=== PATIENT | female | born 1930 | race African-American/Black ===

== ENCOUNTER 2016-05-04 15:13 | Emergency (ER) | payer MEDICARE ==
[~2016-05-04] VITALS: Wt 77.5 kg
[2016-05-04] MEDS ORDERED: traMADol 50 MG TAB PO ONE (16:00)
--- NOTE | 2016-05-04 16:55 | ERD ---
ER Documentation Chief Complaint Date/Time DATE: 05/04/16 TIME: 16:50 Chief Complaint BILAT FEET BURNING SENSTATION [id number] REFFERED BY PMD HPI 85-year-old female complaining of left foot pain 1 month. Patient stated the pain is on the toes of her left foot, feels like burning. Pain is really severe , she is unable to sleep due to pain. Patient's PCP is Dr. Toribio. Patient states that she was given [facility] and referral to a road consultant. Her appointment with road consultant is on 05/12/2016. However, she is unable to bear the pain because [facility] has not worked. Denies falls. Denies any other injury or trauma. Denies history of diabetes. Denies fever or chills. ROS All systems reviewed and are negative except as per history of present illness. PMhx/Soc History of hypertension. Physical Exam Vitals Vital Signs Date Time Temp Pulse Resp B/P Pulse Ox O2 Delivery O2 Flow Rate FiO2 05/04/16 15:23 98.1 54 18 151/70 98 Physical Exam General impression: Well-developed, well-nourished, 85-year-old female, alert, oriented, in no acute distress. Patient is hard of hearing. Head: Normocephalic, atraumatic. Respiration: Normal respiratory effort. Lungs clear to auscultate bilaterally. No wheezes, rales or rhonchi. Cardiovascular: Regular rate and rhythm. No murmurs or extra heart sounds. Abdomen: Abdomen normal to inspection. Nontender. No masses or organomegaly. Bowel sounds normal. Back: Normal to inspection. No midline spine tenderness. No CVA tenderness. Extremities: Toes of the left foot cyanotic, tender to light palpation. Unable to palpate dorsalis pedis or posterior tibial arteries on the left foot. Normal sensation of the left foot. Normal range of motion of the left ankle, patient is unable to move her left toes due to pain. Right foot dorsalis pedis and posterior tibial arteries palpable with 1+ weak pulse. Neuro: Mental status normal, speech normal. Skin: Normal turgor. Psych: Normal mood and affect. Results 24 hrs Current Medications Medications (Trade) Dose Ordered Sig/Jacky Route PRN Reason Start Time Stop Time Status Last Admin Dose Admin Tramadol HCl (Ultram) 50 mg ONCE ONCE PO 05/04/16 16:00 05/04/16 16:03 DC 05/04/16 16:48 Procedures/MDM Tramadol given to the patient in the ED for pain. Patient reports decreased pain after tramadol. Left lower extremity arterial Doppler ultrasound was obtained. Abnormal flow was noted throughout, with left dorsalis pedis artery not visualized indicating possible occlusion. Patient is transferred to ED [address] Pimentel, who indicated that he will be ordering a CT angiogram and consult with vascular surgeon. Patient condition at time of transfer: Stable. SONI ROBERTS NP May 04, 2016 16:55
--- NOTE | 2016-05-04 16:58 | RADRPT ---
PROCEDURE: US left lower extremity arteries. CLINICAL INDICATION: Left leg pain. Claudication that interferes significantly with the patient's lifestyle. TECHNIQUE: Multiple longitudinal and transverse images of the left lower extremity arteries were o btained with jiménez scale and color Doppler imaging. COMPARISON: No prior studies are available for comparison. FINDINGS: Location CFA43 cm/sec PSFA30 cm/sec MSFA56 cm/sec DSFA83 cm/sec POP23 cm/sec PTA33 cm/sec DPAnot visualized There is abnormal dampened monophasic flow throughout the left lower extremity including the common femoral artery. 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 IMPRESSION: 1. 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 2. Flow in the left dorsalis pedis artery is not visualized indicating it may be occluded. RPTAT: QQ .Leobardo Jacobson MD, MD Date Time Electronically viewed and signed by .Leobardo Jacobson MD, on 05/04/2016 16:58 .R/
[2016-05-04] MEDS ORDERED: morphine 4 MG/ML VIAL IV STA (18:22)
[2016-05-04 19:10] LABS: POTASSIUM 4.4 mmol/L (3.5-5.1)
[2016-05-04 19:13] LABS: CREATININE 0.85 mg/dl (0.44-1.00)
[2016-05-04 19:14] LABS: CALCIUM 9.8 mg/dl (8.4-10.2)
[2016-05-04] MEDS ORDERED: IOHEXOL 100 ML ONE (19:38)
[2016-05-04] MEDS ORDERED: SOD CHLORIDE 0.9% 100 ML ONE (19:38)
[2016-05-04] MEDS ORDERED: IOHEXOL 350MG/ML 50 ML BTL ONE (19:43)
[2016-05-04] MEDS ORDERED: SOD CHLORIDE 0.9% 500 ML IV ONE (20:00)
--- NOTE | 2016-05-04 20:36 | EN ---
Date/Time of Note Date/Time of Note DATE: 05/04/16 TIME: 20:32 ER Progress Note This is a 85-year-old female his workup began in fast track. She has severe pain from claudication of her left leg secondary to peripheral vascular disease. She does have a warm foot with cold toes. She does have a dusky appearance to 2 of her toes. She has palpable posterior tibial pulse as well as flow demonstrated on Doppler ultrasound the posterior tibial area. Patient refuses to stay in the hospital. I believe she would benefit from having CT Angio of the leg to map the areas of lesion in the severity of the severity of the vascular disease for her follow-up as a outpatient. She waited for the CT and I obtained renal studies and gave her 500 mL of IV fluid to prevent contrast extravasation. Initially she refused the CAT scan until I called family and have them talk her back into obtaining it. Try to do the best thing for the patient who refuses to be admitted to the hospital. Endorsing the CT read to the oncoming physician. Also going to discharge her with Keflex to prevent any infection of her toes with poor circulation. She has no signs of infection at this time. Discharge diagnosis: 1)Severe peripheral vascular disease 2) left lower extremity claudication ABEBE CORONA DO May 04, 2016 20:36
[2016-05-04] MEDS ORDERED: CEPH-443 PO (20:37)
[2016-05-04] MEDS ORDERED: NAPR275T83 PO (20:40)
[2016-05-04] MEDS ORDERED: HYDR-906 PO ×2 (20:40→22:50)
--- NOTE | 2016-05-04 22:44 | RADRPT ---
PROCEDURE: CT angiogram bilateral lower extremity runoff with contrast CLINICAL INDICATION: Left leg pain. TECHNIQUE:: Contiguous axial images the pelvis and bilateral lower extremities to the feet were obta ined after the injection of 100 cc of Isovue 370. Images reconstructed in coronal, sagittal, 3-D for mat using maximum intensity projection technique. The calculated Dose Length Product (DLP) = 51 mGy- cm. Exam CTDlvol = 1192 mGy COMPARISON: Arterial ultrasound lower extremities 05/04/2016 FINDINGS: CTA pelvis: There is severe diffuse partially calcified atherosclerotic plaque in the distal abdom inal aorta and iliac vessels. There is no aortic aneurysm or dissection. Bilateral common iliac ar teries and external iliac arteries are patent with multifocal stenoses, greatest in the left externa l iliac artery.. Bilateral common femoral arteries are patent.. CTA Bilateral Extremities: There is severe diffuse partially calcified atherosclerotic plaque thro ughout all lower extremity major arteries. However, there is no definite segmental occlusion. Ther e is symmetric opacification of the bilateral common femoral, superficial femoral and popliteal efrain alyssa with multifocal stenoses, greatest in the distal superficial femoral arteries bilaterally.. Th e bilateral trifurcation vessels to the foot including the peroneal and anterior and posterior tibia l arteries are patent. The bilateral dorsalis pedis arteries are also patent. There is no contrast extravasation. There is no aneurysm. Additional findings: Examination of the pelvic contents demonstrates the a 4.1 cm a uterine calcific ation consistent with a fibroid. Multiple smaller uterine calcifications are present. There is a c omplex partially cystic 5.1 ml x 3.6 cm left adnexal, likely ovarian mass with calcifications. Mass abuts the sigmoid colon which has extensive diverticulosis. Urinary bladder is contracted. There i s no bowel obstruction or ileus. There is no free fluid. Degenerative changes of the lumbar spine and bilateral hips are present. IMPRESSION: 1. Extensive diffuse partially calcified atherosclerotic plaque from the level of the distal aorta t o the feet. Multifocal stenoses in all segments although there is no definite complete occlusion an d distal reconstitution. Flow is identified to both feet including the dorsalis pedis arteries of t he left foot. 2. Multiple uterine calcifications compatible fibroids. 3. Left adnexal likely ovarian complex cyst versus cystic mass. 4. Extensive sigmoid colon diverticulosis. 5. Degenerate changes of the lumbar spine. RPTAT: HMVK .James Perez MD, MD Date Time Electronically viewed and signed by .James Perez MD, MD on 05/04/2016 22:43 .K/
--- NOTE | 2016-05-04 22:46 | EN ---
Date/Time of Note Date/Time of Note DATE: 05/04/16 TIME: 22:46 ER Progress Note CTA lower extremity: 1. Extensive diffuse partially calcified atherosclerotic plaque from the level of the distal aorta to the feet. Multifocal stenoses in all segments although there is no definite complete occlusion and distal reconstitution. Flow is identified to both feet including the dorsalis pedis arteries of the left foot. 2. Multiple uterine calcifications compatible fibroids. 3. Left adnexal likely ovarian complex cyst versus cystic mass. 4. Extensive sigmoid colon diverticulosis. 5. Degenerate changes of the lumbar spine. This patient was signed out by her previous physician pending CTA of the lower extremity. I have reviewed the CTA results of the lower extremity and slight to the patient that she does have abnormal flow through her foot. This patient does not want to stay in the hospital. She does state that she has an appointment with her vascular surgeon on 12 May. I advised her that we would be happy to admit her to the hospital today for an earlier evaluation she is refusing. This patient will leave AGAINST MEDICAL ADVICE. I advised her that if her pain were to get worse she is to return immediately to the ER at this abnormal flow could get worse. The patient verbalized understanding understands risks of leaving including the risk of losing a friend and/or possibly . Patient will be discharged home with a prescription for [place] for pain control. MORGAN DE OLIVEIRA DO May 04, 2016 22:46
[2016-05-04] MEDS ORDERED: CEPH500C PO (22:53)
[2016-05-04 23:51] VITALS: BP 145/68; PULSE 61; RESP 18; TEMP 98
== END 2016-05-05 00:09 | disposition left against medical advice (07) ==
LOC: FTE 15:13 → E/R 05-05 00:09
DX: M79.672 Pain in left foot (principal)
CPT/HCPCS: 73706; 80048; 93926; 96374; 99285; J2270; J7040; Q9967

== ENCOUNTER 2016-05-17 14:37 | Inpatient (IN) | payer MEDICARE, OTHER ==
[~2016-05-17] VITALS: Ht 165.1 cm; Wt 78.9 kg
[~2016-05-17 14:37] MED LIST: CEPH-443 PO; CEPH500C PO; HYDR-906 PO; NAPR275T83 PO
[2016-05-17] MEDS ORDERED: ONDANSETRON 4 MG INJ IV STA (20:30)
[2016-05-17] MEDS ORDERED: SOD CHLORIDE 0.9% 500 ML IV STA (20:30)
[2016-05-17] MEDS ORDERED: morphine 4 MG/ML VIAL IV STA (20:30)
[2016-05-17] MEDS ORDERED: PIPER-TAZO 3.375 GM IV (PMX) 100 ML IVPB ONE (20:30)
[2016-05-17] MEDS ORDERED: GABA100C14 PO (20:34)
[2016-05-17] MEDS ORDERED: HYDR-906 PO (20:34)
[2016-05-17] MEDS ORDERED: ATEN100T PO (20:34)
[2016-05-17] MEDS ORDERED: AMLO-147 PO (20:35)
[2016-05-17 21:29] LABS: ADD SCAN DIFF NO
[2016-05-17 21:34] LABS: BASOPHIL # 0.1 10^3/ul (0.0-0.1); BASOPHILS % 0.9 % (0.0-2.0); EOSINOPHILS # 0.3 10^3/ul (0.0-0.5); EOSINOPHILS % 4.4 % (0.0-7.0); HEMATOCRIT 33.7 % (37.0-47.0); HEMOGLOBIN 10.8 g/dl (12.0-16.0); LYMPHOCYTES # 1.8 10^3/ul (0.8-2.9); LYMPHOCYTES % 26.9 % (15.0-51.0); MEAN CORPUSCULAR HEMOGLOBIN 32.2 pg (29.0-33.0); MEAN CORPUSCULAR VOLUME 100.6 fl (82.0-101.0); MEAN PLATELET VOLUME 11.5 fl (7.4-10.4); MONOCYTE # 0.6 10^3/ul (0.3-0.9); MONOCYTES % 8.8 % (0.0-11.0); NEUTROPHILS % 58.6 % (39.0-77.0); PLATELET COUNT 348 10^3/UL (140-415); RED BLOOD COUNT 3.35 10^6/ul (4.20-5.40); RED CELL DISTRIBUTION WIDTH 14.4 % (11.5-14.5); WHITE BLOOD COUNT 6.8 10^3/ul (4.8-10.8)
--- NOTE | 2016-05-17 21:36 | RADRPT ---
PROCEDURE: XR Chest. CLINICAL INDICATION: Shortness of breath TECHNIQUE: A single portable view of the chest was obtained. COMPARISON: None FINDINGS: The cardiomediastinal silhouette is within normal limits. The right hemidiaphragm is elevated. The l ungs and pleural spaces are otherwise clear. The soft tissues and osseous structures are unremarkab le. IMPRESSION: No acute cardiopulmonary disease. Elevated right hemidiaphragm. RPTAT: HPNM Physician Ahsan Date Time Electronically viewed and signed by Physician Ahsan on 05/17/2016 21:36 /
[2016-05-17 21:42] LABS: ALBUMIN 3.6 g/dl (3.3-4.9); CHLORIDE 99 mmol/L (97-110)
[2016-05-17 21:43] LABS: POTASSIUM 4.7 mmol/L (3.5-5.1); SODIUM 141 mmol/L (135-144)
--- NOTE | 2016-05-17 21:44 | RADRPT ---
PROCEDURE: XR Foot. CLINICAL INDICATION: Right foot pain TECHNIQUE: AP, lateral and oblique views of the right foot was obtained. The images were reviewed on a PACS workstation. COMPARISON: None. FINDINGS: The bones of the foot appear intact, with no evidence of fracture, dislocation, or subluxation. The joint spaces are preserved. Bone mineralization is normal. Dorsal soft tissue swelling is seen. The remaining soft tissue structures are intact. IMPRESSION: Dorsal soft tissue swelling. RPTAT: HPNM Physician Ahsan Date Time Electronically viewed and signed by Physician Ahsan on 05/17/2016 21:44 /
[2016-05-17 21:45] LABS: ALANINE AMINOTRANSFERASE 19 IU/L (13-69); ALKALINE PHOSPHATASE 99 IU/L (42-121); ANION GAP 17 (8-16); ASPARTATE AMINO TRANSFERASE 19 IU/L (15-46); BILIRUBIN,INDIRECT 0.4 mg/dl (0-1.1); BILIRUBIN,TOTAL 0.4 mg/dl (0.2-1.3); BLOOD UREA NITROGEN 20 mg/dl (7-20); CARBON DIOXIDE 30 mmol/L (21-31); CREATININE 0.76 mg/dl (0.44-1.00); TOTAL PROTEIN 7.6 g/dl (6.1-8.1)
[2016-05-17 21:46] LABS: CALCIUM 9.4 mg/dl (8.4-10.2); GLUCOSE 124 mg/dl (70-220)
--- NOTE | 2016-05-17 21:52 | ERA ---
ER Documentation Chief Complaint Date/Time DATE: 05/17/16 TIME: 21:44 Chief Complaint Complains of left leg pain sent from MD for evaluation HPI 85-year-old woman referred here by her night filler Dr. Justice for left foot swelling, redness, and bluish discoloration to the fourth and fifth toes. Patient has a history of peripheral vascular disease and has been using cephalexin for about [address] angiogram of the lower extremities and arterial Doppler ultrasound revealed aortoiliac atherosclerotic plaques extending down to the distal arteries of the feet. Patient has had increasing pain, no fevers or chills, no vomiting or diarrhea, no complaints of chest pain or shortness of breath. ROS All systems reviewed and are negative except as per history of present illness. Medications Home Meds Active Scripts Cephalexin* (Cephalexin*) 500 Mg Capsule, 500 MG PO Q8, #21 CAP Prov:MORGAN DE OLIVEIRA DO 05/04/16 Reported Medications Amlodipine Besylate* (Amlodipine Besylate*) 10 Mg Tablet, 10 MG PO DAILY, #30 TAB 05/17/16 Atenolol* (Atenolol*) 100 Mg Tablet, 100 MG PO DAILY, #30 TAB 05/17/16 Hydrocodone/Acetaminophen ([place] 5-325 Tablet) 1 Each Tablet, 1 EACH PO Q12, TAB 05/17/16 Gabapentin* (Gabapentin*) 100 Mg Capsule, 100 MG PO QHS, #90 CAP 05/17/16 Discontinued Scripts Hydrocodone/Acetaminophen ([place] 5-325 Tablet) 1 Each Tablet, 1 TAB PO Q6H Y for PAIN, #15 TAB Prov:MORGAN DE OLIVEIRA DO 05/04/16 Naproxen Sodium* (Naproxen*) 275 Mg Tablet, 275 MG PO BID for PAIN, #20 TAB Prov:ABEBE CORONA DO 05/04/16 Hydrocodone/Acetaminophen ([place] 5-325 Tablet) 1 Each Tablet, 1 EACH PO Q6, #14 TAB Prov:ABEBE CORONA DO 05/04/16 Cephalexin* (Keflex*) 500 Mg Capsule, 500 MG PO QID for 10 Days, CAP Prov:GREENABEBE DO 05/04/16 Allergies Allergies: Coded Allergies: No Known Allergy (Unverified , 05/17/16) PMhx/Soc Peripheral vascular disease, hypertension History of Surgery: No Anesthesia Reaction: No Hx Neurological Disorder: No Hx Respiratory Disorders: No Hx Cardiac Disorders: Yes (htn) Hx Psychiatric Problems: No Hx Miscellaneous Medical Probl: No Hx Alcohol Use: No Hx Substance Use: No Hx Tobacco Use: No Smoking Status: Never smoker FmHx Family History: coronary disease Physical Exam Vitals Vital Signs Date Time Temp Pulse Resp B/P Pulse Ox O2 Delivery O2 Flow Rate FiO2 05/17/16 15:00 97.5 63 20 174/78 97 Physical Exam GENERAL: Well-developed, well-nourished, well-hydrated, in no apparent distress , looks nontoxic in appearance HEENT: Moist mucous membranes, pink conjunctiva, no cervical spine tenderness or step-off deformities, no goiter, no jaundice or icterus, extraocular movements intact without pain. No submandibular induration, and no pharyngeal erythema NEURO: Alert and oriented 3, cranial nerves II through XII intact bilaterally, pupils equal round reactive to light, no focal deficits or facial asymmetry, sensation intact distally Strength 5/5 in upper and lower extremities bilaterally CARDIAC: Regular rate and rhythm, no murmurs rubs or gallops LUNGS: Clear bilaterally no wheezing crackles or stridor ABDOMEN: Soft nontender, no guarding, no rigidity, no rebound, no psoas sign no obturator sign. Normoactive bowel sounds SKIN: Warm and dry to touch, no abrasions, contusions, or hematomas, no lacerations, no ecchymosis, no target lesions, and without ulcers EXTREMITIES: There is soft tissue edema and erythema to the dorsal aspect of the left lateral foot with gangrenous changes to the padding of the fourth and fifth toes and early ulcer formation concerning for gangrene. Distal pulses equal bilateral but weak. PSYCH: Normal affect without agitation or irritability Result Diagram: 05/17/16 2100 05/17/16 2100 Results 24 hrs Laboratory Tests Test 05/17/16 21:00 Alanine Aminotransferase (ALT/SGPT) 19IU/L Albumin 3.6g/dl Albumin/Globulin Ratio 0.90 Alkaline Phosphatase 99IU/L Anion Gap 17 Aspartate Amino Transf (AST/SGOT) 19IU/L Basophils # 0.110^3/ul Basophils % 0.9% Blood Urea Nitrogen 20mg/dl Calcium Level 9.4mg/dl Carbon Dioxide Level 30mmol/L Chloride Level 99mmol/L Creatinine 0.76mg/dl Direct Bilirubin 0.00mg/dl Eosinophils # 0.310^3/ul Eosinophils % 4.4% Globulin 4.00g/dl Glucose Level 124mg/dl Hematocrit 33.7% Hemoglobin 10.8g/dl Indirect Bilirubin 0.4mg/dl Lipase 52U/L Lymphocytes # 1.810^3/ul Lymphocytes % 26.9% Mean Corpuscular Hemoglobin 32.2pg Mean Corpuscular Hemoglobin Concent 32.0g/dl Mean Corpuscular Volume 100.6fl Mean Platelet Volume 11.5fl Monocytes # 0.610^3/ul Monocytes % 8.8% Neutrophils # 4.010^3/ul Neutrophils % 58.6% Nucleated Red Blood Cells # 0.010^3/ul Nucleated Red Blood Cells % 0.0/100WBC Platelet Count 92475^3/UL Potassium Level 4.7mmol/L Red Blood Count 3.3510^6/ul Red Cell Distribution Width 14.4% Sodium Level 141mmol/L Total Bilirubin 0.4mg/dl Total Protein 7.6g/dl Troponin I Pending White Blood Count 6.810^3/ul Current Medications Medications (Trade) Dose Ordered Sig/Jacky Route PRN Reason Start Time Stop Time Status Last Admin Dose Admin Sodium Chloride (NS) 500 ml @ 500 mls/hr Q1H STAT IV 05/17/16 20:30 05/17/16 21:29 DC 05/17/16 21:47 Morphine Sulfate (morphine) 4 mg ONCE STAT IV 05/17/16 20:30 05/17/16 20:38 DC 05/17/16 21:47 Ondansetron HCl 4 mg 4 mg ONCE STAT IV 05/17/16 20:30 05/17/16 20:38 DC 05/17/16 21:47 Piperacillin Sod/ Tazobactam Sod (Zosyn 3.375gm/ 100 ml (Pmx)) 100 ml @ 200 mls/hr ONCE ONCE IVPB 05/17/16 20:30 05/17/16 20:59 DC 05/17/16 21:47 Procedures/MDM IV line was established patient was placed on alarm security or surveillance monitor rhythm strip revealed a sinus rhythm at about 70 bpm with upright P and T waves. Patient was afebrile. Blood culture was obtained. EKG performed, read by me revealed a normal sinus rhythm at 71 bpm, normal axis , right bundle branch block with a QRS duration of 120 ms, no concerning ST elevations or depressions noted. One AP view of the chest performed, read by me reveals no acute infiltrates, normal mediastinum, sharp costophrenic and cardiac borders, no air under the diaphragm. Otherwise unremarkable chest x-ray. X-ray left foot 3V Interpreted by me: Bones: No fracture Joints: No dislocation Foreign body: None I administered 500 cc normal saline intravenously, morphine 4 mg IV, Zofran 4 mg IV, and Zosyn 3.375 g IV. CBC and electrolytes were normal, liver function tests were normal, troponin was negative. Patient will be admitted to her PMD to [facility] for continued IV antibiotics and podiatry versus surgical consultation Departure Diagnosis: Primary Impression: Cellulitis of foot Additional Impressions: Gangrene of foot Peripheral arterial occlusive disease Condition: DOMINIC Mendenhall MD May 17, 2016 21:52
[2016-05-17 21:59] LABS: TROPONIN-I < 0.012 ng/ml (0.00-0.12)
[2016-05-17] MEDS ORDERED: NACL 0.9% 3 ML SYG IV SCH (22:30)
[2016-05-17] MEDS ORDERED: ONDANSETRON 4 MG INJ IV PRN (22:30)
[2016-05-17 22:44] LABS: PROTIME 13.2 Sec (12.2-14.2)
[2016-05-18 00:22] VITALS: Ht 165.1 cm; Wt 78.9 kg
[2016-05-18 00:37] VITALS: BP 170/75; PULSE 71; RESP 20
[2016-05-18] MEDS: PIPER-TAZO 3.375 GM IV (PMX) 100 ML IVPB SCH ×3 (01:03→14:57)
[2016-05-18] MEDS: morphine 2 MG INJ IV PRN ×3 (02:08→20:17)
[2016-05-18 06:17] LABS: ADD SCAN DIFF NO; BASOPHILS % 0.7 % (0.0-2.0); EOSINOPHILS # 0.3 10^3/ul (0.0-0.5); HEMATOCRIT 31.4 % (37.0-47.0); HEMOGLOBIN 9.8 g/dl (12.0-16.0); LYMPHOCYTES # 1.7 10^3/ul (0.8-2.9); MEAN CORPUSCULAR HGB CONC 31.2 g/dl (32.0-37.0); MEAN CORPUSCULAR VOLUME 102.6 fl (82.0-101.0); MEAN PLATELET VOLUME 11.2 fl (7.4-10.4); MONOCYTE # 0.6 10^3/ul (0.3-0.9); MONOCYTES % 10.3 % (0.0-11.0); NEUTROPHIL # 2.8 10^3/ul (1.6-7.5); NEUTROPHILS % 51.6 % (39.0-77.0); PLATELET COUNT 273 10^3/UL (140-415); RED BLOOD COUNT 3.06 10^6/ul (4.20-5.40); RED CELL DISTRIBUTION WIDTH 14.4 % (11.5-14.5); WHITE BLOOD COUNT 5.5 10^3/ul (4.8-10.8)
[2016-05-18 06:30] LABS: ALBUMIN 3.1 g/dl (3.3-4.9)
[2016-05-18 06:31] LABS: POTASSIUM 4.9 mmol/L (3.5-5.1)
[2016-05-18 06:33] LABS: ALBUMIN/GLOBULIN RATIO 0.88; BILIRUBIN,INDIRECT 0.5 mg/dl (0-1.1); BILIRUBIN,TOTAL 0.5 mg/dl (0.2-1.3); CREATININE 0.76 mg/dl (0.44-1.00); TOTAL PROTEIN 6.6 g/dl (6.1-8.1)
[2016-05-18 06:34] LABS: CALCIUM 9.1 mg/dl (8.4-10.2)
[2016-05-18 08:00] VITALS: BP 142/65; RESP 18
[2016-05-18] MEDS: FAMOTIDINE 20 MG INJ IV SCH (08:19)
[2016-05-18] MEDS: AMLODIPINE 10 MG TAB PO SCH (08:20)
[2016-05-18] MEDS: ENOXAPARIN 30 MG/0.3 ML SYG SC SCH (08:24)
[2016-05-18] MEDS ORDERED: VANCOMYCIN IV PER PHARMACY XX SCH (10:00)
[2016-05-18] MEDS: ATENOLOL 100 MG TAB PO SCH (10:02)
[2016-05-18 10:04] VITALS: BP 156/72; PULSE 76
--- NOTE | 2016-05-18 10:39 | HP ---
DATE OF ADMISSION: 05/17/2016 CHIEF COMPLAINT: The patient complained of left foot swelling and pain. HISTORY OF PRESENT ILLNESS: The patient is an 85-year-old female with past medical history positive for hypertension, peripheral vascular disease. The patient was sent by ____ for left foot swell ing, redness, and necrosis of 4th and 5th left toe. The patient was taking cephalexin for about 2 w eeks with no improvement in symptoms. The patient had a CT angiogram of the left lower extremity an d arterial Doppler ultrasound which revealed aortoiliac atherosclerotic plaques extending down to th e distal arteries of the foot. The patient also complains of increasing pain. Patient denies any fe wang, chills. Denies nausea, vomiting. Denies chest pain, denies shortness of breath, denies diarrh ea. PAST MEDICAL HISTORY: Per HPI. PAST SURGICAL HISTORY: Patient is status post cataract surgery. FAMILY HISTORY: Noncontributory. SOCIAL HISTORY: Patient lives at home by herself. 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 The patient smokes about a couple of cigarettes per day. The patient smoked for many years. Patient u ses alcohol occasionally. Denies any drug use. ALLERGIES: NO KNOWN ALLERGIES. HOME MEDICATIONS: 1. Cephalexin 500 mg p.o. q.8h. 2. Norvasc. 3. Atenolol. 4. [place]. 5. Gabapentin. REVIEW OF SYSTEMS: A 12-point review of systems is negative unless what mentioned in the HPI. PHYSICAL ASSESSMENT: GENERAL: Well-developed, well-nourished female currently is awake, alert. VITAL SIGNS: Temperature is 98.7, pulse 71, blood pressure 142/65, respiratory rate 18, oxygen satu ration is 94% on 2 liters. HEENT: Head is atraumatic, normocephalic. Pupils equal, round, reactive to light and accommodation . Oral mucosa is pink and moist. NECK: Supple, no cervical lymphadenopathy, no thyromegaly. CHEST: Lungs clear bilaterally. There are no rhonchi, wheezes, rales noted. CARDIOVASCULAR: Normal S1, S2. No murmurs, clicks, rubs noted. ABDOMEN: Round, soft, nondistended, nontender. Bowel sounds present. There is no guarding or rebo und tenderness. EXTREMITIES: The patient has left foot edema, erythema, and tenderness with gangrenous fourth toe o n the left foot and discoloration of the surrounding area. Pulses are weak but present. Right extr emity: There is no edema, clubbing, cyanosis. Pulses equal 2+. SKIN: There is no rash, petechiae noted. NEUROLOGIC: Patient is awake, alert and oriented x4. No focal deficits noted. Motor strength 5/5 in all extremities. LABORATORY DATA: On admission, CBC: White blood cells 6.8, hemoglobin 10.8, hematocrit 33.7, plate lets 348. Chemistry: Sodium is 141, potassium 4.7, chloride 99, carbon dioxide 30, anion gap 17, B UN is 20, creatinine 0.76, glucose 124, AST is 19, ALT is 19, alkaline phosphatase 99. Troponin les s than 0.012. PT 13.2, INR is 1.0. ASSESSMENT AND PLAN: 1. Left foot cellulitis with gangrene. I am going to start patient on broad spectrum antibiotics. Dr. Parr will be following the patient from infectious disease standpoint. Dr. Guerrero will be fo llowing from podiatry consultation. 2. Peripheral arterial occlusive disease. We will ask Dr. Shepherd [facility]. 3. Hypertension by history. Continue patient Norvasc and atenolol, hydralazine p.r.n. for systolic blood pressure above 170. Continue Lovenox for deep venous thrombosis prophylaxis and Pepcid for p eptic ulcer disease prophylaxis. Further recommendations based on clinical course. Plan of care di scussed with Dr. Orr. Dictated By: JANIS BAKER MEDICAL CARE ADMINISTRATOR for MELISSA ORR MD SR/NTS Conf#: [id number] DID#: [id number]
[2016-05-18] MEDS ORDERED: VANCOMYCIN 1.5 GM in SOD CHLORIDE 0.9% 250 ML IVPB ONE (11:00)
[2016-05-18 12:00] VITALS: BP 138/65; PULSE 85
--- NOTE | 2016-05-18 17:58 | CONS ---
DATE OF ADMISSION: 05/17/2016 DATE OF CONSULTATION: 05/18/2016 VASCULAR SURGERY CONSULTATION Dear Doctors: Ms. Aponte is an 85-year-old female, noncompliant with her medical status it seems in which she has h ad left lower extremity pain and disabling claudication for some time now. The patient had noticed that she was beginning to have worsening left foot pain with swelling and redness that occurred over the past few weeks, but really got bad over the past few days. She developed discoloration of her toes and she no longer was able to tolerate the pain; therefore, she came to the hospital. She pres ented to [facility] with worsening left foot pain and swelling with cellulitis. T stephania patient seems at the end April had come to the emergency department secondary to having left fo ot pain over the past month that was consistent with rest pain. At that time, it seems that the pat ient did not want to be admitted to the hospital and had chosen to take pain meds in regards to her left foot pain. Over the past week and a half, it seems that the patient began to develop discolora tion of her first, third, fourth and fifth toes specifically and now has significant redness and srinivasa ma. At the moment, the patient denies shortness of breath, chest pain, nausea, vomiting, fever or chills. 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 She has had a history of disabling claudication of the bilateral lower extremities. T he patient is an active smoker, smoking for many years and has tried to cut down to about a pack a w teller. The patient did not want to answer all questions at the moment. She seems a little bit tired and agitated at the moment. REVIEW OF SYSTEMS: A 12-point review performed and negative except what was mentioned in the HPI. PAST MEDICAL HISTORY: Entails: 1. Hypertension. 2. Bilateral lower extremity atherosclerotic disease. 3. Aortoiliac disease. 4. Hyperlipidemia. 5. Morbidly obese, BMI of 28.9. PAST SURGICAL HISTORY: She has had cataract surgery. FAMILY HISTORY: Positive for coronary artery disease and hypertension. SOCIAL HISTORY: Longtime smoker, walks at home, denies IV drug abuse and alcohol. ALLERGIES: NONE REPORTED. PHYSICAL EXAMINATION: GENERAL: Alert and oriented x3, and has left foot pain. HEENT: Normocephalic, atraumatic. PERRLA, EOMI. Mucosa moist. She has a forehead bump that she d id not allow us to examine. NECK: Supple. No carotid bruit. PULMONARY: Clear to auscultation bilaterally. No crackles. CARDIOVASCULAR: S1, S2 present. No murmurs. ABDOMEN: Soft, nontender, nondistended. Bowel sounds positive. Truncal obesity. EXTREMITIES: Right lower extremity palpable femoral pulse, nonpalpable pedal pulse. Motor, sensory intact. Capillary refill 3 seconds. 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 Left lower extremity palpable femoral pulse, nonpalpable pedal pulse secondary to edema of 2+. Gio r and sensory intact. Tenderness upon palpation of the forefoot area with swelling and significant erythema. There is a bluish-purple discoloration and gangrene of all the toes, specifically gangren e of the first, partial the third, fourth and fifth toes. ASSESSMENT AND PLAN: Bilateral lower extremity atherosclerosis with left lower extremity gangrene and rest pain: It seems that the patient has developed what seems to be significant left lower extr emity rest pain and infection. At the moment, would recommend for the patient to continue with anti biotics and to obtain a new vascular ultrasound in order to delineate her infrainguinal disease and when compared to her right side. She did have a CT angiography that identified patient having aorto iliac calcification and significant superficial femoral and popliteal artery disease. Would recomme nd for the patient, if her renal function is tolerable, to undergo a dedicated angiogram to better d elineate her infrainguinal disease and intervene for possible angioplasty or stenting if needed in o rder to improve her perfusion to her lower extremities. I would recommend for podiatry to be involved in regards to her needing limb salvage. Optimize vascular status (BP meds, diet, nutrition, exercise, sugar control, antiplatelets). Discussed findings, plan and management with the patient, she understands, although she was a bit ti red and did not seem to want to answer many questions. Thank you for allowing us to partake in the care of your patient. Please call with any questions. Dictated By: AMY BARRERA/ADEN Conf#: [id number] [facility]#: [id number]
[2016-05-18 19:49] VITALS: BP 163/75; RESP 20
[2016-05-18] MEDS ORDERED: PIPER-TAZO 3.375 GM IV (PMX) 100 ML IVPB SCH (20:00)
[2016-05-18 20:15] VITALS: BP 155/71; PULSE 70; RESP 19
[2016-05-18] MEDS: GABAPENTIN 100 MG CAP PO SCH (20:17)
--- NOTE | 2016-05-18 23:11 | CONS ---
Date/Time of Note Date/Time of Note DATE: 05/18/16 TIME: 23:11 Assessment/Plan Assessment/Plan Problems: (1) Ischemic pain of left foot (2) Peripheral arterial occlusive disease Status: Acute (3) Gangrene of foot Status: Acute Additional Assessment/Plan Patient is experiencing ischemic pain and ischemic necrosis of her left forefoot involving her lesser toes at this time. Her bulla on the left foot is also ischemic in nature. Patient will require lower extremity arterial optimization prior to any type of foot surgery. Surgical intervention on her foot at this time will not relieve her pain and without adequate blood supply, her condition will accelerate and get worse. She is at very high risk for limb loss. Patient will be monitored closely inhouse. Thank you again for involving me in the care of this patient. If you have any questions regarding this case, please feel free to contact me at pager: or reach me at mobile: [phone]. Consultation Date/Type/Reason Admit Date/Time May 17, 2016 at 22:19 Date of Consultation: May 18, 2016 Type of Consultation: Foot and ankle surgery Reason for Consultation Evaluation of significant amount of pain and swelling in the right forefoot area. Hx of Present Illness Thank you very much for involving me in the care of this patient. As you very well know this is an 85-year-old female patient with multiple medical problems including hypertension, peripheral artery disease, diabetes mellitus who was admitted to the hospital for left forefoot ischemic changes and pain. Patient says that her pain progressively has gotten worse and she cannot stand it any longer. I was consulted to evaluate patient's foot. As per HPI. Past Medical History As per history of present illness. Past Surgical History As per history of present illness. Social History As per history of present illness. Smoking Status: Never smoker Exam/Review of Systems Vital Signs Vitals Vital Signs Date Time Temp Pulse Resp B/P Pulse Ox O2 Delivery O2 Flow Rate FiO2 05/18/16 20:15 70 19 155/71 95 Nasal Cannula 2.0 05/18/16 19:49 98.5 Intake and Output 05/17/16 05/17/16 05/18/16 15:00 23:00 07:00 Intake Total 220 ml Balance 220 ml Exam Patient was seen at beside. Non palpable pedal pulses noted. Ischemic changes noted on distal right foot involving the toes with large intact clear fluid blister. There is tenderness to palpation of the left forefoot. Decreased sensation noted on exam. Results Result Diagram: 05/18/1632 05/18/16 0532 Results 24 hrs Laboratory Tests Test 05/18/16 05:32 Alanine Aminotransferase (ALT/SGPT) 18 Albumin 3.1 L Albumin/Globulin Ratio 0.88 Alkaline Phosphatase 86 Anion Gap 14 Aspartate Amino Transf (AST/SGOT) 15 Basophils # 0.0 Basophils % 0.7 Blood Urea Nitrogen 16 Calcium Level 9.1 Carbon Dioxide Level 30 Chloride Level 103 Creatinine 0.76 Direct Bilirubin 0.00 Eosinophils # 0.3 Eosinophils % 6.0 Globulin 3.50 H Glucose Level 111 Hematocrit 31.4 L Hemoglobin 9.8 L Indirect Bilirubin 0.5 Lymphocytes # 1.7 Lymphocytes % 31.0 Mean Corpuscular Hemoglobin 32.0 Mean Corpuscular Hemoglobin Concent 31.2 L Mean Corpuscular Volume 102.6 H Mean Platelet Volume 11.2 H Monocytes # 0.6 Monocytes % 10.3 Neutrophils # 2.8 Neutrophils % 51.6 Nucleated Red Blood Cells # 0.0 Nucleated Red Blood Cells % 0.0 Platelet Count 273 # Potassium Level 4.9 Red Blood Count 3.06 L Red Cell Distribution Width 14.4 Sodium Level 142 Total Bilirubin 0.5 Total Protein 6.6 # White Blood Count 5.5 Medications Medications Current Medications Ondansetron HCl (Zofran Inj) 4 mg Q6H PRN IV NAUSEA AND/OR VOMITING; Start 05/17 at 22:30 Acetaminophen (Tylenol Tab) 650 mg Q6H PRN PO PAIN LEVEL 1-3 OR FEVER; Start at 22:30 Morphine Sulfate (morphine) 2 mg Q4H PRN IV SEVERE PAIN LEVEL 7-10 Last administered on 05/18/16 20:17; Admin Dose 2 MG; Start 05/17/16 at 22:30 Famotidine (Pepcid Iv) 20 mg Q24H IV Last administered on 05/18/16 08:19; Admin Dose 20 MG; Start 05/18/16 at 09:00 Enoxaparin Sodium (Lovenox) 30 mg DAILY SC Last administered on 05/18/16 08:24 ; Admin Dose 30 MG; Start 05/18/16 at 09:00 Amlodipine Besylate (Norvasc) 10 mg DAILY PO Last administered on 05/18/16 08: 20; Admin Dose 10 MG; Start 05/18/16 at 09:00 Atenolol (Tenormin) 100 mg DAILY PO Last administered on 05/18/16 10:02; Admin Dose 100 MG; Start 05/18/16 at 09:00 Gabapentin 100 mg 100 mg QHS PO Last administered on 05/18/16 20:17; Admin Dose 100 MG; Start 05/18/16 at 21:00 Vancomycin HCl 250 ml @ 125 mls/hr Q24H IVPB ; Start 05/19/16 at 11:00 Ceftriaxone Sodium (Rocephin) 50 ml @ 100 mls/hr Q24H IVPB ; Start 05/18/16 at 23:00; Stop 05/28/16 at 12:00 RONNELL CORONEL DPM May 18, 2016 23:11
[2016-05-18] MEDS: CEFTRIAXONE 1 GM/50 ML (PMX) 50 ML IVPB SCH (23:29)
[2016-05-19 06:06] LABS: ADD SCAN DIFF NO; BASOPHILS % 0.6 % (0.0-2.0); EOSINOPHILS # 0.2 10^3/ul (0.0-0.5); EOSINOPHILS % 2.2 % (0.0-7.0); HEMATOCRIT 30.9 % (37.0-47.0); HEMOGLOBIN 9.9 g/dl (12.0-16.0); LYMPHOCYTES # 1.2 10^3/ul (0.8-2.9); LYMPHOCYTES % 18.1 % (15.0-51.0); MEAN CORPUSCULAR HEMOGLOBIN 32.6 pg (29.0-33.0); MEAN CORPUSCULAR VOLUME 101.6 fl (82.0-101.0); MEAN PLATELET VOLUME 10.9 fl (7.4-10.4); MONOCYTE # 0.7 10^3/ul (0.3-0.9); MONOCYTES % 10.2 % (0.0-11.0); NEUTROPHIL # 4.6 10^3/ul (1.6-7.5); NEUTROPHILS % 68.6 % (39.0-77.0); PLATELET COUNT 281 10^3/UL (140-415); RED BLOOD COUNT 3.04 10^6/ul (4.20-5.40); RED CELL DISTRIBUTION WIDTH 14.5 % (11.5-14.5); WHITE BLOOD COUNT 6.7 10^3/ul (4.8-10.8)
[2016-05-19 06:16] LABS: POTASSIUM 4.3 mmol/L (3.5-5.1)
[2016-05-19 06:19] LABS: CREATININE 1.26 mg/dl (0.44-1.00)
[2016-05-19 07:57] VITALS: BP 175/77; RESP 20
--- NOTE | 2016-05-19 08:28 | PN ---
Date/Time of Note Date/Time of Note DATE: 05/19/16 TIME: 08:25 Assessment/Plan Lines/Catheters IV [facility] (from [facility]): Peripheral IV Assessment/Plan Chief Complaint/Hosp Course -Bilateral lower extremity atherosclerosis with left lower extremity gangrene and rest pain: It seems that the patient has developed what seems to be significant left lower extremity rest pain and infection. At the moment, would recommend for the patient to continue with antibiotics and to obtain a new vascular ultrasound in order to delineate her infrainguinal disease and when compared to her right side. She did have a CT angiography that identified patient having aortoiliac calcification and significant superficial femoral and popliteal artery disease. Would recommend for the patient, if her renal function is tolerable, to undergo a dedicated angiogram to better delineate her infrainguinal disease and intervene for possible angioplasty or stenting if needed in order to improve her perfusion to her lower extremities. 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 -Optimize vascular status (BP meds, diet, nutrition, exercise, sugar control, antiplatelets). -Discussed findings, plan and management with the patient, she understands, although she was a bit tired and did not seem to want to answer many questions. -Thank you for allowing us to partake in the care of your patient. Please call with any questions. Problems: Subjective 24 Hr Interval Summary patient mentioned her left foot pain slightly improved Exam/Review of Systems Vital Signs Vitals Vital Signs Date Time Temp Pulse Resp B/P Pulse Ox O2 Delivery O2 Flow Rate FiO2 05/19/16 07:57 99.1 70 20 175/77 93 05/18/16 20:15 Nasal Cannula 2.0 Intake and Output 05/18/16 05/18/16 05/19/16 15:00 23:00 07:00 Intake Total 100 ml 450 ml 170 ml Output Total 600 ml Balance 100 ml 450 ml -430 ml Exam Free Text/Dictation GENERAL: Alert and oriented x3, PULMONARY: Clear to auscultation bilaterally CARDIOVASCULAR: S1, S2 present ABDOMEN: Soft, nontender, nondistended. Bowel sounds positive. Truncal obesity. EXTREMITIES: Right lower extremity palpable femoral pulse, nonpalpable pedal pulse. Motor, sensory intact. Capillary refill 3 seconds. 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 Left lower extremity palpable femoral pulse, nonpalpable pedal pulse secondary to edema of 2+. Motor and sensory intact. Tenderness upon palpation of the forefoot area with swelling and significant erythema. There is a bluish-purple discoloration and gangrene of all the toes, specifically gangrene of the first, partial the third, fourth and fifth toes. Results Result Diagram: 05/19/16 0511 05/19/16 0511 AMY VALDES MD May 19, 2016 08:28
[2016-05-19] MEDS: ATENOLOL 100 MG TAB PO SCH (08:47)
[2016-05-19] MEDS: AMLODIPINE 10 MG TAB PO SCH (08:48)
[2016-05-19] MEDS: FAMOTIDINE 20 MG INJ IV SCH (08:49)
[2016-05-19] MEDS: ENOXAPARIN 30 MG/0.3 ML SYG SC SCH (08:50)
--- NOTE | 2016-05-19 09:22 | CONS ---
DATE OF ADMISSION: 05/17/2016 DATE OF CONSULTATION: TYPE OF CONSULTATION: Infectious disease consultation I am doing this consultation for Dr. Amauri Parr. REQUESTING PHYSICIAN: Dr. Wendy Barrera. HISTORY OF PRESENT ILLNESS: The patient is an 85-year-old female who is admitted h [facility] on 05/17/2016 with a chief complaint of left foot swelling, redness and bluish discoloration and pain. The patient has a history of claudication and she has a history of smoking. Prior to arrival , she was thought to have cellulitis and placed on cephalexin 500 mg 4 times a day for a week withou t effect. She began having increased pain, particularly in her dorsal lateral right side of her rig ht foot. PAST MEDICAL HISTORY: Patient has history of claudication, hypertension and coronary artery disease . ALLERGIES: SHE HAS NO KNOWN ALLERGIES. MEDICATIONS: 1. Gabapentin 100 mg at bedtime. 2. Famotidine 20 mg every 24 hours. 3. Lovenox 30 mg daily. 4. Amlodipine 10 mg daily. 5. Atenolol 100 mg daily. 6. Vancomycin. 7. Zosyn. PHYSICAL EXAMINATION GENERAL: Reveals an alert, overweight, elderly female lying in bed with her feet propped up on pill ows. Her right foot is extremely tender and it hurts to have the weight of blankets on her foot. HEENT: The pupils are equal, round and react to light. There is no scleral icterus. Mouth has bennett st mucous membranes. NECK: There is no jugular venous distention. CHEST: Clear to auscultation. ABDOMEN: Soft, obese. No palpable organs or masses. EXTREMITIES: Reveal diffuse swelling of the right foot, particularly in the fourth and fifth ray wi th dark discoloration ranging from dark red to a purplish and faintly black, particularly on the angela ntar surface. There is dry gangrene of the distal phalanx of the 4th toe. INITIAL IMPRESSION: 1. Cellulitis of right foot, 4th and 5th fifth. 2. Gangrene 4th toe right. 3. Aortoiliac arteriosclerosis. 4. Claudication. 5. History of tobacco use. 6. Coronary artery disease 7. Hypertension. RECOMMENDATIONS: Recommend change the Zosyn to ceftriaxone. Continue the vancomycin pending cultur es. I will order MRSA screen and recommend a vascular surgery evaluation as this problem is basical ly one of blood supply. Thank you for referring this patient to Dr. Regan Parr. Dictated By: Oscar WU/ADEN Conf#: [id number] DID#: [id number]
--- NOTE | 2016-05-19 10:34 | CONS ---
Date/Time of Note Date/Time of Note DATE: 05/19/16 TIME: 10:33 Assessment/Plan Assessment/Plan Chief Complaint/Hosp Course ID PROGRESS NOTE TOTAL ABX DAY # Vanco IV + Ceftriaxone 24H INTERVAL SUMMARY * Resting comfortably, no fevers, chart reviewed PHYSICAL EXAMINATION: GENERAL: VSS, NAD HEENT: Unremarkable NECK: Trach midline CHEST: Rise symmetrical - without dyspnea on observation HEART: RRR ABDOMEN: Soft, EXTREMITIES: Warm, ID ASSESSMENT: 85 yo F w/PMHx 1. Cellulitis of right foot, 4th and 5th fifth. 2. Gangrene 4th toe right. 3. Aortoiliac arteriosclerosis. 4. Claudication. 5. History of tobacco use. 6. Coronary artery disease 7. Hypertension. ( ?)MRSA Nares == Will order INVASIVES: *PIV ABX ALLERGIES: KNDA CURRENT ABX: Vanco IV + Ceftriaxone ID RECOMMENDATIONS: Continue ABX, vascular recs . Problems: Consultation Date/Type/Reason Admit Date/Time May 17, 2016 at 22:19 Initial Consult Date Exam/Review of Systems Vital Signs Vitals Vital Signs Date Time Temp Pulse Resp B/P Pulse Ox O2 Delivery O2 Flow Rate FiO2 05/19/16 07:57 99.1 70 20 175/77 93 05/18/16 20:15 Nasal Cannula 2.0 Intake and Output 05/18/16 05/18/16 05/19/16 15:00 23:00 07:00 Intake Total 100 ml 450 ml 170 ml Output Total 600 ml Balance 100 ml 450 ml -430 ml Results Result Diagram: 05/19/16 0511 05/19/16 0511 Results 24 hrs Laboratory Tests Test 05/19/16 05:11 Anion Gap 16 Basophils # 0.0 Basophils % 0.6 Blood Urea Nitrogen 18 Calcium Level 9.0 Carbon Dioxide Level 26 Chloride Level 104 Creatinine 1.26 H Eosinophils # 0.2 Eosinophils % 2.2 Glucose Level 116 Hematocrit 30.9 L Hemoglobin 9.9 L Lymphocytes # 1.2 Lymphocytes % 18.1 Mean Corpuscular Hemoglobin 32.6 Mean Corpuscular Hemoglobin Concent 32.0 Mean Corpuscular Volume 101.6 H Mean Platelet Volume 10.9 H Monocytes # 0.7 Monocytes % 10.2 Neutrophils # 4.6 Neutrophils % 68.6 Nucleated Red Blood Cells # 0.0 Nucleated Red Blood Cells % 0.0 Platelet Count 281 Potassium Level 4.3 Red Blood Count 3.04 L Red Cell Distribution Width 14.5 Sodium Level 142 White Blood Count 6.7 # Medications Medications Current Medications Ondansetron HCl (Zofran Inj) 4 mg Q6H PRN IV NAUSEA AND/OR VOMITING; Start 05/17 at 22:30 Acetaminophen (Tylenol Tab) 650 mg Q6H PRN PO PAIN LEVEL 1-3 OR FEVER; Start at 22:30 Morphine Sulfate (morphine) 2 mg Q4H PRN IV SEVERE PAIN LEVEL 7-10 Last administered on 05/18/16 20:17; Admin Dose 2 MG; Start 05/17/16 at 22:30 Famotidine (Pepcid Iv) 20 mg Q24H IV Last administered on 05/19/16 08:49; Admin Dose 20 MG; Start 05/18/16 at 09:00 Enoxaparin Sodium (Lovenox) 30 mg DAILY SC Last administered on 05/19/16 08:50 ; Admin Dose 30 MG; Start 05/18/16 at 09:00 Amlodipine Besylate (Norvasc) 10 mg DAILY PO Last administered on 05/19/16 08: 48; Admin Dose 10 MG; Start 05/18/16 at 09:00 Atenolol (Tenormin) 100 mg DAILY PO Last administered on 05/19/16 08:47; Admin Dose 100 MG; Start 05/18/16 at 09:00 Gabapentin 100 mg 100 mg QHS PO Last administered on 05/18/16 20:17; Admin Dose 100 MG; Start 05/18/16 at 21:00 Vancomycin HCl 250 ml @ 125 mls/hr Q24H IVPB ; Start 05/19/16 at 11:00 Ceftriaxone Sodium (Rocephin) 50 ml @ 100 mls/hr Q24H IVPB Last administered on 05/18/16 23:29; Admin Dose 100 MLS/HR; Start 05/18/16 at 23:00; Stop at 12:00 LIZZIE BHAT NP May 19, 2016 10:33
[2016-05-19 11:00] VITALS: BP 153/57; PULSE 75
[2016-05-19] MEDS: VANCOMYCIN 1 GM in NS 250 ML IVPB SCH (12:11)
--- NOTE | 2016-05-19 16:01 | RADRPT ---
PROCEDURE: US Lower extremity arterial. CLINICAL INDICATION: Lower extremity gangrene. Peripheral arterial disease. TECHNIQUE: Multiple sonographic images of the bilateral lower extremity arteries was obtained util izing grayscale, color-flow, and doppler imaging. The images were reviewed on a PACS workstation. COMPARISON: CT angiography dated 05/04/2016. FINDINGS: Velocities and waveforms were obtained as described below. RIGHT LEG: Common femoral artery: 39.6 cm/s; monophasic waveforms Proximal superficial femoral artery: 60.4 cm/s; monophasic waveforms Mid superficial femoral artery: 47.8 cm/s; monophasic waveforms Distal superficial femoral artery: 116.4 cm/s; monophasic waveforms Popliteal artery: 32.2-42.8 cm/s; monophasic waveforms Anterior tibial artery: 30.7 cm/s; monophasic waveforms Posterior tibial artery: 49.3 cm/s; monophasic waveforms Dorsalis pedis artery: 33.1 cm/s; monophasic waveforms LEFT LEG: Common femoral artery: 49.5 cm/s; monophasic waveforms Proximal superficial femoral artery: 90.3 cm/s; monophasic waveforms Mid superficial femoral artery: 50.1 cm/s; monophasic waveforms Distal superficial femoral artery: 69.8 cm/s; monophasic waveforms Popliteal artery: 32.4 cm/s; monophasic waveforms Anterior tibial artery: 39.3 cm/s; monophasic waveforms Posterior tibial artery: 39.3 cm/s; monophasic waveforms Dorsalis pedis artery: 48.6 cm/s; monophasic waveforms There are densely calcified vessels within the lower extremities bilaterally. There is high-grade na rrowing at the junction of the right external iliac artery and common femoral artery. IMPRESSION: 1. Abnormal examination with monophasic waveforms throughout both lower extremities, likely related to a combination of inflow and intrinsic disease 2. Densely calcified lower extremity vessels bilaterally. 3. High-grade narrowing at the junction of the distal right external iliac artery and common femora l artery. RPTAT: EE .Ronald Ann MD, MD Date Time Electronically viewed and signed by .Ronald Ann MD, MD on 05/19/2016 16:01 .P/
--- NOTE | 2016-05-19 16:03 | RADRPT ---
PROCEDURE: US Lower extremity Veins. CLINICAL INDICATION: Lower extremity gangrene. Possible greater saphenous vein conduit. Preopera tive evaluation. TECHNIQUE: Multiple longitudinal and transverse images of the bilateral lower extremity venous jamari e was obtained with jiménez scale and color Doppler imaging. COMPARISON: None available FINDINGS: Right lower extremity: Groin GSV0.37 cm Upper thigh GSV 0.34 cm Mid thigh GSV 0.17 cm Lower thigh GSV 9.17 cm Knee GSV 0.12 cm Upper calf GSV 0.15 cm Mid calf GSV 0.08 cm Ankle GSV0.08 cm Left lower extremity: Groin GSV0.36 cm Upper thigh GSV 0.26 cm Mid thigh GSV 0.19 cm Lower thigh GSV 0.24 cm Knee GSV 0.23 cm Upper calf GSV 0.19 cm Mid calf GSV 0.15 cm Ankle GSV0.26 cm The greater saphenous veins are compressible bilaterally. IMPRESSION: 1. Bilateral lower extremity venous mapping as detailed above. RPTAT: EE .Ronald Ann MD, Date Time Electronically viewed and signed by .Ronald Ann MD, on 05/19/2016 16:02 .P/
[2016-05-19 19:49] VITALS: BP 154/67; RESP 20
[2016-05-19] MEDS: GABAPENTIN 100 MG CAP PO SCH (21:57)
[2016-05-19] MEDS: morphine 2 MG INJ IV PRN (21:59)
[2016-05-19] MEDS: CEFTRIAXONE 1 GM/50 ML (PMX) 50 ML IVPB SCH (22:00)
[2016-05-20 06:14] LABS: BASOPHILS % 0.4 % (0.0-2.0); EOSINOPHILS # 0.1 10^3/ul (0.0-0.5); EOSINOPHILS % 1.3 % (0.0-7.0); HEMATOCRIT 30.3 % (37.0-47.0); LYMPHOCYTES # 1.5 10^3/ul (0.8-2.9); LYMPHOCYTES % 22.4 % (15.0-51.0); MEAN CORPUSCULAR HEMOGLOBIN 32.5 pg (29.0-33.0); MEAN CORPUSCULAR HGB CONC 32.8 g/dl (32.0-37.0); MEAN CORPUSCULAR VOLUME 99.1 fl (82.0-101.0); MEAN PLATELET VOLUME 9.1 fl (7.4-10.4); MONOCYTE # 0.5 10^3/ul (0.3-0.9); MONOCYTES % 6.8 % (0.0-11.0); NEUTROPHIL # 4.7 10^3/ul (1.6-7.5); NEUTROPHILS % 69.1 % (39.0-77.0); PLATELET COUNT 274 10^3/UL (140-440); RED BLOOD COUNT 3.06 10^6/ul (4.20-5.40); RED CELL DISTRIBUTION WIDTH 15.8 % (11.5-14.5); UNCORRECTED WBC 6.8 10^3/ul (4.8-10.8); WHITE BLOOD COUNT 6.8 10^3/ul (4.8-10.8)
[2016-05-20 06:32] LABS: CONDITION 1; LH ANALYZER COMMENTS 1
[2016-05-20 06:36] LABS: POTASSIUM 4.1 mmol/L (3.5-5.1)
[2016-05-20 06:39] LABS: CREATININE 1.13 mg/dl (0.44-1.00)
[2016-05-20 08:04] VITALS: BP 166/77; RESP 18
[2016-05-20] MEDS: ATENOLOL 100 MG TAB PO SCH (08:08)
[2016-05-20] MEDS: AMLODIPINE 10 MG TAB PO SCH (08:08)
[2016-05-20] MEDS: FAMOTIDINE 20 MG INJ IV SCH (08:09)
[2016-05-20] MEDS: ENOXAPARIN 30 MG/0.3 ML SYG SC SCH (08:19)
[2016-05-20] MEDS: VANCOMYCIN 1 GM in NS 250 ML IVPB SCH (10:48)
--- NOTE | 2016-05-20 11:48 | CONS ---
Date/Time of Note Date/Time of Note DATE: 05/20/16 TIME: 11:47 Assessment/Plan Assessment/Plan Chief Complaint/Hosp Course ID PROGRESS NOTE TOTAL ABX DAY # Vanco IV + Ceftriaxone 24H INTERVAL SUMMARY * Clinically status quo - stable, no fevers * Resting comfortably, no fevers, chart reviewed PHYSICAL EXAMINATION: GENERAL: VSS, NAD HEENT: Unremarkable NECK: Trach midline CHEST: Rise symmetrical - without dyspnea on observation HEART: RRR ABDOMEN: Soft, EXTREMITIES: Warm, gangrene of all the toes, specifically gangrene of the first , partial the third, fourth and fifth toes. ID ASSESSMENT: 85 yo F w/PMHx 1. Cellulitis of right foot, 4th and 5th fifth. 2. Gangrene 4th toe right. 3. Aortoiliac arteriosclerosis. 4. Claudication. 5. History of tobacco use. 6. Coronary artery disease 7. Hypertension. ( ?)MRSA Nares == pending INVASIVES: *PIV ABX ALLERGIES: KNDA CURRENT ABX: Vanco IV + Ceftriaxone ID RECOMMENDATIONS: Continue ABX, vascular recs . Problems: Consultation Date/Type/Reason Admit Date/Time May 17, 2016 at 22:19 Exam/Review of Systems Vital Signs Vitals Vital Signs Date Time Temp Pulse Resp B/P Pulse Ox O2 Delivery O2 Flow Rate FiO2 05/20/16 08:04 98.6 66 18 166/77 90 05/18/16 20:15 Nasal Cannula 2.0 Intake and Output 05/19/16 05/19/16 05/20/16 15:00 23:00 07:00 Intake Total 540 ml 120 ml Balance 540 ml 120 ml Results Result Diagram: 05/20/16 0500 05/20/16 0505 Results 24 hrs Laboratory Tests Test 05/20/16 05:00 05/20/16 05:05 Basophils # 0.0 Basophils % 0.4 Blood Morphology Comment Eosinophils # 0.1 Eosinophils % 1.3 Hematocrit 30.3 L Hemoglobin 10.0 L Lymphocytes # 1.5 Lymphocytes % 22.4 Mean Corpuscular Hemoglobin 32.5 Mean Corpuscular Hemoglobin Concent 32.8 Mean Corpuscular Volume 99.1 Mean Platelet Volume 9.1 Monocytes # 0.5 Monocytes % 6.8 Neutrophils # 4.7 Neutrophils % 69.1 Nucleated Red Blood Cells # 0.0 Nucleated Red Blood Cells % 0.0 Platelet Count 274 Red Blood Count 3.06 L Red Cell Distribution Width 15.8 H White Blood Count 6.8 Anion Gap 17 H Blood Urea Nitrogen 16 Calcium Level 9.0 Carbon Dioxide Level 27 Chloride Level 103 Creatinine 1.13 H Glucose Level 102 Potassium Level 4.1 Sodium Level 143 Medications Medications Current Medications Ondansetron HCl (Zofran Inj) 4 mg Q6H PRN IV NAUSEA AND/OR VOMITING; Start 05/17 at 22:30 Acetaminophen (Tylenol Tab) 650 mg Q6H PRN PO PAIN LEVEL 1-3 OR FEVER; Start at 22:30 Morphine Sulfate (morphine) 2 mg Q4H PRN IV SEVERE PAIN LEVEL 7-10 Last administered on 05/19/16 21:59; Admin Dose 2 MG; Start 05/17/16 at 22:30 Famotidine (Pepcid Iv) 20 mg Q24H IV Last administered on 05/20/16 08:09; Admin Dose 20 MG; Start 05/18/16 at 09:00 Enoxaparin Sodium (Lovenox) 30 mg DAILY SC Last administered on 05/20/16 08:19 ; Admin Dose 30 MG; Start 05/18/16 at 09:00 Amlodipine Besylate (Norvasc) 10 mg DAILY PO Last administered on 05/20/16 08: 08; Admin Dose 10 MG; Start 05/18/16 at 09:00 Atenolol (Tenormin) 100 mg DAILY PO Last administered on 05/20/16 08:08; Admin Dose 100 MG; Start 05/18/16 at 09:00 Gabapentin 100 mg 100 mg QHS PO Last administered on 05/19/16 21:57; Admin Dose 100 MG; Start 05/18/16 at 21:00 Vancomycin HCl 250 ml @ 125 mls/hr Q24H IVPB Last administered on 05/20/16 10 :48; Admin Dose 125 MLS/HR; Start 05/19/16 at 11:00 Ceftriaxone Sodium (Rocephin) 50 ml @ 100 mls/hr Q24H IVPB Last administered on 05/19/16t 22:00; Admin Dose 100 MLS/HR; Start 05/18/16 at 23:00; Stop at 12:00 Miscellaneous Information (*Rx Drug Level Order Reminder*) VANCOMYCIN TROUGH AT 1000 ONCE ONCE XX ; Start 05/21/16 at 10:00; Stop 05/21/16 at 10:01 LIZZIE BHAT NP May 20, 2016 11:48
--- NOTE | 2016-05-20 14:14 | PN ---
Date/Time of Note Date/Time of Note DATE: 05/20/16 TIME: 14:10 Assessment/Plan VTE Prophylaxis VTE Prophylaxis Intervention: LMWH Lines/Catheters IV [facility] Saline Lock Assessment/Plan Assessment/Plan 1. Left foot cellulitis with gangrene. - per Dr Parr in [place] - per Dr. Guerrero from podiatry consultation. - foot cradle 2. Peripheral arterial occlusive disease. - per Dr. Shepherd from vascular surgery consultation. 3. Hypertension by history. - Norvasc and atenolol -hydralazine p.r.n. for systolic blood pressure above 170. Lovenox for deep venous thrombosis prophylaxis and Pepcid for peptic ulcer disease prophylaxis. Further recommendations based on clinical course. Plan of care discussed with Dr. Stephens. Subjective 24 Hr Interval Summary Free Text/Dictation Late Entry - 0900 on 05/19/16. Eyes: no complaints ENT: no complaints Respiratory: no complaints Cardiovascular: no complaints Gastrointestinal: no complaints Genitourinary: no complaints Musculoskeletal: bone/joint pain Skin: no complaints Neurologic: no complaints Endocrine: no complaints Exam/Review of Systems Vital Signs Vitals Vital Signs Date Time Temp Pulse Resp B/P Pulse Ox O2 Delivery O2 Flow Rate FiO2 05/20/16 08:04 98.6 66 18 166/77 90 05/18/16 20:15 Nasal Cannula 2.0 Intake and Output 05/19/16 05/19/16 05/20/16 15:00 23:00 07:00 Intake Total 540 ml 120 ml Balance 540 ml 120 ml Exam Constitutional: alert, oriented, well developed Psych: nl mood/affect Head: atraumatic Eyes: EOMI, PERRL, nl sclera ENMT: nl external ears & nose Neck: non-tender Respiratory: clear to auscultation Cardiovascular: nl pulses Gastrointestinal: non-tender, soft Extremities: normal pulses Neurological: nl mental status, nl speech Lymph: nontender Results Result Diagram: 05/20/16 0500 05/20/16 0505 Results 24 hrs Laboratory Tests Test 05/20/16 05:00 05/20/16 05:05 Basophils # 0.0 Basophils % 0.4 Blood Morphology Comment Eosinophils # 0.1 Eosinophils % 1.3 Hematocrit 30.3 L Hemoglobin 10.0 L Lymphocytes # 1.5 Lymphocytes % 22.4 Mean Corpuscular Hemoglobin 32.5 Mean Corpuscular Hemoglobin Concent 32.8 Mean Corpuscular Volume 99.1 Mean Platelet Volume 9.1 Monocytes # 0.5 Monocytes % 6.8 Neutrophils # 4.7 Neutrophils % 69.1 Nucleated Red Blood Cells # 0.0 Nucleated Red Blood Cells % 0.0 Platelet Count 274 Red Blood Count 3.06 L Red Cell Distribution Width 15.8 H White Blood Count 6.8 Anion Gap 17 H Blood Urea Nitrogen 16 Calcium Level 9.0 Carbon Dioxide Level 27 Chloride Level 103 Creatinine 1.13 H Glucose Level 102 Potassium Level 4.1 Sodium Level 143 Medications Medications Current Medications Ondansetron HCl (Zofran Inj) 4 mg Q6H PRN IV NAUSEA AND/OR VOMITING; Start 05/17 at 22:30 Acetaminophen (Tylenol Tab) 650 mg Q6H PRN PO PAIN LEVEL 1-3 OR FEVER; Start at 22:30 Morphine Sulfate (morphine) 2 mg Q4H PRN IV SEVERE PAIN LEVEL 7-10 Last administered on 05/19/16 21:59; Admin Dose 2 MG; Start 05/17/16 at 22:30 Famotidine (Pepcid Iv) 20 mg Q24H IV Last administered on 05/20/16 08:09; Admin Dose 20 MG; Start 05/18/16 at 09:00 Enoxaparin Sodium (Lovenox) 30 mg DAILY SC Last administered on 05/20/16 08:19 ; Admin Dose 30 MG; Start 05/18/16 at 09:00 Amlodipine Besylate (Norvasc) 10 mg DAILY PO Last administered on 05/20/16 08: 08; Admin Dose 10 MG; Start 05/18/16 at 09:00 Atenolol (Tenormin) 100 mg DAILY PO Last administered on 05/20/16 08:08; Admin Dose 100 MG; Start 05/18/16 at 09:00 Gabapentin 100 mg 100 mg QHS PO Last administered on 05/19/16 21:57; Admin Dose 100 MG; Start 05/18/16 at 21:00 Vancomycin HCl 250 ml @ 125 mls/hr Q24H IVPB Last administered on 05/20/16 10 :48; Admin Dose 125 MLS/HR; Start 05/19/16 at 11:00 Ceftriaxone Sodium (Rocephin) 50 ml @ 100 mls/hr Q24H IVPB Last administered on 05/19/16t 22:00; Admin Dose 100 MLS/HR; Start 05/18/16 at 23:00; Stop at 12:00 Miscellaneous Information (*Rx Drug Level Order Reminder*) VANCOMYCIN TROUGH AT 1000 ONCE ONCE XX ; Start 05/21/16 at 10:00; Stop 05/21/16 at 10:01 NILESH CAVANAUGH May 20, 2016 14:14
--- NOTE | 2016-05-20 14:15 | PN ---
Date/Time of Note Date/Time of Note DATE: 05/20/16 TIME: 14:14 Assessment/Plan VTE Prophylaxis VTE Prophylaxis Intervention: LMWH Lines/Catheters [facility] Saline Lock Assessment/Plan Assessment/Plan 1. Left foot cellulitis with gangrene. - per Dr Parr in [place] - per Dr. Guerrero from podiatry consultation. - foot cradle 2. Peripheral arterial occlusive disease. - per Dr. Shepherd from vascular surgery consultation. 3. Hypertension by history. - Norvasc and atenolol -hydralazine p.r.n. for systolic blood pressure above 170. Lovenox for deep venous thrombosis prophylaxis and Pepcid for peptic ulcer disease prophylaxis. Further recommendations based on clinical course. Plan of care discussed with Dr. Stephens. Subjective 24 Hr Interval Summary Constitutional: other Eyes: no complaints ENT: no complaints Respiratory: no complaints Cardiovascular: no complaints Gastrointestinal: no complaints Genitourinary: no complaints Musculoskeletal: bone/joint pain Skin: other Neurologic: no complaints Exam/Review of Systems Vital Signs Vitals Vital Signs Date Time Temp Pulse Resp B/P Pulse Ox O2 Delivery O2 Flow Rate FiO2 05/20/16 08:04 98.6 66 18 166/77 90 05/18/16 20:15 Nasal Cannula 2.0 Intake and Output 05/19/16 05/19/16 05/20/16 15:00 23:00 07:00 Intake Total 540 ml 120 ml Balance 540 ml 120 ml Exam Constitutional: alert, well developed Psych: nl mood/affect Head: atraumatic Eyes: EOMI, PERRL, nl sclera ENMT: nl external ears & nose Neck: non-tender Respiratory: clear to auscultation Cardiovascular: nl pulses Gastrointestinal: non-tender, soft Musculoskeletal: other Extremities: normal pulses Neurological: nl mental status, nl speech Lymph: nontender Results Result Diagram: 05/20/16 0500 05/20/16 0505 Results 24 hrs Laboratory Tests Test 05/20/16 05:00 05/20/16 05:05 Basophils # 0.0 Basophils % 0.4 Blood Morphology Comment Eosinophils # 0.1 Eosinophils % 1.3 Hematocrit 30.3 L Hemoglobin 10.0 L Lymphocytes # 1.5 Lymphocytes % 22.4 Mean Corpuscular Hemoglobin 32.5 Mean Corpuscular Hemoglobin Concent 32.8 Mean Corpuscular Volume 99.1 Mean Platelet Volume 9.1 Monocytes # 0.5 Monocytes % 6.8 Neutrophils # 4.7 Neutrophils % 69.1 Nucleated Red Blood Cells # 0.0 Nucleated Red Blood Cells % 0.0 Platelet Count 274 Red Blood Count 3.06 L Red Cell Distribution Width 15.8 H White Blood Count 6.8 Anion Gap 17 H Blood Urea Nitrogen 16 Calcium Level 9.0 Carbon Dioxide Level 27 Chloride Level 103 Creatinine 1.13 H Glucose Level 102 Potassium Level 4.1 Sodium Level 143 Medications Medications Current Medications Ondansetron HCl (Zofran Inj) 4 mg Q6H PRN IV NAUSEA AND/OR VOMITING; Start 05/17 at 22:30 Acetaminophen (Tylenol Tab) 650 mg Q6H PRN PO PAIN LEVEL 1-3 OR FEVER; Start at 22:30 Morphine Sulfate (morphine) 2 mg Q4H PRN IV SEVERE PAIN LEVEL 7-10 Last administered on 05/19/16 21:59; Admin Dose 2 MG; Start 05/17/16 at 22:30 Famotidine (Pepcid Iv) 20 mg Q24H IV Last administered on 05/20/16 08:09; Admin Dose 20 MG; Start 05/18/16 at 09:00 Enoxaparin Sodium (Lovenox) 30 mg DAILY SC Last administered on 05/20/16 08:19 ; Admin Dose 30 MG; Start 05/18/16 at 09:00 Amlodipine Besylate (Norvasc) 10 mg DAILY PO Last administered on 05/20/16 08: 08; Admin Dose 10 MG; Start 05/18/16 at 09:00 Atenolol (Tenormin) 100 mg DAILY PO Last administered on 05/20/16 08:08; Admin Dose 100 MG; Start 05/18/16 at 09:00 Gabapentin 100 mg 100 mg QHS PO Last administered on 05/19/16 21:57; Admin Dose 100 MG; Start 05/18/16 at 21:00 Vancomycin HCl 250 ml @ 125 mls/hr Q24H IVPB Last administered on 05/20/16 10 :48; Admin Dose 125 MLS/HR; Start 05/19/16 at 11:00 Ceftriaxone Sodium (Rocephin) 50 ml @ 100 mls/hr Q24H IVPB Last administered on 05/19/16t 22:00; Admin Dose 100 MLS/HR; Start 05/18/16 at 23:00; Stop at 12:00 Miscellaneous Information (*Rx Drug Level Order Reminder*) VANCOMYCIN TROUGH AT 1000 ONCE ONCE XX ; Start 05/21/16 at 10:00; Stop 05/21/16 at 10:01 NILESH CAVANAUGH May 20, 2016 14:15
[2016-05-20] MEDS: ACETAMINOPHEN 325 MG TAB PO PRN (16:26)
[2016-05-20 20:34] VITALS: BP 160/69; RESP 20
[2016-05-20] MEDS: GABAPENTIN 100 MG CAP PO SCH (21:23)
[2016-05-20] MEDS: CEFTRIAXONE 1 GM/50 ML (PMX) 50 ML IVPB SCH (23:04)
[2016-05-20] MEDS: morphine 2 MG INJ IV PRN (23:12)
[2016-05-21 05:50] LABS: BASOPHILS % 0.4 % (0.0-2.0); EOSINOPHILS # 0.1 10^3/ul (0.0-0.5); EOSINOPHILS % 1.3 % (0.0-7.0); HEMATOCRIT 29.9 % (37.0-47.0); HEMOGLOBIN 9.9 g/dl (12.0-16.0); LYMPHOCYTES # 1.3 10^3/ul (0.8-2.9); LYMPHOCYTES % 19.3 % (15.0-51.0); MEAN CORPUSCULAR HEMOGLOBIN 32.5 pg (29.0-33.0); MEAN CORPUSCULAR VOLUME 98.4 fl (82.0-101.0); MEAN PLATELET VOLUME 8.8 fl (7.4-10.4); MONOCYTE # 0.6 10^3/ul (0.3-0.9); MONOCYTES % 9.3 % (0.0-11.0); NEUTROPHIL # 4.7 10^3/ul (1.6-7.5); NEUTROPHILS % 69.7 % (39.0-77.0); PLATELET COUNT 269 10^3/UL (140-440); RED BLOOD COUNT 3.04 10^6/ul (4.20-5.40); UNCORRECTED WBC 6.7 10^3/ul (4.8-10.8); WHITE BLOOD COUNT 6.7 10^3/ul (4.8-10.8)
[2016-05-21 06:00] LABS: POTASSIUM 4.3 mmol/L (3.5-5.1)
[2016-05-21 06:03] LABS: CALCIUM 9.1 mg/dl (8.4-10.2); CREATININE 1.02 mg/dl (0.44-1.00)
[2016-05-21 06:13] LABS: CONDITION 1; LH ANALYZER COMMENTS 1
[2016-05-21 07:45] VITALS: BP 173/77; RESP 18
[2016-05-21] MEDS: ATENOLOL 100 MG TAB PO SCH (08:30)
[2016-05-21] MEDS: AMLODIPINE 10 MG TAB PO SCH (08:31)
[2016-05-21] MEDS: FAMOTIDINE 20 MG INJ IV SCH (08:31)
[2016-05-21] MEDS: ENOXAPARIN 30 MG/0.3 ML SYG SC SCH (08:32)
[2016-05-21] MEDS: VANCOMYCIN 1 GM in NS 250 ML IVPB SCH (11:10)
[2016-05-21] MEDS ORDERED: FENTAnyl 50 MCG/ML VIAL ONE (12:57)
[2016-05-21] MEDS ORDERED: IODIXANOL LOCM 100 ML BTL ONE (12:57)
[2016-05-21] MEDS ORDERED: HEPARIN 1000 UNITS/NS (A-LINE) 1,000 ML ONE (12:57)
[2016-05-21] MEDS ORDERED: MIDAZOLAM 1 MG/ML 2 ML INJ ONE (12:57)
[2016-05-21] MEDS ORDERED: LIDOCAINE 1% (MDV) 20 ML INJ ONE (12:57)
--- NOTE | 2016-05-21 13:59 | PN ---
DATE: 05/21/2016 INFECTIOUS DISEASE PROGRESS NOTE SUBJECTIVE: No acute changes. The patient is alert, looks comfortable, no fevers. Vital signs sta ble. WBC today 6.3, no shift, no bands. BUN 16, creatinine 1.02. MICROBIOLOGY: Cultures have been negative. ANTIMICROBIALS: The patient is on: 1. Vancomycin. 2. Rocephin. PHYSICAL EXAMINATION: GENERAL: This is a fragile, chronically ill-appearing, elderly woman who is alert, in no distress. HEENT: Head atraumatic, normocephalic. Sclerae anicteric. Buccal mucosa dry. NECK: Supple. CHEST: Rise symmetrical. Breath sounds diminished to bases. HEART: S1, S2. ABDOMEN: Soft, bowel sounds present. EXTREMITIES: Left fourth toe gangrenous changes and also a blister. ASSESSMENT: 1. Left foot gangrene with cellulitis. 2. Peripheral vascular disease. 3. Hypertension. PLAN: Remains stable. Continue present care, antibiotics, vascular, podiatry recommendations. May need angiogram with possible intervention per vascular recommendations. Dictated By: VEGA PALMA STOKER INSTALLER for JEROME KNOX/ADEN Conf#: [id number] DID#: [id number]
[2016-05-21] MEDS ORDERED: SOD CHLORIDE 0.45% 1,000 ML IV SCH (14:22)
[2016-05-21] MEDS ORDERED: ONDANSETRON 4 MG INJ IV PRN (14:30)
[2016-05-21 15:12] VITALS: BP 163/74; RESP 18
--- NOTE | 2016-05-21 17:47 | OPR ---
DATE OF OPERATION: 05/21/2016 SURGEON: Candido Shepherd MD FLUOROSCOPY RICHTER: Billy Guerrero DPM PREOPERATIVE DIAGNOSIS: Left lower extremity gangrene, right lower extremity rest pain. POSTOPERATIVE DIAGNOSIS: Left lower extremity gangrene, right lower extremity rest pain. ANESTHESIA: Local with sedation. ESTIMATED BLOOD LOSS: Minimal. COMPLICATIONS: None. HEPARIN: None. CONTRAST: As recorded. ACCESS: Right common femoral artery 5-Malagasy sheath. CLOSURE: Manual compression. INDICATIONS: This is an 85-year-old female who had presented with bilateral lower extremity rest pain and left lower extremity diabetic foot infection and gangrene of the fourth and fifth toes. The patient also has a history of right lower extremity rest pain. At the moment, the patient feels her left lower extremity has been the most symptomatic. Preoperative duplex evaluation was consistent with severe bilateral infrainguinal disease and inflow disease. Risks, benefits, and alternatives were discussed with the patient of the angiogram, balloon angioplasty, stenting, and atherectomy. Risks included but not limited to bleeding, thrombosis, embolization, myocardial infarction, , stroke, device malfunction, infection, nephrotoxicity. The patient has agreed to proceed. This is the first diagnostic angiogram in this clinical setting. PROCEDURE: 1. Ultrasound-guided access of the right common femoral artery. 2. Aortic angiogram with bilateral views of the iliac arteries. 3. Third order selection of the left common femoral artery. 4. Left lower extremity angiogram. 5. Right lower extremity angiogram. FINDINGS: 1. Bilateral renal arteries are patent. 2. Infrarenal aorta is patent with heavy calcification towards the distal aspect of the aorta, bilateral. 3. Bilateral common iliac arteries are patent and calcified. 4. Bilateral internal iliac arteries are patent with heavy calcification and disease distally. 5. Left external iliac artery with significant calcification and near 90% stenosis in the distal most aspect. 6. Left common femoral artery is patent with moderate stenosis in this proximal aspect and calcified. 7. Left profunda femoral artery is patent. 8. Left superficial femoral artery with moderate to severe disease and calcified. 9. Left above-knee popliteal artery with calcification and patent. 10. Left At knee popliteal artery patent. 11. Left below-knee popliteal artery is patent. 12. Left anterior tibial artery is patent. 13. Left tibioperoneal trunk is patent. 14. Left peroneal artery is patent. 15. Left posterior tibial artery is patent. 16. Left common plantar artery is patent and small in caliber. 17. Unable to visualize the medial and lateral plantar arteries. 18. Left dorsalis pedis artery is patent. 19. Left tarsal artery is patent and small in caliber. 20. Left perineal communicating anterior and posterior arteries are not well visualized. 21. Right external iliac artery patent and calcified. 22. Right common femoral artery with severe calcification and the lumen that was occluded with our 5-Malagasy sheath and presence of total occlusion. 23. Right profunda femoral artery is not well visualized. It seems that there is reconstitution from collaterals at its second perforating branch. 24. Right superficial femoral artery heavily calcified with moderate to severe disease throughout. 25. Right above-knee popliteal artery with near 90% stenosis in its proximal aspect and calcified. 26. Right at-knee popliteal artery patent. 27. Right below-knee popliteal artery patent. 28. Right anterior tibial artery patent. 29. Right tibioperoneal trunk patent with mild to moderate disease. 30. Right peroneal artery with mild to moderate disease. 31. Right posterior tibial artery patent with mild disease. 32. Right dorsalis pedis artery is not well visualized. 33. Right posterior tibial artery seems to be in line to the common plantar artery, which is small in caliber. 34. Right lateral and medial plantar arteries are not well visualized. DESCRIPTION OF PROCEDURE: The patient was brought into the angio suite and positioned in supine position on the fluoroscopic table. Sedation was administered without complication. Bilateral groins were shaved, prepped, and draped in standard sterile fashion. A timeout, the appropriate site was marked and confirmed. Local anesthesia was infiltrated in the region of the right common femoral artery. The artery was then cannulated with a micro access needle under ultrasound guidance. A guidewire was advanced into the common iliac artery under fluoroscopic guidance. The needle was then removed and a micro catheter was placed. Fernando guidewire was passed into the aorta under fluoroscopic guidance followed by a short 5-Malagasy sheath over the wire. Sheath was then appropriately flushed with heparinized saline solution. Omniflush catheter was then passed into the infrarenal aorta and the aortogram and imaging of the bilateral iliac arteries was performed. Findings were noted, as above. At this point, a Glidewire was then passed through the Omniflush catheter and used to select out the left proximal common femoral artery and third order selection. The left leg angiogram was then performed. The findings are noted above. No intervention was decided for the left lower extremity at this time. The Omniflush catheter was then removed and a right leg angiogram was performed through the sheath and the above findings were noted. The sheath was removed and manual compression was applied to the right groin. The patient was taken to postanesthesia care in stable condition. PLAN: Essentially, the patient has severe inflow disease in the external iliac artery of the left side and severe femoral disease in which the patient would require stenting of the external iliac artery and angio, endovascular intervention of the left femoral artery. In regards to the right lower extremity, the patient will require right common femoral artery exposure and endarterectomy. Further, the patient will likely require angio intervention, possibly open bypass. Dictated By: CANDIDO BARRERA/ADEN Conf#: [id number] DID#: [id number] CC: TRISTON OLIVERA MD;*EndCC* MTDD
--- NOTE | 2016-05-21 17:58 | PN ---
Date/Time of Note Date/Time of Note DATE: 05/21/16 TIME: 17:54 Assessment/Plan VTE Prophylaxis VTE Prophylaxis Intervention: LMWH Lines/Catheters IV [facility] (from [facility] Saline Lock Assessment/Plan Chief Complaint/Hosp Course ASSESSMENT AND PLAN: 1. Left foot cellulitis with gangrene. Dr. Parr is following the patient from infectious disease standpoint. Continue abx per [place]. Dr. Guerrero will be following from podiatry consultation. 2. Peripheral arterial occlusive disease. Dr. Shepherd is following from vascular surgery consultation. S/p angio today. 3. Hypertension by history. Continue patient Norvasc and atenolol, hydralazine p.r.n. for systolic blood pressure above 170. Continue Lovenox for deep venous thrombosis prophylaxis and Pepcid for peptic ulcer disease prophylaxis. Further recommendations based on clinical course. Plan of care discussed with Dr. Stephens. Problems: Subjective 24 Hr Interval Summary Free Text/Dictation Patient is status post angiogram today, looks comfortable, denies any pain. Exam/Review of Systems Vital Signs Vitals Vital Signs Date Time Temp Pulse Resp B/P Pulse Ox O2 Delivery O2 Flow Rate FiO2 05/21/16 15:12 98.7 60 18 163/74 95 05/18/16 20:15 Nasal Cannula 2.0 Intake and Output 05/20/16 05/20/16 05/21/16 15:00 23:00 07:00 Intake Total 970 ml 210 ml Output Total 400 ml 600 ml Balance 570 ml -390 ml Exam GENERAL: Well-developed, well-nourished female currently is awake, alert. HEENT: Head is atraumatic, normocephalic. NECK: Supple, no cervical lymphadenopathy, no thyromegaly. CHEST: Lungs clear bilaterally. There are no rhonchi, wheezes, rales noted. CARDIOVASCULAR: Normal S1, S2. No murmurs, clicks, rubs noted. ABDOMEN: Round, soft, nondistended, nontender. Bowel sounds present. EXTREMITIES: The patient has left foot edema, erythema, and tenderness with gangrenous fourth toe on the left foot and discoloration of the surrounding area. Pulses are weak but present. Right extremity: There is no edema, clubbing, cyanosis. Pulses equal 2+. SKIN: There is no rash, petechiae noted. NEUROLOGIC: Patient is awake, alert and oriented x4. Results Result Diagram: 05/21/16 0512 05/21/16 0512 Results 24 hrs Laboratory Tests Test 05/21/16 05:12 05/21/16 10:10 Anion Gap 17 H Basophils # 0.0 Basophils % 0.4 Blood Morphology Comment Blood Urea Nitrogen 16 Calcium Level 9.1 Carbon Dioxide Level 27 Chloride Level 104 Creatinine 1.02 H Eosinophils # 0.1 Eosinophils % 1.3 Glucose Level 104 Hematocrit 29.9 L Hemoglobin 9.9 L Lymphocytes # 1.3 Lymphocytes % 19.3 Mean Corpuscular Hemoglobin 32.5 Mean Corpuscular Hemoglobin Concent 33.0 Mean Corpuscular Volume 98.4 Mean Platelet Volume 8.8 Monocytes # 0.6 Monocytes % 9.3 Neutrophils # 4.7 Neutrophils % 69.7 Nucleated Red Blood Cells # 0.0 Nucleated Red Blood Cells % 0.0 Platelet Count 269 Potassium Level 4.3 Red Blood Count 3.04 L Red Cell Distribution Width 16.0 H Sodium Level 144 White Blood Count 6.7 Vancomycin Level Trough 12.7 Medications Medications Current Medications Ondansetron HCl (Zofran Inj) 4 mg Q6H PRN IV NAUSEA AND/OR VOMITING; Start 05/17 at 22:30 Acetaminophen (Tylenol Tab) 650 mg Q6H PRN PO PAIN LEVEL 1-3 OR FEVER Last administered on 05/20/16 16:26; Admin Dose 650 MG; Start 05/17/16 at 22:30 Morphine Sulfate (morphine) 2 mg Q4H PRN IV SEVERE PAIN LEVEL 7-10 Last administered on 05/20/16 23:12; Admin Dose 2 MG; Start 05/17/16 at 22:30 Famotidine (Pepcid Iv) 20 mg Q24H IV Last administered on 05/21/16 08:31; Admin Dose 20 MG; Start 05/18/16 at 09:00 Enoxaparin Sodium (Lovenox) 30 mg DAILY SC Last administered on 05/21/16 08:32 ; Admin Dose 30 MG; Start 05/18/16 at 09:00 Amlodipine Besylate (Norvasc) 10 mg DAILY PO Last administered on 05/21/16 08: 31; Admin Dose 10 MG; Start 05/18/16 at 09:00 Atenolol (Tenormin) 100 mg DAILY PO Last administered on 05/21/16 08:30; Admin Dose 100 MG; Start 05/18/16 at 09:00 Gabapentin 100 mg 100 mg QHS PO Last administered on 05/20/16 21:23; Admin Dose 100 MG; Start 05/18/16 at 21:00 Vancomycin HCl 250 ml @ 125 mls/hr Q24H IVPB Last administered on 05/21/16 11 :10; Admin Dose 125 MLS/HR; Start 05/19/16 at 11:00 Ceftriaxone Sodium (Rocephin) 50 ml @ 100 mls/hr Q24H IVPB Last administered on 05/20/16 23:04; Admin Dose 100 MLS/HR; Start 05/18/16 at 23:00; Stop at 12:00 Ondansetron HCl 4 mg 4 mg Q4H PRN IV NAUSEA AND/OR VOMITING; Start 05/21/16 at 14:30 Sodium Chloride (1/2 NS) 1,000 ml @ 75 mls/hr [id number] IV Last administered on 05/21/16 16:00; Admin Dose 75 MLS/HR; Start 05/21/16 at 14:22; Stop 05/22/16 at 03:41 JANIS BAKER May 21, 2016 17:58
--- NOTE | 2016-05-21 20:07 | PN ---
Date/Time of Note Date/Time of Note DATE: 05/21/16 TIME: 20:07 Assessment/Plan Lines/Catheters IV [facility] Type (from [facility]): Saline Lock Assessment/Plan Problems: (1) Cellulitis of foot Status: Acute (2) Peripheral arterial occlusive disease Status: Acute (3) Gangrene of foot Status: Acute (4) Ischemic pain of left foot Assessment/Plan Will be undergoing vascular lower extremity procedure. Monitor right foot toes. Patient will be followed up in-house. Subjective 24 Hr Interval Summary Patient was seen and examined at bedside. Patient denies fever and chills but reports significant pain in the right foot. She reports no overnight adverse events. Exam/Review of Systems Vital Signs Vitals Vital Signs Date Time Temp Pulse Resp B/P Pulse Ox O2 Delivery O2 Flow Rate FiO2 05/28/16 08:36 98.6 67 18 137/65 95 Intake and Output 05/27/16 05/27/16 05/28/16 15:00 23:00 07:00 Intake Total 250 ml 600 ml 600 ml Output Total 400 ml Balance 250 ml 200 ml 600 ml Exam Free Text/Dictation Patient is in no acute distress. Right foot shows changes to the distal toes. Tender to examination. There is discoloration of toes on the right foot with edema. No erythema noted. Nonpalpable pedal pulses. Results Result Diagram: 05/26/16 0500 05/28/16 0521 RONNELL CORONEL DPM May 21, 2016 20:07
[2016-05-21 20:08] VITALS: BP 169/74; RESP 2
[2016-05-21] MEDS: CEFTRIAXONE 1 GM/50 ML (PMX) 50 ML IVPB SCH (22:57)
[2016-05-21] MEDS: GABAPENTIN 100 MG CAP PO SCH (22:57)
[2016-05-21] MEDS: morphine 2 MG INJ IV PRN (22:57)
[2016-05-22 06:02] LABS: BASOPHILS % 0.3 % (0.0-2.0); EOSINOPHILS # 0.1 10^3/ul (0.0-0.5); EOSINOPHILS % 0.8 % (0.0-7.0); HEMATOCRIT 29.7 % (37.0-47.0); HEMOGLOBIN 9.9 g/dl (12.0-16.0); LYMPHOCYTES # 1.1 10^3/ul (0.8-2.9); LYMPHOCYTES % 13.9 % (15.0-51.0); MEAN CORPUSCULAR HEMOGLOBIN 32.8 pg (29.0-33.0); MEAN CORPUSCULAR HGB CONC 33.3 g/dl (32.0-37.0); MEAN CORPUSCULAR VOLUME 98.4 fl (82.0-101.0); MEAN PLATELET VOLUME 8.9 fl (7.4-10.4); MONOCYTE # 0.7 10^3/ul (0.3-0.9); MONOCYTES % 8.9 % (0.0-11.0); NEUTROPHIL # 5.9 10^3/ul (1.6-7.5); NEUTROPHILS % 76.1 % (39.0-77.0); PLATELET COUNT 249 10^3/UL (140-440); RED BLOOD COUNT 3.02 10^6/ul (4.20-5.40); RED CELL DISTRIBUTION WIDTH 16.5 % (11.5-14.5); UNCORRECTED WBC 7.8 10^3/ul (4.8-10.8); WHITE BLOOD COUNT 7.8 10^3/ul (4.8-10.8)
[2016-05-22 06:11] LABS: POTASSIUM 3.8 mmol/L (3.5-5.1)
[2016-05-22 06:14] LABS: CREATININE 1.02 mg/dl (0.44-1.00)
[2016-05-22 06:15] LABS: CALCIUM 8.9 mg/dl (8.4-10.2)
[2016-05-22 06:31] LABS: CONDITION 1; LH ANALYZER COMMENTS 1
[2016-05-22 07:51] VITALS: BP 162/75; RESP 20
[2016-05-22] MEDS: FAMOTIDINE 20 MG INJ IV SCH (09:07)
[2016-05-22] MEDS: AMLODIPINE 10 MG TAB PO SCH (09:07)
[2016-05-22] MEDS: ATENOLOL 100 MG TAB PO SCH (09:08)
[2016-05-22] MEDS: ENOXAPARIN 30 MG/0.3 ML SYG SC SCH (09:12)
[2016-05-22] MEDS: VANCOMYCIN 1 GM in NS 250 ML IVPB SCH (11:05)
[2016-05-22 11:06] VITALS: BP 157/72; PULSE 62; RESP 18
--- NOTE | 2016-05-22 12:23 | CONS ---
Date/Time of Note Date/Time of Note DATE: 05/22/16 TIME: 12:22 Assessment/Plan Assessment/Plan Chief Complaint/Hosp Course SUBJECTIVE: No acute changes. The patient is alert, looks comfortable, no fevers. Vital signs stable. MICROBIOLOGY: Cultures have been negative. ANTIMICROBIALS: The patient is on: 1. Vancomycin. 2. Rocephin. PHYSICAL EXAMINATION: GENERAL: This is a fragile, chronically ill-appearing, elderly woman who is alert, in no distress. HEENT: Head atraumatic, normocephalic. Sclerae anicteric. Buccal mucosa dry. NECK: Supple. CHEST: Rise symmetrical. Breath sounds diminished to bases. HEART: S1, S2. ABDOMEN: Soft, bowel sounds present. EXTREMITIES: Left fourth toe gangrenous changes and also a blister. ASSESSMENT: 1. Left foot gangrene with cellulitis. 2. Peripheral vascular disease. 3. Hypertension. PLAN: Remains stable. S/p CT angio, continue present care, antibiotics, vascular, podiatry recommendations. DW staff Problems: Consultation Date/Type/Reason Admit Date/Time May 17, 2016 at 22:19 Initial Consult Date Type of Consultation: ID Exam/Review of Systems Vital Signs Vitals Vital Signs Date Time Temp Pulse Resp B/P Pulse Ox O2 Delivery O2 Flow Rate FiO2 05/22/16 11:06 62 18 157/72 05/22/16 07:51 99.0 96 05/18/16 20:15 Nasal Cannula 2.0 Intake and Output 05/21/16 05/21/16 05/22/16 15:00 23:00 07:00 Intake Total 685 ml 250 ml Output Total 310 ml 800 ml Balance 375 ml -550 ml Results Result Diagram: 05/22/16 0504 05/22/16 0504 Results 24 hrs Laboratory Tests Test 05/22/16 05:04 05/22/16 11:10 Anion Gap 17 H Basophils # 0.0 Basophils % 0.3 Blood Morphology Comment Blood Urea Nitrogen 14 Calcium Level 8.9 Carbon Dioxide Level 26 Chloride Level 103 Creatinine 1.02 H Eosinophils # 0.1 Eosinophils % 0.8 Glucose Level 98 Hematocrit 29.7 L Hemoglobin 9.9 L Lymphocytes # 1.1 Lymphocytes % 13.9 L Mean Corpuscular Hemoglobin 32.8 Mean Corpuscular Hemoglobin Concent 33.3 Mean Corpuscular Volume 98.4 Mean Platelet Volume 8.9 Monocytes # 0.7 Monocytes % 8.9 Neutrophils # 5.9 Neutrophils % 76.1 Nucleated Red Blood Cells # 0.0 Nucleated Red Blood Cells % 0.0 Platelet Count 249 Potassium Level 3.8 Red Blood Count 3.02 L Red Cell Distribution Width 16.5 H Sodium Level 142 White Blood Count 7.8 Bedside Glucose 113 Medications Medications Current Medications Ondansetron HCl (Zofran Inj) 4 mg Q6H PRN IV NAUSEA AND/OR VOMITING; Start 05/17 at 22:30 Acetaminophen (Tylenol Tab) 650 mg Q6H PRN PO PAIN LEVEL 1-3 OR FEVER Last administered on 05/20/16 16:26; Admin Dose 650 MG; Start 05/17/16 at 22:30 Morphine Sulfate (morphine) 2 mg Q4H PRN IV SEVERE PAIN LEVEL 7-10 Last administered on 05/21/16 22:57; Admin Dose 2 MG; Start 05/17/16 at 22:30 Famotidine (Pepcid Iv) 20 mg Q24H IV Last administered on 05/22/16 09:07; Admin Dose 20 MG; Start 05/18/16 at 09:00 Enoxaparin Sodium (Lovenox) 30 mg DAILY SC Last administered on 05/22/16 09:12 ; Admin Dose 30 MG; Start 05/18/16 at 09:00 Amlodipine Besylate (Norvasc) 10 mg DAILY PO Last administered on 05/22/16 09: 07; Admin Dose 10 MG; Start 05/18/16 at 09:00 Atenolol (Tenormin) 100 mg DAILY PO Last administered on 05/22/16 09:08; Admin Dose 100 MG; Start 05/18/16 at 09:00 Gabapentin 100 mg 100 mg QHS PO Last administered on 05/21/16 22:57; Admin Dose 100 MG; Start 05/18/16 at 21:00 Vancomycin HCl 250 ml @ 125 mls/hr Q24H IVPB Last administered on 05/22/16 11 :05; Admin Dose 125 MLS/HR; Start 05/19/16 at 11:00 Ceftriaxone Sodium (Rocephin) 50 ml @ 100 mls/hr Q24H IVPB Last administered on 05/21/16 22:57; Admin Dose 100 MLS/HR; Start 05/18/16 at 23:00; Stop at 12:00 Ondansetron HCl (Zofran Inj) 4 mg Q4H PRN IV NAUSEA AND/OR VOMITING; Start at 14:30 VEGA PALMA NP May 22, 2016 12:23
--- NOTE | 2016-05-22 13:01 | PN ---
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 At the moment, would recommend for the patient to continue with antibiotics and to obtain a new vascular ultrasound in order to delineate her infrainguinal disease and when compared to her right side. She did have a CT angiography that identified patient having aortoiliac calcification and significant superficial femoral and popliteal artery disease. -S/P angio demonstrated left distal external iliac artery stenosis and significant disease in the SFA that would require stenting and angioplasty. She has developed gangrene of the toes and patient would like to think about her options which have been discussed thoroughly and she understands open vs endovascular intervention -Will schedule pt for intervention upon label pinker availability and pts decision -Appreciate podiatry feedback in regards to her needing limb salvage. -Optimize vascular status (BP meds, diet, nutrition, exercise, sugar control, antiplatelets). -Discussed findings, plan and management with the patient, she understands -Thank you for allowing us to partake in the care of your patient. Please call with any questions. Problems: Subjective 24 Hr Interval Summary no new vascular events overnight, s/p angio Exam/Review of Systems Vital Signs Vitals Vital Signs Date Time Temp Pulse Resp B/P Pulse Ox O2 Delivery O2 Flow Rate FiO2 05/22/16 11:06 62 18 157/72 05/22/16 07:51 99.0 96 05/18/16 20:15 Nasal Cannula 2.0 Intake and Output 05/21/16 05/21/16 05/22/16 15:00 23:00 07:00 Intake Total 685 ml 250 ml Output Total 310 ml 800 ml Balance 375 ml -550 ml Exam Free Text/Dictation GENERAL: Alert and oriented x3, PULMONARY: Clear to auscultation bilaterally CARDIOVASCULAR: S1, S2 present ABDOMEN: Soft, nontender, nondistended. Bowel sounds positive. Truncal obesity. EXTREMITIES: Right lower extremity palpable femoral pulse, nonpalpable pedal pulse. Motor, sensory intact. Capillary refill 3 seconds. 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 Left lower extremity palpable femoral pulse, nonpalpable pedal pulse, Motor and sensory intact. Tenderness upon palpation of the forefoot area with swelling and significant erythema slightly improved There is a bluish-purple discoloration and gangrene of all the toes, specifically gangrene of the first, partial the third, fourth and fifth toes. Results Result Diagram: 05/22/16 0504 05/22/16 0504 AMY VALDES MD May 22, 2016 13:01
--- NOTE | 2016-05-22 16:22 | PN ---
Date/Time of Note Date/Time of Note DATE: 05/22/16 TIME: 16:20 Assessment/Plan VTE Prophylaxis VTE Prophylaxis Intervention: SCD's Lines/Catheters IV [facility]from [facility]): Peripheral IV Assessment/Plan Chief Complaint/Hosp Course ASSESSMENT AND PLAN: 1. Left foot cellulitis with gangrene. Dr. Parr is following the patient from infectious disease standpoint. Continue abx per ID. Dr. Guerrero will be following from podiatry consultation. 2. Peripheral arterial occlusive disease. Dr. Shepherd is following from vascular surgery consultation. S/p angio today. 3. Hypertension by history. Continue patient Norvasc and atenolol, hydralazine p.r.n. for systolic blood pressure above 170. Continue Lovenox for deep venous thrombosis prophylaxis and Pepcid for peptic ulcer disease prophylaxis. Further recommendations based on clinical course. Plan of care discussed with Dr. Stephens. Problems: Subjective 24 Hr Interval Summary Free Text/Dictation Patient looks comfortable, pain is well controlled, denies any nausea vomiting. Exam/Review of Systems Vital Signs Vitals Vital Signs Date Time Temp Pulse Resp B/P Pulse Ox O2 Delivery O2 Flow Rate FiO2 05/22/16 11:06 62 18 157/72 05/22/16 07:51 99.0 96 05/18/16 20:15 Nasal Cannula 2.0 Intake and Output 05/21/16 05/21/16 05/22/16 15:00 23:00 07:00 Intake Total 685 ml 250 ml Output Total 310 ml 800 ml Balance 375 ml -550 ml Exam GENERAL: Well-developed, well-nourished female currently is awake, alert. HEENT: Head is atraumatic, normocephalic. NECK: Supple, no cervical lymphadenopathy, no thyromegaly. CHEST: Lungs clear bilaterally. There are no rhonchi, wheezes, rales noted. CARDIOVASCULAR: Normal S1, S2. No murmurs, clicks, rubs noted. ABDOMEN: Round, soft, nondistended, nontender. Bowel sounds present. EXTREMITIES: The patient has left foot edema, erythema, and tenderness with gangrenous fourth toe on the left foot and discoloration of the surrounding area. Pulses are weak but present. Right extremity: There is no edema, clubbing, cyanosis. Pulses equal 2+. SKIN: There is no rash, petechiae noted. NEUROLOGIC: Patient is awake, alert and oriented x4. Results Result Diagram: 05/22/16 0504 05/22/16 0504 Results 24 hrs Laboratory Tests Test 05/22/16 05:04 05/22/16 11:10 Anion Gap 17 H Basophils # 0.0 Basophils % 0.3 Blood Morphology Comment Blood Urea Nitrogen 14 Calcium Level 8.9 Carbon Dioxide Level 26 Chloride Level 103 Creatinine 1.02 H Eosinophils # 0.1 Eosinophils % 0.8 Glucose Level 98 Hematocrit 29.7 L Hemoglobin 9.9 L Lymphocytes # 1.1 Lymphocytes % 13.9 L Mean Corpuscular Hemoglobin 32.8 Mean Corpuscular Hemoglobin Concent 33.3 Mean Corpuscular Volume 98.4 Mean Platelet Volume 8.9 Monocytes # 0.7 Monocytes % 8.9 Neutrophils # 5.9 Neutrophils % 76.1 Nucleated Red Blood Cells # 0.0 Nucleated Red Blood Cells % 0.0 Platelet Count 249 Potassium Level 3.8 Red Blood Count 3.02 L Red Cell Distribution Width 16.5 H Sodium Level 142 White Blood Count 7.8 Bedside Glucose 113 Medications Medications Current Medications Ondansetron HCl (Zofran Inj) 4 mg Q6H PRN IV NAUSEA AND/OR VOMITING; Start 05/17 at 22:30 Acetaminophen (Tylenol Tab) 650 mg Q6H PRN PO PAIN LEVEL 1-3 OR FEVER Last administered on 05/20/16 16:26; Admin Dose 650 MG; Start 05/17/16 at 22:30 Morphine Sulfate (morphine) 2 mg Q4H PRN IV SEVERE PAIN LEVEL 7-10 Last administered on 05/21/16 22:57; Admin Dose 2 MG; Start 05/17/16 at 22:30 Famotidine (Pepcid Iv) 20 mg Q24H IV Last administered on 05/22/16 09:07; Admin Dose 20 MG; Start 05/18/16 at 09:00 Enoxaparin Sodium (Lovenox) 30 mg DAILY SC Last administered on 05/22/16 09:12 ; Admin Dose 30 MG; Start 05/18/16 at 09:00 Amlodipine Besylate (Norvasc) 10 mg DAILY PO Last administered on 05/22/16 09: 07; Admin Dose 10 MG; Start 05/18/16 at 09:00 Atenolol (Tenormin) 100 mg DAILY PO Last administered on 05/22/16 09:08; Admin Dose 100 MG; Start 05/18/16 at 09:00 Gabapentin 100 mg 100 mg QHS PO Last administered on 05/21/16 22:57; Admin Dose 100 MG; Start 05/18/16 at 21:00 Vancomycin HCl 250 ml @ 125 mls/hr Q24H IVPB Last administered on 05/22/16 11 :05; Admin Dose 125 MLS/HR; Start 05/19/16 at 11:00 Ceftriaxone Sodium (Rocephin) 50 ml @ 100 mls/hr Q24H IVPB Last administered on 05/21/16 22:57; Admin Dose 100 MLS/HR; Start 05/18/16 at 23:00; Stop at 12:00 Ondansetron HCl (Zofran Inj) 4 mg Q4H PRN IV NAUSEA AND/OR VOMITING; Start at 14:30 JANIS BAKER May 22, 2016 16:22
[2016-05-22] MEDS: morphine 2 MG INJ IV PRN ×2 (16:53→21:06)
[2016-05-22 19:40] VITALS: BP 146/66; RESP 20
[2016-05-22] MEDS: GABAPENTIN 100 MG CAP PO SCH (21:06)
--- NOTE | 2016-05-22 22:37 | PN ---
Date/Time of Note Date/Time of Note DATE: 05/22/16 TIME: 22:35 Assessment/Plan Lines/Catheters IV Catheter Type (from [facility]): Peripheral IV Assessment/Plan Problems: (1) Ischemic pain of left foot (2) Gangrene of foot Status: Acute (3) Peripheral arterial occlusive disease Status: Acute (4) Cellulitis of foot Status: Acute Assessment/Plan I have discussed her case with her vascular surgeon, Dr. Shepherd. Recommendation is revascularization of the right lower extremity prior to any foot surgery. I will monitor patient in-house. Patient is at risk for limb loss. Subjective 24 Hr Interval Summary Patient was seen and examined at bedside. She is status post lower extremity angiography yesterday. Patient reports that her pain is slightly reduced but continues to have significant pain in the right foot. Denies fever and chills. Reports no injury. Denies overnight adverse events. Constitutional: no complaints Pain Control: severe Exam/Review of Systems Vital Signs Vitals Vital Signs Date Time Temp Pulse Resp B/P Pulse Ox O2 Delivery O2 Flow Rate FiO2 05/22/16 19:40 98.0 60 20 146/66 96 05/18/16 20:15 Nasal Cannula 2.0 Intake and Output 05/21/16 05/21/16 05/22/16 15:00 23:00 07:00 Intake Total 685 ml 250 ml Output Total 310 ml 800 ml Balance 375 ml -550 ml Exam Free Text/Dictation Patient is in no acute distress laying supine in bed. Right foot exam shows nonpalpable pedal pulses with ischemic changes noted to the distal foot. She continues to have a blister on the top of the foot between the first and second toes. The erythema is reduced in the edema is also reduced. There is no malodor present. The area is tender to palpation. Sensation appears to be decreased as well. Labs reviewed. No other changes noted on examination today. Results Result Diagram: 05/22/16 0504 05/22/16 0504 RONNELL CORONEL DPM May 22, 2016 22:37
[2016-05-22] MEDS: CEFTRIAXONE 1 GM/50 ML (PMX) 50 ML IVPB SCH (23:18)
[2016-05-23 07:39] VITALS: BP 160/74; RESP 18
[2016-05-23] MEDS: ATENOLOL 100 MG TAB PO SCH (09:02)
[2016-05-23] MEDS: AMLODIPINE 10 MG TAB PO SCH (09:02)
[2016-05-23] MEDS: FAMOTIDINE 20 MG INJ IV SCH (09:02)
[2016-05-23] MEDS: ENOXAPARIN 30 MG/0.3 ML SYG SC SCH (09:08)
[2016-05-23] MEDS: VANCOMYCIN 1 GM in NS 250 ML IVPB SCH (11:08)
--- NOTE | 2016-05-23 12:41 | CONS ---
Date/Time of Note Date/Time of Note DATE: 05/23/16 TIME: 12:40 Assessment/Plan Assessment/Plan Chief Complaint/Hosp Course SUBJECTIVE: No acute changes. The patient is alert, looks comfortable, no fevers. Vital signs stable. MICROBIOLOGY: Cultures have been negative. ANTIMICROBIALS: The patient is on: 1. Vancomycin. 2. Rocephin. PHYSICAL EXAMINATION: GENERAL: This is a fragile, chronically ill-appearing, elderly woman who is alert, in no distress. HEENT: Head atraumatic, normocephalic. Sclerae anicteric. Buccal mucosa dry. NECK: Supple. CHEST: Rise symmetrical. Breath sounds diminished to bases. HEART: S1, S2. ABDOMEN: Soft, bowel sounds present. EXTREMITIES: Left fourth toe gangrenous changes and also a blister. ASSESSMENT: 1. Left foot gangrene with cellulitis. 2. Peripheral vascular disease. 3. Hypertension. PLAN: Remains stable. Continue present care, antibiotics, per podiatry recommendations needs revascularization procedure prior to any surgical intervention. DW staff Problems: Consultation Date/Type/Reason Admit Date/Time May 17, 2016 at 22:19 Type of Consultation: ID Exam/Review of Systems Vital Signs Vitals Vital Signs Date Time Temp Pulse Resp B/P Pulse Ox O2 Delivery O2 Flow Rate FiO2 05/23/16 07:39 98.9 61 18 160/74 96 Intake and Output 05/22/16 05/22/16 05/23/16 15:00 23:00 07:00 Intake Total 250 ml 740 ml 290 ml Output Total 300 ml Balance 250 ml 740 ml -10 ml Results Result Diagram: 05/22/16 0504 05/22/16 0504 Medications Medications Current Medications Acetaminophen (Tylenol Tab) 650 mg Q6H PRN PO PAIN LEVEL 1-3 OR FEVER Last administered on 05/20/16 16:26; Admin Dose 650 MG; Start 05/17/16 at 22:30 Morphine Sulfate (morphine) 2 mg Q4H PRN IV SEVERE PAIN LEVEL 7-10 Last administered on 05/22/16 21:06; Admin Dose 2 MG; Start 05/17/16 at 22:30 Famotidine (Pepcid Iv) 20 mg Q24H IV Last administered on 05/23/16 09:02; Admin Dose 20 MG; Start 05/18/16 at 09:00 Enoxaparin Sodium (Lovenox) 30 mg DAILY SC Last administered on 05/23/16 09:08 ; Admin Dose 30 MG; Start 05/18/16 at 09:00 Amlodipine Besylate (Norvasc) 10 mg DAILY PO Last administered on 05/23/16 09: 02; Admin Dose 10 MG; Start 05/18/16 at 09:00 Atenolol (Tenormin) 100 mg DAILY PO Last administered on 05/23/16 09:02; Admin Dose 100 MG; Start 05/18/16 at 09:00 Gabapentin 100 mg 100 mg QHS PO Last administered on 05/22/16 21:06; Admin Dose 100 MG; Start 05/18/16 at 21:00 Vancomycin HCl 250 ml @ 125 mls/hr Q24H IVPB Last administered on 05/23/16 11 :08; Admin Dose 125 MLS/HR; Start 05/19/16 at 11:00 Ceftriaxone Sodium (Rocephin) 50 ml @ 100 mls/hr Q24H IVPB Last administered on 05/22/16 23:18; Admin Dose 100 MLS/HR; Start 05/18/16 at 23:00; Stop at 12:00 Ondansetron HCl (Zofran Inj) 4 mg Q4H PRN IV NAUSEA AND/OR VOMITING; Start at 14:30 Miscellaneous Information (*Rx Drug Level Order Reminder*) VANCOMYCIN TROUGH AT 1000 ONCE ONCE XX ; Start 05/24/16 at 10:00; Stop 05/24/16 at 10:01 VEGA PALMA NP May 23, 2016 12:41
[2016-05-23] MEDS: morphine 2 MG INJ IV PRN ×2 (15:25→18:54)
--- NOTE | 2016-05-23 16:21 | PN ---
Date/Time of Note Date/Time of Note DATE: 05/23/16 TIME: 16:18 Assessment/Plan VTE Prophylaxis VTE Prophylaxis Intervention: SCD's Lines/Catheters IV [facility] (from [facility]): Peripheral IV Assessment/Plan Chief Complaint/Hosp Course ASSESSMENT AND PLAN: 1. Left foot cellulitis with gangrene. Dr. Parr is following the patient from infectious disease standpoint. Continue abx per ID. Dr. Guerrero will be following from podiatry consultation. 2. Peripheral arterial occlusive disease. Dr. Shepherd is following from vascular surgery consultation. S/p angio. 3. Hypertension by history. Continue patient Norvasc and atenolol, hydralazine p.r.n. for systolic blood pressure above 170. Continue Lovenox for deep venous thrombosis prophylaxis and Pepcid for peptic ulcer disease prophylaxis. Further recommendations based on clinical course. Plan of care discussed with Dr. Stephens. Problems: Subjective 24 Hr Interval Summary Free Text/Dictation Patient was able to use bedside commode, pain is well controlled, no fever nausea vomiting. Exam/Review of Systems Vital Signs Vitals Vital Signs Date Time Temp Pulse Resp B/P Pulse Ox O2 Delivery O2 Flow Rate FiO2 05/23/16 07:39 98.9 61 18 160/74 96 Intake and Output 05/22/16 05/22/16 05/23/16 15:00 23:00 07:00 Intake Total 250 ml 740 ml 290 ml Output Total 300 ml Balance 250 ml 740 ml -10 ml Exam GENERAL: Well-developed, well-nourished female currently is awake, alert. HEENT: Head is atraumatic, normocephalic. NECK: Supple, no cervical lymphadenopathy, no thyromegaly. CHEST: Lungs clear bilaterally. There are no rhonchi, wheezes, rales noted. CARDIOVASCULAR: Normal S1, S2. No murmurs, clicks, rubs noted. ABDOMEN: Round, soft, nondistended, nontender. Bowel sounds present. EXTREMITIES: The patient has left foot edema, erythema, and tenderness with gangrenous fourth toe on the left foot and discoloration of the surrounding area. Pulses are weak but present. Right extremity: There is no edema, clubbing, cyanosis. Pulses equal 2+. SKIN: There is no rash, petechiae noted. NEUROLOGIC: Patient is awake, alert and oriented x4. Results Result Diagram: 05/22/16 0504 05/22/16 0504 Medications Medications Current Medications Acetaminophen (Tylenol Tab) 650 mg Q6H PRN PO PAIN LEVEL 1-3 OR FEVER Last administered on 05/20/16 16:26; Admin Dose 650 MG; Start 05/17/16 at 22:30 Morphine Sulfate (morphine) 2 mg Q4H PRN IV SEVERE PAIN LEVEL 7-10 Last administered on 05/23/16 15:25; Admin Dose 2 MG; Start 05/17/16 at 22:30 Famotidine (Pepcid Iv) 20 mg Q24H IV Last administered on 05/23/16 09:02; Admin Dose 20 MG; Start 05/18/16 at 09:00 Enoxaparin Sodium (Lovenox) 30 mg DAILY SC Last administered on 05/23/16 09:08 ; Admin Dose 30 MG; Start 05/18/16 at 09:00 Amlodipine Besylate (Norvasc) 10 mg DAILY PO Last administered on 05/23/16 09: 02; Admin Dose 10 MG; Start 05/18/16 at 09:00 Atenolol (Tenormin) 100 mg DAILY PO Last administered on 05/23/16 09:02; Admin Dose 100 MG; Start 05/18/16 at 09:00 Gabapentin 100 mg 100 mg QHS PO Last administered on 05/22/16 21:06; Admin Dose 100 MG; Start 05/18/16 at 21:00 Vancomycin HCl 250 ml @ 125 mls/hr Q24H IVPB Last administered on 05/23/16 11 :08; Admin Dose 125 MLS/HR; Start 05/19/16 at 11:00 Ceftriaxone Sodium (Rocephin) 50 ml @ 100 mls/hr Q24H IVPB Last administered on 05/22/16 23:18; Admin Dose 100 MLS/HR; Start 05/18/16 at 23:00; Stop at 12:00 Ondansetron HCl (Zofran Inj) 4 mg Q4H PRN IV NAUSEA AND/OR VOMITING; Start at 14:30 Miscellaneous Information (*Rx Drug Level Order Reminder*) VANCOMYCIN TROUGH AT 1000 ONCE ONCE XX ; Start 05/24/16 at 10:00; Stop 05/24/16 at 10:01 JANIS BAKER May 23, 2016 16:21
[2016-05-23] MEDS: ACETAMINOPHEN 325 MG TAB PO PRN (16:40)
[2016-05-23 19:45] VITALS: BP 157/67; RESP 20
--- NOTE | 2016-05-23 20:37 | PN ---
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 At the moment, would recommend for the patient to continue with antibiotics and to obtain a new vascular ultrasound in order to delineate her infrainguinal disease and when compared to her right side. She did have a CT angiography that identified patient having aortoiliac calcification and significant superficial femoral and popliteal artery disease. -S/P angio demonstrated left distal external iliac artery stenosis and significant disease in the SFA that would require stenting and angioplasty. She has developed gangrene of the toes and patient would like to think about her options which have been discussed thoroughly and she understands open vs endovascular intervention -Will schedule pt for intervention upon skill labor availability and pts decision. She has yet to decide bc she would like to discuss her options with her son -Appreciate podiatry feedback in regards to her needing limb salvage. -Optimize vascular status (BP meds, diet, nutrition, exercise, sugar control, antiplatelets). -Discussed findings, plan and management with the patient, she understands -Thank you for allowing us to partake in the care of your patient. Please call with any questions. Problems: Subjective 24 Hr Interval Summary no new vascular issues overnight, tenderness slightly improved Exam/Review of Systems Vital Signs Vitals Vital Signs Date Time Temp Pulse Resp B/P Pulse Ox O2 Delivery O2 Flow Rate FiO2 05/24/16 07:56 98.9 63 22 169/79 95 Intake and Output 05/23/16 05/23/16 05/24/16 15:00 23:00 07:00 Intake Total 930 ml 350 ml Balance 930 ml 350 ml Exam Free Text/Dictation GENERAL: Alert and oriented x3, PULMONARY: Clear to auscultation bilaterally CARDIOVASCULAR: S1, S2 present ABDOMEN: Soft, nontender, nondistended. Bowel sounds positive. Truncal obesity. EXTREMITIES: Right lower extremity palpable femoral pulse, nonpalpable pedal pulse. Motor, sensory intact. Capillary refill 3 seconds. 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 Left lower extremity palpable femoral pulse, nonpalpable pedal pulse, Motor and sensory intact. Tenderness upon palpation of the forefoot area with swelling and significant erythema slightly improved. There is a bluish-purple discoloration and gangrene of all the toes, specifically gangrene of the first, partial the third, fourth and fifth toes. Results Result Diagram: 05/24/16 0515 05/24/16 0515 AMY VALDES MD May 23, 2016 20:37
[2016-05-23] MEDS: GABAPENTIN 100 MG CAP PO SCH (21:19)
[2016-05-24] MEDS: CEFTRIAXONE 1 GM/50 ML (PMX) 50 ML IVPB SCH ×2 (00:24→22:52)
[2016-05-24 06:23] LABS: BASOPHILS % 0.1 % (0.0-2.0); EOSINOPHILS # 0.2 10^3/ul (0.0-0.5); EOSINOPHILS % 2.2 % (0.0-7.0); HEMATOCRIT 29.3 % (37.0-47.0); HEMOGLOBIN 9.6 g/dl (12.0-16.0); LYMPHOCYTES # 0.8 10^3/ul (0.8-2.9); LYMPHOCYTES % 11.1 % (15.0-51.0); MEAN CORPUSCULAR HEMOGLOBIN 32.5 pg (29.0-33.0); MEAN CORPUSCULAR HGB CONC 32.8 g/dl (32.0-37.0); MEAN CORPUSCULAR VOLUME 99.1 fl (82.0-101.0); MEAN PLATELET VOLUME 9.1 fl (7.4-10.4); MONOCYTE # 0.6 10^3/ul (0.3-0.9); MONOCYTES % 8.7 % (0.0-11.0); NEUTROPHIL # 5.6 10^3/ul (1.6-7.5); NEUTROPHILS % 77.9 % (39.0-77.0); PLATELET COUNT 246 10^3/UL (140-440); RED BLOOD COUNT 2.96 10^6/ul (4.20-5.40); RED CELL DISTRIBUTION WIDTH 16.6 % (11.5-14.5); UNCORRECTED WBC 7.2 10^3/ul (4.8-10.8); WHITE BLOOD COUNT 7.2 10^3/ul (4.8-10.8)
[2016-05-24 06:24] LABS: CONDITION 1; LH ANALYZER COMMENTS 1
[2016-05-24 06:33] LABS: POTASSIUM 3.7 mmol/L (3.5-5.1)
[2016-05-24 06:35] LABS: CREATININE 0.96 mg/dl (0.44-1.00)
[2016-05-24 06:36] LABS: CALCIUM 8.7 mg/dl (8.4-10.2)
[2016-05-24 07:56] VITALS: BP 169/79; RESP 22
[2016-05-24] MEDS: ATENOLOL 100 MG TAB PO SCH (08:55)
--- NOTE | 2016-05-24 08:55 | PN ---
Date/Time of Note Date/Time of Note DATE: 05/24/16 TIME: 08:50 Assessment/Plan VTE Prophylaxis VTE Prophylaxis Intervention: LMWH Lines/Catheters IV C[facility]ter Type (from [facility] Saline Lock Assessment/Plan Assessment/Plan 1. Left foot cellulitis with gangrene. -Dr. Parr is following the patient from infectious disease standpoint. Continue abx per ID. Dr. Guerrero will be following from podiatry consultation. 2. Peripheral arterial occlusive disease. -Dr. Shepherd is following from vascular surgery consultation. S/p angio. 3. Hypertension by history. Continue patient Norvasc and atenolol, hydralazine p.r.n. for systolic blood pressure above 170. Continue Lovenox for deep venous thrombosis prophylaxis and Pepcid for peptic ulcer disease prophylaxis. Further recommendations based on clinical course. Plan of care discussed with Dr. Stephens. Subjective 24 Hr Interval Summary Constitutional: other Eyes: no complaints ENT: no complaints Respiratory: no complaints Cardiovascular: no complaints Gastrointestinal: no complaints Genitourinary: no complaints Musculoskeletal: bone/joint pain Neurologic: no complaints Endocrine: no complaints Lymphatic: no complaints Psychological: no complaints Immunologic: no complaints Exam/Review of Systems Vital Signs Vitals Vital Signs Date Time Temp Pulse Resp B/P Pulse Ox O2 Delivery O2 Flow Rate FiO2 05/24/16 07:56 98.9 63 22 169/79 95 Intake and Output 05/23/16 05/23/16 05/24/16 15:00 23:00 07:00 Intake Total 930 ml 350 ml Balance 930 ml 350 ml Exam Constitutional: alert, oriented, well developed Psych: no complaints Head: atraumatic Eyes: EOMI, PERRL, nl sclera ENMT: nl external ears & nose Neck: non-tender Respiratory: clear to auscultation Cardiovascular: nl pulses Gastrointestinal: non-tender, soft Musculoskeletal: other Extremities: normal pulses, other ( Left foot cellulitis with gangrene.) Neurological: nl mental status, nl speech Skin: other ( Left foot cellulitis with gangrene.) Lymph: nontender Results Result Diagram: 05/24/16 0515 05/24/16 0515 Results 24 hrs Laboratory Tests Test 05/24/16 05:15 Anion Gap 17 H Basophils # 0.0 Basophils % 0.1 Blood Morphology Comment Blood Urea Nitrogen 15 Calcium Level 8.7 Carbon Dioxide Level 27 Chloride Level 102 Creatinine 0.96 Eosinophils # 0.2 Eosinophils % 2.2 Glucose Level 113 Hematocrit 29.3 L Hemoglobin 9.6 L Lymphocytes # 0.8 Lymphocytes % 11.1 L Mean Corpuscular Hemoglobin 32.5 Mean Corpuscular Hemoglobin Concent 32.8 Mean Corpuscular Volume 99.1 Mean Platelet Volume 9.1 Monocytes # 0.6 Monocytes % 8.7 Neutrophils # 5.6 Neutrophils % 77.9 H Nucleated Red Blood Cells # 0.0 Nucleated Red Blood Cells % 0.0 Platelet Count 246 Potassium Level 3.7 Red Blood Count 2.96 L Red Cell Distribution Width 16.6 H Sodium Level 142 White Blood Count 7.2 Medications Medications Current Medications Acetaminophen (Tylenol Tab) 650 mg Q6H PRN PO PAIN LEVEL 1-3 OR FEVER Last administered on 05/23/16 16:40; Admin Dose 650 MG; Start 05/17/16 at 22:30 Morphine Sulfate (morphine) 2 mg Q4H PRN IV SEVERE PAIN LEVEL 7-10 Last administered on 05/23/16 18:54; Admin Dose 2 MG; Start 05/17/16 at 22:30 Famotidine (Pepcid Iv) 20 mg Q24H IV Last administered on 05/23/16 09:02; Admin Dose 20 MG; Start 05/18/16 at 09:00 Enoxaparin Sodium (Lovenox) 30 mg DAILY SC Last administered on 05/23/16 09:08 ; Admin Dose 30 MG; Start 05/18/16 at 09:00 Amlodipine Besylate (Norvasc) 10 mg DAILY PO Last administered on 05/23/16 09: 02; Admin Dose 10 MG; Start 05/18/16 at 09:00 Atenolol (Tenormin) 100 mg DAILY PO Last administered on 05/23/16 09:02; Admin Dose 100 MG; Start 05/18/16 at 09:00 Gabapentin 100 mg 100 mg QHS PO Last administered on 05/23/16 21:19; Admin Dose 100 MG; Start 05/18/16 at 21:00 Vancomycin HCl 250 ml @ 125 mls/hr Q24H IVPB Last administered on 05/23/16 11 :08; Admin Dose 125 MLS/HR; Start 05/19/16 at 11:00 Ceftriaxone Sodium (Rocephin) 50 ml @ 100 mls/hr Q24H IVPB Last administered on 05/24/16t 00:24; Admin Dose 100 MLS/HR; Start 05/18/16 at 23:00; Stop at 12:00 Ondansetron HCl (Zofran Inj) 4 mg Q4H PRN IV NAUSEA AND/OR VOMITING; Start at 14:30 Miscellaneous Information (*Rx Drug Level Order Reminder*) VANCOMYCIN TROUGH AT 1000 ONCE ONCE XX ; Start 05/24/16 at 10:00; Stop 05/24/16 at 10:01 NILESH CAVANAUGH May 24, 2016 08:55
[2016-05-24] MEDS: AMLODIPINE 10 MG TAB PO SCH (08:56)
--- NOTE | 2016-05-24 09:09 | PN ---
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 At the moment, would recommend for the patient to continue with antibiotics and to obtain a new vascular ultrasound in order to delineate her infrainguinal disease and when compared to her right side. She did have a CT angiography that identified patient having aortoiliac calcification and significant superficial femoral and popliteal artery disease. -S/P angio demonstrated left distal external iliac artery stenosis and significant disease in the SFA that would require stenting and angioplasty. 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 She has yet to decide bc she would like to discuss her options with her son -Will obtain cardio evaluation -Appreciate podiatry feedback in regards to her needing limb salvage. -Optimize vascular status (BP meds, diet, nutrition, exercise, sugar control, antiplatelets). -Discussed findings, plan and management with the patient, she understands -Thank you for allowing us to partake in the care of your patient. Please call with any questions. Problems: Subjective 24 Hr Interval Summary no new vascular events overnight Exam/Review of Systems Vital Signs Vitals Vital Signs Date Time Temp Pulse Resp B/P Pulse Ox O2 Delivery O2 Flow Rate FiO2 05/24/16 07:56 98.9 63 22 169/79 95 Intake and Output 05/23/16 05/23/16 05/24/16 15:00 23:00 07:00 Intake Total 930 ml 350 ml Balance 930 ml 350 ml Exam Free Text/Dictation GENERAL: Alert and oriented x3, PULMONARY: Clear to auscultation bilaterally CARDIOVASCULAR: S1, S2 present ABDOMEN: Soft, nontender, nondistended. Bowel sounds positive. Truncal obesity. EXTREMITIES: Right lower extremity palpable femoral pulse, nonpalpable pedal pulse. Motor, sensory intact. Capillary refill 3 seconds. 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 Left lower extremity palpable femoral pulse, nonpalpable pedal pulse, Motor and sensory intact. Tenderness upon palpation of the forefoot area with swelling and erythema slightly improved There is a bluish-purple discoloration and gangrene of all the toes, specifically gangrene of the first, partial the third, fourth and fifth toes. Results Result Diagram: 05/24/16 0515 05/24/16 0515 AMY VALDES MD May 24, 2016 09:09
[2016-05-24] MEDS: ENOXAPARIN 30 MG/0.3 ML SYG SC SCH (09:27)
[2016-05-24] MEDS: FAMOTIDINE 20 MG INJ IV SCH (09:28)
--- NOTE | 2016-05-24 12:12 | CONS ---
Date/Time of Note Date/Time of Note DATE: 05/24/16 TIME: 12:11 Assessment/Plan Assessment/Plan Chief Complaint/Hosp Course SUBJECTIVE: No acute changes. The patient is alert, looks comfortable, no fevers. Vital signs stable. MICROBIOLOGY: Cultures have been negative. ANTIMICROBIALS: The patient is on: 1. Vancomycin. 2. Rocephin. PHYSICAL EXAMINATION: GENERAL: This is a fragile, chronically ill-appearing, elderly woman who is alert, in no distress. HEENT: Head atraumatic, normocephalic. Sclerae anicteric. Buccal mucosa dry. NECK: Supple. CHEST: Rise symmetrical. Breath sounds diminished to bases. HEART: S1, S2. ABDOMEN: Soft, bowel sounds present. EXTREMITIES: Left fourth toe gangrenous changes and also a blister. ASSESSMENT: 1. Left foot gangrene with cellulitis. 2. Peripheral vascular disease. 3. Hypertension. PLAN: Remains stable. Continue present care, antibiotics, per podiatry recommendations needs revascularization procedure prior to any surgical intervention. Pending cardiac clearance DW staff Problems: Consultation Date/Type/Reason Admit Date/Time May 17, 2016 at 22:19 Type of Consultation: ID Exam/Review of Systems Vital Signs Vitals Vital Signs Date Time Temp Pulse Resp B/P Pulse Ox O2 Delivery O2 Flow Rate FiO2 05/24/16 07:56 98.9 63 22 169/79 95 Intake and Output 05/23/16 05/23/16 05/24/16 15:00 23:00 07:00 Intake Total 930 ml 350 ml Balance 930 ml 350 ml Results Result Diagram: 05/24/16 0515 05/24/16 0515 Results 24 hrs Laboratory Tests Test 05/24/16 05:15 Anion Gap 17 H Basophils # 0.0 Basophils % 0.1 Blood Morphology Comment Blood Urea Nitrogen 15 Calcium Level 8.7 Carbon Dioxide Level 27 Chloride Level 102 Creatinine 0.96 Eosinophils # 0.2 Eosinophils % 2.2 Glucose Level 113 Hematocrit 29.3 L Hemoglobin 9.6 L Lymphocytes # 0.8 Lymphocytes % 11.1 L Mean Corpuscular Hemoglobin 32.5 Mean Corpuscular Hemoglobin Concent 32.8 Mean Corpuscular Volume 99.1 Mean Platelet Volume 9.1 Monocytes # 0.6 Monocytes % 8.7 Neutrophils # 5.6 Neutrophils % 77.9 H Nucleated Red Blood Cells # 0.0 Nucleated Red Blood Cells % 0.0 Platelet Count 246 Potassium Level 3.7 Red Blood Count 2.96 L Red Cell Distribution Width 16.6 H Sodium Level 142 White Blood Count 7.2 Medications Medications Current Medications Acetaminophen (Tylenol Tab) 650 mg Q6H PRN PO PAIN LEVEL 1-3 OR FEVER Last administered on 05/23/16 16:40; Admin Dose 650 MG; Start 05/17/16 at 22:30 Morphine Sulfate (morphine) 2 mg Q4H PRN IV SEVERE PAIN LEVEL 7-10 Last administered on 05/23/16 18:54; Admin Dose 2 MG; Start 05/17/16 at 22:30 Famotidine (Pepcid Iv) 20 mg Q24H IV Last administered on 05/24/16 09:28; Admin Dose 20 MG; Start 05/18/16 at 09:00 Enoxaparin Sodium (Lovenox) 30 mg DAILY SC Last administered on 05/24/16 09:27 ; Admin Dose 30 MG; Start 05/18/16 at 09:00 Amlodipine Besylate (Norvasc) 10 mg DAILY PO Last administered on 05/24/16 08: 56; Admin Dose 10 MG; Start 05/18/16 at 09:00 Atenolol (Tenormin) 100 mg DAILY PO Last administered on 05/24/16 08:55; Admin Dose 100 MG; Start 05/18/16 at 09:00 Gabapentin 100 mg 100 mg QHS PO Last administered on 05/23/16 21:19; Admin Dose 100 MG; Start 05/18/16 at 21:00 Vancomycin HCl 250 ml @ 125 mls/hr Q24H IVPB Last administered on 05/23/16 11 :08; Admin Dose 125 MLS/HR; Start 05/19/16 at 11:00 Ceftriaxone Sodium (Rocephin) 50 ml @ 100 mls/hr Q24H IVPB Last administered on 05/24/16 00:24; Admin Dose 100 MLS/HR; Start 05/18/16 at 23:00; Stop at 12:00 Ondansetron HCl (Zofran Inj) 4 mg Q4H PRN IV NAUSEA AND/OR VOMITING; Start at 14:30 VEGA PALMA NP May 24, 2016 12:12
--- NOTE | 2016-05-24 12:36 | CONS ---
Date/Time of Note Date/Time of Note DATE: 05/24/16 TIME: 12:28 Assessment/Plan Assessment/Plan Additional Assessment/Plan Peripheral arterial disease with critical limb ischemia Hypertension Dyslipidemia Preserved ejection fraction -I did discuss with the patient as well as son at bedside findings of the peripheral angiogram. Furthermore I did discuss with Dr. Shepherd our vascular surgery colleague. I agree with pursuing an endovascular approach for her treatment. This was also explained with the patient and son and they are in agreement. Given the severe peripheral arterial disease, patient would benefit from antiplatelet therapy as well as statin therapy. This will be initiated. Blood pressure remains elevated. Patient would benefit from HOLLI inhibitor, given plan for contrast study, would hold off on initiation of this at the current time. Consultation Date/Type/Reason Admit Date/Time May 17, 2016 at 22:19 Type of Consultation: cv Reason for Consultation Hypertension, peripheral arterial disease Hx of Present Illness This is an 85-year-old female well-known to our office with a past medical history of hypertension, dyslipidemia and unfortunately poor medication compliance who presents with worsening left lower extremity pain and necrotic toes. Patient with critical limb ischemia. Patient underwent ultrasound as well as CT scan and peripheral angiogram which demonstrated severe disease in the left iliac, SFA and right common femoral artery subtotal occlusion. Patient undergoing vascular surgery evaluation for further management and care. She complains of left foot pain. Pain is present at rest. She denies any chest pain or shortness of breath. 12 point review of systems was performed with all pertinent positives and negatives mentioned above and all else is negative Constitutional: other Eyes: no complaints ENT: no complaints Respiratory: no complaints Cardiovascular: no complaints Gastrointestinal: no complaints Genitourinary: no complaints Musculoskeletal: bone/joint pain Skin: other Neurologic: no complaints Endocrine: no complaints Psychological: nl mood/affect Past Medical History Peripheral arterial disease Medical History: high cholesterol, hypertension Family History Significant Family History: no pertinent family hx Social History Smoking Status: Never smoker Exam/Review of Systems Vital Signs Vitals Vital Signs Date Time Temp Pulse Resp B/P Pulse Ox O2 Delivery O2 Flow Rate FiO2 05/24/16 07:56 98.9 63 22 169/79 95 Intake and Output 05/23/16 05/23/16 05/24/16 15:00 23:00 07:00 Intake Total 930 ml 350 ml Balance 930 ml 350 ml Exam No apparent distress Constitutional: alert, oriented Head: normocephalic Neck: supple Respiratory: clear to auscultation, normal air movement Cardiovascular: other (S1-S2), regular rate and rhythm Gastrointestinal: bowel sounds, non-tender, other (No guarding), soft Extremities: other (No edema, necrotic toes of left lower extremity) Results Result Diagram: 05/24/16 0515 05/24/16 0515 Results 24 hrs Laboratory Tests Test 05/24/16 05:15 05/24/16 10:15 Anion Gap 17 H Basophils # 0.0 Basophils % 0.1 Blood Morphology Comment Blood Urea Nitrogen 15 Calcium Level 8.7 Carbon Dioxide Level 27 Chloride Level 102 Creatinine 0.96 Eosinophils # 0.2 Eosinophils % 2.2 Glucose Level 113 Hematocrit 29.3 L Hemoglobin 9.6 L Lymphocytes # 0.8 Lymphocytes % 11.1 L Mean Corpuscular Hemoglobin 32.5 Mean Corpuscular Hemoglobin Concent 32.8 Mean Corpuscular Volume 99.1 Mean Platelet Volume 9.1 Monocytes # 0.6 Monocytes % 8.7 Neutrophils # 5.6 Neutrophils % 77.9 H Nucleated Red Blood Cells # 0.0 Nucleated Red Blood Cells % 0.0 Platelet Count 246 Potassium Level 3.7 Red Blood Count 2.96 L Red Cell Distribution Width 16.6 H Sodium Level 142 White Blood Count 7.2 Vancomycin Level Trough 12.7 Medications Medications Current Medications Acetaminophen (Tylenol Tab) 650 mg Q6H PRN PO PAIN LEVEL 1-3 OR FEVER Last administered on 05/23/16 16:40; Admin Dose 650 MG; Start 05/17/16 at 22:30 Morphine Sulfate (morphine) 2 mg Q4H PRN IV SEVERE PAIN LEVEL 7-10 Last administered on 05/23/16 18:54; Admin Dose 2 MG; Start 05/17/16 at 22:30 Famotidine (Pepcid Iv) 20 mg Q24H IV Last administered on 05/24/16 09:28; Admin Dose 20 MG; Start 05/18/16 at 09:00 Enoxaparin Sodium (Lovenox) 30 mg DAILY SC Last administered on 05/24/16 09:27 ; Admin Dose 30 MG; Start 05/18/16 at 09:00 Amlodipine Besylate (Norvasc) 10 mg DAILY PO Last administered on 05/24/16 08: 56; Admin Dose 10 MG; Start 05/18/16 at 09:00 Atenolol (Tenormin) 100 mg DAILY PO Last administered on 05/24/16 08:55; Admin Dose 100 MG; Start 05/18/16 at 09:00 Gabapentin 100 mg 100 mg QHS PO Last administered on 05/23/16 21:19; Admin Dose 100 MG; Start 05/18/16 at 21:00 Vancomycin HCl 250 ml @ 125 mls/hr Q24H IVPB Last administered on 05/23/16 11 :08; Admin Dose 125 MLS/HR; Start 05/19/16 at 11:00 Ceftriaxone Sodium (Rocephin) 50 ml @ 100 mls/hr Q24H IVPB Last administered on 05/24/16 00:24; Admin Dose 100 MLS/HR; Start 05/18/16 at 23:00; Stop at 12:00 Ondansetron HCl (Zofran Inj) 4 mg Q4H PRN IV NAUSEA AND/OR VOMITING; Start at 14:30 Procedures Procedures ECG demonstrates sinus rhythm at 71 bpm, right bundle branch block, nonspecific STT wave abnormalities James Berman DO May 24, 2016 12:36
[2016-05-24] MEDS: CLOPIDOGREL 75 MG TAB PO SCH (12:46)
[2016-05-24] MEDS: ASPIRIN 81 MG TAB PO SCH (12:46)
[2016-05-24] MEDS: VANCOMYCIN 1 GM in NS 250 ML IVPB SCH (12:46)
[2016-05-24] MEDS: morphine 2 MG INJ IV PRN ×3 (13:09→22:44)
[2016-05-24 19:44] VITALS: BP 159/75; RESP 20
--- NOTE | 2016-05-24 20:43 | RADRPT ---
Echocardiogram Report Patient Name: LEVI LUCIANO Gender: Female Date: 1930 Study Date: 24-May-2016 Welt Rander: Christine Navarro [facility] Location: [id number] Ref. Physician: NILESH CAVANAUGH Quality: Technically Difficult Study Procedures: Transthoracic echocardiogram with complete 2D, M-Mode, and doppler examination. Indications: Evaluate Left Ventricular function. 2D/M Mode Doppler Measurement Value Normal Ranges Measurement Value Normal Ranges LVIDd 2D 4.5 3.5 - 5.6 cm AV Peak Toño 2.3 m/sec LVIDs 2D 1.9 2.1 - 4.1 cm AV Peak PG 21.0 mmHg LVPWd 2D 1.0 0.6 - 1.1 cm LVOT Peak Toño 1.7 m/sec IVSd 2D 1.0 0.6 - 1.1 cm LVOT Peak PG 11.5 mmHg AoR Diam 2D 2.8 2.0 - 3.7 cm MV E Peak Toño 1.0 m/sec EDV 2D 92.7 cm3 MV A Peak Toño 1.1 m/sec ESV 2D 7.2 cm3 MV E/A 0.9 LA Dimen 2D 4.0 2.3 - 4.0 cm MV Decel Time 255 msec MV Decel Powell 4 MV E/A 0.9 TR Peak Toño 3.2 m/sec TR Peak PG 41.5 mmHg RVSP 45.0 mmHg Findings Left Ventricle: Normal left ventricular systolic function. Normal left ventricular cavity size. Normal left ventricular wall thickness. Ejection fraction is visually estimated at 65 %. Tissue Doppler/Mitral Doppler indices are consistent with impaired relaxation (Stage I diastolic dysfunction). Right Ventricle: Normal right ventricular size. Normal right ventricular systolic function. Left Atrium: There is mild enlargement of left atrium. Right Atrium: The right atrium is normal in size. Mitral Valve: Mitral valve leaflets appear mildly thickened. Mild mitral annular calcification. Mild mitral valve regurgitation. Aortic Valve: Normal appearance of the aortic valve. No significant aortic stenosis or insufficiency. Tricuspid Valve: Normal appearance of the tricuspid valve. Estimated peak PA systolic pressure 45 mmHg. There is mild tricuspid regurgitation. Pulmonic Valve: Normal pulmonic valve appearance. Pericardium: Normal pericardium with no significant pericardial effusion. Aorta: Normal aortic root. IVC: Normal size and normal respiratory collapse consistent with normal right atrial pressure. Conclusions Normal left ventricular systolic function. Normal left ventricular cavity size. Normal left ventricular wall thickness. Ejection fraction is visually estimated at 65 %. Tissue Doppler/Mitral Doppler indices are consistent with impaired relaxation (Stage I diastolic dysfunction). Normal right ventricular size. Normal right ventricular systolic function. There is mild enlargement of left atrium. The right atrium is normal in size. Mild mitral valve regurgitation. No significant aortic stenosis or insufficiency. Estimated peak PA systolic pressure 45 mmHg. There is mild tricuspid regurgitation. Normal pericardium with no significant pericardial effusion. Electronically Signed By: James Berman 24-May-2016 20:43:15 -0800 Patient Name: LEVI LUCIANO Study Date: 24-May-[id number]
[2016-05-24] MEDS: ATORVASTATIN 40 MG TAB PO SCH (20:55)
[2016-05-24] MEDS: GABAPENTIN 100 MG CAP PO SCH (20:55)
--- NOTE | 2016-05-24 23:48 | PN ---
Date/Time of Note Date/Time of Note DATE: 05/24/16 TIME: 23:48 Assessment/Plan Lines/Catheters IV Catheter Type (from Nrs): Peripheral IV Assessment/Plan Problems: (1) Cellulitis of foot Status: Acute (2) Peripheral arterial occlusive disease Status: Acute (3) Gangrene of foot Status: Acute (4) Ischemic pain of left foot Assessment/Plan Patient is status post left lower extremity angiography. Patient has improved. I will monitor the left lower extremity or changes. The goal is to reduce the amount of inflammation and edema in the left foot. Subjective 24 Hr Interval Summary Patient was seen and examined at bedside. She is status post angiography of the left lower extremity on the . She reports improvement in her pain level. Denies fever and chills. Reports no other problems today. Pain Control: well controlled Exam/Review of Systems Vital Signs Vitals Vital Signs Date Time Temp Pulse Resp B/P Pulse Ox O2 Delivery O2 Flow Rate FiO2 05/28/16 08:36 98.6 67 18 137/65 95 Intake and Output 05/27/16 05/27/16 05/28/16 15:00 23:00 07:00 Intake Total 250 ml 600 ml 600 ml Output Total 400 ml Balance 250 ml 200 ml 600 ml Exam Free Text/Dictation Patient is laying supine in bed in no acute distress. Left lower extremity is improved with less tenderness to palpation. She continues to have discoloration of her toes. The blister is reduced in size. There is no active open wound and the erythema is reduced as well. Labs reviewed. Results Result Diagram: 05/26/16 0500 05/28/16 0521 RONNELL CORONEL DPM May 24, 2016 23:48
[2016-05-25 06:49] LABS: BASOPHILS % 0.4 % (0.0-2.0); EOSINOPHILS # 0.2 10^3/ul (0.0-0.5); EOSINOPHILS % 2.8 % (0.0-7.0); HEMATOCRIT 29.4 % (37.0-47.0); HEMOGLOBIN 9.6 g/dl (12.0-16.0); LYMPHOCYTES % 15.7 % (15.0-51.0); MEAN CORPUSCULAR HEMOGLOBIN 32.4 pg (29.0-33.0); MEAN CORPUSCULAR HGB CONC 32.6 g/dl (32.0-37.0); MEAN CORPUSCULAR VOLUME 99.5 fl (82.0-101.0); MONOCYTE # 0.7 10^3/ul (0.3-0.9); MONOCYTES % 10.6 % (0.0-11.0); NEUTROPHIL # 4.7 10^3/ul (1.6-7.5); NEUTROPHILS % 70.5 % (39.0-77.0); PLATELET COUNT 244 10^3/UL (140-440); RED BLOOD COUNT 2.96 10^6/ul (4.20-5.40); RED CELL DISTRIBUTION WIDTH 16.4 % (11.5-14.5); UNCORRECTED WBC 6.6 10^3/ul (4.8-10.8); WHITE BLOOD COUNT 6.6 10^3/ul (4.8-10.8)
[2016-05-25 06:50] LABS: POTASSIUM 3.4 mmol/L (3.5-5.1)
[2016-05-25 06:52] LABS: CREATININE 0.91 mg/dl (0.44-1.00)
[2016-05-25 06:53] LABS: CALCIUM 8.5 mg/dl (8.4-10.2)
[2016-05-25 06:57] LABS: CONDITION 1; LH ANALYZER COMMENTS 1
[2016-05-25 07:48] VITALS: BP 159/69; RESP 18
[2016-05-25] MEDS: ASPIRIN 81 MG TAB PO SCH (08:22)
[2016-05-25] MEDS: CLOPIDOGREL 75 MG TAB PO SCH (08:23)
[2016-05-25] MEDS: ATENOLOL 100 MG TAB PO SCH (08:23)
[2016-05-25] MEDS: AMLODIPINE 10 MG TAB PO SCH (08:24)
[2016-05-25] MEDS: FAMOTIDINE 20 MG INJ IV SCH (08:24)
[2016-05-25] MEDS: ENOXAPARIN 30 MG/0.3 ML SYG SC SCH (08:30)
[2016-05-25] MEDS: VANCOMYCIN 1 GM in NS 250 ML IVPB SCH (12:12)
--- NOTE | 2016-05-25 12:45 | CONS ---
Date/Time of Note Date/Time of Note DATE: 05/25/16 TIME: 12:45 Assessment/Plan Assessment/Plan Chief Complaint/Hosp Course SUBJECTIVE: No acute changes. The patient is alert, looks comfortable, no fevers. Vital signs stable. MICROBIOLOGY: Cultures have been negative. ANTIMICROBIALS: The patient is on: 1. Vancomycin. 2. Rocephin. PHYSICAL EXAMINATION: GENERAL: This is a fragile, chronically ill-appearing, elderly woman who is alert, in no distress. HEENT: Head atraumatic, normocephalic. Sclerae anicteric. Buccal mucosa dry. NECK: Supple. CHEST: Rise symmetrical. Breath sounds diminished to bases. HEART: S1, S2. ABDOMEN: Soft, bowel sounds present. EXTREMITIES: Left fourth toe gangrenous changes and also a blister. ASSESSMENT: 1. Left foot gangrene with cellulitis. 2. Peripheral vascular disease. 3. Hypertension. PLAN: Remains stable. Continue present care, antibiotics, per podiatry recommendations needs revascularization procedure prior to any surgical intervention. DW staff Problems: Consultation Date/Type/Reason Admit Date/Time May 17, 2016 at 22:19 Type of Consultation: id Exam/Review of Systems Vital Signs Vitals Vital Signs Date Time Temp Pulse Resp B/P Pulse Ox O2 Delivery O2 Flow Rate FiO2 05/25/16 07:48 99.3 64 18 159/69 96 Intake and Output 05/24/16 05/24/16 05/25/16 15:00 23:00 07:00 Intake Total 950 ml 170 ml Balance 950 ml 170 ml Results Result Diagram: 05/25/16 0531 05/25/16 0531 Results 24 hrs Laboratory Tests Test 05/25/16 05:31 Anion Gap 14 Basophils # 0.0 Basophils % 0.4 Blood Morphology Comment Blood Urea Nitrogen 14 Calcium Level 8.5 Carbon Dioxide Level 26 Chloride Level 105 Creatinine 0.91 Eosinophils # 0.2 Eosinophils % 2.8 Glucose Level 107 Hematocrit 29.4 L Hemoglobin 9.6 L Lymphocytes # 1.0 Lymphocytes % 15.7 Mean Corpuscular Hemoglobin 32.4 Mean Corpuscular Hemoglobin Concent 32.6 Mean Corpuscular Volume 99.5 Mean Platelet Volume 9.0 Monocytes # 0.7 Monocytes % 10.6 Neutrophils # 4.7 Neutrophils % 70.5 Nucleated Red Blood Cells # 0.0 Nucleated Red Blood Cells % 0.0 Platelet Count 244 Potassium Level 3.4 L Red Blood Count 2.96 L Red Cell Distribution Width 16.4 H Sodium Level 142 White Blood Count 6.6 Medications Medications Current Medications Acetaminophen (Tylenol Tab) 650 mg Q6H PRN PO PAIN LEVEL 1-3 OR FEVER Last administered on 05/23/16 16:40; Admin Dose 650 MG; Start 05/17/16 at 22:30 Morphine Sulfate (morphine) 2 mg Q4H PRN IV SEVERE PAIN LEVEL 7-10 Last administered on 05/24/16 22:44; Admin Dose 2 MG; Start 05/17/16 at 22:30 Famotidine (Pepcid Iv) 20 mg Q24H IV Last administered on 05/25/16 08:24; Admin Dose 20 MG; Start 05/18/16 at 09:00 Enoxaparin Sodium (Lovenox) 30 mg DAILY SC Last administered on 05/25/16 08:30 ; Admin Dose 30 MG; Start 05/18/16 at 09:00 Amlodipine Besylate (Norvasc) 10 mg DAILY PO Last administered on 05/25/16 08: 24; Admin Dose 10 MG; Start 05/18/16 at 09:00 Atenolol (Tenormin) 100 mg DAILY PO Last administered on 05/25/16 08:23; Admin Dose 100 MG; Start 05/18/16 at 09:00 Gabapentin 100 mg 100 mg QHS PO Last administered on 05/24/16 20:55; Admin Dose 100 MG; Start 05/18/16 at 21:00 Vancomycin HCl 250 ml @ 125 mls/hr Q24H IVPB Last administered on 05/25/16 12 :12; Admin Dose 125 MLS/HR; Start 05/19/16 at 11:00 Ceftriaxone Sodium (Rocephin) 50 ml @ 100 mls/hr Q24H IVPB Last administered on 05/24/16 22:52; Admin Dose 100 MLS/HR; Start 05/18/16 at 23:00; Stop at 12:00 Ondansetron HCl (Zofran Inj) 4 mg Q4H PRN IV NAUSEA AND/OR VOMITING; Start at 14:30 Atorvastatin Calcium (Lipitor) 40 mg HS PO Last administered on 05/24/16 20:55 ; Admin Dose 40 MG; Start 05/24/16 at 21:00 Aspirin (Aspirin) 81 mg DAILY PO Last administered on 05/25/16 08:22; Admin Dose 81 MG; Start 05/24/16 at 12:30 Clopidogrel Bisulfate (plaVIX) 75 mg DAILY PO Last administered on 05/25/16 08 :23; Admin Dose 75 MG; Start 05/24/16 at 12:30 Hydralazine HCl (Apresoline) 25 mg BID PO Last administered on 05/25/16 08:23 ; Admin Dose 25 MG; Start 05/24/16 at 13:00 VEGA PALMA NP May 25, 2016 12:45
[2016-05-25] MEDS ORDERED: POTASSIUM CHLORIDE (SR) 20 MEQ TAB PO STA (14:44)
--- NOTE | 2016-05-25 14:44 | CONS ---
Date/Time of Note Date/Time of Note DATE: 05/25/16 TIME: 14:42 Assessment/Plan Assessment/Plan Additional Assessment/Plan Peripheral arterial disease with critical limb ischemia Hypertension Dyslipidemia Preserved ejection fraction -Blood pressure remains elevated, would adjust medication dosing to twice daily. If needed, could increase dose of hydralazine. Continue antiplatelet therapy and statin therapy. Consultation Date/Type/Reason Admit Date/Time May 17, 2016 at 22:19 Initial Consult Date Type of Consultation: cv 24 HR Interval Summary Free Text/Dictation Denies shortness of breath, chest pain Exam/Review of Systems Vital Signs Vitals Vital Signs Date Time Temp Pulse Resp B/P Pulse Ox O2 Delivery O2 Flow Rate FiO2 05/25/16 07:48 99.3 64 18 159/69 96 Intake and Output 05/24/16 05/24/16 05/25/16 15:00 23:00 07:00 Intake Total 950 ml 170 ml Balance 950 ml 170 ml Exam No apparent distress Constitutional: alert, oriented Head: normocephalic Neck: supple Respiratory: clear to auscultation, normal air movement Cardiovascular: other (S1-S2 heard), regular rate and rhythm Gastrointestinal: bowel sounds, non-tender, soft Extremities: other (No edema) Results Result Diagram: 05/25/16 0531 05/25/16 0531 Results 24 hrs Laboratory Tests Test 05/25/16 05:31 Anion Gap 14 Basophils # 0.0 Basophils % 0.4 Blood Morphology Comment Blood Urea Nitrogen 14 Calcium Level 8.5 Carbon Dioxide Level 26 Chloride Level 105 Creatinine 0.91 Eosinophils # 0.2 Eosinophils % 2.8 Glucose Level 107 Hematocrit 29.4 L Hemoglobin 9.6 L Lymphocytes # 1.0 Lymphocytes % 15.7 Mean Corpuscular Hemoglobin 32.4 Mean Corpuscular Hemoglobin Concent 32.6 Mean Corpuscular Volume 99.5 Mean Platelet Volume 9.0 Monocytes # 0.7 Monocytes % 10.6 Neutrophils # 4.7 Neutrophils % 70.5 Nucleated Red Blood Cells # 0.0 Nucleated Red Blood Cells % 0.0 Platelet Count 244 Potassium Level 3.4 L Red Blood Count 2.96 L Red Cell Distribution Width 16.4 H Sodium Level 142 White Blood Count 6.6 Medications Medications Current Medications Acetaminophen (Tylenol Tab) 650 mg Q6H PRN PO PAIN LEVEL 1-3 OR FEVER Last administered on 05/23/16 16:40; Admin Dose 650 MG; Start 05/17/16 at 22:30 Morphine Sulfate (morphine) 2 mg Q4H PRN IV SEVERE PAIN LEVEL 7-10 Last administered on 05/24/16 22:44; Admin Dose 2 MG; Start 05/17/16 at 22:30 Famotidine (Pepcid Iv) 20 mg Q24H IV Last administered on 05/25/16 08:24; Admin Dose 20 MG; Start 05/18/16 at 09:00 Enoxaparin Sodium (Lovenox) 30 mg DAILY SC Last administered on 05/25/16 08:30 ; Admin Dose 30 MG; Start 05/18/16 at 09:00 Amlodipine Besylate (Norvasc) 10 mg DAILY PO Last administered on 05/25/16 08: 24; Admin Dose 10 MG; Start 05/18/16 at 09:00 Atenolol (Tenormin) 100 mg DAILY PO Last administered on 05/25/16 08:23; Admin Dose 100 MG; Start 05/18/16 at 09:00 Gabapentin 100 mg 100 mg QHS PO Last administered on 05/24/16 20:55; Admin Dose 100 MG; Start 05/18/16 at 21:00 Vancomycin HCl 250 ml @ 125 mls/hr Q24H IVPB Last administered on 05/25/16 12 :12; Admin Dose 125 MLS/HR; Start 05/19/16 at 11:00 Ceftriaxone Sodium (Rocephin) 50 ml @ 100 mls/hr Q24H IVPB Last administered on 05/24/16 22:52; Admin Dose 100 MLS/HR; Start 05/18/16 at 23:00; Stop at 12:00 Ondansetron HCl (Zofran Inj) 4 mg Q4H PRN IV NAUSEA AND/OR VOMITING; Start at 14:30 Atorvastatin Calcium (Lipitor) 40 mg HS PO Last administered on 05/24/16 20:55 ; Admin Dose 40 MG; Start 05/24/16 at 21:00 Aspirin (Aspirin) 81 mg DAILY PO Last administered on 05/25/16 08:22; Admin Dose 81 MG; Start 05/24/16 at 12:30 Clopidogrel Bisulfate (plaVIX) 75 mg DAILY PO Last administered on 05/25/16 08 :23; Admin Dose 75 MG; Start 05/24/16 at 12:30 Hydralazine HCl (Apresoline) 25 mg BID PO Last administered on 05/25/16 08:23 ; Admin Dose 25 MG; Start 05/24/16 at 13:00 James Berman DO May 25, 2016 14:44
[2016-05-25] MEDS: morphine 2 MG INJ IV PRN ×2 (16:10→20:46)
--- NOTE | 2016-05-25 19:42 | PN ---
Date/Time of Note Date/Time of Note DATE: 05/25/16 TIME: 19:39 Assessment/Plan VTE Prophylaxis VTE Prophylaxis Intervention: SCD's Lines/Catheters IV [facility]ter Type (from [facility] [place] Assessment/Plan Chief Complaint/Hosp Course ASSESSMENT AND PLAN: 1. Left foot cellulitis with gangrene. Dr. Parr is following the patient from infectious disease standpoint. Continue abx per ID. Dr. Guerrero is following from podiatry consultation. 2. Peripheral arterial occlusive disease. Dr. Shepherd is following from vascular surgery consultation. S/p angio. Pending intervention upon [employer] Toddler Teacher availability. 3. Hypertension by history. Continue patient Norvasc and atenolol, hydralazine p.r.n. for systolic blood pressure above 170. Continue Lovenox for deep venous thrombosis prophylaxis and Pepcid for peptic ulcer disease prophylaxis. Further recommendations based on clinical course. Plan of care discussed with Dr. Stephens. Problems: Exam/Review of Systems Vital Signs Vitals Vital Signs Date Time Temp Pulse Resp B/P Pulse Ox O2 Delivery O2 Flow Rate FiO2 05/25/16 07:48 99.3 64 18 159/69 96 Intake and Output 05/24/16 05/24/16 05/25/16 15:00 23:00 07:00 Intake Total 950 ml 170 ml Balance 950 ml 170 ml Exam GENERAL: Well-developed, well-nourished female currently is awake, alert. HEENT: Head is atraumatic, normocephalic. NECK: Supple, no cervical lymphadenopathy, no thyromegaly. CHEST: Lungs clear bilaterally. There are no rhonchi, wheezes, rales noted. CARDIOVASCULAR: Normal S1, S2. No murmurs, clicks, rubs noted. ABDOMEN: Round, soft, nondistended, nontender. Bowel sounds present. EXTREMITIES: The patient has left foot edema, erythema, and tenderness with gangrenous fourth toe on the left foot and discoloration of the surrounding area. Pulses are present. Right extremity: There is no edema, clubbing, cyanosis. Pulses equal 2+. SKIN: There is no rash, petechiae noted. NEUROLOGIC: Patient is awake, alert and oriented x4. Results Result Diagram: 05/25/1631 05/25/1631 Results 24 hrs Laboratory Tests Test 05/25/16 05:31 Anion Gap 14 Basophils # 0.0 Basophils % 0.4 Blood Morphology Comment Blood Urea Nitrogen 14 Calcium Level 8.5 Carbon Dioxide Level 26 Chloride Level 105 Creatinine 0.91 Eosinophils # 0.2 Eosinophils % 2.8 Glucose Level 107 Hematocrit 29.4 L Hemoglobin 9.6 L Lymphocytes # 1.0 Lymphocytes % 15.7 Mean Corpuscular Hemoglobin 32.4 Mean Corpuscular Hemoglobin Concent 32.6 Mean Corpuscular Volume 99.5 Mean Platelet Volume 9.0 Monocytes # 0.7 Monocytes % 10.6 Neutrophils # 4.7 Neutrophils % 70.5 Nucleated Red Blood Cells # 0.0 Nucleated Red Blood Cells % 0.0 Platelet Count 244 Potassium Level 3.4 L Red Blood Count 2.96 L Red Cell Distribution Width 16.4 H Sodium Level 142 White Blood Count 6.6 Medications Medications Current Medications Acetaminophen (Tylenol Tab) 650 mg Q6H PRN PO PAIN LEVEL 1-3 OR FEVER Last administered on 05/23/16 16:40; Admin Dose 650 MG; Start 05/17/16 at 22:30 Morphine Sulfate (morphine) 2 mg Q4H PRN IV SEVERE PAIN LEVEL 7-10 Last administered on 05/25/16 16:10; Admin Dose 2 MG; Start 05/17/16 at 22:30 Famotidine (Pepcid Iv) 20 mg Q24H IV Last administered on 05/25/16 08:24; Admin Dose 20 MG; Start 05/18/16 at 09:00 Enoxaparin Sodium (Lovenox) 30 mg DAILY SC Last administered on 05/25/16 08:30 ; Admin Dose 30 MG; Start 05/18/16 at 09:00 Gabapentin 100 mg 100 mg QHS PO Last administered on 05/24/16 20:55; Admin Dose 100 MG; Start 05/18/16 at 21:00 Vancomycin HCl 250 ml @ 125 mls/hr Q24H IVPB Last administered on 05/25/16 12 :12; Admin Dose 125 MLS/HR; Start 05/19/16 at 11:00 Ceftriaxone Sodium (Rocephin) 50 ml @ 100 mls/hr Q24H IVPB Last administered on 05/24/16 22:52; Admin Dose 100 MLS/HR; Start 05/18/16 at 23:00; Stop at 12:00 Ondansetron HCl (Zofran Inj) 4 mg Q4H PRN IV NAUSEA AND/OR VOMITING; Start at 14:30 Atorvastatin Calcium (Lipitor) 40 mg HS PO Last administered on 05/24/16 20:55 ; Admin Dose 40 MG; Start 05/24/16 at 21:00 Aspirin (Aspirin) 81 mg DAILY PO Last administered on 05/25/16 08:22; Admin Dose 81 MG; Start 05/24/16 at 12:30 Clopidogrel Bisulfate (plaVIX) 75 mg DAILY PO Last administered on 05/25/16 08 :23; Admin Dose 75 MG; Start 05/24/16 at 12:30 Hydralazine HCl (Apresoline) 25 mg BID PO Last administered on 05/25/16 08:23 ; Admin Dose 25 MG; Start 05/24/16 at 13:00 Amlodipine Besylate (Norvasc) 5 mg BID PO ; Start 05/26/16 at 09:00 Atenolol (Tenormin) 50 mg BID PO ; Start 05/26/16 at 09:00 JANIS BAKER May 25, 2016 19:42
[2016-05-25 19:58] VITALS: BP 142/66; RESP 20
[2016-05-25] MEDS: GABAPENTIN 100 MG CAP PO SCH (20:45)
[2016-05-25] MEDS: ATORVASTATIN 40 MG TAB PO SCH (20:45)
[2016-05-25] MEDS: CEFTRIAXONE 1 GM/50 ML (PMX) 50 ML IVPB SCH (23:09)
[2016-05-26] MEDS: ACETAMINOPHEN 325 MG TAB PO PRN (02:53)
[2016-05-26 06:29] LABS: BASOPHILS % 0.3 % (0.0-2.0); EOSINOPHILS # 0.2 10^3/ul (0.0-0.5); EOSINOPHILS % 2.1 % (0.0-7.0); HEMATOCRIT 28.2 % (37.0-47.0); HEMOGLOBIN 9.4 g/dl (12.0-16.0); LYMPHOCYTES # 1.2 10^3/ul (0.8-2.9); LYMPHOCYTES % 15.7 % (15.0-51.0); MEAN CORPUSCULAR HEMOGLOBIN 32.8 pg (29.0-33.0); MEAN CORPUSCULAR HGB CONC 33.4 g/dl (32.0-37.0); MEAN CORPUSCULAR VOLUME 98.2 fl (82.0-101.0); MEAN PLATELET VOLUME 9.5 fl (7.4-10.4); MONOCYTE # 0.9 10^3/ul (0.3-0.9); MONOCYTES % 12.2 % (0.0-11.0); NEUTROPHIL # 5.3 10^3/ul (1.6-7.5); NEUTROPHILS % 69.7 % (39.0-77.0); PLATELET COUNT 268 10^3/UL (140-440); RED BLOOD COUNT 2.87 10^6/ul (4.20-5.40); RED CELL DISTRIBUTION WIDTH 16.2 % (11.5-14.5); UNCORRECTED WBC 7.6 10^3/ul (4.8-10.8); WHITE BLOOD COUNT 7.6 10^3/ul (4.8-10.8)
[2016-05-26 06:34] LABS: CONDITION 1; LH ANALYZER COMMENTS 1
[2016-05-26 07:06] LABS: POTASSIUM 3.9 mmol/L (3.5-5.1)
[2016-05-26 07:08] LABS: CREATININE 1.05 mg/dl (0.44-1.00)
[2016-05-26 07:09] LABS: CALCIUM 8.5 mg/dl (8.4-10.2)
[2016-05-26 07:39] VITALS: BP 138/65; RESP 20
--- NOTE | 2016-05-26 08:59 | PN ---
Date/Time of Note Date/Time of Note DATE: 05/26/16 TIME: 08:58 Assessment/Plan VTE Prophylaxis VTE Prophylaxis Intervention: other Lines/Catheters IV Catheter Type (from [facility]): Peripheral IV Assessment/Plan Chief Complaint/Hosp Course 1. Left foot cellulitis with gangrene. Dr. Parr is following the patient from infectious disease standpoint. Continue abx per ID. Dr. Guerrero is following from podiatry consultation. 2. Peripheral arterial occlusive disease. Dr. Shepherd is following from vascular surgery consultation. S/p angio. Pending intervention upon Sole Layer availability. 3. Hypertension by history. Continue patient Norvasc and atenolol, hydralazine p.r.n. for systolic blood pressure above 170. Continue Lovenox for deep venous thrombosis prophylaxis and Pepcid for peptic ulcer disease prophylaxis. Problems: Subjective 24 Hr Interval Summary Free Text/Dictation Patient has no complaints Exam/Review of Systems Vital Signs Vitals Vital Signs Date Time Temp Pulse Resp B/P Pulse Ox O2 Delivery O2 Flow Rate FiO2 05/26/16 07:39 98.6 63 20 138/65 93 Intake and Output 05/25/16 05/25/16 05/26/16 15:00 23:00 07:00 Intake Total 1010 ml 450 ml Balance 1010 ml 450 ml Exam Constitutional: well developed Head: atraumatic, normocephalic Neck: supple Respiratory: clear to auscultation Cardiovascular: regular rate and rhythm Gastrointestinal: non-tender, soft Results Result Diagram: 05/26/16 0500 05/26/16 0500 Results 24 hrs Laboratory Tests Test 05/26/16 05:00 Anion Gap 15 Basophils # 0.0 Basophils % 0.3 Blood Morphology Comment Blood Urea Nitrogen 15 Calcium Level 8.5 Carbon Dioxide Level 26 Chloride Level 107 Creatinine 1.05 H Eosinophils # 0.2 Eosinophils % 2.1 Glucose Level 109 Hematocrit 28.2 L Hemoglobin 9.4 L Lymphocytes # 1.2 Lymphocytes % 15.7 Mean Corpuscular Hemoglobin 32.8 Mean Corpuscular Hemoglobin Concent 33.4 Mean Corpuscular Volume 98.2 Mean Platelet Volume 9.5 Monocytes # 0.9 Monocytes % 12.2 H Neutrophils # 5.3 Neutrophils % 69.7 Nucleated Red Blood Cells # 0.0 Nucleated Red Blood Cells % 0.0 Platelet Count 268 Potassium Level 3.9 Red Blood Count 2.87 L Red Cell Distribution Width 16.2 H Sodium Level 144 White Blood Count 7.6 Medications Medications Current Medications Acetaminophen (Tylenol Tab) 650 mg Q6H PRN PO PAIN LEVEL 1-3 OR FEVER Last administered on 05/26/16 02:53; Admin Dose 650 MG; Start 05/17/16 at 22:30 Morphine Sulfate (morphine) 2 mg Q4H PRN IV SEVERE PAIN LEVEL 7-10 Last administered on 05/25/16 20:46; Admin Dose 2 MG; Start 05/17/16 at 22:30 Famotidine (Pepcid Iv) 20 mg Q24H IV Last administered on 05/25/16 08:24; Admin Dose 20 MG; Start 05/18/16 at 09:00 Enoxaparin Sodium (Lovenox) 30 mg DAILY SC Last administered on 05/25/16 08:30 ; Admin Dose 30 MG; Start 05/18/16 at 09:00 Gabapentin 100 mg 100 mg QHS PO Last administered on 05/25/16 20:45; Admin Dose 100 MG; Start 05/18/16 at 21:00 Vancomycin HCl 250 ml @ 125 mls/hr Q24H IVPB Last administered on 05/25/16 12 :12; Admin Dose 125 MLS/HR; Start 05/19/16 at 11:00 Ceftriaxone Sodium (Rocephin) 50 ml @ 100 mls/hr Q24H IVPB Last administered on 05/25/16 23:09; Admin Dose 100 MLS/HR; Start 05/18/16 at 23:00; Stop at 12:00 Ondansetron HCl (Zofran Inj) 4 mg Q4H PRN IV NAUSEA AND/OR VOMITING; Start at 14:30 Atorvastatin Calcium (Lipitor) 40 mg HS PO Last administered on 05/25/16 20:45 ; Admin Dose 40 MG; Start 05/24/16 at 21:00 Aspirin (Aspirin) 81 mg DAILY PO Last administered on 05/25/16 08:22; Admin Dose 81 MG; Start 05/24/16 at 12:30 Clopidogrel Bisulfate (plaVIX) 75 mg DAILY PO Last administered on 05/25/16 08 :23; Admin Dose 75 MG; Start 05/24/16 at 12:30 Hydralazine HCl (Apresoline) 25 mg BID PO Last administered on 05/25/16t 20:46 ; Admin Dose 25 MG; Start 05/24/16 at 13:00 Amlodipine Besylate (Norvasc) 5 mg BID PO ; Start 05/26/16 at 09:00 Atenolol (Tenormin) 50 mg BID PO ; Start 05/26/16 at 09:00 TRISTON OLIVERA May 26, 2016 08:59
[2016-05-26] MEDS: FAMOTIDINE 20 MG INJ IV SCH (09:12)
[2016-05-26] MEDS: ASPIRIN 81 MG TAB PO SCH (09:12)
[2016-05-26] MEDS: CLOPIDOGREL 75 MG TAB PO SCH (09:12)
[2016-05-26] MEDS: AMLODIPINE 5 MG TAB PO SCH ×2 (09:13→21:20)
[2016-05-26] MEDS: ATENOLOL 50 MG TAB PO SCH ×2 (09:14→21:24)
[2016-05-26] MEDS: ENOXAPARIN 30 MG/0.3 ML SYG SC SCH (09:49)
--- NOTE | 2016-05-26 10:01 | PN ---
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 At the moment, would recommend for the patient to continue with antibiotics and to obtain a new vascular ultrasound in order to delineate her infrainguinal disease and when compared to her right side. She did have a CT angiography that identified patient having aortoiliac calcification and significant superficial femoral and popliteal artery disease. -S/P angio demonstrated left distal external iliac artery stenosis and significant disease in the SFA that would require stenting and angioplasty. The patient has discussed the matter with her son and has agreed to proceed with endovascular intervention. Will schedule patient upon general laborer availability, Likely Saturday -Appreciate cardiac evaluation -Appreciate podiatry feedback in regards to her needing limb salvage. -Optimize vascular status (BP meds, diet, nutrition, exercise, sugar control, antiplatelets). -Discussed findings, plan and management with the patient, she understands -Thank you for allowing us to partake in the care of your patient. Please call with any questions. Problems: Subjective 24 Hr Interval Summary no new vascular events overnight. Still has LLE pain Exam/Review of Systems Vital Signs Vitals Vital Signs Date Time Temp Pulse Resp B/P Pulse Ox O2 Delivery O2 Flow Rate FiO2 05/26/16 07:39 98.6 63 20 138/65 93 Intake and Output 05/25/16 05/25/16 05/26/16 15:00 23:00 07:00 Intake Total 1010 ml 450 ml Balance 1010 ml 450 ml Exam Free Text/Dictation GENERAL: Alert and oriented x3, PULMONARY: Clear to auscultation bilaterally CARDIOVASCULAR: S1, S2 present ABDOMEN: Soft, nontender, nondistended. Bowel sounds positive. Truncal obesity. EXTREMITIES: Right lower extremity palpable femoral pulse, nonpalpable pedal pulse. Motor, sensory intact. Capillary refill 3 seconds. 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 Left lower extremity palpable femoral pulse, nonpalpable pedal pulse, Motor and sensory intact. Tenderness upon palpation of the forefoot, swelling and erythema slightly improved There is a bluish-purple discoloration and gangrene of all the toes, specifically gangrene of partial the third, fourth and fifth toes. Results Result Diagram: 05/26/16 0500 05/26/16 050 AMY VALDES MD May 26, 2016 10:00
[2016-05-26] MEDS: VANCOMYCIN 1 GM in NS 250 ML IVPB SCH (11:38)
--- NOTE | 2016-05-26 14:34 | CONS ---
Date/Time of Note Date/Time of Note DATE: 05/26/16 TIME: 14:34 Assessment/Plan Assessment/Plan Chief Complaint/Hosp Course SUBJECTIVE: No acute changes. The patient is alert, looks comfortable, no fevers. Vital signs stable. MICROBIOLOGY: Cultures have been negative. ANTIMICROBIALS: The patient is on: 1. Vancomycin. 2. Rocephin. PHYSICAL EXAMINATION: GENERAL: This is a fragile, chronically ill-appearing, elderly woman who is alert, in no distress. HEENT: Head atraumatic, normocephalic. Sclerae anicteric. Buccal mucosa dry. NECK: Supple. CHEST: Rise symmetrical. Breath sounds diminished to bases. HEART: S1, S2. ABDOMEN: Soft, bowel sounds present. EXTREMITIES: Left fourth toe gangrenous changes and also a blister. ASSESSMENT: 1. Left foot gangrene with cellulitis. 2. Peripheral vascular disease. 3. Hypertension. PLAN: Remains stable. Continue present care, pending revascularization procedure. DW staff Problems: Consultation Date/Type/Reason Admit Date/Time May 17, 2016 at 22:19 Type of Consultation: id Exam/Review of Systems Vital Signs Vitals Vital Signs Date Time Temp Pulse Resp B/P Pulse Ox O2 Delivery O2 Flow Rate FiO2 05/26/16 07:39 98.6 63 20 138/65 93 Intake and Output 05/25/16 05/25/16 05/26/16 14:59 22:59 06:59 Intake Total 1010 ml 450 ml Balance 1010 ml 450 ml Results Result Diagram: 05/26/16 0500 05/26/16 0500 Results 24 hrs Laboratory Tests Test 05/26/16 05:00 Anion Gap 15 Basophils # 0.0 Basophils % 0.3 Blood Morphology Comment Blood Urea Nitrogen 15 Calcium Level 8.5 Carbon Dioxide Level 26 Chloride Level 107 Creatinine 1.05 H Eosinophils # 0.2 Eosinophils % 2.1 Glucose Level 109 Hematocrit 28.2 L Hemoglobin 9.4 L Lymphocytes # 1.2 Lymphocytes % 15.7 Mean Corpuscular Hemoglobin 32.8 Mean Corpuscular Hemoglobin Concent 33.4 Mean Corpuscular Volume 98.2 Mean Platelet Volume 9.5 Monocytes # 0.9 Monocytes % 12.2 H Neutrophils # 5.3 Neutrophils % 69.7 Nucleated Red Blood Cells # 0.0 Nucleated Red Blood Cells % 0.0 Platelet Count 268 Potassium Level 3.9 Red Blood Count 2.87 L Red Cell Distribution Width 16.2 H Sodium Level 144 White Blood Count 7.6 Medications Medications Current Medications Acetaminophen (Tylenol Tab) 650 mg Q6H PRN PO PAIN LEVEL 1-3 OR FEVER Last administered on 05/26/16 02:53; Admin Dose 650 MG; Start 05/17/16 at 22:30 Morphine Sulfate (morphine) 2 mg Q4H PRN IV SEVERE PAIN LEVEL 7-10 Last administered on 05/25/16 20:46; Admin Dose 2 MG; Start 05/17/16 at 22:30 Famotidine (Pepcid Iv) 20 mg Q24H IV Last administered on 05/26/16 09:12; Admin Dose 20 MG; Start 05/18/16 at 09:00 Enoxaparin Sodium (Lovenox) 30 mg DAILY SC Last administered on 05/26/16 09:49 ; Admin Dose 30 MG; Start 05/18/16 at 09:00 Gabapentin 100 mg 100 mg QHS PO Last administered on 05/25/16 20:45; Admin Dose 100 MG; Start 05/18/16 at 21:00 Vancomycin HCl 250 ml @ 125 mls/hr Q24H IVPB Last administered on 05/26/16 11 :38; Admin Dose 125 MLS/HR; Start 05/19/16 at 11:00 Ceftriaxone Sodium (Rocephin) 50 ml @ 100 mls/hr Q24H IVPB Last administered on 05/25/16 23:09; Admin Dose 100 MLS/HR; Start 05/18/16 at 23:00; Stop at 12:00 Ondansetron HCl (Zofran Inj) 4 mg Q4H PRN IV NAUSEA AND/OR VOMITING; Start at 14:30 Atorvastatin Calcium (Lipitor) 40 mg HS PO Last administered on 05/25/16 20:45 ; Admin Dose 40 MG; Start 05/24/16 at 21:00 Aspirin (Aspirin) 81 mg DAILY PO Last administered on 05/26/16 09:12; Admin Dose 81 MG; Start 05/24/16 at 12:30 Clopidogrel Bisulfate (plaVIX) 75 mg DAILY PO Last administered on 05/26/16 09 :12; Admin Dose 75 MG; Start 05/24/16 at 12:30 Hydralazine HCl (Apresoline) 25 mg BID PO Last administered on 05/26/16 09:14 ; Admin Dose 25 MG; Start 05/24/16 at 13:00 Amlodipine Besylate (Norvasc) 5 mg BID PO Last administered on 05/26/16 09:13 ; Admin Dose 5 MG; Start 05/26/16 at 09:00 Atenolol (Tenormin) 50 mg BID PO Last administered on 05/26/16 09:14; Admin Dose 50 MG; Start 05/26/16 at 09:00 VEGA PALMA NP May 26, 2016 14:34
[2016-05-26] MEDS: morphine 2 MG INJ IV PRN (17:46)
[2016-05-26 19:56] VITALS: BP 155/72; RESP 18
[2016-05-26] MEDS: ATORVASTATIN 40 MG TAB PO SCH (21:19)
[2016-05-26] MEDS: GABAPENTIN 100 MG CAP PO SCH (21:37)
[2016-05-26] MEDS: CEFTRIAXONE 1 GM/50 ML (PMX) 50 ML IVPB SCH (23:16)
--- NOTE | 2016-05-26 23:50 | PN ---
Date/Time of Note Date/Time of Note DATE: 05/26/16 TIME: 23:50 Assessment/Plan Lines/Catheters IV Catheter Type (from Nrs): Peripheral IV Assessment/Plan Problems: (1) Cellulitis of foot Status: Acute (2) Peripheral arterial occlusive disease Status: Acute (3) Gangrene of foot Status: Acute (4) Ischemic pain of left foot Assessment/Plan Patient will be monitored while in-house. Continue current treatment. Subjective 24 Hr Interval Summary Patient is examined at bedside. She is in no acute distress. Reports more improvement in her left foot. Denies fever and chills. Constitutional: no complaints Pain Control: well controlled Exam/Review of Systems Vital Signs Vitals Vital Signs Date Time Temp Pulse Resp B/P Pulse Ox O2 Delivery O2 Flow Rate FiO2 05/28/16 08:36 98.6 67 18 137/65 95 Intake and Output 05/27/16 05/27/16 05/28/16 15:00 23:00 07:00 Intake Total 250 ml 600 ml 600 ml Output Total 400 ml Balance 250 ml 200 ml 600 ml Exam Free Text/Dictation Left foot is improved with decrease in edema. There is increase in wrinkling sign. Left fourth toe gangrenous changes noted which is demarcating. There is no erythema today. The area is less tender to palpation. Labs reviewed. No other changes noted on examination. Results Result Diagram: 05/26/16 0500 05/28/16 0521 RONNELL CORONEL DPM May 26, 2016 23:50
[2016-05-27] MEDS: morphine 2 MG INJ IV PRN ×2 (01:50→05:58)
[2016-05-27 07:34] VITALS: BP 145/71; RESP 16
[2016-05-27] MEDS: CLOPIDOGREL 75 MG TAB PO SCH (09:28)
[2016-05-27] MEDS: FAMOTIDINE 20 MG INJ IV SCH (09:28)
[2016-05-27] MEDS: ASPIRIN 81 MG TAB PO SCH (09:29)
[2016-05-27] MEDS: AMLODIPINE 5 MG TAB PO SCH ×2 (09:29→20:12)
[2016-05-27] MEDS: ATENOLOL 50 MG TAB PO SCH ×2 (09:29→20:14)
[2016-05-27] MEDS: ENOXAPARIN 30 MG/0.3 ML SYG SC SCH (09:44)
--- NOTE | 2016-05-27 11:02 | PN ---
Date/Time of Note Date/Time of Note DATE: 05/27/16 TIME: 11:01 Assessment/Plan VTE Prophylaxis VTE Prophylaxis Intervention: other Lines/Catheters IV Catheter Type (from Nrs): Saline Lock Assessment/Plan Chief Complaint/Hosp Course 1. Left foot cellulitis with gangrene. Dr. Parr is following the patient from infectious disease standpoint. Continue abx per ID. Dr. Guerrero is following from podiatry consultation. 2. Peripheral arterial occlusive disease. Dr. Shepherd is following from vascular surgery consultation. S/p angio. Pending intervention upon Shipping Weigher availability. 3. Hypertension by history. Continue patient Norvasc and atenolol, hydralazine p.r.n. for systolic blood pressure above 170. Continue Lovenox for deep venous thrombosis prophylaxis and Pepcid for peptic ulcer disease prophylaxis. Problems: Subjective 24 Hr Interval Summary Free Text/Dictation Patient resting comfortably, has no complaints Exam/Review of Systems Vital Signs Vitals Vital Signs Date Time Temp Pulse Resp B/P Pulse Ox O2 Delivery O2 Flow Rate FiO2 05/27/16 07:34 99.3 65 16 145/71 96 Intake and Output 05/26/16 05/26/16 05/27/16 15:00 23:00 07:00 Intake Total 1210 ml 730 ml Output Total 300 ml Balance 1210 ml 430 ml Exam Constitutional: well developed Head: atraumatic, normocephalic Neck: supple Respiratory: clear to auscultation Cardiovascular: regular rate and rhythm Gastrointestinal: soft Results Result Diagram: 05/26/16 0500 05/26/16 0500 Medications Medications Current Medications Acetaminophen (Tylenol Tab) 650 mg Q6H PRN PO PAIN LEVEL 1-3 OR FEVER Last administered on 05/26/16 02:53; Admin Dose 650 MG; Start 05/17/16 at 22:30 Morphine Sulfate (morphine) 2 mg Q4H PRN IV SEVERE PAIN LEVEL 7-10 Last administered on 05/27/16 05:58; Admin Dose 2 MG; Start 05/17/16 at 22:30 Famotidine (Pepcid Iv) 20 mg Q24H IV Last administered on 05/27/16 09:28; Admin Dose 20 MG; Start 05/18/16 at 09:00 Enoxaparin Sodium (Lovenox) 30 mg DAILY SC Last administered on 05/27/16 09:44 ; Admin Dose 30 MG; Start 05/18/16 at 09:00 Gabapentin 100 mg 100 mg QHS PO Last administered on 05/26/16 21:37; Admin Dose 100 MG; Start 05/18/16 at 21:00 Vancomycin HCl 250 ml @ 125 mls/hr Q24H IVPB Last administered on 05/26/16 11 :38; Admin Dose 125 MLS/HR; Start 05/19/16 at 11:00 Ceftriaxone Sodium (Rocephin) 50 ml @ 100 mls/hr Q24H IVPB Last administered on 05/26/16 23:16; Admin Dose 100 MLS/HR; Start 05/18/16 at 23:00; Stop at 12:00 Ondansetron HCl (Zofran Inj) 4 mg Q4H PRN IV NAUSEA AND/OR VOMITING; Start at 14:30 Atorvastatin Calcium (Lipitor) 40 mg HS PO Last administered on 05/26/16 21:19 ; Admin Dose 40 MG; Start 05/24/16 at 21:00 Aspirin (Aspirin) 81 mg DAILY PO Last administered on 05/27/16 09:29; Admin Dose 81 MG; Start 05/24/16 at 12:30 Clopidogrel Bisulfate (plaVIX) 75 mg DAILY PO Last administered on 05/27/16 09 :28; Admin Dose 75 MG; Start 05/24/16 at 12:30 Hydralazine HCl (Apresoline) 25 mg BID PO Last administered on 05/27/16 09:30 ; Admin Dose 25 MG; Start 05/24/16 at 13:00 Amlodipine Besylate (Norvasc) 5 mg BID PO Last administered on 05/27/16 09:29 ; Admin Dose 5 MG; Start 05/26/16 at 09:00 Atenolol (Tenormin) 50 mg BID PO Last administered on 05/27/16 09:29; Admin Dose 50 MG; Start 05/26/16 at 09:00 TRISTON OLIVERA 19, 2017 11:02
[2016-05-27] MEDS: VANCOMYCIN 1 GM in NS 250 ML IVPB SCH (12:40)
[2016-05-27] MEDS: ACETAMINOPHEN 325 MG TAB PO PRN ×2 (12:50→20:11)
--- NOTE | 2016-05-27 18:19 | CONS ---
Date/Time of Note Date/Time of Note DATE: 05/27/16 TIME: 18:18 Assessment/Plan Assessment/Plan Chief Complaint/Hosp Course SUBJECTIVE: No acute changes. The patient looks comfortable, no fevers. Vital signs stable. MICROBIOLOGY: Cultures have been negative. ANTIMICROBIALS: The patient is on: 1. Vancomycin. 2. Rocephin. PHYSICAL EXAMINATION: GENERAL: This is a fragile, chronically ill-appearing, elderly woman who is alert, in no distress. HEENT: Head atraumatic, normocephalic. Sclerae anicteric. Buccal mucosa dry. NECK: Supple. CHEST: Rise symmetrical. Breath sounds diminished to bases. HEART: S1, S2. ABDOMEN: Soft, bowel sounds present. EXTREMITIES: Left fourth toe gangrenous changes and also a blister. ASSESSMENT: 1. Left foot gangrene with cellulitis. 2. Peripheral vascular disease. 3. Hypertension. PLAN: Remains unchanged. Continue present care, pending revascularization procedure. DW staff Problems: Consultation Date/Type/Reason Admit Date/Time May 17, 2016 at 22:19 Type of Consultation: id Exam/Review of Systems Vital Signs Vitals Vital Signs Date Time Temp Pulse Resp B/P Pulse Ox O2 Delivery O2 Flow Rate FiO2 05/27/16 07:34 99.3 65 16 145/71 96 Intake and Output 05/26/16 05/26/16 05/27/16 15:00 23:00 07:00 Intake Total 1210 ml 730 ml Output Total 300 ml Balance 1210 ml 430 ml Results Result Diagram: 05/26/16 0500 05/26/16 0500 Medications Medications Current Medications Acetaminophen (Tylenol Tab) 650 mg Q6H PRN PO PAIN LEVEL 1-3 OR FEVER Last administered on 05/27/16 12:50; Admin Dose 650 MG; Start 05/17/16 at 22:30 Morphine Sulfate (morphine) 2 mg Q4H PRN IV SEVERE PAIN LEVEL 7-10 Last administered on 05/27/16 05:58; Admin Dose 2 MG; Start 05/17/16 at 22:30 Famotidine (Pepcid Iv) 20 mg Q24H IV Last administered on 05/27/16 09:28; Admin Dose 20 MG; Start 05/18/16 at 09:00 Enoxaparin Sodium (Lovenox) 30 mg DAILY SC Last administered on 05/27/16 09:44 ; Admin Dose 30 MG; Start 05/18/16 at 09:00 Gabapentin 100 mg 100 mg QHS PO Last administered on 05/26/16 21:37; Admin Dose 100 MG; Start 05/18/16 at 21:00 Vancomycin HCl 250 ml @ 125 mls/hr Q24H IVPB Last administered on 05/27/16 12 :40; Admin Dose 125 MLS/HR; Start 05/19/16 at 11:00 Ceftriaxone Sodium (Rocephin) 50 ml @ 100 mls/hr Q24H IVPB Last administered on 05/26/16 23:16; Admin Dose 100 MLS/HR; Start 05/18/16 at 23:00; Stop at 12:00 Ondansetron HCl (Zofran Inj) 4 mg Q4H PRN IV NAUSEA AND/OR VOMITING; Start at 14:30 Atorvastatin Calcium (Lipitor) 40 mg HS PO Last administered on 05/26/16 21:19 ; Admin Dose 40 MG; Start 05/24/16 at 21:00 Aspirin (Aspirin) 81 mg DAILY PO Last administered on 05/27/16 09:29; Admin Dose 81 MG; Start 05/24/16 at 12:30 Clopidogrel Bisulfate (plaVIX) 75 mg DAILY PO Last administered on 05/27/16 09 :28; Admin Dose 75 MG; Start 05/24/16 at 12:30 Hydralazine HCl (Apresoline) 25 mg BID PO Last administered on 05/27/16 09:30 ; Admin Dose 25 MG; Start 05/24/16 at 13:00 Amlodipine Besylate (Norvasc) 5 mg BID PO Last administered on 05/27/16 09:29 ; Admin Dose 5 MG; Start 05/26/16 at 09:00 Atenolol (Tenormin) 50 mg BID PO Last administered on 05/27/16 09:29; Admin Dose 50 MG; Start 05/26/16 at 09:00 VEGA PALMA NP May 27, 2016 18:19
[2016-05-27 20:00] VITALS: BP 164/78; PULSE 66; RESP 20
[2016-05-27] MEDS: ATORVASTATIN 40 MG TAB PO SCH (20:11)
[2016-05-27] MEDS: GABAPENTIN 100 MG CAP PO SCH (20:13)
[2016-05-27] MEDS: CEFTRIAXONE 1 GM/50 ML (PMX) 50 ML IVPB SCH (23:44)
[2016-05-28 06:11] LABS: CREATININE 1.02 mg/dl (0.44-1.00)
[2016-05-28] MEDS: ACETAMINOPHEN 325 MG TAB PO PRN ×2 (07:09→17:09)
[2016-05-28 08:36] VITALS: BP 137/65; RESP 18
[2016-05-28] MEDS: ASPIRIN 81 MG TAB PO SCH (09:39)
[2016-05-28] MEDS: ATENOLOL 50 MG TAB PO SCH ×2 (09:40→21:10)
[2016-05-28] MEDS: CLOPIDOGREL 75 MG TAB PO SCH (09:41)
[2016-05-28] MEDS: AMLODIPINE 5 MG TAB PO SCH ×2 (09:41→21:11)
[2016-05-28] MEDS: FAMOTIDINE 20 MG INJ IV SCH (09:41)
[2016-05-28] MEDS: ENOXAPARIN 30 MG/0.3 ML SYG SC SCH (09:56)
[2016-05-28] MEDS: VANCOMYCIN 1 GM in NS 250 ML IVPB SCH (11:20)
--- NOTE | 2016-05-28 12:50 | CONS ---
Date/Time of Note Date/Time of Note DATE: 05/28/16 TIME: 12:50 Assessment/Plan Assessment/Plan Chief Complaint/Hosp Course SUBJECTIVE: No acute changes. The patient looks comfortable, no fevers. MICROBIOLOGY: Cultures have been negative. ANTIMICROBIALS: The patient is on: 1. Vancomycin. 2. Rocephin. PHYSICAL EXAMINATION: GENERAL: This is a fragile, chronically ill-appearing, elderly woman who is alert, in no distress. HEENT: Head atraumatic, normocephalic. Sclerae anicteric. Buccal mucosa dry. NECK: Supple. CHEST: Rise symmetrical. Breath sounds diminished to bases. HEART: S1, S2. ABDOMEN: Soft, bowel sounds present. EXTREMITIES: Left fourth toe gangrenous changes and also a blister. ASSESSMENT: 1. Left foot gangrene with cellulitis. 2. Peripheral vascular disease. 3. Hypertension. PLAN: Remains unchanged. Continue present care, pending revascularization procedure. DW staff Problems: Consultation Date/Type/Reason Admit Date/Time May 17, 2016 at 22:19 Type of Consultation: id Exam/Review of Systems Vital Signs Vitals Vital Signs Date Time Temp Pulse Resp B/P Pulse Ox O2 Delivery O2 Flow Rate FiO2 05/28/16 08:36 98.6 67 18 137/65 95 Intake and Output 05/27/16 05/27/16 05/28/16 15:00 23:00 07:00 Intake Total 250 ml 600 ml 600 ml Output Total 400 ml Balance 250 ml 200 ml 600 ml Results Result Diagram: 05/26/16 0500 05/28/16 0521 Results 24 hrs Laboratory Tests Test 05/28/16 05:21 Blood Urea Nitrogen 15 Creatinine 1.02 H Medications Medications Current Medications Acetaminophen (Tylenol Tab) 650 mg Q6H PRN PO PAIN LEVEL 1-3 OR FEVER Last administered on 05/28/16 07:09; Admin Dose 650 MG; Start 05/17/16 at 22:30 Morphine Sulfate (morphine) 2 mg Q4H PRN IV SEVERE PAIN LEVEL 7-10 Last administered on 05/27/16 05:58; Admin Dose 2 MG; Start 05/17/16 at 22:30 Famotidine (Pepcid Iv) 20 mg Q24H IV Last administered on 05/28/16 09:41; Admin Dose 20 MG; Start 05/18/16 at 09:00 Enoxaparin Sodium (Lovenox) 30 mg DAILY SC Last administered on 05/28/16 09:56 ; Admin Dose 30 MG; Start 05/18/16 at 09:00 Gabapentin 100 mg 100 mg QHS PO Last administered on 05/27/16 20:13; Admin Dose 100 MG; Start 05/18/16 at 21:00 Vancomycin HCl (Vancocin) 250 ml @ 125 mls/hr Q24H IVPB Last administered on 11:20; Admin Dose 125 MLS/HR; Start 05/19/16 at 11:00 Ondansetron HCl (Zofran Inj) 4 mg Q4H PRN IV NAUSEA AND/OR VOMITING; Start at 14:30 Atorvastatin Calcium (Lipitor) 40 mg HS PO Last administered on 05/27/16 20:11 ; Admin Dose 40 MG; Start 05/24/16 at 21:00 Aspirin (Aspirin) 81 mg DAILY PO Last administered on 05/28/16 09:39; Admin Dose 81 MG; Start 05/24/16 at 12:30 Clopidogrel Bisulfate (plaVIX) 75 mg DAILY PO Last administered on 05/28/16 09 :41; Admin Dose 75 MG; Start 05/24/16 at 12:30 Hydralazine HCl (Apresoline) 25 mg BID PO Last administered on 05/28/16 09:41 ; Admin Dose 25 MG; Start 05/24/16 at 13:00 Amlodipine Besylate (Norvasc) 5 mg BID PO Last administered on 05/28/16 09:41 ; Admin Dose 5 MG; Start 05/26/16 at 09:00 Atenolol (Tenormin) 50 mg BID PO Last administered on 05/28/16 09:40; Admin Dose 50 MG; Start 05/26/16 at 09:00 Miscellaneous Information (*Rx Drug Level Order Reminder*) VANCOMYCIN TROUGH AT 1000 ONCE ONCE XX ; Start 05/29/16 at 10:00; Stop 05/29/16 at 10:01 VEGA PALMA NP May 28, 2016 12:50
--- NOTE | 2016-05-28 15:38 | PN ---
Date/Time of Note Date/Time of Note DATE: 05/28/16 TIME: 15:36 Assessment/Plan VTE Prophylaxis VTE Prophylaxis Intervention: SCD's Lines/Catheters IV [facility]from [facility] Saline Lock Assessment/Plan Chief Complaint/Hosp Course ASSESSMENT AND PLAN: 1. Left foot cellulitis with gangrene. Dr. Parr is following the patient from infectious disease standpoint. Continue abx per ID. Dr. Guerrero is following from podiatry consultation. 2. Peripheral arterial occlusive disease. Dr. Shepherd is following from vascular surgery consultation. S/p angio. Pending intervention upon Staffing Branch Manager availability. 3. Hypertension by history. Continue patient Norvasc and atenolol, hydralazine p.r.n. for systolic blood pressure above 170. Continue Lovenox for deep venous thrombosis prophylaxis and Pepcid for peptic ulcer disease prophylaxis. Further recommendations based on clinical course. Plan of care discussed with Dr. Stephens. Problems: Subjective 24 Hr Interval Summary Free Text/Dictation Patient looks comfortable, pain is well controlled, tolerates diet well per RN. Exam/Review of Systems Vital Signs Vitals Vital Signs Date Time Temp Pulse Resp B/P Pulse Ox O2 Delivery O2 Flow Rate FiO2 05/28/16 08:36 98.6 67 18 137/65 95 Intake and Output 05/27/16 05/27/16 05/28/16 15:00 23:00 07:00 Intake Total 250 ml 600 ml 600 ml Output Total 400 ml Balance 250 ml 200 ml 600 ml Exam GENERAL: Well-developed, well-nourished female currently is awake, alert. HEENT: Head is atraumatic, normocephalic. NECK: Supple, no cervical lymphadenopathy, no thyromegaly. CHEST: Lungs clear bilaterally. There are no rhonchi, wheezes, rales noted. CARDIOVASCULAR: Normal S1, S2. No murmurs, clicks, rubs noted. ABDOMEN: Round, soft, nondistended, nontender. Bowel sounds present. EXTREMITIES: The patient has left foot edema, erythema, and tenderness with gangrenous fourth toe on the left foot and discoloration of the surrounding area. Pulses are present. Right extremity: There is no edema, clubbing, cyanosis. Pulses equal 2+. SKIN: There is no rash, petechiae noted. NEUROLOGIC: Patient is awake, alert and oriented x4. Results Result Diagram: 05/26/16 0500 05/28/16 0521 Results 24 hrs Laboratory Tests Test 05/28/16 05:21 Blood Urea Nitrogen 15 Creatinine 1.02 H Medications Medications Current Medications Acetaminophen (Tylenol Tab) 650 mg Q6H PRN PO PAIN LEVEL 1-3 OR FEVER Last administered on 05/28/16 07:09; Admin Dose 650 MG; Start 05/17/16 at 22:30 Morphine Sulfate (morphine) 2 mg Q4H PRN IV SEVERE PAIN LEVEL 7-10 Last administered on 05/27/16 05:58; Admin Dose 2 MG; Start 05/17/16 at 22:30 Famotidine (Pepcid Iv) 20 mg Q24H IV Last administered on 05/28/16 09:41; Admin Dose 20 MG; Start 05/18/16 at 09:00 Enoxaparin Sodium (Lovenox) 30 mg DAILY SC Last administered on 05/28/16 09:56 ; Admin Dose 30 MG; Start 05/18/16 at 09:00 Gabapentin 100 mg 100 mg QHS PO Last administered on 05/27/16 20:13; Admin Dose 100 MG; Start 05/18/16 at 21:00 Vancomycin HCl (Vancocin) 250 ml @ 125 mls/hr Q24H IVPB Last administered on 11:20; Admin Dose 125 MLS/HR; Start 05/19/16 at 11:00 Ondansetron HCl (Zofran Inj) 4 mg Q4H PRN IV NAUSEA AND/OR VOMITING; Start at 14:30 Atorvastatin Calcium (Lipitor) 40 mg HS PO Last administered on 05/27/16 20:11 ; Admin Dose 40 MG; Start 05/24/16 at 21:00 Aspirin (Aspirin) 81 mg DAILY PO Last administered on 05/28/16 09:39; Admin Dose 81 MG; Start 05/24/16 at 12:30 Clopidogrel Bisulfate (plaVIX) 75 mg DAILY PO Last administered on 05/28/16 09 :41; Admin Dose 75 MG; Start 05/24/16 at 12:30 Hydralazine HCl (Apresoline) 25 mg BID PO Last administered on 05/28/16 09:41 ; Admin Dose 25 MG; Start 05/24/16 at 13:00 Amlodipine Besylate (Norvasc) 5 mg BID PO Last administered on 05/28/16 09:41 ; Admin Dose 5 MG; Start 05/26/16 at 09:00 Atenolol (Tenormin) 50 mg BID PO Last administered on 05/28/16 09:40; Admin Dose 50 MG; Start 05/26/16 at 09:00 Miscellaneous Information (*Rx Drug Level Order Reminder*) VANCOMYCIN TROUGH AT 1000 ONCE ONCE XX ; Start 05/29/16 at 10:00; Stop 05/29/16 at 10:01 JANIS BAKER May 28, 2016 15:38
--- NOTE | 2016-05-28 17:52 | PN ---
Date/Time of Note Date/Time of Note DATE: 05/28/16 TIME: 17:50 Assessment/Plan Lines/Catheters IV C[facility]ter Type (from [facility]): Saline Lock Assessment/Plan Problems: (1) Cellulitis of foot Status: Acute (2) Peripheral arterial occlusive disease Status: Acute (3) Gangrene of foot Status: Acute Comment: Patient will require surgical management to include amputation of the toe. I will discuss my findings and my recommendation with vascular surgery. I have discussed this with the patient in great detail. She is well aware of the plan. No surgery will be performed until I discussed the case with vascular surgery as well. Continue to monitor. Continue bed cradle. (4) Ischemic pain of left foot Subjective 24 Hr Interval Summary Patient was seen and examined at bedside. She reports less pain. Reports improvement. Wants some clarification from the vascular surgery as to what is planned for her. Pain Control: well controlled Exam/Review of Systems Vital Signs Vitals Vital Signs Date Time Temp Pulse Resp B/P Pulse Ox O2 Delivery O2 Flow Rate FiO2 05/28/16 08:36 98.6 67 18 137/65 95 Intake and Output 05/27/16 05/27/16 05/28/16 15:00 23:00 07:00 Intake Total 250 ml 600 ml 600 ml Output Total 400 ml Balance 250 ml 200 ml 600 ml Exam Free Text/Dictation Patient is in no acute distress. Left foot edema is significantly reduced with increase in wrinkling sign. Left fourth toe gangrene as well demarcated. Dorsalis pedis pulse is weakly palpable. I cannot palpate the posterior tibial pulse today. Sensation remains decreased to sharp dull vibratory and temperature stimuli. There is no erythema and no drainage of pus. No bleeding noted. No other open wounds noted. Labs reviewed. Results Result Diagram: 05/26/16 0500 05/28/16 0521 RONNELL CORONEL DPM May 28, 2016 17:52
[2016-05-28 19:56] VITALS: BP 154/72; RESP 16
--- NOTE | 2016-05-28 20:37 | PN ---
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 At the moment, would recommend for the patient to continue with antibiotics and to obtain a new vascular ultrasound in order to delineate her infrainguinal disease and when compared to her right side. She did have a CT angiography that identified patient having aortoiliac calcification and significant superficial femoral and popliteal artery disease. -S/P angio demonstrated left distal external iliac artery stenosis and significant disease in the SFA that would require stenting and angioplasty. The patient has discussed the matter with her son and has agreed to proceed with endovascular intervention. Will schedule patient upon laboratory supervisor availability, Likely Saturday -Appreciate cardiac evaluation -Appreciate podiatry feedback in regards to her needing limb salvage. -Optimize vascular status (BP meds, diet, nutrition, exercise, sugar control, antiplatelets). -Discussed findings, plan and management with the patient, she understands -Thank you for allowing us to partake in the care of your patient. Please call with any questions. Problems: Subjective 24 Hr Interval Summary no new vascular events overnight Exam/Review of Systems Vital Signs Vitals Vital Signs Date Time Temp Pulse Resp B/P Pulse Ox O2 Delivery O2 Flow Rate FiO2 05/28/16 19:56 98.6 63 16 154/72 92 Intake and Output 05/27/16 05/27/16 05/28/16 15:00 23:00 07:00 Intake Total 250 ml 600 ml 600 ml Output Total 400 ml Balance 250 ml 200 ml 600 ml Exam Free Text/Dictation GENERAL: Alert and oriented x3, PULMONARY: Clear to auscultation bilaterally CARDIOVASCULAR: S1, S2 present ABDOMEN: Soft, nontender, nondistended. Bowel sounds positive. Truncal obesity. EXTREMITIES: Right lower extremity palpable femoral pulse, nonpalpable pedal pulse. Motor, sensory intact. Capillary refill 3 seconds. 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 Left lower extremity palpable femoral pulse, nonpalpable pedal pulse, Motor and sensory intact. Tenderness upon palpation of the forefoot, swelling and erythema slightly improved. There is a bluish-purple discoloration and gangrene of all the toes, specifically gangrene of partial the third, fourth and fifth toes. Results Result Diagram: 05/26/16 0500 05/28/16 0521 AMY VALDES MD May 28, 2016 20:37
[2016-05-28] MEDS: GABAPENTIN 100 MG CAP PO SCH (21:09)
[2016-05-28] MEDS: ATORVASTATIN 40 MG TAB PO SCH (21:10)
[2016-05-28] MEDS: SOD CHLORIDE 0.9% 1,000 ML IV SCH (22:47)
[2016-05-29 06:23] LABS: POTASSIUM 3.7 mmol/L (3.5-5.1)
[2016-05-29 06:26] LABS: BASOPHILS % 0.4 % (0.0-2.0); CONDITION 1; CREATININE 0.95 mg/dl (0.44-1.00); EOSINOPHILS # 0.1 10^3/ul (0.0-0.5); EOSINOPHILS % 1.8 % (0.0-7.0); HEMATOCRIT 29.6 % (37.0-47.0); HEMOGLOBIN 9.9 g/dl (12.0-16.0); LH ANALYZER COMMENTS 1; LYMPHOCYTES # 1.2 10^3/ul (0.8-2.9); LYMPHOCYTES % 15.4 % (15.0-51.0); MEAN CORPUSCULAR HEMOGLOBIN 32.8 pg (29.0-33.0); MEAN CORPUSCULAR HGB CONC 33.4 g/dl (32.0-37.0); MEAN CORPUSCULAR VOLUME 98.1 fl (82.0-101.0); MEAN PLATELET VOLUME 9.6 fl (7.4-10.4); MONOCYTE # 0.7 10^3/ul (0.3-0.9); MONOCYTES % 8.7 % (0.0-11.0); NEUTROPHIL # 5.6 10^3/ul (1.6-7.5); NEUTROPHILS % 73.7 % (39.0-77.0); PLATELET COUNT 326 10^3/UL (140-440); RED BLOOD COUNT 3.02 10^6/ul (4.20-5.40); RED CELL DISTRIBUTION WIDTH 17.4 % (11.5-14.5); UNCORRECTED WBC 7.6 10^3/ul (4.8-10.8); WHITE BLOOD COUNT 7.6 10^3/ul (4.8-10.8)
[2016-05-29 06:27] LABS: CALCIUM 8.8 mg/dl (8.4-10.2)
[2016-05-29 08:04] VITALS: BP 132/63; RESP 18
[2016-05-29] MEDS: ENOXAPARIN 30 MG/0.3 ML SYG SC SCH (09:00)
[2016-05-29 10:20] VITALS: BP 155/68; PULSE 62
[2016-05-29] MEDS: FAMOTIDINE 20 MG TAB PO SCH (10:37)
[2016-05-29] MEDS: AMLODIPINE 5 MG TAB PO SCH ×2 (10:37→20:23)
[2016-05-29] MEDS: ATENOLOL 50 MG TAB PO SCH ×2 (10:37→20:24)
[2016-05-29] MEDS: CLOPIDOGREL 75 MG TAB PO SCH (10:37)
[2016-05-29] MEDS: ASPIRIN 81 MG TAB PO SCH (10:37)
[2016-05-29] MEDS: VANCOMYCIN 1 GM in NS 250 ML IVPB SCH (11:27)
[2016-05-29] MEDS: SOD CHLORIDE 0.9% 1,000 ML IV SCH (11:48)
--- NOTE | 2016-05-29 12:35 | PN ---
DATE: 05/29/2016 INFECTIOUS DISEASE PROGRESS NOTE SUBJECTIVE: No acute events, no fevers. The patient is sleeping. She is in no distress. LABORATORY DATA: WBC today 7.6, no shift, no bands. BUN 15, creatinine 0.95. ANTIMICROBIALS: The patient remains on vancomycin, vancomycin level 12.4. PHYSICAL EXAMINATION: GENERAL: Fragile, elderly woman in no distress. HEENT: Head atraumatic, normocephalic. Sclerae anicteric. Buccal mucosa pink. NECK: Supple, trachea midline. CHEST: Rise symmetrical. Breath sounds clear. HEART: S1, S2. ABDOMEN: Soft, bowel sounds present. EXTREMITIES: With left foot gangrene. ASSESSMENT: 1. Left foot gangrene secondary to severe peripheral vascular and arterial disease. 2. Status post systemic inflammatory response syndrome. 3. Hypertension. PLAN: The patient remains clinically unchanged, she is being followed by podiatry and vascular surg brody. We will follow their recommendations and continue her on antibiotics. Dictated By: VEGA PALMA [employer] COACH for JEROME KNOX/ADEN Conf#: [id number] DID#: [id number]
[2016-05-29] MEDS ORDERED: MIDAZOLAM 1 MG/ML 2 ML INJ ONE (16:58)
[2016-05-29] MEDS ORDERED: FENTAnyl 50 MCG/ML VIAL ONE ×3 (16:58→18:01)
[2016-05-29] MEDS ORDERED: SOD CHLORIDE 0.45% 1,000 ML IV SCH (18:10)
--- NOTE | 2016-05-29 18:38 | PN ---
Date/Time of Note Date/Time of Note DATE: 05/29/16 TIME: 18:36 Assessment/Plan VTE Prophylaxis VTE Prophylaxis Intervention: SCD's Lines/Catheters [facility]from [facility] [place] line still needed: Yes Urinary Cath still in place: No Assessment/Plan Chief Complaint/Hosp Course ASSESSMENT AND PLAN: 1. Left foot cellulitis with gangrene. Dr. Parr is following the patient from infectious disease standpoint. Continue abx per ID. Dr. Guerrero is following from podiatry consultation. 2. Peripheral arterial occlusive disease. Dr. Shepherd is following from vascular surgery consultation. S/p angio. Pending intervention upon Director Of Managed Services availability. 3. Hypertension by history. Continue patient Norvasc and atenolol, hydralazine p.r.n. for systolic blood pressure above 170. Continue Lovenox for deep venous thrombosis prophylaxis and Pepcid for peptic ulcer disease prophylaxis. Further recommendations based on clinical course. Plan of care discussed with Dr. Stephens. 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 Exam/Review of Systems Vital Signs Vitals Vital Signs Date Time Temp Pulse Resp B/P Pulse Ox O2 Delivery O2 Flow Rate FiO2 05/29/16 10:20 62 155/68 05/29/16 08:04 98.9 18 94 Intake and Output 05/28/16 05/28/16 05/29/16 15:00 23:00 07:00 Intake Total 730 ml 1040 ml Balance 730 ml 1040 ml Results Result Diagram: 05/29/16 0520 05/29/16 0520 Results 24 hrs Laboratory Tests Test 05/29/16 05:20 05/29/16 10:30 Anion Gap 16 Basophils # 0.0 Basophils % 0.4 Blood Morphology Comment Blood Urea Nitrogen 15 Calcium Level 8.8 Carbon Dioxide Level 26 Chloride Level 106 Creatinine 0.95 Eosinophils # 0.1 Eosinophils % 1.8 Glucose Level 104 Hematocrit 29.6 L Hemoglobin 9.9 L Lymphocytes # 1.2 Lymphocytes % 15.4 Mean Corpuscular Hemoglobin 32.8 Mean Corpuscular Hemoglobin Concent 33.4 Mean Corpuscular Volume 98.1 Mean Platelet Volume 9.6 Monocytes # 0.7 Monocytes % 8.7 Neutrophils # 5.6 Neutrophils % 73.7 Nucleated Red Blood Cells # 0.0 Nucleated Red Blood Cells % 0.0 Platelet Count 326 # Potassium Level 3.7 Red Blood Count 3.02 L Red Cell Distribution Width 17.4 H Sodium Level 144 White Blood Count 7.6 Vancomycin Level Trough 12.4 Medications Medications Current Medications Acetaminophen (Tylenol Tab) 650 mg Q6H PRN PO PAIN LEVEL 1-3 OR FEVER Last administered on 05/28/16 17:09; Admin Dose 650 MG; Start 05/17/16 at 22:30 Morphine Sulfate (morphine) 2 mg Q4H PRN IV SEVERE PAIN LEVEL 7-10 Last administered on 05/27/16 05:58; Admin Dose 2 MG; Start 05/17/16 at 22:30 Enoxaparin Sodium (Lovenox) 30 mg DAILY SC Last administered on 05/28/16 09:56 ; Admin Dose 30 MG; Start 05/18/16 at 09:00 Gabapentin 100 mg 100 mg QHS PO Last administered on 05/28/16 21:09; Admin Dose 100 MG; Start 05/18/16 at 21:00 Vancomycin HCl (Vancocin) 250 ml @ 125 mls/hr Q24H IVPB Last administered on 11:27; Admin Dose 125 MLS/HR; Start 05/19/16 at 11:00 Atorvastatin Calcium (Lipitor) 40 mg HS PO Last administered on 05/28/16 21:10 ; Admin Dose 40 MG; Start 05/24/16 at 21:00 Aspirin (Aspirin) 81 mg DAILY PO Last administered on 05/29/16 10:37; Admin Dose 81 MG; Start 05/24/16 at 12:30 Clopidogrel Bisulfate (plaVIX) 75 mg DAILY PO Last administered on 05/29/16 10 :37; Admin Dose 75 MG; Start 05/24/16 at 12:30 Hydralazine HCl (Apresoline) 25 mg BID PO Last administered on 05/29/16 10:38 ; Admin Dose 25 MG; Start 05/24/16 at 13:00 Amlodipine Besylate (Norvasc) 5 mg BID PO Last administered on 05/29/16 10:37 ; Admin Dose 5 MG; Start 05/26/16 at 09:00 Atenolol (Tenormin) 50 mg BID PO Last administered on 2/21/17at 10:37; Admin Dose 50 MG; Start 05/26/16 at 09:00 Famotidine (Pepcid) 20 mg Q24H PO Last administered on 05/29/16t 10:37; Admin Dose 20 MG; Start 05/29/16 at 09:00 Ondansetron HCl 4 mg 4 mg Q4H PRN IV NAUSEA AND/OR VOMITING; Start 05/29/16 at 18:30 Sodium Chloride (1/2 NS) 1,000 ml @ 75 mls/hr [id number] IV ; Start 05/29/16 at 18 :10; Stop 05/30/16 at 07:29 JANIS BAKER May 29, 2016 18:38
[2016-05-29 18:52] VITALS: BP 150/71; PULSE 66; RESP 20
[2016-05-29 20:15] VITALS: BP 145/64; PULSE 66; RESP 20
[2016-05-29] MEDS: ATORVASTATIN 40 MG TAB PO SCH (20:23)
[2016-05-29] MEDS: GABAPENTIN 100 MG CAP PO SCH (20:24)
[2016-05-29 21:14] VITALS: BP 139/65; RESP 16
[2016-05-29] MEDS: morphine 2 MG INJ IV PRN (22:20)
[2016-05-30 06:03] LABS: POTASSIUM 4.1 mmol/L (3.5-5.1)
[2016-05-30 06:06] LABS: CREATININE 0.96 mg/dl (0.44-1.00)
[2016-05-30 06:07] LABS: CALCIUM 8.4 mg/dl (8.4-10.2)
[2016-05-30 07:32] VITALS: BP 136/64; RESP 18
[2016-05-30] MEDS: CLOPIDOGREL 75 MG TAB PO SCH (08:12)
[2016-05-30] MEDS: ASPIRIN 81 MG TAB PO SCH (08:12)
[2016-05-30] MEDS: ATENOLOL 50 MG TAB PO SCH ×2 (08:13→21:13)
[2016-05-30] MEDS: FAMOTIDINE 20 MG TAB PO SCH (08:13)
[2016-05-30] MEDS: AMLODIPINE 5 MG TAB PO SCH ×2 (08:13→21:12)
[2016-05-30] MEDS: ENOXAPARIN 30 MG/0.3 ML SYG SC SCH (08:19)
[2016-05-30 09:08] LABS: BASOPHILS % 0.4 % (0.0-2.0); EOSINOPHILS # 0.2 10^3/ul (0.0-0.5); EOSINOPHILS % 3.3 % (0.0-7.0); HEMATOCRIT 27.9 % (37.0-47.0); HEMOGLOBIN 9.3 g/dl (12.0-16.0); LYMPHOCYTES # 1.2 10^3/ul (0.8-2.9); LYMPHOCYTES % 16.3 % (15.0-51.0); MEAN CORPUSCULAR HEMOGLOBIN 32.6 pg (29.0-33.0); MEAN CORPUSCULAR HGB CONC 33.2 g/dl (32.0-37.0); MEAN CORPUSCULAR VOLUME 98.1 fl (82.0-101.0); MEAN PLATELET VOLUME 9.5 fl (7.4-10.4); MONOCYTE # 0.7 10^3/ul (0.3-0.9); MONOCYTES % 10.5 % (0.0-11.0); NEUTROPHIL # 4.9 10^3/ul (1.6-7.5); NEUTROPHILS % 69.5 % (39.0-77.0); PLATELET COUNT 327 10^3/UL (140-440); RED BLOOD COUNT 2.85 10^6/ul (4.20-5.40); RED CELL DISTRIBUTION WIDTH 16.8 % (11.5-14.5); UNCORRECTED WBC 7.1 10^3/ul (4.8-10.8); WHITE BLOOD COUNT 7.1 10^3/ul (4.8-10.8)
[2016-05-30 09:11] LABS: CONDITION 1; LH ANALYZER COMMENTS 1
--- NOTE | 2016-05-30 11:26 | OPR ---
DATE OF OPERATION: 05/29/2016 PREOPERATIVE DIAGNOSIS: Left lower extremity gangrene. POSTOPERATIVE DIAGNOSIS: Left lower extremity gangrene. PROCEDURE PERFORMED: Ultrasound-guided access of right common femoral artery. SURGEON: Candido Shepherd MD FLUOROSCOPY RICHTER: Billy Guerrero MD ANESTHESIA: Local with sedation. ESTIMATED BLOOD LOSS: Minimal. COMPLICATIONS: None. HEPARIN: None. CONTRAST: As recorded. ACCESS: Right common femoral artery 5 Cuban sheath. CLOSURE: Manual compression. INDICATIONS: This is an 85-year-old female who presented with left lower extremity tissue loss, dim inished popliteal and pedal pulses. Upon her diagnostic angiogram, it was identified the patient h as significant calcified external iliac artery and femoropopliteal disease. The patient had been in formed of the alternatives, risks and benefits of angiogram, balloon angioplasty, stenting and ather ectomy. Risks include but not limited to bleeding, thrombosis, embolization, myocardial infarction, , device malfunction, infection and nephrotoxicity. The patient has agreed to proceed. FINDINGS: The patient has significantly calcified distal aorta and iliac arteries that are tortuous and very difficult to be able to cross over for being able to perform our interventions. DESCRIPTION OF PROCEDURE: The patient was brought in to the angio suite and positioned in the supin e position on the fluoroscopic table. Sedation was administered without complications. Bilateral g roins were shaved, prepped and draped in the usual standard sterile fashion. Timeout and appropriat e site was marked and confirmed. The patient was sedated with moderate sedation and local anesthesi a was infiltrated in the region of the right common femoral artery. At this point, the right common femoral artery was cannulated with a Micro-Access needle under ultrasound guidance in a retrograde fashion. The needle was removed and the Microcatheter was placed. The Bentson wire was then passed into the right common iliac artery under fluoroscopic guidance. This was followed by a short 6 Kurt nch sheath catheter over the wire. The sheath was appropriately flushed with heparinized saline murali ution. At this point, using an Omni Flush catheter, multiple attempts were made to cross over to th e left external iliac artery; however, it was unsuccessful. We went ahead and attempted multiple gu iding catheters in order to be able to cross over for the left lower extremity intervention. Unfort unately, the patient has significant calcification and stenosis in the distal most aspect of the ext ernal iliac, which seemed to be unsafe to continue with attempting to cross over. Therefore, that p rocedure was aborted and we will discuss with the patient about our attempted intervention. At this point, the sheaths, wires and catheters were all removed. The patient tolerated the procedure well and was taken to the postanesthesia care unit in stable condition. PLAN: We will plan to have a family discussion with the patient in order to discuss our findings of our last attempt, and patient will likely benefit from an open revascularization procedure. We herman l discuss also with our cardiology colleagues for evaluation of her cardiac status and possible card iac stress test. Dictated By: CANDIDO BARRERA/ADEN Conf#: [id number] DID#: [id number]
[2016-05-30] MEDS: VANCOMYCIN 1 GM in NS 250 ML IVPB SCH (11:50)
--- NOTE | 2016-05-30 13:08 | CONS ---
Date/Time of Note Date/Time of Note DATE: 05/30/16 TIME: 13:07 Assessment/Plan Assessment/Plan Chief Complaint/Hosp Course SUBJECTIVE: No acute changes. The patient is alert, c/o LLE pain, looks comfortable, no fevers. MICROBIOLOGY: Cultures have been negative. ANTIMICROBIALS: Vancomycin. PHYSICAL EXAMINATION: GENERAL: This is a fragile, chronically ill-appearing, elderly woman who is alert, in no distress. HEENT: Head atraumatic, normocephalic. Sclerae anicteric. Buccal mucosa dry. NECK: Supple. CHEST: Rise symmetrical. Breath sounds diminished to bases. HEART: S1, S2. ABDOMEN: Soft, bowel sounds present. EXTREMITIES: Left fourth toe gangrenous changes and also a blister. ASSESSMENT: 1. Left foot gangrene with cellulitis. 2. Peripheral vascular disease. 3. Hypertension. PLAN: Remains unchanged. Continue present care, pending revascularization procedure. DW patient Problems: Consultation Date/Type/Reason Admit Date/Time May 17, 2016 at 22:19 Type of Consultation: id Exam/Review of Systems Vital Signs Vitals Vital Signs Date Time Temp Pulse Resp B/P Pulse Ox O2 Delivery O2 Flow Rate FiO2 05/30/16 07:32 98.7 63 18 136/64 97 05/29/16 20:15 Room Air Intake and Output 05/29/16 05/29/16 05/30/16 15:00 23:00 07:00 Intake Total 350 ml 600 ml Output Total 600 ml Balance 350 ml 0 ml Results Result Diagram: 05/30/16 0521 05/30/16 0521 Results 24 hrs Laboratory Tests Test 05/30/16 05:21 Anion Gap 17 H Basophils # 0.0 Basophils % 0.4 Blood Morphology Comment Blood Urea Nitrogen 15 Calcium Level 8.4 Carbon Dioxide Level 24 Chloride Level 105 Creatinine 0.96 Eosinophils # 0.2 Eosinophils % 3.3 Glucose Level 103 Hematocrit 27.9 L Hemoglobin 9.3 L Lymphocytes # 1.2 Lymphocytes % 16.3 Mean Corpuscular Hemoglobin 32.6 Mean Corpuscular Hemoglobin Concent 33.2 Mean Corpuscular Volume 98.1 Mean Platelet Volume 9.5 Monocytes # 0.7 Monocytes % 10.5 Neutrophils # 4.9 Neutrophils % 69.5 Nucleated Red Blood Cells # 0.0 Nucleated Red Blood Cells % 0.0 Platelet Count 327 Potassium Level 4.1 Red Blood Count 2.85 L Red Cell Distribution Width 16.8 H Sodium Level 142 White Blood Count 7.1 Medications Medications Current Medications Acetaminophen (Tylenol Tab) 650 mg Q6H PRN PO PAIN LEVEL 1-3 OR FEVER Last administered on 05/28/16 17:09; Admin Dose 650 MG; Start 05/17/16 at 22:30 Morphine Sulfate (morphine) 2 mg Q4H PRN IV SEVERE PAIN LEVEL 7-10 Last administered on 05/29/16 22:20; Admin Dose 2 MG; Start 05/17/16 at 22:30 Enoxaparin Sodium (Lovenox) 30 mg DAILY SC Last administered on 05/30/16 08:19 ; Admin Dose 30 MG; Start 05/18/16 at 09:00 Gabapentin 100 mg 100 mg QHS PO Last administered on 05/29/16 20:24; Admin Dose 100 MG; Start 05/18/16 at 21:00 Vancomycin HCl (Vancocin) 250 ml @ 125 mls/hr Q24H IVPB Last administered on 11:50; Admin Dose 125 MLS/HR; Start 05/19/16 at 11:00 Atorvastatin Calcium (Lipitor) 40 mg HS PO Last administered on 05/29/16 20:23 ; Admin Dose 40 MG; Start 05/24/16 at 21:00 Aspirin (Aspirin) 81 mg DAILY PO Last administered on 05/30/16 08:12; Admin Dose 81 MG; Start 05/24/16 at 12:30 Clopidogrel Bisulfate (plaVIX) 75 mg DAILY PO Last administered on 05/30/16 08 :12; Admin Dose 75 MG; Start 05/24/16 at 12:30 Hydralazine HCl (Apresoline) 25 mg BID PO Last administered on 05/30/16 08:12 ; Admin Dose 25 MG; Start 05/24/16 at 13:00 Amlodipine Besylate (Norvasc) 5 mg BID PO Last administered on 05/30/16 08:13 ; Admin Dose 5 MG; Start 05/26/16 at 09:00 Atenolol (Tenormin) 50 mg BID PO Last administered on 05/30/16 08:13; Admin Dose 50 MG; Start 05/26/16 at 09:00 Famotidine (Pepcid) 20 mg Q24H PO Last administered on 05/30/16t 08:13; Admin Dose 20 MG; Start 05/29/16 at 09:00 Ondansetron HCl (Zofran Inj) 4 mg Q4H PRN IV NAUSEA AND/OR VOMITING; Start at 18:30 VEGA PALMA NP May 30, 2016 13:08
[2016-05-30] MEDS: morphine 2 MG INJ IV PRN ×2 (15:42→19:37)
--- NOTE | 2016-05-30 17:46 | PN ---
Date/Time of Note Date/Time of Note DATE: 05/30/16 TIME: 17:36 Assessment/Plan VTE Prophylaxis VTE Prophylaxis Intervention: SCD's Lines/Catheters IV [facility] Type (from [facility]): Peripheral IV Urinary Cath still in place: No Assessment/Plan Chief Complaint/Hosp Course ASSESSMENT AND PLAN: 1. Left foot cellulitis with gangrene. Dr. Parr is following the patient from infectious disease standpoint. Continue abx per ID. Dr. Guerrero is following from podiatry consultation. 2. Peripheral arterial occlusive disease. Dr. Shepherd is following from vascular surgery consultation. S/p angio. Pending vascular intervention. 3. Hypertension by history. Continue patient Norvasc and atenolol, hydralazine p.r.n. for systolic blood pressure above 170. Patient with history failing follow-up appointment. Continue Lovenox for deep venous thrombosis prophylaxis and Pepcid for peptic ulcer disease prophylaxis. Further recommendations based on clinical course. Plan of care discussed with Dr. Stephens. Problems: Subjective 24 Hr Interval Summary Free Text/Dictation Patient is awake, complains of left lower extremity pain, denies nausea vomiting. Exam/Review of Systems Vital Signs Vitals Vital Signs Date Time Temp Pulse Resp B/P Pulse Ox O2 Delivery O2 Flow Rate FiO2 05/30/16 07:32 98.7 63 18 136/64 97 05/29/16 20:15 Room Air Intake and Output 05/29/16 05/29/16 05/30/16 15:00 23:00 07:00 Intake Total 350 ml 600 ml Output Total 600 ml Balance 350 ml 0 ml Exam GENERAL: Well-developed, well-nourished female currently is awake, alert. HEENT: Head is atraumatic, normocephalic. NECK: Supple, no cervical lymphadenopathy, no thyromegaly. CHEST: Lungs clear bilaterally. There are no rhonchi, wheezes, rales noted. CARDIOVASCULAR: Normal S1, S2. No murmurs, clicks, rubs noted. ABDOMEN: Round, soft, nondistended, nontender. Bowel sounds present. EXTREMITIES: The patient has left foot edema, erythema, and tenderness with gangrenous fourth toe on the left foot and discoloration of the surrounding area. Pulses are present. Right extremity: There is no edema, clubbing, cyanosis. Pulses equal 2+. SKIN: There is no rash, petechiae noted. NEUROLOGIC: Patient is awake, alert and oriented x4. Results Result Diagram: 05/30/1652005/30/16 05 Results 24 hrs Laboratory Tests Test 05/30/16 05:21 Anion Gap 17 H Basophils # 0.0 Basophils % 0.4 Blood Morphology Comment Blood Urea Nitrogen 15 Calcium Level 8.4 Carbon Dioxide Level 24 Chloride Level 105 Creatinine 0.96 Eosinophils # 0.2 Eosinophils % 3.3 Glucose Level 103 Hematocrit 27.9 L Hemoglobin 9.3 L Lymphocytes # 1.2 Lymphocytes % 16.3 Mean Corpuscular Hemoglobin 32.6 Mean Corpuscular Hemoglobin Concent 33.2 Mean Corpuscular Volume 98.1 Mean Platelet Volume 9.5 Monocytes # 0.7 Monocytes % 10.5 Neutrophils # 4.9 Neutrophils % 69.5 Nucleated Red Blood Cells # 0.0 Nucleated Red Blood Cells % 0.0 Platelet Count 327 Potassium Level 4.1 Red Blood Count 2.85 L Red Cell Distribution Width 16.8 H Sodium Level 142 White Blood Count 7.1 Medications Medications Current Medications Acetaminophen (Tylenol Tab) 650 mg Q6H PRN PO PAIN LEVEL 1-3 OR FEVER Last administered on 05/28/16 17:09; Admin Dose 650 MG; Start 05/17/16 at 22:30 Morphine Sulfate (morphine) 2 mg Q4H PRN IV SEVERE PAIN LEVEL 7-10 Last administered on 05/30/16 15:42; Admin Dose 2 MG; Start 05/17/16 at 22:30 Enoxaparin Sodium (Lovenox) 30 mg DAILY SC Last administered on 05/30/16 08:19 ; Admin Dose 30 MG; Start 05/18/16 at 09:00 Gabapentin 100 mg 100 mg QHS PO Last administered on 05/29/16 20:24; Admin Dose 100 MG; Start 05/18/16 at 21:00 Vancomycin HCl (Vancocin) 250 ml @ 125 mls/hr Q24H IVPB Last administered on 11:50; Admin Dose 125 MLS/HR; Start 05/19/16 at 11:00 Atorvastatin Calcium (Lipitor) 40 mg HS PO Last administered on 05/29/16 20:23 ; Admin Dose 40 MG; Start 05/24/16 at 21:00 Aspirin (Aspirin) 81 mg DAILY PO Last administered on 05/30/16 08:12; Admin Dose 81 MG; Start 05/24/16 at 12:30 Clopidogrel Bisulfate (plaVIX) 75 mg DAILY PO Last administered on 05/30/16 08 :12; Admin Dose 75 MG; Start 05/24/16 at 12:30 Hydralazine HCl (Apresoline) 25 mg BID PO Last administered on 05/30/16 08:12 ; Admin Dose 25 MG; Start 05/24/16 at 13:00 Amlodipine Besylate (Norvasc) 5 mg BID PO Last administered on 05/30/16 08:13 ; Admin Dose 5 MG; Start 05/26/16 at 09:00 Atenolol (Tenormin) 50 mg BID PO Last administered on 05/30/16 08:13; Admin Dose 50 MG; Start 05/26/16 at 09:00 Famotidine (Pepcid) 20 mg Q24H PO Last administered on 05/30/16 08:13; Admin Dose 20 MG; Start 05/29/16 at 09:00 Ondansetron HCl (Zofran Inj) 4 mg Q4H PRN IV NAUSEA AND/OR VOMITING; Start at 18:30 JANIS BAKER May 30, 2016 17:45
[2016-05-30 19:33] VITALS: BP 144/65; RESP 20
[2016-05-30] MEDS: GABAPENTIN 100 MG CAP PO SCH (21:12)
[2016-05-30] MEDS: ATORVASTATIN 40 MG TAB PO SCH (21:13)
--- NOTE | 2016-05-30 21:39 | PN ---
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 At the moment, would recommend for the patient to continue with antibiotics for 21 days -S/P angio demonstrated left distal external iliac artery stenosis and significant disease in the SFA that would require stenting and angioplasty. The patient has discussed the matter with her son and has agreed to proceed with endovascular intervention. Subsequently, She underwent attempted Angio an intervention however unsuccessful. Therefore, We will plan to have a family discussion with the patient in order to discuss our findings of our last attempt , and she will likely benefit from an open revascularization procedure. -Have discussed our case with our cardiology colleagues for evaluation of her cardiac status and possible cardiac stress test while in-house. The next vascular intervention can be done as an oupt. Appreciate cardiac evaluation -Appreciate podiatry feedback in regards to her needing limb salvage. -Optimize vascular status (BP meds, diet, nutrition, exercise, sugar control, antiplatelets). -Discussed findings, plan and management with the patient, she understands -Thank you for allowing us to partake in the care of your patient. Please call with any questions. Problems: Subjective 24 Hr Interval Summary no new vascular events overnight Exam/Review of Systems Vital Signs Vitals Vital Signs Date Time Temp Pulse Resp B/P Pulse Ox O2 Delivery O2 Flow Rate FiO2 05/30/16 19:33 98.9 67 20 144/65 100 05/29/16 20:15 Room Air Intake and Output 05/29/16 05/29/16 05/30/16 15:00 23:00 07:00 Intake Total 350 ml 600 ml Output Total 600 ml Balance 350 ml 0 ml Exam Free Text/Dictation GENERAL: Alert and oriented x3, PULMONARY: Clear to auscultation bilaterally CARDIOVASCULAR: S1, S2 present ABDOMEN: Soft, nontender, nondistended. Bowel sounds positive. Truncal obesity. EXTREMITIES: Right lower extremity palpable femoral pulse, nonpalpable pedal pulse. Motor, sensory intact. Capillary refill 3 seconds. 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 Left lower extremity palpable femoral pulse, nonpalpable pedal pulse, Motor and sensory intact. Tenderness upon palpation of the forefoot, swelling and erythema improved. There is a bluish-purple discoloration and gangrene of all the toes, specifically gangrene of partial the third, fourth and fifth toes. Results Result Diagram: 05/30/16 0521 05/30/16 0521 AMY VALDES MD May 30, 2016 21:38
[2016-05-31] MEDS: morphine 2 MG INJ IV PRN ×2 (00:57→20:47)
[2016-05-31 06:18] LABS: POTASSIUM 4.1 mmol/L (3.5-5.1)
[2016-05-31 06:20] LABS: CREATININE 0.98 mg/dl (0.44-1.00)
[2016-05-31 06:21] LABS: CALCIUM 8.5 mg/dl (8.4-10.2)
[2016-05-31 07:12] LABS: HEMOGLOBIN 8.7 g/dl (12.0-16.0); RED BLOOD COUNT 2.75 10^6/ul (4.20-5.40); WHITE BLOOD COUNT 5.8 10^3/ul (4.8-10.8)
[2016-05-31 07:14] LABS: HEMATOCRIT 27.9 % (37.0-47.0); MEAN CORPUSCULAR HEMOGLOBIN 31.6 pg (29.0-33.0); MEAN CORPUSCULAR HGB CONC 31.2 g/dl (32.0-37.0); MEAN CORPUSCULAR VOLUME 101.5 fl (82.0-101.0)
[2016-05-31 07:15] LABS: BASOPHILS % 0.5 % (0.0-2.0); EOSINOPHILS # 0.3 10^3/ul (0.0-0.5); EOSINOPHILS % 5.2 % (0.0-7.0); LYMPHOCYTES # 1.1 10^3/ul (0.8-2.9); LYMPHOCYTES % 18.6 % (15.0-51.0); MEAN PLATELET VOLUME 11.5 fl (7.4-10.4); MONOCYTE # 0.8 10^3/ul (0.3-0.9); MONOCYTES % 13.9 % (0.0-11.0); NEUTROPHIL # 3.5 10^3/ul (1.6-7.5); NEUTROPHILS % 61.3 % (39.0-77.0); PLATELET COUNT 334 10^3/UL (140-440); RED CELL DISTRIBUTION WIDTH 15.2 % (11.5-14.5)
[2016-05-31 07:47] VITALS: BP 135/62; RESP 18
[2016-05-31] MEDS: ASPIRIN 81 MG TAB PO SCH (08:25)
[2016-05-31] MEDS: CLOPIDOGREL 75 MG TAB PO SCH (08:27)
[2016-05-31] MEDS: ATENOLOL 50 MG TAB PO SCH ×2 (08:27→20:51)
[2016-05-31] MEDS: AMLODIPINE 5 MG TAB PO SCH ×2 (08:27→20:50)
[2016-05-31] MEDS: FAMOTIDINE 20 MG TAB PO SCH (08:28)
[2016-05-31] MEDS: ENOXAPARIN 30 MG/0.3 ML SYG SC SCH (08:29)
--- NOTE | 2016-05-31 11:00 | CONS ---
Date/Time of Note Date/Time of Note DATE: 05/31/16 TIME: 10:57 Assessment/Plan Assessment/Plan Chief Complaint/Hosp Course 1) PVD 2) HTN 3) HLP 4) Preoperative risk assessment 5) Anemia Problems: Additional Assessment/Plan 1) outpatient cardiac young when anemia improved prior to anticipated surgery 2) continue current meds 3) no new cardiac orders Consultation Date/Type/Reason Admit Date/Time May 17, 2016 at 22:19 Initial Consult Date 05/18/16 Type of Consultation: cv 24 HR Interval Summary Free Text/Dictation no chest pain, no sob, no palpitations, no syncope or near syncope Detailed Summary Respiratory: no complaints Cardiovascular: no complaints Gastrointestinal: no complaints Genitourinary: no complaints Musculoskeletal: no complaints Skin: skin lesions Exam/Review of Systems Vital Signs Vitals Vital Signs Date Time Temp Pulse Resp B/P Pulse Ox O2 Delivery O2 Flow Rate FiO2 05/31/16 07:47 97.6 58 18 135/62 97 05/29/16 20:15 Room Air Intake and Output 05/30/16 05/30/16 05/31/16 15:00 23:00 07:00 Intake Total 970 ml 240 ml Balance 970 ml 240 ml Exam Constitutional: alert, oriented Head: atraumatic, normocephalic Neck: supple Respiratory: clear to auscultation Cardiovascular: regular rate and rhythm Gastrointestinal: soft Musculoskeletal: nl extremities to inspection Extremities: cyanosis, other (reduced pulses) Results Result Diagram: 05/31/16 0521 05/31/16 0521 Results 24 hrs Laboratory Tests Test 05/31/16 05:21 Anion Gap 14 Basophils # 0.0 Basophils % 0.5 Blood Urea Nitrogen 14 Calcium Level 8.5 Carbon Dioxide Level 27 Chloride Level 105 Creatinine 0.98 Eosinophils # 0.3 Eosinophils % 5.2 Glucose Level 111 Hematocrit 27.9 L Hemoglobin 8.7 L Lymphocytes # 1.1 Lymphocytes % 18.6 Mean Corpuscular Hemoglobin 31.6 Mean Corpuscular Hemoglobin Concent 31.2 L Mean Corpuscular Volume 101.5 H Mean Platelet Volume 11.5 #H Monocytes # 0.8 Monocytes % 13.9 H Neutrophils # 3.5 Neutrophils % 61.3 Nucleated Red Blood Cells # 0.0 Nucleated Red Blood Cells % 0.0 Platelet Count 334 Potassium Level 4.1 Red Blood Count 2.75 L Red Cell Distribution Width 15.2 H Sodium Level 142 White Blood Count 5.8 Medications Medications Current Medications Acetaminophen (Tylenol Tab) 650 mg Q6H PRN PO PAIN LEVEL 1-3 OR FEVER Last administered on 05/28/16 17:09; Admin Dose 650 MG; Start 05/17/16 at 22:30 Morphine Sulfate (morphine) 2 mg Q4H PRN IV SEVERE PAIN LEVEL 7-10 Last administered on 05/31/16 00:57; Admin Dose 2 MG; Start 05/17/16 at 22:30 Enoxaparin Sodium (Lovenox) 30 mg DAILY SC Last administered on 05/31/16 08:29 ; Admin Dose 30 MG; Start 05/18/16 at 09:00 Gabapentin 100 mg 100 mg QHS PO Last administered on 05/30/16 21:12; Admin Dose 100 MG; Start 05/18/16 at 21:00 Vancomycin HCl (Vancocin) 250 ml @ 125 mls/hr Q24H IVPB Last administered on 11:50; Admin Dose 125 MLS/HR; Start 05/19/16 at 11:00 Atorvastatin Calcium (Lipitor) 40 mg HS PO Last administered on 05/30/16 21:13 ; Admin Dose 40 MG; Start 05/24/16 at 21:00 Aspirin (Aspirin) 81 mg DAILY PO Last administered on 05/31/16 08:25; Admin Dose 81 MG; Start 05/24/16 at 12:30 Clopidogrel Bisulfate (plaVIX) 75 mg DAILY PO Last administered on 05/31/16 08 :27; Admin Dose 75 MG; Start 05/24/16 at 12:30 Hydralazine HCl (Apresoline) 25 mg BID PO Last administered on 05/31/16 08:27 ; Admin Dose 25 MG; Start 05/24/16 at 13:00 Amlodipine Besylate (Norvasc) 5 mg BID PO Last administered on 05/31/16 08:27 ; Admin Dose 5 MG; Start 05/26/16 at 09:00 Atenolol (Tenormin) 50 mg BID PO Last administered on 05/31/16 08:27; Admin Dose 50 MG; Start 05/26/16 at 09:00 Famotidine (Pepcid) 20 mg Q24H PO Last administered on 05/31/16 08:28; Admin Dose 20 MG; Start 05/29/16 at 09:00 Ondansetron HCl (Zofran Inj) 4 mg Q4H PRN IV NAUSEA AND/OR VOMITING; Start at 18:30 GALLITO FREY MD May 31, 2016 11:00
--- NOTE | 2016-05-31 11:21 | PN ---
Date/Time of Note Date/Time of Note DATE: 05/31/16 TIME: 11:17 Assessment/Plan VTE Prophylaxis VTE Prophylaxis Intervention: LMWH Lines/Catheters IV Catheter Type (from [facility]): Saline Lock Urinary Cath still in place: No Assessment/Plan Assessment/Plan 1. Left foot cellulitis with gangrene. - per Dr. Parr is following the patient from infectious disease standpoint. Continue abx per ID. Dr. Guerrero is following from podiatry consultation. 2. Peripheral arterial occlusive disease. Dr. Shepherd is following from vascular surgery consultation. S/p angio. Pending vascular intervention. 3. Hypertension by history. Continue patient Norvasc and atenolol, hydralazine p.r.n. for systolic blood pressure above 170. Patient with history failing follow-up appointment. Continue Lovenox for deep venous thrombosis prophylaxis and Pepcid for peptic ulcer disease prophylaxis. Further recommendations based on clinical course. Plan of care discussed with Dr. Stephens. Subjective 24 Hr Interval Summary Eyes: no complaints ENT: no complaints Respiratory: no complaints Cardiovascular: no complaints Gastrointestinal: no complaints Genitourinary: no complaints Musculoskeletal: bone/joint pain Skin: no complaints Endocrine: no complaints Exam/Review of Systems Vital Signs Vitals Vital Signs Date Time Temp Pulse Resp B/P Pulse Ox O2 Delivery O2 Flow Rate FiO2 05/31/16 07:47 97.6 58 18 135/62 97 05/29/16 20:15 Room Air Intake and Output 05/30/16 05/30/16 05/31/16 15:00 23:00 07:00 Intake Total 970 ml 240 ml Balance 970 ml 240 ml Exam Constitutional: alert, oriented, well developed Psych: no complaints Head: atraumatic Eyes: EOMI ENMT: nl external ears & nose Neck: non-tender Respiratory: clear to auscultation Cardiovascular: nl pulses Gastrointestinal: non-tender, soft Musculoskeletal: other Extremities: normal pulses Neurological: nl mental status, nl speech Skin: other Lymph: nontender Results Result Diagram: 05/31/16 0521 05/31/16 0521 Results 24 hrs Laboratory Tests Test 05/31/16 05:21 Anion Gap 14 Basophils # 0.0 Basophils % 0.5 Blood Urea Nitrogen 14 Calcium Level 8.5 Carbon Dioxide Level 27 Chloride Level 105 Creatinine 0.98 Eosinophils # 0.3 Eosinophils % 5.2 Glucose Level 111 Hematocrit 27.9 L Hemoglobin 8.7 L Lymphocytes # 1.1 Lymphocytes % 18.6 Mean Corpuscular Hemoglobin 31.6 Mean Corpuscular Hemoglobin Concent 31.2 L Mean Corpuscular Volume 101.5 H Mean Platelet Volume 11.5 #H Monocytes # 0.8 Monocytes % 13.9 H Neutrophils # 3.5 Neutrophils % 61.3 Nucleated Red Blood Cells # 0.0 Nucleated Red Blood Cells % 0.0 Platelet Count 334 Potassium Level 4.1 Red Blood Count 2.75 L Red Cell Distribution Width 15.2 H Sodium Level 142 White Blood Count 5.8 Medications Medications Current Medications Acetaminophen (Tylenol Tab) 650 mg Q6H PRN PO PAIN LEVEL 1-3 OR FEVER Last administered on 05/28/16 17:09; Admin Dose 650 MG; Start 05/17/16 at 22:30 Morphine Sulfate (morphine) 2 mg Q4H PRN IV SEVERE PAIN LEVEL 7-10 Last administered on 05/31/16 00:57; Admin Dose 2 MG; Start 05/17/16 at 22:30 Enoxaparin Sodium (Lovenox) 30 mg DAILY SC Last administered on 05/31/16 08:29 ; Admin Dose 30 MG; Start 05/18/16 at 09:00 Gabapentin 100 mg 100 mg QHS PO Last administered on 05/30/16 21:12; Admin Dose 100 MG; Start 05/18/16 at 21:00 Vancomycin HCl (Vancocin) 250 ml @ 125 mls/hr Q24H IVPB Last administered on 11:50; Admin Dose 125 MLS/HR; Start 05/19/16 at 11:00 Atorvastatin Calcium (Lipitor) 40 mg HS PO Last administered on 05/30/16 21:13 ; Admin Dose 40 MG; Start 05/24/16 at 21:00 Aspirin (Aspirin) 81 mg DAILY PO Last administered on 05/31/16 08:25; Admin Dose 81 MG; Start 05/24/16 at 12:30 Clopidogrel Bisulfate (plaVIX) 75 mg DAILY PO Last administered on 05/31/16 08 :27; Admin Dose 75 MG; Start 05/24/16 at 12:30 Hydralazine HCl (Apresoline) 25 mg BID PO Last administered on 05/31/16 08:27 ; Admin Dose 25 MG; Start 05/24/16 at 13:00 Amlodipine Besylate (Norvasc) 5 mg BID PO Last administered on 05/31/16 08:27 ; Admin Dose 5 MG; Start 05/26/16 at 09:00 Atenolol (Tenormin) 50 mg BID PO Last administered on 05/31/16 08:27; Admin Dose 50 MG; Start 05/26/16 at 09:00 Famotidine (Pepcid) 20 mg Q24H PO Last administered on 05/31/16 08:28; Admin Dose 20 MG; Start 05/29/16 at 09:00 Ondansetron HCl (Zofran Inj) 4 mg Q4H PRN IV NAUSEA AND/OR VOMITING; Start at 18:30 NILESH CAVANAUGH May 31, 2016 11:20
[2016-05-31] MEDS: ACETAMINOPHEN 325 MG TAB PO PRN ×2 (11:29→17:33)
[2016-05-31] MEDS: VANCOMYCIN 1 GM in NS 250 ML IVPB SCH (11:29)
--- NOTE | 2016-05-31 12:56 | PN ---
DATE: 05/31/2016 SUBJECTIVE: The patient is alert, sitting up in bed, looks comfortable, no fevers. She is on IV vancomycin with last vancomycin trough was 12.4. Cultures have been negative. PHYSICAL EXAMINATION: GENERAL: This is a well-developed, fragile, elderly -[place] woman who is awake, in no distress. HEENT: Head atraumatic, normocephalic. Sclerae anicteric. Buccal mucosa dry. NECK: Supple. CHEST: Rise symmetrical. Breath sounds clear. HEART: S1, S2. ABDOMEN: Soft, bowel sounds present. EXTREMITIES: Left foot gangrenous changes. ASSESSMENT: 1. Status post systemic inflammatory response syndrome. 2. Left foot gangrene. 3. Peripheral vascular disease. 4. Hypertension. PLAN: The patient remains stable. Continue antibiotics, pending revascularization procedure. Dictated By: VEGA PALMA SENIOR MANAGER [employer] for JEROME HIGHTOWER MD NI/NTS Conf#: [id number] DID#: [id number] [facility]ITAL[facility]ilee
[2016-05-31 19:35] VITALS: BP 116/55; RESP 18
--- NOTE | 2016-05-31 20:44 | PN ---
Date/Time of Note Date/Time of Note DATE: 05/31/16 TIME: 20:43 Assessment/Plan Lines/Catheters IV Catheter Type (from [facility]): Saline Lock Fitzgerald in Place (from [facility]): No Exam/Review of Systems Vital Signs Vitals Vital Signs Date Time Temp Pulse Resp B/P Pulse Ox O2 Delivery O2 Flow Rate FiO2 05/31/16 07:47 97.6 58 18 135/62 97 05/29/16 20:15 Room Air Intake and Output 05/30/16 05/30/16 05/31/16 15:00 23:00 07:00 Intake Total 970 ml 240 ml Balance 970 ml 240 ml Results Result Diagram: 05/31/16 0521 05/31/16 0521 RONNELL CORONEL DPM May 31, 2016 20:44
[2016-05-31] MEDS: ATORVASTATIN 40 MG TAB PO SCH (20:49)
[2016-05-31] MEDS: GABAPENTIN 100 MG CAP PO SCH (20:51)
[2016-06-01 05:26] LABS: ADD SCAN DIFF NO
[2016-06-01 05:33] LABS: BASOPHILS % 0.6 % (0.0-2.0); EOSINOPHILS # 0.2 10^3/ul (0.0-0.5); EOSINOPHILS % 4.3 % (0.0-7.0); HEMATOCRIT 26.4 % (37.0-47.0); HEMOGLOBIN 8.2 g/dl (12.0-16.0); LYMPHOCYTES # 0.9 10^3/ul (0.8-2.9); LYMPHOCYTES % 16.9 % (15.0-51.0); MEAN CORPUSCULAR HEMOGLOBIN 31.4 pg (29.0-33.0); MEAN CORPUSCULAR HGB CONC 31.1 g/dl (32.0-37.0); MEAN CORPUSCULAR VOLUME 101.1 fl (82.0-101.0); MEAN PLATELET VOLUME 10.9 fl (7.4-10.4); MONOCYTE # 0.7 10^3/ul (0.3-0.9); MONOCYTES % 14.1 % (0.0-11.0); NEUTROPHIL # 3.3 10^3/ul (1.6-7.5); NEUTROPHILS % 63.7 % (39.0-77.0); PLATELET COUNT 323 10^3/UL (140-415); RED BLOOD COUNT 2.61 10^6/ul (4.20-5.40); RED CELL DISTRIBUTION WIDTH 15.2 % (11.5-14.5); WHITE BLOOD COUNT 5.1 10^3/ul (4.8-10.8)
[2016-06-01] MEDS: morphine 2 MG INJ IV PRN ×2 (05:49→10:53)
[2016-06-01 05:54] LABS: POTASSIUM 3.6 mmol/L (3.5-5.1)
[2016-06-01 05:57] LABS: CALCIUM 8.5 mg/dl (8.4-10.2)
[2016-06-01 07:51] VITALS: BP 139/63
[2016-06-01] MEDS: ASPIRIN 81 MG TAB PO SCH (09:54)
[2016-06-01] MEDS: CLOPIDOGREL 75 MG TAB PO SCH (09:54)
[2016-06-01] MEDS: FAMOTIDINE 20 MG TAB PO SCH (09:54)
[2016-06-01] MEDS: AMLODIPINE 5 MG TAB PO SCH ×2 (09:55→20:46)
[2016-06-01] MEDS: ATENOLOL 50 MG TAB PO SCH ×2 (09:55→20:45)
[2016-06-01] MEDS: VANCOMYCIN 1 GM in NS 250 ML IVPB SCH (12:45)
--- NOTE | 2016-06-01 12:45 | CONS ---
Date/Time of Note Date/Time of Note DATE: 06/01/16 TIME: 12:45 Assessment/Plan Assessment/Plan Chief Complaint/Hosp Course SUBJECTIVE: No acute changes. The patient is alert, looks comfortable, no fevers. MICROBIOLOGY: Cultures have been negative. ANTIMICROBIALS: Vancomycin. PHYSICAL EXAMINATION: GENERAL: This is a fragile, chronically ill-appearing, elderly woman who is alert, in no distress. HEENT: Head atraumatic, normocephalic. Sclerae anicteric. Buccal mucosa dry. NECK: Supple. CHEST: Rise symmetrical. Breath sounds diminished to bases. HEART: S1, S2. ABDOMEN: Soft, bowel sounds present. EXTREMITIES: Left fourth toe gangrenous changes and also a blister. ASSESSMENT: 1. Left foot gangrene with cellulitis. 2. Peripheral vascular disease. 3. Hypertension. PLAN: Remains unchanged. Continue present care, podiatry/vascular rec-s [facility] staff Problems: Consultation Date/Type/Reason Admit Date/Time May 17, 2016 at 22:19 Type of Consultation: ID Exam/Review of Systems Vital Signs Vitals Vital Signs Date Time Temp Pulse Resp B/P Pulse Ox O2 Delivery O2 Flow Rate FiO2 06/01/16 07:51 98.6 65 139/63 96 05/31/16 19:35 18 05/29/16 20:15 Room Air Intake and Output 05/31/16 05/31/16 06/01/16 15:00 23:00 07:00 Intake Total 810 ml 240 ml Balance 810 ml 240 ml Results Result Diagram: 06/01/16 0500 06/01/16 0500 Results 24 hrs Laboratory Tests Test 06/01/16 05:00 Anion Gap 13 Basophils # 0.0 Basophils % 0.6 Blood Urea Nitrogen 13 Calcium Level 8.5 Carbon Dioxide Level 27 Chloride Level 106 Creatinine 1.00 Eosinophils # 0.2 Eosinophils % 4.3 Glucose Level 122 Hematocrit 26.4 L Hemoglobin 8.2 L Lymphocytes # 0.9 Lymphocytes % 16.9 Mean Corpuscular Hemoglobin 31.4 Mean Corpuscular Hemoglobin Concent 31.1 L Mean Corpuscular Volume 101.1 H Mean Platelet Volume 10.9 H Monocytes # 0.7 Monocytes % 14.1 H Neutrophils # 3.3 Neutrophils % 63.7 Nucleated Red Blood Cells # 0.0 Nucleated Red Blood Cells % 0.0 Platelet Count 323 Potassium Level 3.6 Red Blood Count 2.61 L Red Cell Distribution Width 15.2 H Sodium Level 142 White Blood Count 5.1 Medications Medications Current Medications Acetaminophen (Tylenol Tab) 650 mg Q6H PRN PO PAIN LEVEL 1-3 OR FEVER Last administered on 05/31/16 17:33; Admin Dose 650 MG; Start 05/17/16 at 22:30 Morphine Sulfate (morphine) 2 mg Q4H PRN IV SEVERE PAIN LEVEL 7-10 Last administered on 06/01/16 10:53; Admin Dose 2 MG; Start 05/17/16 at 22:30 Enoxaparin Sodium (Lovenox) 30 mg DAILY SC Last administered on 05/31/16 08:29 ; Admin Dose 30 MG; Start 05/18/16 at 09:00 Gabapentin 100 mg 100 mg QHS PO Last administered on 05/31/16 20:51; Admin Dose 100 MG; Start 05/18/16 at 21:00 Vancomycin HCl (Vancocin) 250 ml @ 125 mls/hr Q24H IVPB Last administered on 11:29; Admin Dose 125 MLS/HR; Start 05/19/16 at 11:00 Atorvastatin Calcium (Lipitor) 40 mg HS PO Last administered on 05/31/16 20:49 ; Admin Dose 40 MG; Start 05/24/16 at 21:00 Aspirin (Aspirin) 81 mg DAILY PO Last administered on 06/01/16 09:54; Admin Dose 81 MG; Start 05/24/16 at 12:30 Clopidogrel Bisulfate (plaVIX) 75 mg DAILY PO Last administered on 06/01/16 09 :54; Admin Dose 75 MG; Start 05/24/16 at 12:30 Hydralazine HCl (Apresoline) 25 mg BID PO Last administered on 06/01/16 09:57 ; Admin Dose 25 MG; Start 05/24/16 at 13:00 Amlodipine Besylate (Norvasc) 5 mg BID PO Last administered on 06/01/16 09:55 ; Admin Dose 5 MG; Start 05/26/16 at 09:00 Atenolol (Tenormin) 50 mg BID PO Last administered on 06/01/16 09:55; Admin Dose 50 MG; Start 05/26/16 at 09:00 Famotidine (Pepcid) 20 mg Q24H PO Last administered on 06/01/16 09:54; Admin Dose 20 MG; Start 05/29/16 at 09:00 Ondansetron HCl (Zofran Inj) 4 mg Q4H PRN IV NAUSEA AND/OR VOMITING; Start at 18:30 VEGA PALMA NP Jun 01, 2016 12:45
[2016-06-01] MEDS: ENOXAPARIN 30 MG/0.3 ML SYG SC SCH (14:17)
[2016-06-01] MEDS: ACETAMINOPHEN 325 MG TAB PO PRN (15:04)
--- NOTE | 2016-06-01 15:29 | PN ---
Date/Time of Note Date/Time of Note DATE: 06/01/16 TIME: 15:24 Assessment/Plan VTE Prophylaxis VTE Prophylaxis Intervention: SCD's Lines/Catheters IV [facility]ter Type (from [facility]): Saline Lock Urinary Cath still in place: No Assessment/Plan Chief Complaint/Hosp Course ASSESSMENT AND PLAN: 1. Left foot cellulitis with gangrene. Dr. Parr is following the patient from infectious disease standpoint. Continue abx per ID. Dr. Guerrero is following from podiatry consultation. 2. Peripheral arterial occlusive disease. Dr. Shepherd is following from vascular surgery consultation. S/p angio. Pending vascular intervention upon cardiology clearance. 3. Hypertension by history. Continue patient Norvasc and atenolol, hydralazine p.r.n. for systolic blood pressure above 170. Patient with history failing follow-up appointment. Continue Lovenox for deep venous thrombosis prophylaxis and Pepcid for peptic ulcer disease prophylaxis. Further recommendations based on clinical course. Plan of care discussed with Dr. Stephens. Problems: Subjective 24 Hr Interval Summary Free Text/Dictation No acute events overnight, pain is well controlled. Exam/Review of Systems Vital Signs Vitals Vital Signs Date Time Temp Pulse Resp B/P Pulse Ox O2 Delivery O2 Flow Rate FiO2 06/01/16 07:51 98.6 65 139/63 96 05/31/16 19:35 18 05/29/16 20:15 Room Air Intake and Output 05/31/16 05/31/16 06/01/16 15:00 23:00 07:00 Intake Total 810 ml 240 ml Balance 810 ml 240 ml Exam GENERAL: Well-developed, well-nourished female currently is awake, alert. HEENT: Head is atraumatic, normocephalic. NECK: Supple, no cervical lymphadenopathy, no thyromegaly. CHEST: Lungs clear bilaterally. There are no rhonchi, wheezes, rales noted. CARDIOVASCULAR: Normal S1, S2. No murmurs, clicks, rubs noted. ABDOMEN: Round, soft, nondistended, nontender. Bowel sounds present. EXTREMITIES: The patient has left foot edema, erythema, and tenderness with gangrenous fourth toe on the left foot and discoloration of the surrounding area. Pulses are present. Right extremity: There is no edema, clubbing, cyanosis. Pulses equal 2+. SKIN: There is no rash, petechiae noted. NEUROLOGIC: Patient is awake, alert and oriented x4. Results Result Diagram: 06/01/16 0500 06/01/16 0500 Results 24 hrs Laboratory Tests Test 06/01/16 05:00 Anion Gap 13 Basophils # 0.0 Basophils % 0.6 Blood Urea Nitrogen 13 Calcium Level 8.5 Carbon Dioxide Level 27 Chloride Level 106 Creatinine 1.00 Eosinophils # 0.2 Eosinophils % 4.3 Glucose Level 122 Hematocrit 26.4 L Hemoglobin 8.2 L Lymphocytes # 0.9 Lymphocytes % 16.9 Mean Corpuscular Hemoglobin 31.4 Mean Corpuscular Hemoglobin Concent 31.1 L Mean Corpuscular Volume 101.1 H Mean Platelet Volume 10.9 H Monocytes # 0.7 Monocytes % 14.1 H Neutrophils # 3.3 Neutrophils % 63.7 Nucleated Red Blood Cells # 0.0 Nucleated Red Blood Cells % 0.0 Platelet Count 323 Potassium Level 3.6 Red Blood Count 2.61 L Red Cell Distribution Width 15.2 H Sodium Level 142 White Blood Count 5.1 Medications Medications Current Medications Acetaminophen (Tylenol Tab) 650 mg Q6H PRN PO PAIN LEVEL 1-3 OR FEVER Last administered on 06/01/16 15:04; Admin Dose 650 MG; Start 05/17/16 at 22:30 Morphine Sulfate (morphine) 2 mg Q4H PRN IV SEVERE PAIN LEVEL 7-10 Last administered on 06/01/16 10:53; Admin Dose 2 MG; Start 05/17/16 at 22:30 Enoxaparin Sodium (Lovenox) 30 mg DAILY SC Last administered on 06/01/16 14:17 ; Admin Dose 30 MG; Start 05/18/16 at 09:00 Gabapentin 100 mg 100 mg QHS PO Last administered on 05/31/16 20:51; Admin Dose 100 MG; Start 05/18/16 at 21:00 Vancomycin HCl (Vancocin) 250 ml @ 125 mls/hr Q24H IVPB Last administered on 12:45; Admin Dose 125 MLS/HR; Start 05/19/16 at 11:00 Atorvastatin Calcium (Lipitor) 40 mg HS PO Last administered on 05/31/16 20:49 ; Admin Dose 40 MG; Start 05/24/16 at 21:00 Aspirin (Aspirin) 81 mg DAILY PO Last administered on 06/01/16 09:54; Admin Dose 81 MG; Start 05/24/16 at 12:30 Clopidogrel Bisulfate (plaVIX) 75 mg DAILY PO Last administered on 06/01/16 09 :54; Admin Dose 75 MG; Start 05/24/16 at 12:30 Hydralazine HCl (Apresoline) 25 mg BID PO Last administered on 06/01/16 09:57 ; Admin Dose 25 MG; Start 05/24/16 at 13:00 Amlodipine Besylate (Norvasc) 5 mg BID PO Last administered on 06/01/16 09:55 ; Admin Dose 5 MG; Start 05/26/16 at 09:00 Atenolol (Tenormin) 50 mg BID PO Last administered on 06/01/16 09:55; Admin Dose 50 MG; Start 05/26/16 at 09:00 Famotidine (Pepcid) 20 mg Q24H PO Last administered on 06/01/16 09:54; Admin Dose 20 MG; Start 05/29/16 at 09:00 Ondansetron HCl (Zofran Inj) 4 mg Q4H PRN IV NAUSEA AND/OR VOMITING; Start at 18:30 JANIS BAKER Jun 01, 2016 15:29
--- NOTE | 2016-06-01 16:51 | CONS ---
Date/Time of Note Date/Time of Note DATE: 06/01/16 TIME: 16:49 Assessment/Plan Assessment/Plan Additional Assessment/Plan Peripheral arterial disease with critical limb ischemia Hypertension Dyslipidemia Preserved ejection fraction -Patient with worsening anemia, aspirin and continue Plavix as long as blood count permits. Blood pressure improved. Consultation Date/Type/Reason Admit Date/Time May 17, 2016 at 22:19 Type of Consultation: cv 24 HR Interval Summary Free Text/Dictation Denies chest pain, shortness of breath or palpitations Exam/Review of Systems Vital Signs Vitals Vital Signs Date Time Temp Pulse Resp B/P Pulse Ox O2 Delivery O2 Flow Rate FiO2 06/01/16 07:51 98.6 65 139/63 96 05/31/16 19:35 18 05/29/16 20:15 Room Air Intake and Output 05/31/16 05/31/16 06/01/16 15:00 23:00 07:00 Intake Total 810 ml 240 ml Balance 810 ml 240 ml Exam No apparent distress Constitutional: alert, oriented Head: normocephalic Neck: supple Respiratory: other (Coarse breath sounds bilaterally, no wheezing) Cardiovascular: other (S1-S2 heard), regular rate and rhythm Gastrointestinal: bowel sounds, non-tender, other (No guarding), soft Extremities: other (No edema) Results Result Diagram: 06/01/16 0500 06/01/16 0500 Results 24 hrs Laboratory Tests Test 06/01/16 05:00 Anion Gap 13 Basophils # 0.0 Basophils % 0.6 Blood Urea Nitrogen 13 Calcium Level 8.5 Carbon Dioxide Level 27 Chloride Level 106 Creatinine 1.00 Eosinophils # 0.2 Eosinophils % 4.3 Glucose Level 122 Hematocrit 26.4 L Hemoglobin 8.2 L Lymphocytes # 0.9 Lymphocytes % 16.9 Mean Corpuscular Hemoglobin 31.4 Mean Corpuscular Hemoglobin Concent 31.1 L Mean Corpuscular Volume 101.1 H Mean Platelet Volume 10.9 H Monocytes # 0.7 Monocytes % 14.1 H Neutrophils # 3.3 Neutrophils % 63.7 Nucleated Red Blood Cells # 0.0 Nucleated Red Blood Cells % 0.0 Platelet Count 323 Potassium Level 3.6 Red Blood Count 2.61 L Red Cell Distribution Width 15.2 H Sodium Level 142 White Blood Count 5.1 Medications Medications Current Medications Acetaminophen (Tylenol Tab) 650 mg Q6H PRN PO PAIN LEVEL 1-3 OR FEVER Last administered on 06/01/16 15:04; Admin Dose 650 MG; Start 05/17/16 at 22:30 Morphine Sulfate (morphine) 2 mg Q4H PRN IV SEVERE PAIN LEVEL 7-10 Last administered on 06/01/16 10:53; Admin Dose 2 MG; Start 05/17/16 at 22:30 Enoxaparin Sodium (Lovenox) 30 mg DAILY SC Last administered on 06/01/16 14:17 ; Admin Dose 30 MG; Start 05/18/16 at 09:00 Gabapentin 100 mg 100 mg QHS PO Last administered on 05/31/16 20:51; Admin Dose 100 MG; Start 05/18/16 at 21:00 Vancomycin HCl (Vancocin) 250 ml @ 125 mls/hr Q24H IVPB Last administered on 12:45; Admin Dose 125 MLS/HR; Start 05/19/16 at 11:00 Atorvastatin Calcium (Lipitor) 40 mg HS PO Last administered on 05/31/16 20:49 ; Admin Dose 40 MG; Start 05/24/16 at 21:00 Aspirin (Aspirin) 81 mg DAILY PO Last administered on 06/01/16 09:54; Admin Dose 81 MG; Start 05/24/16 at 12:30 Clopidogrel Bisulfate (plaVIX) 75 mg DAILY PO Last administered on 06/01/16 09 :54; Admin Dose 75 MG; Start 05/24/16 at 12:30 Hydralazine HCl (Apresoline) 25 mg BID PO Last administered on 06/01/16 09:57 ; Admin Dose 25 MG; Start 05/24/16 at 13:00 Amlodipine Besylate (Norvasc) 5 mg BID PO Last administered on 06/01/16 09:55 ; Admin Dose 5 MG; Start 05/26/16 at 09:00 Atenolol (Tenormin) 50 mg BID PO Last administered on 06/01/16 09:55; Admin Dose 50 MG; Start 05/26/16 at 09:00 Famotidine (Pepcid) 20 mg Q24H PO Last administered on 06/01/16 09:54; Admin Dose 20 MG; Start 05/29/16 at 09:00 Ondansetron HCl (Zofran Inj) 4 mg Q4H PRN IV NAUSEA AND/OR VOMITING; Start at 18:30 James Berman DO Jun 01, 2016 16:51
[2016-06-01] MEDS: ONDANSETRON 4 MG INJ IV PRN ×2 (18:41→23:48)
[2016-06-01 20:14] VITALS: BP 132/63; RESP 18
[2016-06-01] MEDS: GABAPENTIN 100 MG CAP PO SCH (20:44)
[2016-06-01] MEDS: ATORVASTATIN 40 MG TAB PO SCH (20:44)
[2016-06-02] MEDS: ATENOLOL 50 MG TAB PO SCH ×2 (09:07→21:00)
[2016-06-02] MEDS: CLOPIDOGREL 75 MG TAB PO SCH (09:07)
[2016-06-02] MEDS: FAMOTIDINE 20 MG TAB PO SCH (09:08)
[2016-06-02] MEDS: AMLODIPINE 5 MG TAB PO SCH ×2 (09:08→21:06)
[2016-06-02] MEDS: ENOXAPARIN 30 MG/0.3 ML SYG SC SCH (09:19)
[2016-06-02 09:48] VITALS: BP 122/60; RESP 18
[2016-06-02] MEDS: VANCOMYCIN 1 GM in NS 250 ML IVPB SCH (11:24)
--- NOTE | 2016-06-02 12:15 | PN ---
Date/Time of Note Date/Time of Note DATE: 06/02/16 TIME: 12:15 Assessment/Plan VTE Prophylaxis VTE Prophylaxis Intervention: other Lines/Catheters IV Catheter Type (from Nrs): Saline Lock Urinary Cath still in place: No Assessment/Plan Assessment/Plan 1. Left foot cellulitis with gangrene. - per Dr. Parr is following the patient from infectious disease standpoint. Continue abx per ID. Dr. Guerrero is following from podiatry consultation. 2. Peripheral arterial occlusive disease. Dr. Shepherd is following from vascular surgery consultation. S/p angio. Pending vascular intervention. 3. Hypertension by history. Continue patient Norvasc and atenolol, hydralazine p.r.n. for systolic blood pressure above 170. Patient with history failing follow-up appointment. Continue Lovenox for deep venous thrombosis prophylaxis and Pepcid for peptic ulcer disease prophylaxis. Further recommendations based on clinical course. Plan of care discussed with Dr. Stephens. Subjective 24 Hr Interval Summary Eyes: no complaints ENT: no complaints Respiratory: no complaints Cardiovascular: no complaints Gastrointestinal: no complaints Genitourinary: no complaints Musculoskeletal: bone/joint pain Skin: no complaints Neurologic: no complaints Exam/Review of Systems Vital Signs Vitals Vital Signs Date Time Temp Pulse Resp B/P Pulse Ox O2 Delivery O2 Flow Rate FiO2 06/02/16 09:48 99.4 64 18 122/60 95 05/29/16 20:15 Room Air Intake and Output 06/01/16 06/01/16 06/02/16 15:00 23:00 07:00 Intake Total 250 ml 540 ml Balance 250 ml 540 ml Exam Constitutional: alert, well developed Psych: no complaints Head: atraumatic Eyes: EOMI, nl sclera ENMT: nl external ears & nose Respiratory: clear to auscultation Cardiovascular: nl pulses Gastrointestinal: non-tender, soft Neurological: nl speech Skin: nl turgor Lymph: nontender Results Result Diagram: 06/01/16 0500 06/01/16 0500 Medications Medications Current Medications Acetaminophen (Tylenol Tab) 650 mg Q6H PRN PO PAIN LEVEL 1-3 OR FEVER Last administered on 06/01/16t 15:04; Admin Dose 650 MG; Start 05/17/16 at 22:30 Morphine Sulfate (morphine) 2 mg Q4H PRN IV SEVERE PAIN LEVEL 7-10 Last administered on 06/01/16 10:53; Admin Dose 2 MG; Start 05/17/16 at 22:30 Enoxaparin Sodium (Lovenox) 30 mg DAILY SC Last administered on 06/02/16 09:19 ; Admin Dose 30 MG; Start 05/18/16 at 09:00 Gabapentin 100 mg 100 mg QHS PO Last administered on 06/01/16 20:44; Admin Dose 100 MG; Start 05/18/16 at 21:00 Vancomycin HCl (Vancocin) 250 ml @ 125 mls/hr Q24H IVPB Last administered on 11:24; Admin Dose 125 MLS/HR; Start 05/19/16 at 11:00 Atorvastatin Calcium (Lipitor) 40 mg HS PO Last administered on 06/01/16 20:44 ; Admin Dose 40 MG; Start 05/24/16 at 21:00 Clopidogrel Bisulfate (plaVIX) 75 mg DAILY PO Last administered on 06/02/16 09 :07; Admin Dose 75 MG; Start 05/24/16 at 12:30 Hydralazine HCl (Apresoline) 25 mg BID PO Last administered on 06/02/16 09:06 ; Admin Dose 25 MG; Start 05/24/16 at 13:00 Amlodipine Besylate (Norvasc) 5 mg BID PO Last administered on 06/02/16 09:08 ; Admin Dose 5 MG; Start 05/26/16 at 09:00 Atenolol (Tenormin) 50 mg BID PO Last administered on 06/02/16 09:07; Admin Dose 50 MG; Start 05/26/16 at 09:00 Famotidine (Pepcid) 20 mg Q24H PO Last administered on 06/02/16 09:08; Admin Dose 20 MG; Start 05/29/16 at 09:00 Ondansetron HCl (Zofran Inj) 4 mg Q4H PRN IV NAUSEA AND/OR VOMITING Last administered on 06/01/16 23:48; Admin Dose 4 MG; Start 05/29/16 at 18:30 Miscellaneous Information (*Rx Drug Level Order Reminder*) VANCOMYCIN TROUGH AT 1000 ONCE ONCE XX ; Start 06/03/16 at 10:00; Stop 2/26/17 at 10:01 NILESH CAVANAUGH Jun 02, 2016 12:15
[2016-06-02] MEDS ORDERED: AL HYDROX/MG HYDROX/SIMETH 30 ML CUP PO PRN (12:30)
[2016-06-02] MEDS: ONDANSETRON 4 MG INJ IV PRN (12:57)
--- NOTE | 2016-06-02 13:07 | PN ---
Date/Time of Note Date/Time of Note DATE: 06/02/16 TIME: 13:03 Assessment/Plan Lines/Catheters IV Catheter Type (from Nrsg): Saline Lock Fitzgerald in Place (from Nrsg): No Assessment/Plan Chief Complaint/Hosp Course PVD Gangrene left foot Unable to do LLE angio plan for CT angio Problems: Subjective 24 Hr Interval Summary Constitutional: improved Pain Control: mild Exam/Review of Systems Vital Signs Vitals Vital Signs Date Time Temp Pulse Resp B/P Pulse Ox O2 Delivery O2 Flow Rate FiO2 06/02/16 09:48 99.4 64 18 122/60 95 05/29/16 20:15 Room Air Intake and Output 06/01/16 06/01/16 06/02/16 15:00 23:00 07:00 Intake Total 250 ml 540 ml Balance 250 ml 540 ml Exam ENMT: mucosa pink and moist, nl external ears & nose, nl lips & teeth, nl nasal mucosa & septum Neck: non-tender, supple Respiratory: clear to auscultation, normal air movement Cardiovascular: nl pulses, regular rate and rhythm Additional Comments Gangrene of left toes no pedal pulses Results Result Diagram: 06/01/16 0500 06/01/16 0500 VIOLETA BAGLEY MD Jun 02, 2016 13:06
--- NOTE | 2016-06-02 14:22 | CONS ---
Date/Time of Note Date/Time of Note DATE: 06/02/16 TIME: 14:16 Assessment/Plan Assessment/Plan Chief Complaint/Hosp Course ID PROGRESS NOTE TOTAL ABX DAY #15 => Vanco IV s/p Ceftriaxone x11 days 24H INTERVAL SUMMARY * Low grade Tmax 99.4 * Vascular surgeon planning CTA, unable to do LEXT angio per notes PHYSICAL EXAMINATION: GENERAL: VSS, NAD HEENT: Unremarkable NECK: Trach midline CHEST: Rise symmetrical - without dyspnea on observation HEART: RRR ABDOMEN: Soft, EXTREMITIES: Warm, gangrene of all the toes, specifically gangrene of the first , partial the third, fourth and fifth toes. ID ASSESSMENT: 85 yo F w/PMHx 1. Cellulitis of right foot, 4th and 5th fifth. 2. Gangrene 4th toe right. 3. Aortoiliac arteriosclerosis. 4. Claudication. 5. History of tobacco use. 6. Coronary artery disease 7. Hypertension. ( -)MRSA Nares INVASIVES: *PIV ABX ALLERGIES: KNDA CURRENT ABX: Vanco IV #15 s/p Ceftriaxone x#11 ID RECOMMENDATIONS: 1. Continue ABX 2. Vascular surgeon planning CTA, unable to do LEXT angio per notes . Problems: Consultation Date/Type/Reason Admit Date/Time May 17, 2016 at 22:19 Type of Consultation: ID Exam/Review of Systems Vital Signs Vitals Vital Signs Date Time Temp Pulse Resp B/P Pulse Ox O2 Delivery O2 Flow Rate FiO2 06/02/16 09:48 99.4 64 18 122/60 95 05/29/16 20:15 Room Air Intake and Output 06/01/16 06/01/16 06/02/16 15:00 23:00 07:00 Intake Total 250 ml 540 ml Balance 250 ml 540 ml Results Result Diagram: 06/01/16 0500 06/01/16 0500 Medications Medications Current Medications Acetaminophen (Tylenol Tab) 650 mg Q6H PRN PO PAIN LEVEL 1-3 OR FEVER Last administered on 06/01/16t 15:04; Admin Dose 650 MG; Start 05/17/16 at 22:30 Morphine Sulfate (morphine) 2 mg Q4H PRN IV SEVERE PAIN LEVEL 7-10 Last administered on 06/01/16 10:53; Admin Dose 2 MG; Start 05/17/16 at 22:30 Enoxaparin Sodium (Lovenox) 30 mg DAILY SC Last administered on 06/02/16 09:19 ; Admin Dose 30 MG; Start 05/18/16 at 09:00 Gabapentin 100 mg 100 mg QHS PO Last administered on 06/01/16 20:44; Admin Dose 100 MG; Start 05/18/16 at 21:00 Vancomycin HCl (Vancocin) 250 ml @ 125 mls/hr Q24H IVPB Last administered on 11:24; Admin Dose 125 MLS/HR; Start 05/19/16 at 11:00 Atorvastatin Calcium (Lipitor) 40 mg HS PO Last administered on 06/01/16 20:44 ; Admin Dose 40 MG; Start 05/24/16 at 21:00 Clopidogrel Bisulfate (plaVIX) 75 mg DAILY PO Last administered on 06/02/16 09 :07; Admin Dose 75 MG; Start 05/24/16 at 12:30 Hydralazine HCl (Apresoline) 25 mg BID PO Last administered on 06/02/16 09:06 ; Admin Dose 25 MG; Start 05/24/16 at 13:00 Amlodipine Besylate (Norvasc) 5 mg BID PO Last administered on 06/02/16 09:08 ; Admin Dose 5 MG; Start 05/26/16 at 09:00 Atenolol (Tenormin) 50 mg BID PO Last administered on 06/02/16 09:07; Admin Dose 50 MG; Start 05/26/16 at 09:00 Famotidine (Pepcid) 20 mg Q24H PO Last administered on 06/02/16 09:08; Admin Dose 20 MG; Start 05/29/16 at 09:00 Ondansetron HCl (Zofran Inj) 4 mg Q4H PRN IV NAUSEA AND/OR VOMITING Last administered on 06/02/16 12:57; Admin Dose 4 MG; Start 05/29/16 at 18:30 Miscellaneous Information (*Rx Drug Level Order Reminder*) VANCOMYCIN TROUGH AT 1000 ONCE ONCE XX ; Start 06/03/16 at 10:00; Stop 06/03/16 at 10:01 Al Hydrox/Mg Hydrox/Simethicone (Mag-Al Plus) 30 ml Q6H PRN PO GASTROINTESTINAL UPSET; Start 06/02/16 at 12:30 LIZZIE BHAT NP Jun 02, 2016 14:21
[2016-06-02] MEDS ORDERED: SOD CHLORIDE 0.9% 100 ML ONE (14:25)
[2016-06-02] MEDS ORDERED: IOHEXOL 350MG/ML 50 ML BTL ONE (14:26)
--- NOTE | 2016-06-02 16:26 | RADRPT ---
PROCEDURE: CTA abdomen and pelvis with bilateral lower extremity runoff CLINICAL INDICATION: Lower extremity pain and claudication TECHNIQUE: 0.63 mm axial images were obtained through the abdomen, pelvis and bilateral lower extr emities after the IV administration of 120 cc Omnipaque 350 IV contrast. 3-D, coronal and sagittal reconstructions were obtained. Automated exposure control was utilized. DLP = 32.44 mGy-cm. CTDiVol = 805.24 mGy. COMPARISON: 05/04/2016 FINDINGS: CTA abdomen/pelvis: The abdominal aorta is patent throughout its entirety. Scattered calcified atherosclerosis is ident ified in the aorta. No aneurysm or stenosis is observed. The origin of the celiac artery is widely patent. Normal filling of the distal branches of the sherwin ac artery is observed. The origin of the superior mesenteric artery is widely patent. Normal filling of the distal branche s of the superior mesenteric artery is observed. Origins of bilateral renal arteries are widely patent. Bilateral accessory renal arteries are seen. Normal filling of the distal branches of the renal arteries is observed. The inferior mesenteric artery is not identified. Patent aortic bifurcation is observed. Calcific plaque in the aortic bifurcation, bilateral common f emoral arteries, external iliac arteries, and internal iliac arteries are seen. Bilateral common il iac and common femoral arteries are patent and without hemodynamically significant stenosis. CTA right lower extremity: Calcific plaque in the right common femoral artery is again seen. Right common femoral artery other mart demonstrates a patent, unremarkable bifurcation. Calcific plaque in the right superficial femo ral artery is seen once again. Greater than 50% stenosis in the distal right superficial femoral ar lizbet is seen once again which has not changed significantly. No other hemodynamically significant st enosis in the right superficial femoral artery is seen. Calcific plaque in the right popliteal efrain ry is seen. Popliteal artery is patent and otherwise unremarkable. The trifurcation is identified. Three-vessel runoff is seen to the level of the distal tibia and fibula. Two-vessel runoff to the remainder of the right foot is seen via the anterior tibial artery/dorsalis pedis artery and machine edge bander ior tibial artery. CTA left lower extremity: Calcific plaque in the left common femoral artery is seen. Left common femoral artery otherwise dem onstrates a patent, unremarkable bifurcation. Scattered calcific plaque in the left superficial fem oral artery is seen. The superficial femoral artery is widely patent and unremarkable. Popliteal ar lizbet is patent and normal. The trifurcation is identified. Normal three-vessel runoff to the ankle and foot is observed. CT Abdomen/pelvis: Small bilateral pleural effusions are seen. Heart size is within normal limits. The liver, gallbladder, pancreas, and spleen are unremarkable. Bilateral adrenal masses are seen wit h the larger seen in the right internal measuring approximately 3.3 x 2.6 cm in size.. The right kidney is normal. Left renal cortical scarring is again seen. No obstructive uropathy is observed. The bladder is filled with a small amount of urine. Multiple calcified uterine masses are once again seen. A left adnexal cystic structure is again seen measuring approximately 5 x 3.9 cm in size. Diverticulosis is seen in the sigmoid colon as well as in the descending colon and transverse colon as well. In addition, cecal diverticulosis is seen. No evidence of diverticulitis is identified. No inflammatory changes in the periappendiceal region is seen. No dilated loops of small bowel are observed. A moderate size hiatal hernia is seen. No intra-abdominal or pelvic free fluid or fluid collections are observed. No intra-abdominal or pe lvic lymphadenopathy is observed. Degenerative spondylosis of the lumbar spine is seen. Subcutaneous and muscular soft tissues surrou nding the abdomen and pelvis are unremarkable. CT Lower Extremities: Degenerative changes in the knees are seen. Soft tissues surrounding the lower extremities are unre markable. IMPRESSION: 1. Greater than 50% stenosis in the distal right superficial femoral artery again seen which has no t changed significantly. 2. Atherosclerotic vascular disease in the aortoiliac in bilateral extremity arterial system with n o other hemodynamically significant stenoses. 3. Left adnexal cystic structure which the postmenopausal female is worrisome for a cystic ovarian neoplasm and has not changed significantly. 4. Colonic diverticulosis without evidence of diverticulitis without significant interval change. 5. Multiple calcified uterine masses which may represent calcified leiomyomas again seen and are es sentially unchanged. 6. Bilateral adrenal masses, right greater than left. Further evaluation with a CT adrenal protoco l or MRI is recommended. 7. Small bilateral pleural effusions. 8. Moderate size hiatal hernia. RPTAT: HPNM Karlo Mogannam, Physician Date Time Electronically viewed and signed by Karlo Velasquez, Physician on 06/02/2016 16:26 /
[2016-06-02] MEDS: ACETAMINOPHEN 325 MG TAB PO PRN (17:54)
[2016-06-02 19:47] VITALS: BP 129/60; RESP 18
[2016-06-02] MEDS: GABAPENTIN 100 MG CAP PO SCH (21:05)
[2016-06-02] MEDS: ATORVASTATIN 40 MG TAB PO SCH (21:06)
[2016-06-03] MEDS: morphine 2 MG INJ IV PRN ×2 (02:10→21:29)
[2016-06-03 06:13] LABS: ADD SCAN DIFF NO
[2016-06-03 06:21] LABS: POTASSIUM 3.8 mmol/L (3.5-5.1)
[2016-06-03 06:24] LABS: BASOPHILS % 0.5 % (0.0-2.0); CALCIUM 8.6 mg/dl (8.4-10.2); EOSINOPHILS # 0.2 10^3/ul (0.0-0.5); HEMOGLOBIN 8.1 g/dl (12.0-16.0); LYMPHOCYTES # 1.2 10^3/ul (0.8-2.9); LYMPHOCYTES % 22.2 % (15.0-51.0); MEAN CORPUSCULAR HEMOGLOBIN 32.1 pg (29.0-33.0); MEAN CORPUSCULAR HGB CONC 31.2 g/dl (32.0-37.0); MEAN CORPUSCULAR VOLUME 103.2 fl (82.0-101.0); MEAN PLATELET VOLUME 11.3 fl (7.4-10.4); MONOCYTE # 0.8 10^3/ul (0.3-0.9); NEUTROPHIL # 3.4 10^3/ul (1.6-7.5); NEUTROPHILS % 60.1 % (39.0-77.0); PLATELET COUNT 323 10^3/UL (140-415); RED BLOOD COUNT 2.52 10^6/ul (4.20-5.40); RED CELL DISTRIBUTION WIDTH 15.5 % (11.5-14.5); WHITE BLOOD COUNT 5.6 10^3/ul (4.8-10.8)
[2016-06-03 08:32] VITALS: BP 117/57; RESP 18
[2016-06-03] MEDS: CLOPIDOGREL 75 MG TAB PO SCH (08:55)
[2016-06-03] MEDS: ATENOLOL 50 MG TAB PO SCH ×2 (08:55→21:00)
[2016-06-03] MEDS: FAMOTIDINE 20 MG TAB PO SCH (08:56)
[2016-06-03] MEDS: AMLODIPINE 5 MG TAB PO SCH ×2 (08:57→21:38)
[2016-06-03] MEDS: ENOXAPARIN 30 MG/0.3 ML SYG SC SCH (09:00)
--- NOTE | 2016-06-03 10:55 | PN ---
Date/Time of Note Date/Time of Note DATE: 06/03/16 TIME: 10:54 Assessment/Plan VTE Prophylaxis VTE Prophylaxis Intervention: LMWH Lines/Catheters IV Catheter Type (from [facility]): Saline Lock Urinary Cath still in place: No Assessment/Plan Assessment/Plan 1. Left foot cellulitis with gangrene. - per Dr. Parr from infectious disease standpoint. Continue abx per ID. - per Dr. Guerrero from podiatry consultation. 2. Peripheral arterial occlusive disease. - pe Dr. Shepherd is following from vascular surgery consultation. S/p angio. 3. Hypertension by history. Continue patient Norvasc and atenolol, hydralazine p.r.n. for systolic blood pressure above 170. Patient with history failing follow-up appointment. Continue Lovenox for deep venous thrombosis prophylaxis and Pepcid for peptic ulcer disease prophylaxis. Further recommendations based on clinical course. Plan of care discussed with Dr. Stephens. Subjective 24 Hr Interval Summary Eyes: no complaints ENT: no complaints Respiratory: no complaints Cardiovascular: no complaints Gastrointestinal: no complaints Genitourinary: no complaints Musculoskeletal: bone/joint pain Skin: no complaints Neurologic: no complaints Endocrine: no complaints Lymphatic: no complaints Psychological: no complaints Immunologic: no complaints Exam/Review of Systems Vital Signs Vitals Vital Signs Date Time Temp Pulse Resp B/P Pulse Ox O2 Delivery O2 Flow Rate FiO2 06/03/16 08:32 98.5 59 18 117/57 95 Intake and Output 06/02/16 06/02/16 06/03/16 15:00 23:00 07:00 Intake Total 540 ml 120 ml Balance 540 ml 120 ml Exam Constitutional: alert, oriented, well developed Psych: nl mood/affect Head: atraumatic Eyes: EOMI, PERRL, nl sclera ENMT: nl external ears & nose Neck: non-tender Respiratory: clear to auscultation Cardiovascular: nl pulses Gastrointestinal: non-tender, soft Musculoskeletal: other Extremities: normal pulses Neurological: nl mental status, nl speech Lymph: other Results Result Diagram: 06/03/16 0535 06/03/16 0535 Results 24 hrs Laboratory Tests Test 06/03/16 05:35 Anion Gap 17 H Basophils # 0.0 Basophils % 0.5 Blood Urea Nitrogen 10 Calcium Level 8.6 Carbon Dioxide Level 25 Chloride Level 105 Creatinine 1.00 Eosinophils # 0.2 Eosinophils % 3.0 Glucose Level 102 Hematocrit 26.0 L Hemoglobin 8.1 L Lymphocytes # 1.2 Lymphocytes % 22.2 Mean Corpuscular Hemoglobin 32.1 Mean Corpuscular Hemoglobin Concent 31.2 L Mean Corpuscular Volume 103.2 H Mean Platelet Volume 11.3 H Monocytes # 0.8 Monocytes % 14.0 H Neutrophils # 3.4 Neutrophils % 60.1 Nucleated Red Blood Cells # 0.0 Nucleated Red Blood Cells % 0.0 Platelet Count 323 Potassium Level 3.8 Red Blood Count 2.52 L Red Cell Distribution Width 15.5 H Sodium Level 143 White Blood Count 5.6 Medications Medications Current Medications Acetaminophen (Tylenol Tab) 650 mg Q6H PRN PO PAIN LEVEL 1-3 OR FEVER Last administered on 06/02/16 17:54; Admin Dose 650 MG; Start 05/17/16 at 22:30 Morphine Sulfate (morphine) 2 mg Q4H PRN IV SEVERE PAIN LEVEL 7-10 Last administered on 06/03/16 02:10; Admin Dose 2 MG; Start 05/17/16 at 22:30 Enoxaparin Sodium (Lovenox) 30 mg DAILY SC Last administered on 06/03/16 09:00 ; Admin Dose 30 MG; Start 05/18/16 at 09:00 Gabapentin 100 mg 100 mg QHS PO Last administered on 06/02/16 21:05; Admin Dose 100 MG; Start 05/18/16 at 21:00 Vancomycin HCl (Vancocin) 250 ml @ 125 mls/hr Q24H IVPB Last administered on 11:24; Admin Dose 125 MLS/HR; Start 05/19/16 at 11:00 Atorvastatin Calcium (Lipitor) 40 mg HS PO Last administered on 06/02/16 21:06 ; Admin Dose 40 MG; Start 05/24/16 at 21:00 Clopidogrel Bisulfate (plaVIX) 75 mg DAILY PO Last administered on 06/03/16 08 :55; Admin Dose 75 MG; Start 05/24/16 at 12:30 Hydralazine HCl (Apresoline) 25 mg BID PO Last administered on 06/03/16 08:56 ; Admin Dose 25 MG; Start 05/24/16 at 13:00 Amlodipine Besylate (Norvasc) 5 mg BID PO Last administered on 06/03/16 08:57 ; Admin Dose 5 MG; Start 05/26/16 at 09:00 Atenolol (Tenormin) 50 mg BID PO Last administered on 06/03/16 08:55; Admin Dose 50 MG; Start 05/26/16 at 09:00 Famotidine (Pepcid) 20 mg Q24H PO Last administered on 06/03/16 08:56; Admin Dose 20 MG; Start 05/29/16 at 09:00 Ondansetron HCl (Zofran Inj) 4 mg Q4H PRN IV NAUSEA AND/OR VOMITING Last administered on 06/02/16 12:57; Admin Dose 4 MG; Start 05/29/16 at 18:30 Al Hydrox/Mg Hydrox/Simethicone (Mag-Al Plus) 30 ml Q6H PRN PO GASTROINTESTINAL UPSET; Start 06/02/16 at 12:30 Procedures Procedures PROCEDURE: CTA abdomen and pelvis with bilateral lower extremity runoff IMPRESSION: 1. Greater than 50% stenosis in the distal right superficial femoral artery again seen which has not changed significantly. 2. Atherosclerotic vascular disease in the aortoiliac in bilateral extremity arterial system with no other hemodynamically significant stenoses. 3. Left adnexal cystic structure which the postmenopausal female is worrisome for a cystic ovarian neoplasm and has not changed significantly. 4. Colonic diverticulosis without evidence of diverticulitis without significant interval change. 5. Multiple calcified uterine masses which may represent calcified leiomyomas again seen and are essentially unchanged. 6. Bilateral adrenal masses, right greater than left. Further evaluation with a CT adrenal protocol or MRI is recommended. 7. Small bilateral pleural effusions. 8. Moderate size hiatal hernia. NILESH CAVANAUGH Jun 03, 2016 10:55
--- NOTE | 2016-06-03 11:34 | PN ---
Date/Time of Note Date/Time of Note DATE: 06/03/16 TIME: 11:25 Assessment/Plan Lines/Catheters IV Catheter Type (from Nrsg): Saline Lock Fitzgerald in Place (from Nrsg): No Assessment/Plan Chief Complaint/Hosp Course PVD Gangrene left foot Unable to do LLE angio CT angio with 50% stenosis Left STA would continue local Care , DC home . FU as out pt Problems: Subjective 24 Hr Interval Summary Constitutional: improved Pain Control: mild Exam/Review of Systems Vital Signs Vitals Vital Signs Date Time Temp Pulse Resp B/P Pulse Ox O2 Delivery O2 Flow Rate FiO2 06/03/16 08:32 98.5 59 18 117/57 95 Intake and Output 06/02/16 06/02/16 06/03/16 14:59 22:59 06:59 Intake Total 540 ml 120 ml Balance 540 ml 120 ml Exam Respiratory: clear to auscultation, normal air movement Cardiovascular: nl pulses, regular rate and rhythm Gastrointestinal: nl liver, spleen, non-tender, soft Results Result Diagram: 06/03/16 0535 06/03/16 0535 MALEVIOLETA BLANKENSHIP MD Jun 03, 2016 11:34
[2016-06-03] MEDS: ACETAMINOPHEN 325 MG TAB PO PRN ×2 (11:50→17:00)
--- NOTE | 2016-06-03 15:31 | CONS ---
Date/Time of Note Date/Time of Note DATE: 06/03/16 TIME: 15:29 Assessment/Plan Assessment/Plan Chief Complaint/Hosp Course ID PROGRESS NOTE TOTAL ABX DAY #16 => Vanco IV s/p Ceftriaxone x11 days 24H INTERVAL SUMMARY * Clincally satus quo - resting, VSS, NAD, Low grade Tmax 99.4 over past 48H * CTA RESULTS FROM 06/02/16 REVIEWED BELOW:IMPRESSION: 1. Greater than 50% stenosis in the distal right superficial femoral artery again seen which has not changed significantly. 2. Atherosclerotic vascular disease in the aortoiliac in bilateral extremity arterial system with no other hemodynamically significant stenoses. 3. Left adnexal cystic structure which the postmenopausal female is worrisome for a cystic ovarian neoplasm and has not changed significantly. 4. Colonic diverticulosis without evidence of diverticulitis without significant interval change. 5. Multiple calcified uterine masses which may represent calcified leiomyomas again seen and are essentially unchanged. 6. Bilateral adrenal masses, right greater than left. Further evaluation with a CT adrenal protocol or MRI is recommended. 7. Small bilateral pleural effusions. 8. Moderate size hiatal hernia. PHYSICAL EXAMINATION: GENERAL: VSS, NAD HEENT: Unremarkable NECK: Trach midline CHEST: Rise symmetrical - without dyspnea on observation HEART: RRR ABDOMEN: Soft, EXTREMITIES: Warm, gangrene of all the toes, specifically gangrene of the first , partial the third, fourth and fifth toes. ID ASSESSMENT: 85 yo F w/PMHx 1. Cellulitis of right foot, 4th and 5th fifth. 2. Gangrene 4th toe right. 3. Aortoiliac arteriosclerosis. 4. Claudication. 5. History of tobacco use. 6. Coronary artery disease 7. Hypertension. 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 Hiatal hernia ( -)MRSA Nares INVASIVES: *PIV ABX ALLERGIES: KNDA CURRENT ABX: Vanco IV #16 s/p Ceftriaxone x#11 ID RECOMMENDATIONS: 1. Continue ABX 2. Further recs per consultants . Problems: Consultation Date/Type/Reason Admit Date/Time May 17, 2016 at 22:19 Type of Consultation: ID Exam/Review of Systems Vital Signs Vitals Vital Signs Date Time Temp Pulse Resp B/P Pulse Ox O2 Delivery O2 Flow Rate FiO2 06/03/16 08:32 98.5 59 18 117/57 95 Intake and Output 06/02/16 06/02/16 06/03/16 15:00 23:00 07:00 Intake Total 540 ml 120 ml Balance 540 ml 120 ml Results Result Diagram: 06/03/16 0535 06/03/16 0535 Results 24 hrs Laboratory Tests Test 06/03/16 05:35 06/03/16 10:00 Anion Gap 17 H Basophils # 0.0 Basophils % 0.5 Blood Urea Nitrogen 10 Calcium Level 8.6 Carbon Dioxide Level 25 Chloride Level 105 Creatinine 1.00 Eosinophils # 0.2 Eosinophils % 3.0 Glucose Level 102 Hematocrit 26.0 L Hemoglobin 8.1 L Lymphocytes # 1.2 Lymphocytes % 22.2 Mean Corpuscular Hemoglobin 32.1 Mean Corpuscular Hemoglobin Concent 31.2 L Mean Corpuscular Volume 103.2 H Mean Platelet Volume 11.3 H Monocytes # 0.8 Monocytes % 14.0 H Neutrophils # 3.4 Neutrophils % 60.1 Nucleated Red Blood Cells # 0.0 Nucleated Red Blood Cells % 0.0 Platelet Count 323 Potassium Level 3.8 Red Blood Count 2.52 L Red Cell Distribution Width 15.5 H Sodium Level 143 White Blood Count 5.6 Vancomycin Level Trough 19.2 Medications Medications Current Medications Acetaminophen (Tylenol Tab) 650 mg Q6H PRN PO PAIN LEVEL 1-3 OR FEVER Last administered on 06/03/16 11:50; Admin Dose 650 MG; Start 05/17/16 at 22:30 Morphine Sulfate (morphine) 2 mg Q4H PRN IV SEVERE PAIN LEVEL 7-10 Last administered on 06/03/16 02:10; Admin Dose 2 MG; Start 05/17/16 at 22:30 Enoxaparin Sodium (Lovenox) 30 mg DAILY SC Last administered on 06/03/16 09:00 ; Admin Dose 30 MG; Start 05/18/16 at 09:00 Gabapentin (Neurontin) 100 mg QHS PO Last administered on 06/02/16 21:05; Admin Dose 100 MG; Start 05/18/16 at 21:00 Atorvastatin Calcium (Lipitor) 40 mg HS PO Last administered on 06/02/16 21:06 ; Admin Dose 40 MG; Start 05/24/16 at 21:00 Clopidogrel Bisulfate (plaVIX) 75 mg DAILY PO Last administered on 06/03/16 08 :55; Admin Dose 75 MG; Start 05/24/16 at 12:30 Hydralazine HCl (Apresoline) 25 mg BID PO Last administered on 06/03/16 08:56 ; Admin Dose 25 MG; Start 05/24/16 at 13:00 Amlodipine Besylate (Norvasc) 5 mg BID PO Last administered on 06/03/16 08:57 ; Admin Dose 5 MG; Start 05/26/16 at 09:00 Atenolol (Tenormin) 50 mg BID PO Last administered on 06/03/16 08:55; Admin Dose 50 MG; Start 05/26/16 at 09:00 Famotidine (Pepcid) 20 mg Q24H PO Last administered on 06/03/16 08:56; Admin Dose 20 MG; Start 05/29/16 at 09:00 Ondansetron HCl (Zofran Inj) 4 mg Q4H PRN IV NAUSEA AND/OR VOMITING Last administered on 06/02/16 12:57; Admin Dose 4 MG; Start 05/29/16 at 18:30 Al Hydrox/Mg Hydrox/ Simethicone 30 ml 30 ml Q6H PRN PO GASTROINTESTINAL UPSET ; Start 06/02/16 at 12:30 Vancomycin HCl (Vancocin) 250 ml @ 125 mls/hr Q36H IVPB ; Start 06/03/16 at 23: 00 LIZZIE BHAT NP Jun 03, 2016 15:31
[2016-06-03 19:47] VITALS: BP 111/56; RESP 20
[2016-06-03] MEDS: GABAPENTIN 100 MG CAP PO SCH (21:29)
[2016-06-03] MEDS: ATORVASTATIN 40 MG TAB PO SCH (21:29)
[2016-06-03] MEDS ORDERED: VANCOMYCIN 1 GM in NS 250 ML IVPB SCH (23:00)
[2016-06-04 05:55] LABS: ADD SCAN DIFF NO
[2016-06-04 05:59] LABS: BASOPHILS % 0.8 % (0.0-2.0); EOSINOPHILS # 0.2 10^3/ul (0.0-0.5); EOSINOPHILS % 3.1 % (0.0-7.0); HEMATOCRIT 27.4 % (37.0-47.0); HEMOGLOBIN 8.2 g/dl (12.0-16.0); LYMPHOCYTES # 1.1 10^3/ul (0.8-2.9); LYMPHOCYTES % 21.2 % (15.0-51.0); MEAN CORPUSCULAR HEMOGLOBIN 30.8 pg (29.0-33.0); MEAN CORPUSCULAR HGB CONC 29.9 g/dl (32.0-37.0); MEAN PLATELET VOLUME 11.2 fl (7.4-10.4); MONOCYTE # 0.6 10^3/ul (0.3-0.9); MONOCYTES % 12.6 % (0.0-11.0); NEUTROPHIL # 3.2 10^3/ul (1.6-7.5); NEUTROPHILS % 61.9 % (39.0-77.0); PLATELET COUNT 335 10^3/UL (140-415); RED BLOOD COUNT 2.66 10^6/ul (4.20-5.40); RED CELL DISTRIBUTION WIDTH 15.5 % (11.5-14.5); WHITE BLOOD COUNT 5.1 10^3/ul (4.8-10.8)
[2016-06-04 06:30] LABS: POTASSIUM 3.9 mmol/L (3.5-5.1)
[2016-06-04 06:32] LABS: CREATININE 1.08 mg/dl (0.44-1.00)
[2016-06-04 06:33] LABS: CALCIUM 8.6 mg/dl (8.4-10.2)
[2016-06-04 07:53] VITALS: BP 129/58; RESP 20
[2016-06-04] MEDS: ATENOLOL 50 MG TAB PO SCH ×2 (09:16→21:55)
[2016-06-04] MEDS: FAMOTIDINE 20 MG TAB PO SCH (09:16)
[2016-06-04] MEDS: CLOPIDOGREL 75 MG TAB PO SCH (09:16)
[2016-06-04] MEDS: AMLODIPINE 5 MG TAB PO SCH ×2 (09:16→21:55)
[2016-06-04] MEDS: ENOXAPARIN 30 MG/0.3 ML SYG SC SCH (09:40)
--- NOTE | 2016-06-04 12:12 | CONS ---
Date/Time of Note Date/Time of Note DATE: 06/04/16 TIME: 12:10 Assessment/Plan Assessment/Plan Chief Complaint/Hosp Course SUBJECTIVE: No acute changes. The patient is alert, looks comfortable, no fevers. MICROBIOLOGY: Cultures have been negative. ANTIMICROBIALS: Vancomycin. PHYSICAL EXAMINATION: GENERAL: This is a fragile, chronically ill-appearing, elderly woman who is alert, in no distress. HEENT: Head atraumatic, normocephalic. Sclerae anicteric. Buccal mucosa dry. NECK: Supple. CHEST: Rise symmetrical. Breath sounds diminished to bases. HEART: S1, S2. ABDOMEN: Soft, bowel sounds present. EXTREMITIES: Left fourth toe gangrenous changes and also a blister. ASSESSMENT: 1. Left foot gangrene with cellulitis. 2. Peripheral vascular disease. 3. Hypertension. PLAN: Clinically stable, LLE CT angio not done, cleared per vascular for dc home , will change abx to Doxycycline DW staff Problems: Consultation Date/Type/Reason Admit Date/Time May 17, 2016 at 22:19 Type of Consultation: ID Exam/Review of Systems Vital Signs Vitals Vital Signs Date Time Temp Pulse Resp B/P Pulse Ox O2 Delivery O2 Flow Rate FiO2 06/04/16 07:53 98.6 58 20 129/58 97 Intake and Output 06/03/16 06/03/16 06/04/16 15:00 23:00 07:00 Intake Total 370 ml Balance 370 ml Results Result Diagram: 06/04/16 0500 06/04/16 0500 Results 24 hrs Laboratory Tests Test 06/04/16 05:00 Anion Gap 14 Basophils # 0.0 Basophils % 0.8 Blood Urea Nitrogen 12 CA 125 Antigen 22.3 Calcium Level 8.6 Carbon Dioxide Level 28 Chloride Level 106 Creatinine 1.08 H Eosinophils # 0.2 Eosinophils % 3.1 Glucose Level 111 Hematocrit 27.4 L Hemoglobin 8.2 L Lymphocytes # 1.1 Lymphocytes % 21.2 Mean Corpuscular Hemoglobin 30.8 Mean Corpuscular Hemoglobin Concent 29.9 L Mean Corpuscular Volume 103.0 H Mean Platelet Volume 11.2 H Monocytes # 0.6 Monocytes % 12.6 H Neutrophils # 3.2 Neutrophils % 61.9 Nucleated Red Blood Cells # 0.0 Nucleated Red Blood Cells % 0.0 Platelet Count 335 Potassium Level 3.9 Red Blood Count 2.66 L Red Cell Distribution Width 15.5 H Sodium Level 144 White Blood Count 5.1 Medications Medications Current Medications Acetaminophen (Tylenol Tab) 650 mg Q6H PRN PO PAIN LEVEL 1-3 OR FEVER Last administered on 06/03/16 17:00; Admin Dose 650 MG; Start 05/17/16 at 22:30 Morphine Sulfate (morphine) 2 mg Q4H PRN IV SEVERE PAIN LEVEL 7-10 Last administered on 06/03/16 21:29; Admin Dose 2 MG; Start 05/17/16 at 22:30 Enoxaparin Sodium (Lovenox) 30 mg DAILY SC Last administered on 06/04/16 09:40 ; Admin Dose 30 MG; Start 05/18/16 at 09:00 Gabapentin (Neurontin) 100 mg QHS PO Last administered on 06/03/16 21:29; Admin Dose 100 MG; Start 05/18/16 at 21:00 Atorvastatin Calcium (Lipitor) 40 mg HS PO Last administered on 06/03/16 21:29 ; Admin Dose 40 MG; Start 05/24/16 at 21:00 Clopidogrel Bisulfate (plaVIX) 75 mg DAILY PO Last administered on 06/04/16 09 :16; Admin Dose 75 MG; Start 05/24/16 at 12:30 Hydralazine HCl (Apresoline) 25 mg BID PO Last administered on 06/04/16 09:16 ; Admin Dose 25 MG; Start 05/24/16 at 13:00 Amlodipine Besylate (Norvasc) 5 mg BID PO Last administered on 06/04/16 09:16 ; Admin Dose 5 MG; Start 05/26/16 at 09:00 Atenolol (Tenormin) 50 mg BID PO Last administered on 06/04/16 09:16; Admin Dose 50 MG; Start 05/26/16 at 09:00 Famotidine (Pepcid) 20 mg Q24H PO Last administered on 06/04/16 09:16; Admin Dose 20 MG; Start 05/29/16 at 09:00 Ondansetron HCl (Zofran Inj) 4 mg Q4H PRN IV NAUSEA AND/OR VOMITING Last administered on 06/02/16 12:57; Admin Dose 4 MG; Start 05/29/16 at 18:30 Al Hydrox/Mg Hydrox/ Simethicone 30 ml 30 ml Q6H PRN PO GASTROINTESTINAL UPSET ; Start 06/02/16 at 12:30 Vancomycin HCl (Vancocin) 250 ml @ 125 mls/hr Q36H IVPB Last administered on t 23:58; Admin Dose 125 MLS/HR; Start 06/03/16 at 23:00 VEGA PALMA NP Jun 04, 2016 12:12
--- NOTE | 2016-06-04 13:10 | CONS ---
Date/Time of Note Date/Time of Note DATE: 06/04/16 TIME: 12:55 Assessment/Plan Assessment/Plan Chief Complaint/Hosp Course 85 yo female admitted with gangrene for Left 4th toe found with a left adnexal cystic structure which the postmenopausal female is worrisome for a cystic ovarian neoplasm. At this point given her age and lack of abdominal pain or post menopausal bleeding, I do not believe surgery is currently indicated. For now, I would like to further evaluate the mass with a pelvic ultrasound and CA 125. Depending on these results, I will likely recommend to serially follow the pelvic mass with ultrasounds. If it does continue to grow or cause symptoms at that point I would recommend surgical resection. A very elevated CA 125 may also make urgent surgery indicated but will wait for these results for now. -f/u pelvic ultrasound -f/u CA 125 -case discussed with Dr. Stephens Problems: Consultation Date/Type/Reason Admit Date/Time May 17, 2016 at 22:19 Date of Consultation: Jun 04, 2016 Type of Consultation: Hematology Reason for Consultation ovarian mass Referring Provider: MELISSA STEPHENS MD Hx of Present Illness 85-year-old female with HTN, PVD, admitted for L foot gangrene that did not improve with antibiotics at home. Pt has severe peripheral vascular disease and as part of the workup an abdominal angiography was performed. This revealed greater than 50% stenosis in the distal right superficial femoral artery again seen which has not changed significantly as well as atherosclerotic vascular disease in the aortoiliac in bilateral extremity arterial system with no other hemodynamically significant stenoses. Also noted was a left adnexal cystic structure which in the postmenopausal female is worrisome for a cystic ovarian neoplasm. This was compared to a scan done and had not changed in size. We have been consulted for further workup of the adnexal mass. Pt currently denies any abdominal pain or episodes of post menopausal bleeding. Constitutional: other Eyes: no complaints ENT: no complaints Respiratory: no complaints Cardiovascular: no complaints Gastrointestinal: no complaints Genitourinary: no complaints Musculoskeletal: bone/joint pain Skin: no complaints Neurologic: no complaints Endocrine: no complaints Lymphatic: no complaints Psychological: nl mood/affect Immunologic: no complaints Past Medical History 1. Hypertension. 2. Bilateral lower extremity atherosclerotic disease. 3. Aortoiliac disease. 4. Hyperlipidemia. 5. Morbidly obese, BMI of 28.9. Medical History: high cholesterol, hypertension Past Surgical History She has had cataract surgery. Family History Significant Family History: other (Positive for coronary artery disease and hypertension.) Social History Longtime smoker, walks at home, denies IV drug abuse and alcohol. Smoking Status: Never smoker Exam/Review of Systems Vital Signs Vitals Vital Signs Date Time Temp Pulse Resp B/P Pulse Ox O2 Delivery O2 Flow Rate FiO2 06/04/16 07:53 98.6 58 20 129/58 97 Intake and Output 06/03/16 06/03/16 06/04/16 14:59 22:59 06:59 Intake Total 370 ml Balance 370 ml Exam Constitutional: alert, frail, oriented Psych: confusion Head: normocephalic Eyes: nl conjunctiva ENMT: nl external ears & nose Neck: non-tender, supple Respiratory: clear to auscultation, normal air movement Cardiovascular: nl pulses, regular rate and rhythm Gastrointestinal: soft Musculoskeletal: other (L fourth toe with gangrene) Results Result Diagram: 06/04/16 0500 06/04/16 0500 Results 24 hrs Laboratory Tests Test 06/04/16 05:00 Anion Gap 14 Basophils # 0.0 Basophils % 0.8 Blood Urea Nitrogen 12 CA 125 Antigen 22.3 Calcium Level 8.6 Carbon Dioxide Level 28 Chloride Level 106 Creatinine 1.08 H Eosinophils # 0.2 Eosinophils % 3.1 Glucose Level 111 Hematocrit 27.4 L Hemoglobin 8.2 L Lymphocytes # 1.1 Lymphocytes % 21.2 Mean Corpuscular Hemoglobin 30.8 Mean Corpuscular Hemoglobin Concent 29.9 L Mean Corpuscular Volume 103.0 H Mean Platelet Volume 11.2 H Monocytes # 0.6 Monocytes % 12.6 H Neutrophils # 3.2 Neutrophils % 61.9 Nucleated Red Blood Cells # 0.0 Nucleated Red Blood Cells % 0.0 Platelet Count 335 Potassium Level 3.9 Red Blood Count 2.66 L Red Cell Distribution Width 15.5 H Sodium Level 144 White Blood Count 5.1 Medications Medications Current Medications Acetaminophen (Tylenol Tab) 650 mg Q6H PRN PO PAIN LEVEL 1-3 OR FEVER Last administered on 06/03/16t 17:00; Admin Dose 650 MG; Start 05/17/16 at 22:30 Morphine Sulfate (morphine) 2 mg Q4H PRN IV SEVERE PAIN LEVEL 7-10 Last administered on 06/03/16 21:29; Admin Dose 2 MG; Start 05/17/16 at 22:30 Enoxaparin Sodium (Lovenox) 30 mg DAILY SC Last administered on 06/04/16 09:40 ; Admin Dose 30 MG; Start 05/18/16 at 09:00 Gabapentin (Neurontin) 100 mg QHS PO Last administered on 06/03/16 21:29; Admin Dose 100 MG; Start 05/18/16 at 21:00 Atorvastatin Calcium (Lipitor) 40 mg HS PO Last administered on 06/03/16 21:29 ; Admin Dose 40 MG; Start 05/24/16 at 21:00 Clopidogrel Bisulfate (plaVIX) 75 mg DAILY PO Last administered on 06/04/16 09 :16; Admin Dose 75 MG; Start 05/24/16 at 12:30 Hydralazine HCl (Apresoline) 25 mg BID PO Last administered on 06/04/16 09:16 ; Admin Dose 25 MG; Start 05/24/16 at 13:00 Amlodipine Besylate (Norvasc) 5 mg BID PO Last administered on 06/04/16 09:16 ; Admin Dose 5 MG; Start 05/26/16 at 09:00 Atenolol (Tenormin) 50 mg BID PO Last administered on 06/04/16 09:16; Admin Dose 50 MG; Start 05/26/16 at 09:00 Famotidine (Pepcid) 20 mg Q24H PO Last administered on 06/04/16 09:16; Admin Dose 20 MG; Start 05/29/16 at 09:00 Ondansetron HCl (Zofran Inj) 4 mg Q4H PRN IV NAUSEA AND/OR VOMITING Last administered on 06/02/16 12:57; Admin Dose 4 MG; Start 05/29/16 at 18:30 Al Hydrox/Mg Hydrox/Simethicone (Mag-Al Plus) 30 ml Q6H PRN PO GASTROINTESTINAL UPSET; Start 06/02/16 at 12:30 Doxycycline Hyclate (Vibramycin) 100 mg BID PO ; Start 06/04/16 at 21:00 NGOZI OLIVEIRA M.D. Jun 04, 2016 13:10
--- NOTE | 2016-06-04 13:23 | RADRPT ---
PROCEDURE: US Pelvis. CLINICAL INDICATION: Left adnexal cyst. TECHNIQUE: Multiple transabdominal and transvaginal sonographic images of the pelvis were obtained . COMPARISON: CTA abdomen with runoff 06/02/2016. CTA runoff 05/04/2016. FINDINGS: The normal uterine architecture is distorted by multiple degenerated calcified fibroids. The largest fibroid demonstrates rim calcification and measures approximately 4.0 cm in greatest dimension. Th e uterus is anteverted in position and measures approximately 6.0 cm in length. The endometrial comp nicolas is obscured. The right ovary is not visualized however demonstrates a normal appearance on CT. There is a 4.4 x 4.8 x 3.3 cm unilocular anechoic cyst of the left adnexa. This corresponds to the cystic structure seen on prior cross-sectional imaging studies. The remainder of the ovary is obscured by surroundin g gastrointestinal air. When correlated with examination from 05/04/2016, there is a small focus of fat within the periphery of this structure which raises suspicion for an ovarian dermoid. IMPRESSION: Multiple calcified degenerated fibroids as seen on prior cross-sectional imaging studies. Uncomplicated cystic structure of the left adnexa. However, the entirety of the left ovary is not v isualized, obscured by surrounding gastrointestinal air. When correlated with cross-sectional examin ation from 05/04/2016, there is a small focus of fat within the periphery of this structure which ra ises suspicion for an ovarian dermoid. This can be confirmed with MRI pelvis. RPTAT: HLST .Bess Huang MD, Date Time Electronically viewed and signed by .Bess Huang MD, on 06/04/2016 13:23 .T/
--- NOTE | 2016-06-04 15:07 | CONS ---
Date/Time of Note Date/Time of Note DATE: 06/04/16 TIME: 15:06 Assessment/Plan Assessment/Plan Additional Assessment/Plan Peripheral arterial disease with critical limb ischemia Hypertension Dyslipidemia Preserved ejection fraction -Patient planned for outpatient surgical intervention of peripheral arterial disease. Blood pressure trend remains stable. Continue antiplatelet therapy, statin and beta-saul. Consultation Date/Type/Reason Admit Date/Time May 17, 2016 at 22:19 Type of Consultation: cv Referring Provider: MELISSA ORR MD 24 HR Interval Summary Free Text/Dictation Denies chest pain, shortness of breath or dizziness Exam/Review of Systems Vital Signs Vitals Vital Signs Date Time Temp Pulse Resp B/P Pulse Ox O2 Delivery O2 Flow Rate FiO2 06/04/16 07:53 98.6 58 20 129/58 97 Intake and Output 06/03/16 06/03/16 06/04/16 15:00 23:00 07:00 Intake Total 370 ml Balance 370 ml Exam Constitutional: alert, oriented, other (No apparent distress) Head: normocephalic Neck: supple Respiratory: other (Coarse breath sounds bilaterally, no wheezing) Cardiovascular: other (S1-S2 heard), regular rate and rhythm Gastrointestinal: bowel sounds, non-tender, soft Extremities: other (No edema) Results Result Diagram: 06/04/16 0500 06/04/16 0500 Results 24 hrs Laboratory Tests Test 06/04/16 05:00 Anion Gap 14 Basophils # 0.0 Basophils % 0.8 Blood Urea Nitrogen 12 CA 125 Antigen 22.3 Calcium Level 8.6 Carbon Dioxide Level 28 Chloride Level 106 Creatinine 1.08 H Eosinophils # 0.2 Eosinophils % 3.1 Glucose Level 111 Hematocrit 27.4 L Hemoglobin 8.2 L Lymphocytes # 1.1 Lymphocytes % 21.2 Mean Corpuscular Hemoglobin 30.8 Mean Corpuscular Hemoglobin Concent 29.9 L Mean Corpuscular Volume 103.0 H Mean Platelet Volume 11.2 H Monocytes # 0.6 Monocytes % 12.6 H Neutrophils # 3.2 Neutrophils % 61.9 Nucleated Red Blood Cells # 0.0 Nucleated Red Blood Cells % 0.0 Platelet Count 335 Potassium Level 3.9 Red Blood Count 2.66 L Red Cell Distribution Width 15.5 H Sodium Level 144 White Blood Count 5.1 Medications Medications Current Medications Acetaminophen (Tylenol Tab) 650 mg Q6H PRN PO PAIN LEVEL 1-3 OR FEVER Last administered on 06/03/16 17:00; Admin Dose 650 MG; Start 05/17/16 at 22:30 Morphine Sulfate (morphine) 2 mg Q4H PRN IV SEVERE PAIN LEVEL 7-10 Last administered on 06/03/16 21:29; Admin Dose 2 MG; Start 05/17/16 at 22:30 Enoxaparin Sodium (Lovenox) 30 mg DAILY SC Last administered on 06/04/16 09:40 ; Admin Dose 30 MG; Start 05/18/16 at 09:00 Gabapentin (Neurontin) 100 mg QHS PO Last administered on 06/03/16 21:29; Admin Dose 100 MG; Start 05/18/16 at 21:00 Atorvastatin Calcium (Lipitor) 40 mg HS PO Last administered on 06/03/16 21:29 ; Admin Dose 40 MG; Start 05/24/16 at 21:00 Clopidogrel Bisulfate (plaVIX) 75 mg DAILY PO Last administered on 06/04/16 09 :16; Admin Dose 75 MG; Start 05/24/16 at 12:30 Hydralazine HCl (Apresoline) 25 mg BID PO Last administered on 06/04/16 09:16 ; Admin Dose 25 MG; Start 05/24/16 at 13:00 Amlodipine Besylate (Norvasc) 5 mg BID PO Last administered on 06/04/16 09:16 ; Admin Dose 5 MG; Start 05/26/16 at 09:00 Atenolol (Tenormin) 50 mg BID PO Last administered on 06/04/16 09:16; Admin Dose 50 MG; Start 05/26/16 at 09:00 Famotidine (Pepcid) 20 mg Q24H PO Last administered on 06/04/16 09:16; Admin Dose 20 MG; Start 05/29/16 at 09:00 Ondansetron HCl (Zofran Inj) 4 mg Q4H PRN IV NAUSEA AND/OR VOMITING Last administered on 06/02/16 12:57; Admin Dose 4 MG; Start 05/29/16 at 18:30 Al Hydrox/Mg Hydrox/Simethicone (Mag-Al Plus) 30 ml Q6H PRN PO GASTROINTESTINAL UPSET; Start 06/02/16 at 12:30 Doxycycline Hyclate (Vibramycin) 100 mg BID PO ; Start 06/04/16 at 21:00 James Berman DO Jun 04, 2016 15:07
--- NOTE | 2016-06-04 18:52 | PN ---
Date/Time of Note Date/Time of Note DATE: 06/04/16 TIME: 18:48 Assessment/Plan VTE Prophylaxis VTE Prophylaxis Intervention: SCD's Lines/Catheters IV C[facility]ter Type [facility]from [facility] Sal[facility] Urinary Cath still in place: No Assessment/Plan Chief Complaint/Hosp Course ASSESSMENT AND PLAN: 1. Left foot cellulitis with gangrene. Dr. Parr is following the patient from infectious disease standpoint. Continue abx per ID. Dr. Guerrero is following from podiatry consultation. 2. Peripheral arterial occlusive disease. Dr. Shepherd is following from vascular surgery consultation. S/p angio. Pending vascular intervention upon cardiology clearance. 3. Hypertension by history. Continue patient Norvasc and atenolol, hydralazine p.r.n. for systolic blood pressure above 170. 4. Cystic structure of the left adnexa. Dr. Crook is following in hematology/ oncology consultation. Patient with history failing follow-up appointment. Continue Lovenox for deep venous thrombosis prophylaxis and Pepcid for peptic ulcer disease prophylaxis. Further recommendations based on clinical course. Plan of care discussed with Dr. Stephens. Problems: Subjective 24 Hr Interval Summary Free Text/Dictation Patient denies any fever nausea vomiting. Left lower extremity pain is well controlled. Patient status post ultrasound of the abdomen. Exam/Review of Systems Vital Signs Vitals Vital Signs Date Time Temp Pulse Resp B/P Pulse Ox O2 Delivery O2 Flow Rate FiO2 06/04/16 07:53 98.6 58 20 129/58 97 Intake and Output 06/03/16 06/03/16 06/04/16 15:00 23:00 07:00 Intake Total 370 ml Balance 370 ml Exam GENERAL: Well-developed, well-nourished female currently is awake, alert. HEENT: Head is atraumatic, normocephalic. NECK: Supple, no cervical lymphadenopathy, no thyromegaly. CHEST: Lungs clear bilaterally. There are no rhonchi, wheezes, rales noted. CARDIOVASCULAR: Normal S1, S2. No murmurs, clicks, rubs noted. ABDOMEN: Round, soft, nondistended, nontender. Bowel sounds present. EXTREMITIES: The patient has left foot edema, erythema, and tenderness with gangrenous fourth toe on the left foot and discoloration of the surrounding area. Pulses are present. Right extremity: There is no edema, clubbing, cyanosis. Pulses equal 2+. SKIN: There is no rash, petechiae noted. NEUROLOGIC: Patient is awake, alert and oriented x4. Results Result Diagram: 06/04/16 0500 06/04/16 0500 Results 24 hrs Laboratory Tests Test 06/04/16 05:00 Anion Gap 14 Basophils # 0.0 Basophils % 0.8 Blood Urea Nitrogen 12 CA 125 Antigen 22.3 Calcium Level 8.6 Carbon Dioxide Level 28 Chloride Level 106 Creatinine 1.08 H Eosinophils # 0.2 Eosinophils % 3.1 Glucose Level 111 Hematocrit 27.4 L Hemoglobin 8.2 L Lymphocytes # 1.1 Lymphocytes % 21.2 Mean Corpuscular Hemoglobin 30.8 Mean Corpuscular Hemoglobin Concent 29.9 L Mean Corpuscular Volume 103.0 H Mean Platelet Volume 11.2 H Monocytes # 0.6 Monocytes % 12.6 H Neutrophils # 3.2 Neutrophils % 61.9 Nucleated Red Blood Cells # 0.0 Nucleated Red Blood Cells % 0.0 Platelet Count 335 Potassium Level 3.9 Red Blood Count 2.66 L Red Cell Distribution Width 15.5 H Sodium Level 144 White Blood Count 5.1 Medications Medications Current Medications Acetaminophen (Tylenol Tab) 650 mg Q6H PRN PO PAIN LEVEL 1-3 OR FEVER Last administered on 06/03/16 17:00; Admin Dose 650 MG; Start 05/17/16 at 22:30 Morphine Sulfate (morphine) 2 mg Q4H PRN IV SEVERE PAIN LEVEL 7-10 Last administered on 06/03/16 21:29; Admin Dose 2 MG; Start 05/17/16 at 22:30 Enoxaparin Sodium (Lovenox) 30 mg DAILY SC Last administered on 06/04/16 09:40 ; Admin Dose 30 MG; Start 05/18/16 at 09:00 Gabapentin (Neurontin) 100 mg QHS PO Last administered on 06/03/16 21:29; Admin Dose 100 MG; Start 05/18/16 at 21:00 Atorvastatin Calcium (Lipitor) 40 mg HS PO Last administered on 06/03/16 21:29 ; Admin Dose 40 MG; Start 05/24/16 at 21:00 Clopidogrel Bisulfate (plaVIX) 75 mg DAILY PO Last administered on 06/04/16 09 :16; Admin Dose 75 MG; Start 05/24/16 at 12:30 Hydralazine HCl (Apresoline) 25 mg BID PO Last administered on 06/04/16 09:16 ; Admin Dose 25 MG; Start 05/24/16 at 13:00 Amlodipine Besylate (Norvasc) 5 mg BID PO Last administered on 06/04/16 09:16 ; Admin Dose 5 MG; Start 05/26/16 at 09:00 Atenolol (Tenormin) 50 mg BID PO Last administered on 06/04/16 09:16; Admin Dose 50 MG; Start 05/26/16 at 09:00 Famotidine (Pepcid) 20 mg Q24H PO Last administered on 06/04/16 09:16; Admin Dose 20 MG; Start 05/29/16 at 09:00 Ondansetron HCl (Zofran Inj) 4 mg Q4H PRN IV NAUSEA AND/OR VOMITING Last administered on 06/02/16 12:57; Admin Dose 4 MG; Start 05/29/16 at 18:30 Al Hydrox/Mg Hydrox/Simethicone (Mag-Al Plus) 30 ml Q6H PRN PO GASTROINTESTINAL UPSET; Start 06/02/16 at 12:30 Doxycycline Hyclate (Vibramycin) 100 mg BID PO ; Start 06/04/16 at 21:00 JANIS BAKER Jun 04, 2016 18:52
[2016-06-04 20:04] VITALS: BP 135/65; RESP 18
[2016-06-04] MEDS: GABAPENTIN 100 MG CAP PO SCH (21:50)
[2016-06-04] MEDS: DOXYCYCLINE 100 MG TAB PO SCH (21:50)
[2016-06-04] MEDS: ATORVASTATIN 40 MG TAB PO SCH (21:50)
[2016-06-05 05:30] LABS: ADD SCAN DIFF NO
[2016-06-05 05:35] LABS: BASOPHILS % 0.6 % (0.0-2.0); EOSINOPHILS # 0.1 10^3/ul (0.0-0.5); EOSINOPHILS % 2.7 % (0.0-7.0); HEMATOCRIT 26.6 % (37.0-47.0); HEMOGLOBIN 8.2 g/dl (12.0-16.0); LYMPHOCYTES # 1.2 10^3/ul (0.8-2.9); LYMPHOCYTES % 22.6 % (15.0-51.0); MEAN CORPUSCULAR HEMOGLOBIN 31.5 pg (29.0-33.0); MEAN CORPUSCULAR HGB CONC 30.8 g/dl (32.0-37.0); MEAN CORPUSCULAR VOLUME 102.3 fl (82.0-101.0); MEAN PLATELET VOLUME 11.2 fl (7.4-10.4); MONOCYTE # 0.6 10^3/ul (0.3-0.9); MONOCYTES % 11.2 % (0.0-11.0); NEUTROPHIL # 3.3 10^3/ul (1.6-7.5); NEUTROPHILS % 62.5 % (39.0-77.0); PLATELET COUNT 343 10^3/UL (140-415); RED CELL DISTRIBUTION WIDTH 15.8 % (11.5-14.5); WHITE BLOOD COUNT 5.3 10^3/ul (4.8-10.8)
[2016-06-05 06:04] LABS: POTASSIUM 3.9 mmol/L (3.5-5.1)
[2016-06-05 06:07] LABS: CALCIUM 8.6 mg/dl (8.4-10.2); CREATININE 1.1 mg/dl (0.44-1.00)
[2016-06-05 07:50] VITALS: BP 156/67; RESP 18
[2016-06-05] MEDS ORDERED: REGADENOSON 0.4 MG/5 ML SYG ONE (09:26)
--- NOTE | 2016-06-05 11:56 | CONS ---
Date/Time of Note Date/Time of Note DATE: 06/05/16 TIME: 11:55 Assessment/Plan Assessment/Plan Chief Complaint/Hosp Course SUBJECTIVE: No acute changes. The patient is alert, looks comfortable, no fevers. MICROBIOLOGY: Cultures have been negative. ANTIMICROBIALS: Doxycycline PHYSICAL EXAMINATION: GENERAL: This is a fragile, chronically ill-appearing, elderly woman who is alert, in no distress. HEENT: Head atraumatic, normocephalic. Sclerae anicteric. Buccal mucosa dry. NECK: Supple. CHEST: Rise symmetrical. Breath sounds diminished to bases. HEART: S1, S2. ABDOMEN: Soft, bowel sounds present. EXTREMITIES: Left fourth toe gangrenous changes and also a blister. ASSESSMENT: 1. Left foot gangrene with cellulitis. 2. Peripheral vascular disease. 3. Hypertension. 4. Adnexal mass PLAN: Clinically stable, cleared per vascular for dc home, continue abx, oncology rec-s noted [facility] staff Problems: Consultation Date/Type/Reason Admit Date/Time May 17, 2016 at 22:19 Type of Consultation: id Referring Provider: MELISSA ORR MD Exam/Review of Systems Vital Signs Vitals Vital Signs Date Time Temp Pulse Resp B/P Pulse Ox O2 Delivery O2 Flow Rate FiO2 06/05/16 07:50 99.1 61 18 156/67 95 Intake and Output 06/04/16 06/04/16 06/05/16 15:00 23:00 07:00 Intake Total 800 ml 400 ml Balance 800 ml 400 ml Results Result Diagram: 06/05/16 0458 06/05/16 0458 Results 24 hrs Laboratory Tests Test 06/05/16 04:58 Anion Gap 14 Basophils # 0.0 Basophils % 0.6 Blood Urea Nitrogen 12 Calcium Level 8.6 Carbon Dioxide Level 27 Chloride Level 105 Creatinine 1.10 H Eosinophils # 0.1 Eosinophils % 2.7 Glucose Level 106 Hematocrit 26.6 L Hemoglobin 8.2 L Lymphocytes # 1.2 Lymphocytes % 22.6 Mean Corpuscular Hemoglobin 31.5 Mean Corpuscular Hemoglobin Concent 30.8 L Mean Corpuscular Volume 102.3 H Mean Platelet Volume 11.2 H Monocytes # 0.6 Monocytes % 11.2 H Neutrophils # 3.3 Neutrophils % 62.5 Nucleated Red Blood Cells # 0.0 Nucleated Red Blood Cells % 0.0 Platelet Count 343 Potassium Level 3.9 Red Blood Count 2.60 L Red Cell Distribution Width 15.8 H Sodium Level 142 White Blood Count 5.3 Medications Medications Current Medications Acetaminophen (Tylenol Tab) 650 mg Q6H PRN PO PAIN LEVEL 1-3 OR FEVER Last administered on 06/03/16 17:00; Admin Dose 650 MG; Start 05/17/16 at 22:30 Morphine Sulfate (morphine) 2 mg Q4H PRN IV SEVERE PAIN LEVEL 7-10 Last administered on 06/03/16 21:29; Admin Dose 2 MG; Start 05/17/16 at 22:30 Enoxaparin Sodium (Lovenox) 30 mg DAILY SC Last administered on 06/04/16 09:40 ; Admin Dose 30 MG; Start 05/18/16 at 09:00 Gabapentin (Neurontin) 100 mg QHS PO Last administered on 06/04/16 21:50; Admin Dose 100 MG; Start 05/18/16 at 21:00 Atorvastatin Calcium (Lipitor) 40 mg HS PO Last administered on 06/04/16 21:50 ; Admin Dose 40 MG; Start 05/24/16 at 21:00 Clopidogrel Bisulfate (plaVIX) 75 mg DAILY PO Last administered on 06/04/16 09 :16; Admin Dose 75 MG; Start 05/24/16 at 12:30 Hydralazine HCl (Apresoline) 25 mg BID PO Last administered on 06/04/16 21:54 ; Admin Dose 25 MG; Start 05/24/16 at 13:00 Amlodipine Besylate (Norvasc) 5 mg BID PO Last administered on 06/04/16 21:55 ; Admin Dose 5 MG; Start 05/26/16 at 09:00 Atenolol (Tenormin) 50 mg BID PO Last administered on 06/04/16 21:55; Admin Dose 50 MG; Start 05/26/16 at 09:00 Famotidine (Pepcid) 20 mg Q24H PO Last administered on 06/04/16 09:16; Admin Dose 20 MG; Start 05/29/16 at 09:00 Ondansetron HCl (Zofran Inj) 4 mg Q4H PRN IV NAUSEA AND/OR VOMITING Last administered on 06/02/16 12:57; Admin Dose 4 MG; Start 05/29/16 at 18:30 Al Hydrox/Mg Hydrox/Simethicone (Mag-Al Plus) 30 ml Q6H PRN PO GASTROINTESTINAL UPSET; Start 06/02/16 at 12:30 Doxycycline Hyclate (Vibramycin) 100 mg BID PO Last administered on 06/04/16t 21:50; Admin Dose 100 MG; Start 06/04/16 at 21:00 VEGA PALMA NP Jun 05, 2016 11:56
[2016-06-05 12:06] VITALS: BP 142/67; PULSE 78; RESP 18
--- NOTE | 2016-06-05 12:10 | CONS ---
Date/Time of Note Date/Time of Note DATE: 06/05/16 TIME: 12:08 Assessment/Plan Assessment/Plan Chief Complaint/Hosp Course 85 yo female admitted with gangrene for Left 4th toe found with a left adnexal cystic structure which the postmenopausal female is worrisome for a cystic ovarian neoplasm. At this point given her age and lack of abdominal pain or post menopausal bleeding, I do not believe surgery is currently indicated. Furthermore the CA 125 is within normal limits and the pelvic ultrasound reveals an uncomplicated ovarian cyst. For now, I would recommend to serially follow the pelvic mass with ultrasounds. If it does continue to grow or cause symptoms at that point I would recommend surgical resection. Problems: Consultation Date/Type/Reason Admit Date/Time May 17, 2016 at 22:19 Initial Consult Date 06/04/16 Type of Consultation: hematology Reason for Consultation ovarian mass Referring Provider: MELISSA ORR MD 24 HR Interval Summary Free Text/Dictation patient continues on antibiotics for L foot gangrene. no abdominal pain. no vaginal bleed. pelvic ultrasound was done which uncomplicated cystic structure of the left adnexa Exam/Review of Systems Vital Signs Vitals Vital Signs Date Time Temp Pulse Resp B/P Pulse Ox O2 Delivery O2 Flow Rate FiO2 06/05/16 12:06 99.2 78 18 142/67 91 Room Air Intake and Output 06/04/16 06/04/16 06/05/16 15:00 23:00 07:00 Intake Total 800 ml 400 ml Balance 800 ml 400 ml Exam Constitutional: alert, oriented Psych: no complaints Head: atraumatic, normocephalic Eyes: nl conjunctiva ENMT: nl external ears & nose Neck: non-tender, supple Respiratory: clear to auscultation, normal air movement Cardiovascular: regular rate and rhythm Gastrointestinal: soft Musculoskeletal: nl extremities to inspection, nl gait and stance Extremities: other (L foot gangrene) Results Result Diagram: 06/05/16 0458 06/05/16 0458 Results 24 hrs Laboratory Tests Test 06/05/16 04:58 Anion Gap 14 Basophils # 0.0 Basophils % 0.6 Blood Urea Nitrogen 12 Calcium Level 8.6 Carbon Dioxide Level 27 Chloride Level 105 Creatinine 1.10 H Eosinophils # 0.1 Eosinophils % 2.7 Glucose Level 106 Hematocrit 26.6 L Hemoglobin 8.2 L Lymphocytes # 1.2 Lymphocytes % 22.6 Mean Corpuscular Hemoglobin 31.5 Mean Corpuscular Hemoglobin Concent 30.8 L Mean Corpuscular Volume 102.3 H Mean Platelet Volume 11.2 H Monocytes # 0.6 Monocytes % 11.2 H Neutrophils # 3.3 Neutrophils % 62.5 Nucleated Red Blood Cells # 0.0 Nucleated Red Blood Cells % 0.0 Platelet Count 343 Potassium Level 3.9 Red Blood Count 2.60 L Red Cell Distribution Width 15.8 H Sodium Level 142 White Blood Count 5.3 Medications Medications Current Medications Acetaminophen (Tylenol Tab) 650 mg Q6H PRN PO PAIN LEVEL 1-3 OR FEVER Last administered on 06/03/16 17:00; Admin Dose 650 MG; Start 05/17/16 at 22:30 Morphine Sulfate (morphine) 2 mg Q4H PRN IV SEVERE PAIN LEVEL 7-10 Last administered on 06/03/16 21:29; Admin Dose 2 MG; Start 05/17/16 at 22:30 Enoxaparin Sodium (Lovenox) 30 mg DAILY SC Last administered on 06/04/16 09:40 ; Admin Dose 30 MG; Start 05/18/16 at 09:00 Gabapentin (Neurontin) 100 mg QHS PO Last administered on 06/04/16 21:50; Admin Dose 100 MG; Start 05/18/16 at 21:00 Atorvastatin Calcium (Lipitor) 40 mg HS PO Last administered on 06/04/16 21:50 ; Admin Dose 40 MG; Start 05/24/16 at 21:00 Clopidogrel Bisulfate (plaVIX) 75 mg DAILY PO Last administered on 06/04/16 09 :16; Admin Dose 75 MG; Start 05/24/16 at 12:30 Hydralazine HCl (Apresoline) 25 mg BID PO Last administered on 06/04/16 21:54 ; Admin Dose 25 MG; Start 05/24/16 at 13:00 Amlodipine Besylate (Norvasc) 5 mg BID PO Last administered on 06/04/16 21:55 ; Admin Dose 5 MG; Start 05/26/16 at 09:00 Atenolol (Tenormin) 50 mg BID PO Last administered on 06/04/16 21:55; Admin Dose 50 MG; Start 05/26/16 at 09:00 Famotidine (Pepcid) 20 mg Q24H PO Last administered on 06/04/16 09:16; Admin Dose 20 MG; Start 05/29/16 at 09:00 Ondansetron HCl (Zofran Inj) 4 mg Q4H PRN IV NAUSEA AND/OR VOMITING Last administered on 06/02/16 12:57; Admin Dose 4 MG; Start 05/29/16 at 18:30 Al Hydrox/Mg Hydrox/Simethicone (Mag-Al Plus) 30 ml Q6H PRN PO GASTROINTESTINAL UPSET; Start 06/02/16 at 12:30 Doxycycline Hyclate (Vibramycin) 100 mg BID PO Last administered on 06/04/16 21:50; Admin Dose 100 MG; Start 06/04/16 at 21:00 NGOZI OLIVEIRA M.D. Jun 05, 2016 12:10
[2016-06-05] MEDS: AMLODIPINE 5 MG TAB PO SCH ×2 (12:16→21:08)
[2016-06-05] MEDS: FAMOTIDINE 20 MG TAB PO SCH (12:16)
[2016-06-05] MEDS: CLOPIDOGREL 75 MG TAB PO SCH (12:17)
[2016-06-05] MEDS: ATENOLOL 50 MG TAB PO SCH ×2 (12:17→21:00)
[2016-06-05] MEDS: DOXYCYCLINE 100 MG TAB PO SCH ×2 (12:17→21:07)
[2016-06-05] MEDS: ENOXAPARIN 30 MG/0.3 ML SYG SC SCH (12:31)
--- NOTE | 2016-06-05 12:44 | RADRPT ---
PROCEDURE: Lexiscan myocardial perfusion study CLINICAL INDICATION: 85 -year-old patient complaining of chest pain. TECHNIQUE: Lexiscan 0.4 mg intravenously separate acquisition gated myocardial perfusion SPECT usi ng Tc 99m Myoview 30.4 mCi intravenously at stress and Tc-99m Myoview, 10.4 mCi intravenously at res t was performed using the rest/stress sequence. Poststress Myoview SPECT images were obtained in th e supine position. COMPARISON: No prior studies. FINDINGS: Perfusion images reveal no evidence of perfusion defects. Lexiscan post stress gated SPECT images demonstrate no wall motion abnormalities. IMPRESSION: 1. Normal study with no evidence of perfusion defects or wall motion abnormalities. 2. The left ventricle ejection fraction at stress is greater than 70%. A call report was made to Dr. Berman at 12:40 p.m. on June 05, 2016. RPTAT: HH .Janet Sheets MD, Date Time Electronically viewed and signed by .Janet Sheets MD, on 06/05/2016 12:43 .L/
--- NOTE | 2016-06-05 12:54 | CONS ---
Date/Time of Note Date/Time of Note DATE: 06/05/16 TIME: 12:52 Assessment/Plan Assessment/Plan Additional Assessment/Plan Preoperative cardiac risk stratification Peripheral arterial disease with critical limb ischemia Hypertension Dyslipidemia Preserved ejection fraction -Patient status post nuclear cardiac perfusion study today. No evidence of ischemia with normal ejection fraction. Given her risk factors, she is at an intermediate risk for any untoward cardiac events for her planned peripheral procedure. Would continue antiplatelet therapy, statin and beta-saul if no contraindication. Blood pressure trend remained stable. No further inpatient cardiac workup needed at the current time. Consultation Date/Type/Reason Admit Date/Time May 17, 2016 at 22:19 Type of Consultation: cv Referring Provider: MELISSA ORR MD 24 HR Interval Summary Free Text/Dictation Patient denies chest pain, shortness of breath or dizziness Exam/Review of Systems Vital Signs Vitals Vital Signs Date Time Temp Pulse Resp B/P Pulse Ox O2 Delivery O2 Flow Rate FiO2 06/05/16 12:06 99.2 78 18 142/67 91 Room Air Intake and Output 06/04/16 06/04/16 06/05/16 15:00 23:00 07:00 Intake Total 800 ml 400 ml Balance 800 ml 400 ml Exam No apparent distress Constitutional: alert, frail, oriented Head: normocephalic Neck: supple Respiratory: clear to auscultation, normal air movement Cardiovascular: other (S1-S2 heard), regular rate and rhythm Gastrointestinal: bowel sounds, non-tender, other (No guarding), soft Extremities: other (No edema) Results Result Diagram: 06/05/16 0458 06/05/16 0458 Results 24 hrs Laboratory Tests Test 06/05/16 04:58 Anion Gap 14 Basophils # 0.0 Basophils % 0.6 Blood Urea Nitrogen 12 Calcium Level 8.6 Carbon Dioxide Level 27 Chloride Level 105 Creatinine 1.10 H Eosinophils # 0.1 Eosinophils % 2.7 Glucose Level 106 Hematocrit 26.6 L Hemoglobin 8.2 L Lymphocytes # 1.2 Lymphocytes % 22.6 Mean Corpuscular Hemoglobin 31.5 Mean Corpuscular Hemoglobin Concent 30.8 L Mean Corpuscular Volume 102.3 H Mean Platelet Volume 11.2 H Monocytes # 0.6 Monocytes % 11.2 H Neutrophils # 3.3 Neutrophils % 62.5 Nucleated Red Blood Cells # 0.0 Nucleated Red Blood Cells % 0.0 Platelet Count 343 Potassium Level 3.9 Red Blood Count 2.60 L Red Cell Distribution Width 15.8 H Sodium Level 142 White Blood Count 5.3 Medications Medications Current Medications Acetaminophen (Tylenol Tab) 650 mg Q6H PRN PO PAIN LEVEL 1-3 OR FEVER Last administered on 06/03/16 17:00; Admin Dose 650 MG; Start 05/17/16 at 22:30 Morphine Sulfate (morphine) 2 mg Q4H PRN IV SEVERE PAIN LEVEL 7-10 Last administered on 06/03/16 21:29; Admin Dose 2 MG; Start 05/17/16 at 22:30 Enoxaparin Sodium (Lovenox) 30 mg DAILY SC Last administered on 06/05/16 12:31 ; Admin Dose 30 MG; Start 05/18/16 at 09:00 Gabapentin (Neurontin) 100 mg QHS PO Last administered on 06/04/16 21:50; Admin Dose 100 MG; Start 05/18/16 at 21:00 Atorvastatin Calcium (Lipitor) 40 mg HS PO Last administered on 06/04/16 21:50 ; Admin Dose 40 MG; Start 05/24/16 at 21:00 Clopidogrel Bisulfate (plaVIX) 75 mg DAILY PO Last administered on 06/05/16 12 :17; Admin Dose 75 MG; Start 05/24/16 at 12:30 Hydralazine HCl (Apresoline) 25 mg BID PO Last administered on 06/05/16 12:16 ; Admin Dose 25 MG; Start 05/24/16 at 13:00 Amlodipine Besylate (Norvasc) 5 mg BID PO Last administered on 06/05/16 12:16 ; Admin Dose 5 MG; Start 05/26/16 at 09:00 Atenolol (Tenormin) 50 mg BID PO Last administered on 06/05/16 12:17; Admin Dose 50 MG; Start 05/26/16 at 09:00 Famotidine (Pepcid) 20 mg Q24H PO Last administered on 06/05/16 12:16; Admin Dose 20 MG; Start 05/29/16 at 09:00 Ondansetron HCl (Zofran Inj) 4 mg Q4H PRN IV NAUSEA AND/OR VOMITING Last administered on 06/02/16 12:57; Admin Dose 4 MG; Start 05/29/16 at 18:30 Al Hydrox/Mg Hydrox/Simethicone (Mag-Al Plus) 30 ml Q6H PRN PO GASTROINTESTINAL UPSET; Start 06/02/16 at 12:30 Doxycycline Hyclate (Vibramycin) 100 mg BID PO Last administered on 06/05/16t 12:17; Admin Dose 100 MG; Start 06/04/16 at 21:00 James Berman DO Jun 05, 2016 12:54
--- NOTE | 2016-06-05 15:39 | CARRPT ---
DATE OF PROCEDURE: 06/05/2016 PPOCEDURE PERFORMED: Lexiscan nuclear stress test. PATIENT HISTORY: This is an 85-year-old female with history of peripheral arterial disease planned for possible vascular surgery and request for preoperative cardiac risk stratification. Baseline ECG demonstrates sinus rhythm with right bundle branch block, nonspecific ST-T wave abnorm alities. Baseline heart rate was 65. Baseline blood pressure 147/70. Lexiscan was administered as per protocol. Symptoms were mild shortness of breath which resolved. ECG, no significant ST-T wave changes compared to baseline. Peak heart rate was 77. Peak blood pressure was 147/70. ECG INTERPRETATION: ____ post secondary to baseline ECG abnormalities. The nuclear portion will be interpreted by our radiology colleagues. Dictated By: LISBETH PORRAS/ADEN Conf#: [id number] DID#: [id number]
[2016-06-05] MEDS: ACETAMINOPHEN 325 MG TAB PO PRN (15:46)
--- NOTE | 2016-06-05 16:16 | PN ---
Date/Time of Note Date/Time of Note DATE: 06/05/16 TIME: 16:15 Assessment/Plan VTE Prophylaxis VTE Prophylaxis Intervention: SCD's Lines/Catheters IV [facility]ter [facility]from [facility] Urinary Cath still in place: No Assessment/Plan Chief Complaint/Hosp Course ASSESSMENT AND PLAN: 1. Left foot cellulitis with gangrene. Dr. Parr is following the patient from infectious disease standpoint. Continue abx per ID. Dr. Guerrero is following from podiatry consultation. 2. Peripheral arterial occlusive disease. Dr. Shepherd is following from vascular surgery consultation. S/p angio. Pending vascular intervention upon cardiology clearance. Status post stress test 06/05. 3. Hypertension by history. Continue patient Norvasc and atenolol, hydralazine p.r.n. for systolic blood pressure above 170. 4. Cystic structure of the left adnexa. Dr. Crook is following in hematology/ oncology consultation. Patient with history failing follow-up appointment. Continue Lovenox for deep venous thrombosis prophylaxis and Pepcid for peptic ulcer disease prophylaxis. Further recommendations based on clinical course. Plan of care discussed with Dr. Stephens. Problems: Subjective 24 Hr Interval Summary Free Text/Dictation Patient is status post stress test today, patient denies any chest pain denies any nausea vomiting pain is well controlled. Exam/Review of Systems Vital Signs Vitals Vital Signs Date Time Temp Pulse Resp B/P Pulse Ox O2 Delivery O2 Flow Rate FiO2 06/05/16 12:06 99.2 78 18 142/67 91 Room Air Intake and Output 06/04/16 06/04/16 06/05/16 15:00 23:00 07:00 Intake Total 800 ml 400 ml Balance 800 ml 400 ml Exam GENERAL: Well-developed, well-nourished female currently is awake, alert. HEENT: Head is atraumatic, normocephalic. NECK: Supple, no cervical lymphadenopathy, no thyromegaly. CHEST: Lungs clear bilaterally. There are no rhonchi, wheezes, rales noted. CARDIOVASCULAR: Normal S1, S2. No murmurs, clicks, rubs noted. ABDOMEN: Round, soft, nondistended, nontender. Bowel sounds present. EXTREMITIES: The patient has left foot edema, erythema, and tenderness with gangrenous fourth toe on the left foot and discoloration of the surrounding area. Pulses are present. Right extremity: There is no edema, clubbing, cyanosis. Pulses equal 2+. SKIN: There is no rash, petechiae noted. NEUROLOGIC: Patient is awake, alert and oriented x4. Results Result Diagram: 06/05/16 0458 06/05/16 0458 Results 24 hrs Laboratory Tests Test 06/05/16 04:58 Anion Gap 14 Basophils # 0.0 Basophils % 0.6 Blood Urea Nitrogen 12 Calcium Level 8.6 Carbon Dioxide Level 27 Chloride Level 105 Creatinine 1.10 H Eosinophils # 0.1 Eosinophils % 2.7 Glucose Level 106 Hematocrit 26.6 L Hemoglobin 8.2 L Lymphocytes # 1.2 Lymphocytes % 22.6 Mean Corpuscular Hemoglobin 31.5 Mean Corpuscular Hemoglobin Concent 30.8 L Mean Corpuscular Volume 102.3 H Mean Platelet Volume 11.2 H Monocytes # 0.6 Monocytes % 11.2 H Neutrophils # 3.3 Neutrophils % 62.5 Nucleated Red Blood Cells # 0.0 Nucleated Red Blood Cells % 0.0 Platelet Count 343 Potassium Level 3.9 Red Blood Count 2.60 L Red Cell Distribution Width 15.8 H Sodium Level 142 White Blood Count 5.3 Medications Medications Current Medications Acetaminophen (Tylenol Tab) 650 mg Q6H PRN PO PAIN LEVEL 1-3 OR FEVER Last administered on 06/05/16 15:46; Admin Dose 650 MG; Start 05/17/16 at 22:30 Morphine Sulfate (morphine) 2 mg Q4H PRN IV SEVERE PAIN LEVEL 7-10 Last administered on 06/03/16 21:29; Admin Dose 2 MG; Start 05/17/16 at 22:30 Enoxaparin Sodium (Lovenox) 30 mg DAILY SC Last administered on 06/05/16 12:31 ; Admin Dose 30 MG; Start 05/18/16 at 09:00 Gabapentin (Neurontin) 100 mg QHS PO Last administered on 06/04/16 21:50; Admin Dose 100 MG; Start 05/18/16 at 21:00 Atorvastatin Calcium (Lipitor) 40 mg HS PO Last administered on 06/04/16 21:50 ; Admin Dose 40 MG; Start 05/24/16 at 21:00 Clopidogrel Bisulfate (plaVIX) 75 mg DAILY PO Last administered on 06/05/16 12 :17; Admin Dose 75 MG; Start 05/24/16 at 12:30 Hydralazine HCl (Apresoline) 25 mg BID PO Last administered on 06/05/16 12:16 ; Admin Dose 25 MG; Start 05/24/16 at 13:00 Amlodipine Besylate (Norvasc) 5 mg BID PO Last administered on 06/05/16 12:16 ; Admin Dose 5 MG; Start 05/26/16 at 09:00 Atenolol (Tenormin) 50 mg BID PO Last administered on 06/05/16 12:17; Admin Dose 50 MG; Start 05/26/16 at 09:00 Famotidine (Pepcid) 20 mg Q24H PO Last administered on 06/05/16 12:16; Admin Dose 20 MG; Start 05/29/16 at 09:00 Ondansetron HCl (Zofran Inj) 4 mg Q4H PRN IV NAUSEA AND/OR VOMITING Last administered on 06/02/16 12:57; Admin Dose 4 MG; Start 05/29/16 at 18:30 Al Hydrox/Mg Hydrox/Simethicone (Mag-Al Plus) 30 ml Q6H PRN PO GASTROINTESTINAL UPSET; Start 06/02/16 at 12:30 Doxycycline Hyclate (Vibramycin) 100 mg BID PO Last administered on 06/05/16 12:17; Admin Dose 100 MG; Start 06/04/16 at 21:00 JANIS BAKER Jun 05, 2016 16:16
[2016-06-05 19:44] VITALS: BP 127/61; RESP 18
[2016-06-05] MEDS: ATORVASTATIN 40 MG TAB PO SCH (21:07)
[2016-06-05] MEDS: GABAPENTIN 100 MG CAP PO SCH (21:07)
[2016-06-06 05:42] LABS: ADD SCAN DIFF NO
[2016-06-06 05:59] LABS: BASOPHILS % 0.8 % (0.0-2.0); EOSINOPHILS # 0.1 10^3/ul (0.0-0.5); EOSINOPHILS % 2.6 % (0.0-7.0); HEMATOCRIT 29.5 % (37.0-47.0); LYMPHOCYTES # 1.1 10^3/ul (0.8-2.9); LYMPHOCYTES % 22.6 % (15.0-51.0); MEAN CORPUSCULAR HEMOGLOBIN 30.9 pg (29.0-33.0); MEAN CORPUSCULAR HGB CONC 30.5 g/dl (32.0-37.0); MEAN CORPUSCULAR VOLUME 101.4 fl (82.0-101.0); MEAN PLATELET VOLUME 11.2 fl (7.4-10.4); MONOCYTE # 0.6 10^3/ul (0.3-0.9); MONOCYTES % 11.1 % (0.0-11.0); NEUTROPHIL # 3.2 10^3/ul (1.6-7.5); NEUTROPHILS % 62.5 % (39.0-77.0); PLATELET COUNT 351 10^3/UL (140-415); RED BLOOD COUNT 2.91 10^6/ul (4.20-5.40); RED CELL DISTRIBUTION WIDTH 15.8 % (11.5-14.5)
[2016-06-06 06:14] LABS: POTASSIUM 3.9 mmol/L (3.5-5.1)
[2016-06-06 06:16] LABS: CREATININE 1.16 mg/dl (0.44-1.00)
[2016-06-06 06:17] LABS: CALCIUM 8.8 mg/dl (8.4-10.2)
[2016-06-06 08:14] VITALS: BP 149/69; RESP 21
[2016-06-06] MEDS: CLOPIDOGREL 75 MG TAB PO SCH (09:32)
[2016-06-06] MEDS: FAMOTIDINE 20 MG TAB PO SCH (09:32)
[2016-06-06] MEDS: DOXYCYCLINE 100 MG TAB PO SCH (09:32)
[2016-06-06] MEDS: ATENOLOL 50 MG TAB PO SCH (09:33)
[2016-06-06] MEDS: AMLODIPINE 5 MG TAB PO SCH (09:34)
[2016-06-06] MEDS: ENOXAPARIN 30 MG/0.3 ML SYG SC SCH (09:40)
[2016-06-06] MEDS: ACETAMINOPHEN 325 MG TAB PO PRN (13:08)
[2016-06-06 13:19] LABS: ADD SCAN DIFF NO
[2016-06-06 13:22] LABS: BASOPHILS % 0.4 % (0.0-2.0); EOSINOPHILS # 0.1 10^3/ul (0.0-0.5); HEMATOCRIT 30.2 % (37.0-47.0); HEMOGLOBIN 9.4 g/dl (12.0-16.0); LYMPHOCYTES # 1.3 10^3/ul (0.8-2.9); LYMPHOCYTES % 24.4 % (15.0-51.0); MEAN CORPUSCULAR HEMOGLOBIN 31.5 pg (29.0-33.0); MEAN CORPUSCULAR HGB CONC 31.1 g/dl (32.0-37.0); MEAN CORPUSCULAR VOLUME 101.3 fl (82.0-101.0); MEAN PLATELET VOLUME 10.6 fl (7.4-10.4); MONOCYTE # 0.5 10^3/ul (0.3-0.9); MONOCYTES % 8.8 % (0.0-11.0); NEUTROPHIL # 3.3 10^3/ul (1.6-7.5); NEUTROPHILS % 64.2 % (39.0-77.0); PLATELET COUNT 360 10^3/UL (140-415); RED BLOOD COUNT 2.98 10^6/ul (4.20-5.40); RED CELL DISTRIBUTION WIDTH 15.8 % (11.5-14.5); WHITE BLOOD COUNT 5.1 10^3/ul (4.8-10.8)
--- NOTE | 2016-06-06 14:45 | CONS ---
Date/Time of Note Date/Time of Note DATE: 06/06/16 TIME: 14:44 Assessment/Plan Assessment/Plan Chief Complaint/Hosp Course SUBJECTIVE: No acute changes. The patient is alert, looks comfortable, no fevers. MICROBIOLOGY: Cultures have been negative. ANTIMICROBIALS: Doxycycline PHYSICAL EXAMINATION: GENERAL: This is a fragile, chronically ill-appearing, elderly woman who is alert, in no distress. HEENT: Head atraumatic, normocephalic. Sclerae anicteric. Buccal mucosa dry. NECK: Supple. CHEST: Rise symmetrical. Breath sounds diminished to bases. HEART: S1, S2. ABDOMEN: Soft, bowel sounds present. EXTREMITIES: Left fourth toe gangrenous changes and also a blister. ASSESSMENT: 1. Left foot gangrene. 2. Peripheral vascular disease. 3. Hypertension. 4. Adnexal mass PLAN: Clinically stable, cleared per vascular for dc home, continue abx, oncology rec-s noted [facility] staff Problems: Consultation Date/Type/Reason Admit Date/Time May 17, 2016 at 22:19 Type of Consultation: id Referring Provider: MELISSA ORR MD Exam/Review of Systems Vital Signs Vitals Vital Signs Date Time Temp Pulse Resp B/P Pulse Ox O2 Delivery O2 Flow Rate FiO2 06/06/16 09:30 98.8 06/06/16 08:14 79 21 149/69 95 06/05/16 12:06 Room Air Intake and Output 06/05/16 06/05/16 06/06/16 15:00 23:00 07:00 Intake Total 450 ml 400 ml Output Total 460 ml Balance -10 ml 400 ml Results Result Diagram: 06/06/16 1300 06/06/16 0518 Results 24 hrs Laboratory Tests Test 06/06/16 05:18 06/06/16 06:00 06/06/16 13:00 Anion Gap 16 Basophils # 0.0 0.0 Basophils % 0.8 0.4 Blood Urea Nitrogen 14 Calcium Level 8.8 Carbon Dioxide Level 26 Chloride Level 106 Creatinine 1.16 H Eosinophils # 0.1 0.1 Eosinophils % 2.6 2.0 Glucose Level 96 Hematocrit 29.5 L 30.2 L Hemoglobin 9.0 L 9.4 L Lymphocytes # 1.1 1.3 Lymphocytes % 22.6 24.4 Mean Corpuscular Hemoglobin 30.9 31.5 Mean Corpuscular Hemoglobin Concent 30.5 L 31.1 L Mean Corpuscular Volume 101.4 H 101.3 H Mean Platelet Volume 11.2 H 10.6 H Monocytes # 0.6 0.5 Monocytes % 11.1 H 8.8 Neutrophils # 3.2 3.3 Neutrophils % 62.5 64.2 Nucleated Red Blood Cells # 0.0 0.0 Nucleated Red Blood Cells % 0.0 0.0 Platelet Count 351 360 Potassium Level 3.9 Red Blood Count 2.91 L 2.98 L Red Cell Distribution Width 15.8 H 15.8 H Sodium Level 144 White Blood Count 5.0 5.1 Stool Occult Blood NEGATIVE Medications Medications Current Medications Acetaminophen (Tylenol Tab) 650 mg Q6H PRN PO PAIN LEVEL 1-3 OR FEVER Last administered on 06/06/16 13:08; Admin Dose 650 MG; Start 05/17/16 at 22:30 Morphine Sulfate (morphine) 2 mg Q4H PRN IV SEVERE PAIN LEVEL 7-10 Last administered on 06/03/16 21:29; Admin Dose 2 MG; Start 05/17/16 at 22:30 Enoxaparin Sodium (Lovenox) 30 mg DAILY SC Last administered on 06/06/16 09:40 ; Admin Dose 30 MG; Start 05/18/16 at 09:00 Gabapentin (Neurontin) 100 mg QHS PO Last administered on 06/05/16 21:07; Admin Dose 100 MG; Start 05/18/16 at 21:00 Atorvastatin Calcium (Lipitor) 40 mg HS PO Last administered on 06/05/16 21:07 ; Admin Dose 40 MG; Start 05/24/16 at 21:00 Clopidogrel Bisulfate (plaVIX) 75 mg DAILY PO Last administered on 06/06/16 09: 32; Admin Dose 75 MG; Start 05/24/16 at 12:30 Hydralazine HCl (Apresoline) 25 mg BID PO Last administered on 06/06/16 09:34; Admin Dose 25 MG; Start 05/24/16 at 13:00 Amlodipine Besylate (Norvasc) 5 mg BID PO Last administered on 06/06/16 09:34; Admin Dose 5 MG; Start 05/26/16 at 09:00 Atenolol (Tenormin) 50 mg BID PO Last administered on 06/06/16 09:33; Admin Dose 50 MG; Start 05/26/16 at 09:00 Famotidine (Pepcid) 20 mg Q24H PO Last administered on 06/06/16 09:32; Admin Dose 20 MG; Start 05/29/16 at 09:00 Ondansetron HCl (Zofran Inj) 4 mg Q4H PRN IV NAUSEA AND/OR VOMITING Last administered on 06/02/16 12:57; Admin Dose 4 MG; Start 05/29/16 at 18:30 Al Hydrox/Mg Hydrox/Simethicone (Mag-Al Plus) 30 ml Q6H PRN PO GASTROINTESTINAL UPSET; Start 06/02/16 at 12:30 Doxycycline Hyclate (Vibramycin) 100 mg BID PO Last administered on 06/06/16 09 :32; Admin Dose 100 MG; Start 06/04/16 at 21:00 VEGA PALMA NP Jun 06, 2016 14:45
--- NOTE | 2016-06-06 14:55 | CONS ---
Date/Time of Note Date/Time of Note DATE: 06/06/16 TIME: 14:53 Assessment/Plan Assessment/Plan Additional Assessment/Plan Preoperative cardiac risk stratification Peripheral arterial disease with critical limb ischemia Hypertension Dyslipidemia Preserved ejection fraction Normal nuclear cardiac perfusion study 06/05/2016 -Blood pressure trend overall remains stable. No change to current cardiovascular medication regimen. Consultation Date/Type/Reason Admit Date/Time May 17, 2016 at 22:19 Type of Consultation: cv Referring Provider: MELISSA ORR MD 24 HR Interval Summary Free Text/Dictation Denies chest pain, shortness of breath or palpitations Exam/Review of Systems Vital Signs Vitals Vital Signs Date Time Temp Pulse Resp B/P Pulse Ox O2 Delivery O2 Flow Rate FiO2 06/06/16 09:30 98.8 06/06/16 08:14 79 21 149/69 95 06/05/16 12:06 Room Air Intake and Output 06/05/16 06/05/16 06/06/16 15:00 23:00 07:00 Intake Total 450 ml 400 ml Output Total 460 ml Balance -10 ml 400 ml Exam No apparent distress Constitutional: alert, frail, oriented Head: normocephalic Neck: supple Respiratory: other (Coarse breath sounds bilaterally, no wheezing) Cardiovascular: other (S1-S2 heard), regular rate and rhythm Gastrointestinal: bowel sounds, non-tender, other (No guarding), soft Extremities: other (No edema) Results Result Diagram: 06/06/16 1300 06/06/16 0518 Results 24 hrs Laboratory Tests Test 06/06/16 05:18 06/06/16 06:00 06/06/16 13:00 Anion Gap 16 Basophils # 0.0 0.0 Basophils % 0.8 0.4 Blood Urea Nitrogen 14 Calcium Level 8.8 Carbon Dioxide Level 26 Chloride Level 106 Creatinine 1.16 H Eosinophils # 0.1 0.1 Eosinophils % 2.6 2.0 Glucose Level 96 Hematocrit 29.5 L 30.2 L Hemoglobin 9.0 L 9.4 L Lymphocytes # 1.1 1.3 Lymphocytes % 22.6 24.4 Mean Corpuscular Hemoglobin 30.9 31.5 Mean Corpuscular Hemoglobin Concent 30.5 L 31.1 L Mean Corpuscular Volume 101.4 H 101.3 H Mean Platelet Volume 11.2 H 10.6 H Monocytes # 0.6 0.5 Monocytes % 11.1 H 8.8 Neutrophils # 3.2 3.3 Neutrophils % 62.5 64.2 Nucleated Red Blood Cells # 0.0 0.0 Nucleated Red Blood Cells % 0.0 0.0 Platelet Count 351 360 Potassium Level 3.9 Red Blood Count 2.91 L 2.98 L Red Cell Distribution Width 15.8 H 15.8 H Sodium Level 144 White Blood Count 5.0 5.1 Stool Occult Blood NEGATIVE Medications Medications Current Medications Acetaminophen (Tylenol Tab) 650 mg Q6H PRN PO PAIN LEVEL 1-3 OR FEVER Last administered on 06/06/16 13:08; Admin Dose 650 MG; Start 05/17/16 at 22:30 Morphine Sulfate (morphine) 2 mg Q4H PRN IV SEVERE PAIN LEVEL 7-10 Last administered on 06/03/16 21:29; Admin Dose 2 MG; Start 05/17/16 at 22:30 Enoxaparin Sodium (Lovenox) 30 mg DAILY SC Last administered on 06/06/16 09:40 ; Admin Dose 30 MG; Start 05/18/16 at 09:00 Gabapentin (Neurontin) 100 mg QHS PO Last administered on 06/05/16 21:07; Admin Dose 100 MG; Start 05/18/16 at 21:00 Atorvastatin Calcium (Lipitor) 40 mg HS PO Last administered on 06/05/16 21:07 ; Admin Dose 40 MG; Start 05/24/16 at 21:00 Clopidogrel Bisulfate (plaVIX) 75 mg DAILY PO Last administered on 06/06/16 09: 32; Admin Dose 75 MG; Start 05/24/16 at 12:30 Hydralazine HCl (Apresoline) 25 mg BID PO Last administered on 06/06/16 09:34; Admin Dose 25 MG; Start 05/24/16 at 13:00 Amlodipine Besylate (Norvasc) 5 mg BID PO Last administered on 06/06/16 09:34; Admin Dose 5 MG; Start 05/26/16 at 09:00 Atenolol (Tenormin) 50 mg BID PO Last administered on 06/06/16 09:33; Admin Dose 50 MG; Start 05/26/16 at 09:00 Famotidine (Pepcid) 20 mg Q24H PO Last administered on 06/06/16 09:32; Admin Dose 20 MG; Start 05/29/16 at 09:00 Ondansetron HCl (Zofran Inj) 4 mg Q4H PRN IV NAUSEA AND/OR VOMITING Last administered on 06/02/16 12:57; Admin Dose 4 MG; Start 05/29/16 at 18:30 Al Hydrox/Mg Hydrox/Simethicone (Mag-Al Plus) 30 ml Q6H PRN PO GASTROINTESTINAL UPSET; Start 06/02/16 at 12:30 Doxycycline Hyclate (Vibramycin) 100 mg BID PO Last administered on 06/06/16 09 :32; Admin Dose 100 MG; Start 06/04/16 at 21:00 James Berman DO Jun 06, 2016 14:55
[2016-06-06] MEDS: morphine 2 MG INJ IV PRN (15:43)
--- NOTE | 2016-06-06 16:51 | DS ---
DATE OF ADMISSION: 05/17/2016 DATE OF DISCHARGE: 06/06/2016 FINAL DIAGNOSES: 1. Left foot cellulitis with gangrene. 2. Peripheral arterial occlusive disease. 3. Hypertension. 4. Cystic structure of the left adnexa. BRIEF HISTORY: The patient is an 85-year-old -[place] female with a past medical history of hypertension, peripheral vascular disease. The patient presented with left foot swelling, redness and necrosis of the fourth and fifth left toes. The patient was taking cephalexin as an outpatient. The patient had CT angiogram of the left lower extremity and arterial Doppler ultrasound, which re vealed aortoiliac atherosclerotic plaques extending down the distal arteries of the foot. The ernesto nt also complains of increasing pain in the left lower extremity and patient was admitted for [facility] evaluation and management. HOSPITAL COURSE: The patient was followed by Dr. Shepherd from vascular surgery standpoint and the patient underwent angio, and patient with recommendations for further vascular intervention at a la ter date. The patient was also evaluated by Dr. Parr in infectious disease consultation. The pat ient was given antibiotics for gangrenous toes. The patient was also evaluated by Dr. Guerrero in pod iatry consultation. The patient was evaluated by Dr. Berman in cardiology consultation and patient underwent a stress test on 06/05/2016 in evaluation for vascular surgery. The patient had no eviden ce of perfusion defect or wall motion abnormalities. Ejection fraction is greater than 70%. The pa tient was also noted with left adnexal mass as an incidental finding, and patient was evaluated by Bailee Crook in hematology/oncology consultation. The patient underwent a pelvic ultrasound, which reve aled an uncomplicated ovarian cyst. The patient CA 125 was within normal limits. The patient is re commended to follow up with pelvic ultrasound with serial followups. The patient was getting pain m edication for pain and continued on daily dressing changes. The patient's condition is stable. The patient will be discharged to a retirement facility with plan for the patient to be brought to the hospital for elective vascular surgery at a later day. The patient had a history of failing fo llow appointments and doctors' recommendations, so Dr. Orr discussed plan of care with belle roldan and patient's son at the bedside, and it was decided the patient to be transferred to a skilled nu rsing facility for further management. [facility]. CONDITION ON DISCHARGE: Hemodynamically stable. ACTIVITIES: As patient tolerates. DIET: 2 g sodium, low fat, low cholesterol diet. DISCHARGE MEDICATIONS: 1. Tylenol p.r.n. for pain. 2. Magnesium oxide q.6h. p.r.n. for abdominal discomfort. 3. Norvasc 5 mg p.o. b.i.d. 4. Atenolol 50 mg p.o. b.i.d. 5. Lipitor 40 mg p.o. at bedtime. 6. Plavix 75 mg p.o. daily. 7. Doxycycline 100 mg p.o. b.i.d. for 2 more weeks until 06/20/2016. 8. Lovenox 30 mg subcutaneous daily. 9. Pepcid 20 mg p.o. daily. 10. Neurontin 100 mg p.o. daily at bedtime. 11. Hydralazine 25 mg p.o. b.i.d. 12. Pelican 1 tablet p.o. q.12h. p.r.n. for pain. Interdisciplinary plan of care was established for this patient. Plan of care was discussed with Dr Nick Orr. Dictated By: JANIS BAKER SOLUTION SALES SENIOR EXECUTIVE for MELISSA ORR MD, SR/NTS Conf#: [id number] DID#: [id number]
== END 2016-06-06 17:30 | DRG 300 ==
LOC: E/R 14:37 → MS2 22:19
PROVIDERS: ADMIT Internal Medicine; ATTEND Internal Medicine
PROC: B41D1ZZ Fluoroscopy of Aorta and Bilateral Lower Extremity Arteries using Low Osmolar Contrast (ICD-10-PCS; principal; 2016-05-21 13:30)
PROC: 04JY3ZZ Inspection of Lower Artery, Percutaneous Approach (ICD-10-PCS; 2016-05-29 16:00)
DX: I70.262 Atherosclerosis of native arteries of extremities with gangrene, left leg (principal); L03.116 Cellulitis of left lower limb; L03.115 Cellulitis of right lower limb; L97.529 Non-pressure chronic ulcer of other part of left foot with unspecified severity; Z72.0 Tobacco use; I10 Essential (primary) hypertension; Z91.19 Patient's noncompliance with other medical treatment and regimen; E66.9 Obesity, unspecified; Z68.28 Body mass index [BMI] 28.0-28.9, adult; E78.5 Hyperlipidemia, unspecified; I83.11 Varicose veins of right lower extremity with inflammation; N83.202 Unspecified ovarian cyst, left side
CPT/HCPCS: 36415; 71010; 75630; 75635; 76856; 78452; 80048; 80053; 80202; 82270; 82565; 82962; 83690; 84484; 84520; 85025; 85610; 86304; 87040; 87081; 93005; 93017; 93306; 93923; 93970; 96374; 96375; A9500; A9505; C1769; C1887; C1894; J0696; J1644; J1650; J2250; J2270; J2405; J2543; J2785; J3010; J3370; J7030; J7040; J7050; Q9967

== ENCOUNTER 2016-06-20 05:17 | Inpatient (IN) | payer MEDICARE, OTHER ==
[~2016-06-20] VITALS: Ht 165.1 cm; Wt 72.5 kg
[2016-06-20] VITALS (42 sets, daily range): BP systolic 99–182; BP diastolic 46–101; PULSE 54–82; RESP 10–20; Ht 165.1 cm; Wt 72.5 kg
[~2016-06-20 05:17] MED LIST changes: -CEPH-443 PO; -CEPH500C PO; +GABA100C14 PO; -NAPR275T83 PO
[2016-06-20] MEDS ORDERED: VANCOMYCIN 1 GM (PMX) 250 ML IVPB ONE (05:30)
[2016-06-20] MEDS ORDERED: THROMBIN 5000 UNIT VIAL ONE ×2 (06:56→07:18)
[2016-06-20] MEDS ORDERED: HEPARIN 1000 UNITS/ML 10 ML INJ ONE ×2 (06:56→09:37)
[2016-06-20] MEDS ORDERED: GELATIN SIZE 100 SPONGE ONE (06:56)
[2016-06-20] MEDS ORDERED: DESFLURANE 15 MIN ONE (07:00)
--- NOTE | 2016-06-20 07:21 | HPN ---
Date/Time of Note Date/Time of Note DATE: 06/20/16 TIME: 07:21 Interval H&P Admission Note Pt. seen H&P reviewed: No system changes AMY VALDES MD Jun 20, 2016 07:21
[2016-06-20] MEDS ORDERED: FAMO20TA18 PO (07:22)
[2016-06-20] MEDS ORDERED: AMLO5TAB4 PO (07:22)
[2016-06-20] MEDS ORDERED: CLOP75TA28 PO (07:22)
[2016-06-20] MEDS ORDERED: GABA300C16 PO (07:22)
[2016-06-20] MEDS ORDERED: ATOR40TA68 PO (07:22)
[2016-06-20] MEDS ORDERED: ATEN50TA PO (07:22)
[2016-06-20] MEDS ORDERED: FOLI-49 PO (07:22)
[2016-06-20] MEDS ORDERED: HYDR-3670 PO (07:22)
[2016-06-20] MEDS ORDERED: HYDR-906 PO (07:22)
[2016-06-20] MEDS ORDERED: LIDOCAINE 2% (SDV) 5 ML INJ ONE (07:30)
[2016-06-20] MEDS ORDERED: ETOMIDATE 20 MG INJ ONE (07:30)
[2016-06-20] MEDS ORDERED: DEXTRAN-40 10%/D5W 500 ML, HEPARIN 1,000 UNIT, PAPAVERINE 120 MG IV SCH ×3 (07:30)
[2016-06-20] MEDS ORDERED: ROCURONIUM 50 MG INJ ONE ×2 (07:30→10:46)
[2016-06-20] MEDS ORDERED: PHENYLephrine (100 MCG/ML) 5ML SYG ONE (07:31)
[2016-06-20] MEDS ORDERED: nitroGLYCerin 50 MG INJ ONE (07:31)
[2016-06-20] MEDS ORDERED: MIDAZOLAM 1 MG/ML 2 ML INJ ONE (07:38)
[2016-06-20] MEDS ORDERED: ONDANSETRON 4 MG INJ IV PRN ×2 (09:00→13:30)
[2016-06-20] MEDS ORDERED: hydrALAzine 20 MG INJ IV PRN ×2 (09:00→19:00)
[2016-06-20] MEDS ORDERED: LABETALOL HCL 20MG INJ IV PRN (09:00)
[2016-06-20] MEDS ORDERED: EPHEDrine SULFATE 50 MG/5 ML SYG IV PRN (09:00)
[2016-06-20] MEDS ORDERED: FENTAnyl 50 MCG/ML VIAL IV PRN ×3 (09:00)
[2016-06-20] MEDS ORDERED: HYDROmorphONE (0.2 MG/ML) 10ML SYG IV PRN ×3 (09:00)
[2016-06-20] MEDS ORDERED: MEPERIDINE 25 MG INJ IV PRN (09:00)
[2016-06-20] MEDS ORDERED: METOCLOPRAMIDE 10 MG INJ IV PRN (09:00)
[2016-06-20] MEDS ORDERED: IOHEXOL 300MG/ML 30 ML BTL ONE ×2 (09:17→10:32)
[2016-06-20] MEDS ORDERED: ONDANSETRON 4 MG INJ ONE (10:44)
[2016-06-20] MEDS ORDERED: DEXAMETHASONE 4 MG/ML 1 ML INJ ONE (10:44)
[2016-06-20] MEDS ORDERED: LABETALOL HCL 20MG INJ ONE (11:08)
--- NOTE | 2016-06-20 12:18 | RADRPT ---
PROCEDURE: XR Chest. CLINICAL INDICATION: chest pain TECHNIQUE: Single AP view of the chest were obtained COMPARISON: 05/17/2016 FINDINGS: Right-sided central line catheter is seen which terminates in the SVC. The heart and mediastinum ar e within normal limits. The pulmonary vasculature are unremarkable. The aorta demonstrates atherosc lerotic calcifications. There is no lung consolidation, pleural effusion or pneumothorax. Degenera tive changes are seen within the thoracic spine. There is no acute osseous abnormality. IMPRESSION: No acute disease. Right central line catheter terminates in the SVC. RPTAT: AA .August Robert MD, Date Time Electronically viewed and signed by .August Robert MD, on 06/20/2016 12:17 .Iván/
[2016-06-20] MEDS ORDERED: MAGNESIUM HYDROXIDE 30ML CUP PO PRN (13:30)
[2016-06-20] MEDS ORDERED: DOCUSATE SODIUM 100 MG CAP PO PRN (13:30)
[2016-06-20] MEDS ORDERED: ALBUTEROL 0.083% (NEB) 2.5 MG/3 ML AMP NEB PRN (13:30)
[2016-06-20] MEDS ORDERED: NACL 0.9% 3 ML SYG IV SCH (13:30)
[2016-06-20] MEDS ORDERED: LORAZEPAM 2 MG INJ IV PRN (13:30)
[2016-06-20] MEDS ORDERED: IPRATROPIUM (NEB) 0.5 MG/2.5 ML AMP NEB PRN (13:30)
[2016-06-20] MEDS: HEPARIN 5,000 UNIT/0.5 ML SYG SC SCH ×2 (13:44→21:16)
[2016-06-20] MEDS ORDERED: morphine 2 MG INJ IV PRN (13:44)
[2016-06-20] MEDS: ATENOLOL 50 MG TAB PO SCH ×2 (13:49→21:17)
[2016-06-20] MEDS: FAMOTIDINE 20 MG TAB PO SCH (13:49)
[2016-06-20] MEDS: AMLODIPINE 5 MG TAB PO SCH ×2 (13:50→21:17)
[2016-06-20] MEDS: CLOPIDOGREL 75 MG TAB PO SCH (13:50)
--- NOTE | 2016-06-20 14:22 | HP ---
DATE OF ADMISSION: 06/20/2016 HISTORY OF PRESENT ILLNESS: The patient is an 85-year-old female known to me from previous admission. The patient with history of left foot cellulitis and gangrene, peripheral arter ial occlusive disease, hypertension, and cystic structure of the left adnexa. The patient completed treatment with antibiotics for a left foot cellulitis and was evaluated by Dr. Berman in cardiology consultation. In view of clearance for possible vascular surgery, the patient was evaluated by Dr. Shepherd in vascular surgery consultation. The patient was brought to the hospital and underwent a left iliofemoral endarterectomy and left femoral popliteal bypass angioplasty with stent placement . Postoperatively, the patient experienced some pain and was admitted for further evaluation and ma nagement to intensive care unit. PAST MEDICAL HISTORY: Per HPI. PAST SURGICAL HISTORY: The patient is status post cataract surgery in the past. FAMILY HISTORY: Noncontributory. SOCIAL HISTORY: The patient used to live with her son. The patient has a history of not following up with appointments, and the patient was recuperating at group home facility for left foot wou nd care. The patient is a former smoker, smoked for many years. The patient uses alcohol occasiona lly. The patient denies any drug use. ALLERGIES: NO KNOWN ALLERGIES. MEDICATIONS ON ADMISSION 1. Norvasc. 2. Atenolol. 3. Atorvastatin. 4. Plavix. 5. Pepcid. 6. Folic acid. 7. Gabapentin. 8. Hydralazine. 9. [place]. REVIEW OF SYSTEMS: A 12-point review of systems is negative unless what mentioned in the HPI. PHYSICAL EXAMINATION: GENERAL: Well-developed, well-nourished female who currently is awake, alert. VITAL SIGNS: Temperature is 98.0, pulse is 79, blood pressure 133/66, respiratory rate 18, oxygen s aturation 99% on 4 liters nasal cannula. HEENT: Head is atraumatic, normocephalic. Pupils equal, round, reactive to light and accommodation . Oral mucosa is pink and moist. NECK: Supple, no cervical lymphadenopathy, no thyromegaly. CHEST: Lungs clear bilaterally. There are no rhonchi, wheezes, rales noted. CARDIOVASCULAR: Normal S1, S2. No murmurs, gallops, clicks, rubs noted. ABDOMEN: Round, soft, nondistended, nontender. Bowel sounds present. EXTREMITIES: The patient has left foot toes with gangrene, all five. Right fifth toe dark, necroti c ulcer. No rash, petechiae noted. The patient's pulses are weak but equal bilaterally, 1+. Left femoral surgical incision site with a dry, clean, and intact dressing. NEUROLOGIC: The patient is awake, alert, and oriented x2. No focal deficits noted. Motor strength 5/5 in all extremities. LABORATORY DATA PRIOR TO ADMISSION: CBC: White blood cells 4.58, hemoglobin 8.5, hematocrit 28.3, platelets 193. Basic metabolic panel: Sodium is 144, potassium 4.1, chloride 109, CO2 is 26, calci um is 9.0, BUN is 18, creatinine 1.17, glucose 130. PT is 11.9, INR is 1.06. Urinalysis is negativ e for ketones, negative for infection, leukocyte esterase 1+, bacteria none seen. IMAGING: Chest x-ray for today with no acute disease, right central line catheter terminates in the SVC. ASSESSMENT AND PLAN: 1. Left iliac arterial inclusion in patient with bilateral peripheral arterial disease status post left iliofemoral endarterectomy and left femoral popliteal bypass angioplasty with stent placement b y Dr. Shepherd on 06/20/2016. Continue to follow up surgical recommendation. Continue patient on heparin and Plavix. Continue morphine p.r.n. for pain and Zofran p.r.n. for nausea. ICU care. 2. Hypertension. We will resume patient's antihypertensive home medication. Continue hydralazine p.r.n. for systolic blood pressure above 170. 3. Left foot cellulitis with gangrene. Dr. Guerrero will be following the patient in podiatry consul tation. 4. Left ovarian cyst. Continue to monitor. 5. Continue Pepcid for peptic ulcer disease prophylaxis. Further recommendations based on clinical course. Plan of care discussed with Dr. Orr. Dictated By: JANIS BAKER FAT PRESSROOM WORKER for MELISSA ORR MD SR/NTS Conf#: [id number] DID#: [id number]
--- NOTE | 2016-06-20 15:29 | RADRPT ---
PROCEDURE: Intraoperative imaging of the left lower extremity with fluoroscopy. CLINICAL INDICATION: Left lower extremity pain. Intraoperative. TECHNIQUE: 30 images of the left lower extremity were obtained in the operating room with an image intensifier. No radiologist was in attendance. 1092.7 seconds of fluoroscopy time was used. COMPARISON: CT angiogram of the lower extremities dated 06/02/2016. FINDINGS: Images demonstrate contrast injection into the left lower extremity arterial system. There is angio plasty of the left iliac system. IMPRESSION: 1. Intraoperative imaging of the left lower extremity. RPTAT: QQ .Leobardo Jacobson MD, Date Time Electronically viewed and signed by .Leobardo Jacobson MD, MD on 06/20/2016 15:29 .R/
--- NOTE | 2016-06-20 18:18 | CONS ---
Date/Time of Note Date/Time of Note DATE: 06/20/16 TIME: 18:15 Assessment/Plan Assessment/Plan Additional Assessment/Plan Peripheral arterial disease with critical limb ischemia status post left iliac endarterectomy and stenting of left SFA Hypertension Dyslipidemia Preserved ejection fraction Normal nuclear cardiac perfusion study 06/05/2016 -Patient has been doing well post operatively. Pressure has been slightly elevated but improving after taking medications and pain management. Continue antiplatelet therapy if no contraindication by our surgery colleagues. Continue statin therapy. Consultation Date/Type/Reason Admit Date/Time Jun 20, 2016 at 05:17 Type of Consultation: cv Reason for Consultation Hypertension and cardiac management Hx of Present Illness This is an 85-year-old female well-known to me from recent previous admission with history of hypertension, peripheral arterial disease who presented for left iliac endarterectomy and angioplasty and stenting of left SFA. Patient underwent the procedure today. She currently denies any chest pain, shortness of breath, dizziness, lightheadedness. She denies any abdominal pain, nausea or vomiting. 12 point review of systems was performed with all pertinent positives and negatives mentioned above and all else is negative Past Medical History Peripheral arterial disease Medical History: high cholesterol, hypertension Past Surgical History Left iliac endarterectomy and left SFA stenting Family History Significant Family History: no pertinent family hx Social History Smoking Status: Former smoker Other Social History From nursing facility Exam/Review of Systems Vital Signs Vitals Vital Signs Date Time Temp Pulse Resp B/P Pulse Ox O2 Delivery O2 Flow Rate FiO2 06/20/16 17:15 63 18 144/54 100 06/20/16 17:00 Nasal Cannula 06/20/16 16:00 97.7 06/20/16 13:30 3.0 Exam No apparent distress Constitutional: alert, frail, oriented Head: normocephalic Neck: supple Respiratory: other (Coarse breath sounds bilaterally, no wheezing) Cardiovascular: other (S1-S2 heard, no murmurs appreciated), regular rate and rhythm Gastrointestinal: bowel sounds, non-tender, other (No guarding), soft Extremities: other (No edema, bandage lower extremity) Results Results 24 hrs Laboratory Tests Test 06/20/16 14:45 Magnesium Level 1.5 L Medications Medications Current Medications Heparin Sodium (Porcine) (Heparin (5000 Units/0.5 ml)) 5,000 unit Q8 SC ; Start 06/20/16 at 14:00 Clopidogrel Bisulfate (plaVIX) 75 mg DAILY PO Last administered on 06/20/16 13 :50; Admin Dose 75 MG; Start 06/20/16 at 12:00 Amlodipine Besylate (Norvasc) 5 mg BID PO Last administered on 06/20/16 13:50 ; Admin Dose 5 MG; Start 06/20/16 at 13:30 Atenolol (Tenormin) 50 mg BID PO Last administered on 06/20/16 13:49; Admin Dose 50 MG; Start 06/20/16 at 13:30 Atorvastatin Calcium (Lipitor) 40 mg QHS PO ; Start 06/20/16 at 21:00 Famotidine (Pepcid) 20 mg DAILY PO Last administered on 06/20/16 13:49; Admin Dose 20 MG; Start 06/20/16 at 13:30 Folic Acid (Folic Acid) 2 mg DAILY PO ; Start 06/21/16 at 09:00 Gabapentin (Neurontin) 100 mg QHS PO ; Start 06/20/16 at 21:00 Gabapentin (Neurontin) 300 mg HS PO ; Start 06/20/16 at 21:00 Acetaminophen/ Hydrocodone Bitart ([place] (5/325)) 1 tab BID PRN PO PAIN LEVEL 1 -5; Start 06/20/16 at 13:30 Acetaminophen/ Hydrocodone Bitart ([place] (5/325)) 2 tab Q12 PRN PO PAIN LEVEL 6 -10; Start 06/20/16 at 13:30 Ondansetron HCl (Zofran Inj) 4 mg Q6H PRN IV NAUSEA AND/OR VOMITING; Start at 13:30 Morphine Sulfate (morphine) 2 mg Q4H PRN IV PAIN LEVEL 7-10 Last administered on 06/20/16 13:49; Admin Dose 2 MG; Start 06/20/16 at 13:44 Lorazepam (Ativan) 1 mg Q2H PRN IV ANXIETY; Start 06/20/16 at 13:30 Docusate Sodium (Colace) 100 mg Q12H PRN PO CONSTIPATION; Start 06/20/16 at 13: 30 Magnesium Hydroxide (Milk Of Mag) 30 ml DAILY PRN PO CONSTIPATION; Start at 13:30 James Berman DO Jun 20, 2016 18:18
[2016-06-20] MEDS: GABAPENTIN 100 MG CAP PO SCH ×2 (21:00→21:12)
[2016-06-20] MEDS: GABAPENTIN 300 MG CAP PO SCH ×2 (21:00→21:12)
[2016-06-20] MEDS: ATORVASTATIN 40 MG TAB PO SCH (21:12)
--- NOTE | 2016-06-20 23:57 | CONS ---
Date/Time of Note Date/Time of Note DATE: 06/20/16 TIME: 23:57 Consultation Date/Type/Reason Admit Date/Time Jun 20, 2016 at 05:17 Past Medical History Medical History: high cholesterol, hypertension Social History Smoking Status: Former smoker Exam/Review of Systems Vital Signs Vitals Vital Signs Date Time Temp Pulse Resp B/P Pulse Ox O2 Delivery O2 Flow Rate FiO2 06/20/16 22:30 62 17 135/50 100 Nasal Cannula 06/20/16 20:43 2.0 06/20/16 20:00 97.8 Results Results 24 hrs Laboratory Tests Test 06/20/16 14:45 Magnesium Level 1.5 L Medications Medications Current Medications Heparin Sodium (Porcine) (Heparin (5000 Units/0.5 ml)) 5,000 unit Q8 SC Last administered on 06/20/16 21:16; Admin Dose 5,000 UNIT; Start 06/20/16 at 14:00 Clopidogrel Bisulfate (plaVIX) 75 mg DAILY PO Last administered on 06/20/16 13 :50; Admin Dose 75 MG; Start 06/20/16 at 12:00 Amlodipine Besylate (Norvasc) 5 mg BID PO Last administered on 06/20/16 21:17 ; Admin Dose 5 MG; Start 06/20/16 at 13:30 Atenolol (Tenormin) 50 mg BID PO Last administered on 06/20/16 21:17; Admin Dose 50 MG; Start 06/20/16 at 13:30 Atorvastatin Calcium (Lipitor) 40 mg QHS PO Last administered on 06/20/16 21: 12; Admin Dose 40 MG; Start 06/20/16 at 21:00 Famotidine (Pepcid) 20 mg DAILY PO Last administered on 06/20/16 13:49; Admin Dose 20 MG; Start 06/20/16 at 13:30 Folic Acid (Folic Acid) 2 mg DAILY PO ; Start 06/21/16 at 09:00 Gabapentin (Neurontin) 100 mg QHS PO Last administered on 06/20/16 21:12; Admin Dose 100 MG; Start 06/20/16 at 21:00 Gabapentin (Neurontin) 300 mg HS PO Last administered on 06/20/16 21:12; Admin Dose 300 MG; Start 06/20/16 at 21:00 Acetaminophen/ Hydrocodone Bitart ([place] (5/325)) 1 tab BID PRN PO PAIN LEVEL 1 -5; Start 06/20/16 at 13:30 Acetaminophen/ Hydrocodone Bitart ([place] (5/325)) 2 tab Q12 PRN PO PAIN LEVEL 6 -10; Start 06/20/16 at 13:30 Ondansetron HCl (Zofran Inj) 4 mg Q6H PRN IV NAUSEA AND/OR VOMITING; Start at 13:30 Morphine Sulfate (morphine) 2 mg Q4H PRN IV PAIN LEVEL 7-10 Last administered on 06/20/16t 13:49; Admin Dose 2 MG; Start 06/20/16 at 13:44 Lorazepam (Ativan) 1 mg Q2H PRN IV ANXIETY; Start 06/20/16 at 13:30 Docusate Sodium (Colace) 100 mg Q12H PRN PO CONSTIPATION; Start 06/20/16 at 13: 30 Magnesium Hydroxide (Milk Of Mag) 30 ml DAILY PRN PO CONSTIPATION; Start at 13:30 Hydralazine HCl (Apresoline) 10 mg Q4H PRN IV ELEVATED SYSTOLIC BP; Start 06/20 at 19:00 RONNELL CORONEL DPM Jun 20, 2016 23:57
[2016-06-21] VITALS (28 sets, daily range): BP systolic 115–174; BP diastolic 41–96; PULSE 54–66; RESP 14–20
[2016-06-21 04:51] LABS: ADD SCAN DIFF NO
[2016-06-21 05:06] LABS: POTASSIUM 4.6 mmol/L (3.5-5.1)
[2016-06-21 05:09] LABS: CALCIUM 8.6 mg/dl (8.4-10.2); CREATININE 0.81 mg/dl (0.44-1.00)
[2016-06-21 05:31] LABS: BASOPHILS % 0.2 % (0.0-2.0); HEMATOCRIT 26.5 % (37.0-47.0); HEMOGLOBIN 8.3 g/dl (12.0-16.0); LYMPHOCYTES # 0.9 10^3/ul (0.8-2.9); LYMPHOCYTES % 14.8 % (15.0-51.0); MEAN CORPUSCULAR HEMOGLOBIN 32.2 pg (29.0-33.0); MEAN CORPUSCULAR HGB CONC 31.3 g/dl (32.0-37.0); MEAN CORPUSCULAR VOLUME 102.7 fl (82.0-101.0); MEAN PLATELET VOLUME 11.4 fl (7.4-10.4); MONOCYTE # 0.5 10^3/ul (0.3-0.9); NEUTROPHIL # 4.5 10^3/ul (1.6-7.5); NEUTROPHILS % 76.8 % (39.0-77.0); PLATELET COUNT 225 10^3/UL (140-415); RED BLOOD COUNT 2.58 10^6/ul (4.20-5.40); RED CELL DISTRIBUTION WIDTH 16.7 % (11.5-14.5); WHITE BLOOD COUNT 5.9 10^3/ul (4.8-10.8)
[2016-06-21] MEDS: HEPARIN 5,000 UNIT/0.5 ML SYG SC SCH ×3 (06:22→21:24)
[2016-06-21] MEDS: HYDROCODONE/APAP (5/325) TAB PO PRN ×3 (06:28→19:40)
--- NOTE | 2016-06-21 08:16 | PN ---
Date/Time of Note Date/Time of Note DATE: 06/21/16 TIME: 08:06 Assessment/Plan Lines/Catheters IV Catheter Type (from Nrs): Central Line Fitzgerald in Place (from Nrs): Yes Assessment/Plan Chief Complaint/Hosp Course -Bilateral lower extremity atherosclerosis with gangrene: S/P Left iliofemoral artery exploration, Left common iliac, External Iliac artery stenting and balloon angioplasty, Left femoral/popliteal artery stenting and balloon angioplasty -D/C Margarette -D/C Fitzgerald -PT/OT OOB FWB to be seen -Continue with neurovascular monitoring for now Q1 hour -Started pt on plavix 75mg po Q daily for 90 days -Optimize vascular status (BP meds, cholesterol, sugar control, diet, nutrition , weight loss, antiplatelets) -Discussed findings, plan and management with the patient and she understands -Thank you for allowing us to partake in the care of your patient, please call with any questions Problems: Subjective 24 Hr Interval Summary no new vascular events overnight, POD #1 Exam/Review of Systems Vital Signs Vitals Vital Signs Date Time Temp Pulse Resp B/P Pulse Ox O2 Delivery O2 Flow Rate FiO2 06/21/16 06:30 63 17 151/58 100 Nasal Cannula 06/21/16 04:04 2.0 06/21/16 04:00 97.8 Intake and Output 06/20/16 06/20/16 06/21/16 15:00 23:00 07:00 Intake Total 2240 ml 200 ml Output Total 590 ml 285 ml 225 ml Balance 1650 ml -85 ml -225 ml Exam Free Text/Dictation A&O x3 CTAB S1S2 present Soft NTND BS+, truncal obesity, large panus RLE: nonpalpable femoral pulse, nonpalpable pedal pulse, motor/sensory intact, cap refill 4 seconds, 5th toe gangrene LLE: palpable femoral pulse, dopplerable biphasic AT/PT signal, motor/sensory intact, cap refill 2-3seconds, gangrene of all the toes Results Result Diagram: 06/21/16 0430 06/21/16 0430 AMY VALDES MD Jun 21, 2016 08:16
--- NOTE | 2016-06-21 08:45 | CONS ---
DATE OF ADMISSION: 06/20/2016 DATE OF CONSULTATION: TYPE OF CONSULTATION: Nephrology. PHYSICIAN REQUESTING CONSULT: Dr. Shepherd REASON FOR CONSULTATION: Fluid management. HISTORY OF PRESENT ILLNESS: This is an 85-year-old female with a past medical history of hypertensi on, a history of peripheral vascular disease, a history of coronary artery disease, a history of dys lipidemia, who was brought into [facility] for evaluation of left lower extremity gangrene. The patient was seen by surgeon, Dr. Shepherd, and underwent cardiac clearance per Dr. Harinder stewart. The patient then underwent surgical left iliofemoral endarterectomy and left femoral poplite al bypass angioplasty with stent placement. The patient postoperatively was taken to the intensive care unit for evaluation and monitoring. Overnight the patient has been clinically stable. The sharifa n has been present, but controlled. There have been no reports of hemoptysis, hemetemesis or hemato chezia. In terms of the patient's renal history, the patient has no prior history of chronic kidney disease, or a prior history of acute kidney injury. The patient's baseline creatinine is 0.81 mg/dL at this time. The patient did receive contrast during her surgery and the patient did have significant ath erosclerotic disease. The patient received over 2 liters of intraoperative IV fluids. The patient' s urinary output in the last 12 hours has been about 30 mL per hour. There have been no reports of any dysuria, hematuria or any frothy urine. PAST MEDICAL HISTORY: As stated above, a history of hypertension, a history of coronary artery dise ase, a history of peripheral vascular disease, a history of dyslipidemia, a history of neuropathy. PAST SURGICAL HISTORY: Cataract surgery in the past. FAMILY HISTORY: Noncontributory. MEDICATIONS: The patient's medications have been reviewed. ALLERGIES: NONE. SOCIAL HISTORY: No alcohol or drug use. REVIEW OF SYSTEMS: A 14-point review of systems was conducted. Pertinent positives as stated in th e HPI, otherwise negative. PHYSICAL EXAMINATION: VITAL SIGNS: Blood pressure is 151/58, respirations 17, pulse 63, temperature 98.6. HEENT: Head is normocephalic. Pupils are reactive to light. NECK: Supple. HEART: Regular rate. LUNGS: Showed diminished breath sounds at the base. ABDOMEN: Soft, nontender to palpation. No rebound or guarding. EXTREMITIES: Negative for clubbing, cyanosis or edema on the right leg. Left lower extremity has a dressing, clean, dry and intact. NEUROLOGIC: No focal deficits. MUSCULOSKELETAL: Have no joint effusions. LABORATORY DATA: This morning shows a BMP within normal limits. Magnesium 1.5. White count 5.9, h emoglobin 8.3, hematocrit 26.5, platelet count of 225. The patient's chest x-ray was reviewed. No acute disease. ASSESSMENT AND PLAN: This is an 85-year-old female who presents with: 1. Possible oliguria. The patient's urine output was described at around 30 mL an hour. The patie nt did receive contrast and is status post femoral bypass surgery. At this point the patient has ap propriate renal function. Would continue the current treatment plan, continue to encourage oral int merna. The patient is status post IV fluids. Will check a UA with microanalysis and will monitor for any signs of possible contrast-associated nephropathy. Will monitor closely. 2. Severe peripheral vascular disease. The patient is status post left arterial femoral bypass wit h stent placement. The patient is currently clinically stable. Will continue the current treatment plan, supportive care, continue pain control, continue antibiotic therapy. 3. Hypomagnesemia. Replete with magnesium sulfate, 2 grams IV x1 4. Hypertension. Blood pressure is currently controlled. Continue the current blood pressure julito men. 5. Dyslipidemia. Continue statin therapy. 6. Anemia. Will continue to monitor H and H levels. 7. Left lower extremity foot cellulitis, gangrene, limb ischemia. The patient is status post femor al arterial bypass, as stated above. Will continue to monitor. Follow up with podiatry. 8. Volume management. The patient appears euvolemic at this time. Will continue to encourage p.o. intake. Thank you, Dr. Shepherd, for this interesting consult. It will be a pleasure to follow the patient with you throughout the hospital course. Dictated By: JOB MARINO/ADEN Conf#: [id number] DID#: [id number]
[2016-06-21] MEDS ORDERED: CLOPIDOGREL 75 MG TAB PO SCH (09:00)
[2016-06-21] MEDS: ATENOLOL 50 MG TAB PO SCH ×2 (09:32→21:00)
[2016-06-21] MEDS: CLOPIDOGREL 75 MG TAB PO SCH (09:32)
[2016-06-21] MEDS: FOLIC ACID 1 MG TAB PO SCH (09:32)
[2016-06-21] MEDS: FAMOTIDINE 20 MG TAB PO SCH (09:32)
[2016-06-21] MEDS: AMLODIPINE 5 MG TAB PO SCH ×2 (09:33→21:15)
[2016-06-21] MEDS: CEFAZOLIN 2 GM/50 ML (PMX) 50 ML IVPB SCH ×3 (09:33→21:16)
--- NOTE | 2016-06-21 09:54 | PN ---
Date/Time of Note Date/Time of Note DATE: 06/21/16 TIME: 09:51 Assessment/Plan VTE Prophylaxis VTE Prophylaxis Intervention: heparin Lines/Catheters IV Catheter Type (from Nrsg): Central Line Central line still needed: Yes Urinary Cath still in place: Yes Reason Cath still needed: urinary retention Assessment/Plan Assessment/Plan 1. Left iliac arterial inclusion in patient with bilateral peripheral arterial disease status post left iliofemoral endarterectomy and left femoral popliteal bypass angioplasty with stent placement by Dr. Shepherd on 06/20/2016. - Continue to follow up surgical recommendation. ICU care. - Continue patient on heparin and Plavix. - morphine p.r.n. for pain and Zofran p.r.n. for nausea. 2. Hypertension. We will resume patient's antihypertensive home medication. Continue hydralazine p.r.n. for systolic blood pressure above 170. 3. Left foot cellulitis with gangrene. - per Dr. Guerrero will be following the patient in podiatry consultation. 4. Left ovarian cyst. Continue to monitor. 5. Continue Pepcid for peptic ulcer disease prophylaxis. Further recommendations based on clinical course. Plan of care discussed with Dr. Stephens. Subjective 24 Hr Interval Summary Free Text/Dictation NAD, seems comfortable, per vascular- patient will be downgraded after PT evaluates her. dw staff. Constitutional: improved Eyes: no complaints ENT: no complaints Respiratory: no complaints Cardiovascular: no complaints Gastrointestinal: no complaints Genitourinary: no complaints Musculoskeletal: bone/joint pain Skin: other Neurologic: no complaints Psychological: no complaints Exam/Review of Systems Vital Signs Vitals Vital Signs Date Time Temp Pulse Resp B/P Pulse Ox O2 Delivery O2 Flow Rate FiO2 06/21/16 08:00 60 06/21/16 06:30 17 151/58 100 Nasal Cannula 06/21/16 04:04 2.0 06/21/16 04:00 97.8 Intake and Output 06/20/16 06/20/16 06/21/16 15:00 23:00 07:00 Intake Total 2240 ml 200 ml Output Total 590 ml 285 ml 225 ml Balance 1650 ml -85 ml -225 ml Exam Constitutional: alert, oriented, well developed Psych: no complaints Head: atraumatic Eyes: EOMI, PERRL, nl sclera ENMT: nl external ears & nose Neck: non-tender Respiratory: clear to auscultation Cardiovascular: nl pulses Gastrointestinal: non-tender, soft Musculoskeletal: other Extremities: normal pulses Neurological: nl mental status, nl speech Lymph: nontender Results Result Diagram: 06/21/16 0430 06/21/16 0430 Results 24 hrs Laboratory Tests Test 06/20/16 14:45 06/21/16 04:30 Magnesium Level 1.5 L Anion Gap 13 Basophils # 0.0 Basophils % 0.2 Blood Urea Nitrogen 17 Calcium Level 8.6 Carbon Dioxide Level 28 Chloride Level 105 Creatinine 0.81 Eosinophils # 0.0 Eosinophils % 0.0 Glucose Level 137 Hematocrit 26.5 L Hemoglobin 8.3 L Lymphocytes # 0.9 Lymphocytes % 14.8 L Mean Corpuscular Hemoglobin 32.2 Mean Corpuscular Hemoglobin Concent 31.3 L Mean Corpuscular Volume 102.7 H Mean Platelet Volume 11.4 H Monocytes # 0.5 Monocytes % 8.0 Neutrophils # 4.5 Neutrophils % 76.8 Nucleated Red Blood Cells # 0.0 Nucleated Red Blood Cells % 0.0 Platelet Count 225 # Potassium Level 4.6 Red Blood Count 2.58 L Red Cell Distribution Width 16.7 H Sodium Level 141 White Blood Count 5.9 Medications Medications Current Medications Heparin Sodium (Porcine) (Heparin (5000 Units/0.5 ml)) 5,000 unit Q8 SC Last administered on 06/21/16 06:22; Admin Dose 5,000 UNIT; Start 06/20/16 at 14:00 Clopidogrel Bisulfate (plaVIX) 75 mg DAILY PO Last administered on 06/21/16 09 :32; Admin Dose 75 MG; Start 06/20/16 at 12:00 Amlodipine Besylate (Norvasc) 5 mg BID PO Last administered on 06/21/16 09:33 ; Admin Dose 5 MG; Start 06/20/16 at 13:30 Atenolol (Tenormin) 50 mg BID PO Last administered on 06/21/16 09:32; Admin Dose 50 MG; Start 06/20/16 at 13:30 Atorvastatin Calcium (Lipitor) 40 mg QHS PO Last administered on 06/20/16 21: 12; Admin Dose 40 MG; Start 06/20/16 at 21:00 Famotidine (Pepcid) 20 mg DAILY PO Last administered on 06/21/16 09:32; Admin Dose 20 MG; Start 06/20/16 at 13:30 Folic Acid (Folic Acid) 2 mg DAILY PO Last administered on 06/21/16 09:32; Admin Dose 2 MG; Start 06/21/16 at 09:00 Gabapentin (Neurontin) 100 mg QHS PO ; Start 06/20/16 at 21:00 Gabapentin (Neurontin) 300 mg HS PO ; Start 06/20/16 at 21:00 Acetaminophen/ Hydrocodone Bitart ([place] (5/325)) 1 tab BID PRN PO PAIN LEVEL 1 -5 Last administered on 06/21/16 06:28; Admin Dose 1 TAB; Start 06/20/16 at 13: 30 Acetaminophen/ Hydrocodone Bitart ([place] (5/325)) 2 tab Q12 PRN PO PAIN LEVEL 6 -10; Start 06/20/16 at 13:30 Ondansetron HCl (Zofran Inj) 4 mg Q6H PRN IV NAUSEA AND/OR VOMITING; Start at 13:30 Morphine Sulfate (morphine) 2 mg Q4H PRN IV PAIN LEVEL 7-10 Last administered on 06/20/16 13:49; Admin Dose 2 MG; Start 06/20/16 at 13:44 Lorazepam (Ativan) 1 mg Q2H PRN IV ANXIETY; Start 06/20/16 at 13:30 Docusate Sodium (Colace) 100 mg Q12H PRN PO CONSTIPATION; Start 06/20/16 at 13: 30 Magnesium Hydroxide (Milk Of Mag) 30 ml DAILY PRN PO CONSTIPATION; Start at 13:30 Hydralazine HCl 10 mg 10 mg Q4H PRN IV ELEVATED SYSTOLIC BP; Start 06/20/16 at 19:00 Cefazolin Sodium/ Dextrose (Ancef 2 Gm/50 ml (Pmx)) 50 ml @ 100 mls/hr Q8 IVPB Last administered on 06/21/16 09:33; Admin Dose 100 MLS/HR; Start 06/21/16 at 09:00 NILESH CAVANAUGH Jun 21, 2016 09:54
--- NOTE | 2016-06-21 09:55 | OPR ---
DATE OF OPERATION: 06/20/2016 SURGEON: Candido Shepherd MD FLUOROSCOPY RICHTER: Avi Hurt MD PREOPERATIVE DIAGNOSIS: Left lower extremity gangrene and rest pain. POSTOPERATIVE DIAGNOSIS: Left lower extremity gangrene and rest pain. OPERATIONS PERFORMED: 1. Difficult exploration of the left common iliofemoral artery involving the external iliac artery, common femoral artery, profunda femoral artery, and superficial femoral artery. 2. Aortoiliac angiogram. 3. Left lower extremity angiogram. 4. Left common iliac, left external iliac artery stenting with Innova stent 8 mm x 120 cm. 4. Left common iliac artery, external iliac artery balloon angioplasty using 8 mm x 100 cm balloon. 5. Left femoral and popliteal artery stenting with Innova stent 6 mm x 200 cm. 6. Left femoral popliteal balloon angioplasty using a 6 mm x 220 cm balloon. 7. Completion angiogram. ANESTHESIA: General endotracheal intubation. COMPLICATIONS: None. ESTIMATED BLOOD LOSS: 200 mL. TRANSFUSIONS: None. SPECIMEN: None. INDICATIONS: This is an 85-year-old female who presented with bilateral lower extremity gangrene an d left lower extremity worsening rest pain. The patient had undergone noninvasive vascular studies that identified the patient having severe iliofemoral disease and infrainguinal disease. Upon angio gram, lower extremity endovascular intervention was attempted; however, it was unsuccessful. Theref ore, the decision was made to attempt a hybrid procedure with the intention of possible revasculariz ation. Therefore, the risk and benefits of the procedure were discussed with the patient and not li mited to , [place], pneumonia, stroke, infection, thrombosis of artery, multiple revisions, nerve in jury, limb loss, possible revascularization, bleeding, and patient elected to undergo surgical inter vention. DESCRIPTION OF PROCEDURE: The patient was brought into the operating room table and placed in supin e position. Arms were placed and 80 degrees and normal bony prominences were padded. Anesthesia te am had placed appropriate lines, and general anesthesia was induced. The patient tolerated that wel l. Time out was performed, appropriate site was marked and confirmed. The left lower quadrant and the left lower extremity were prepped and draped in the usual standard sterile fashion. At this poi nt, a vertical incision was then made over the left common femoral artery. The fascia and the lymph atic tissues were dissected. This aspect of the dissection was challenging as the patient was sever fatemeh obese, in that area and had a large pannus. Further, the patient had some component of inguinal hernia which careful attention was made to maintain the integrity of the inguinal ligament. Using a Cardenas's arm, we were able to elevate the retroperitoneum and expose the distal external iliac art [place], mid external iliac artery, and proximal external iliac artery. Further, we were able to expose the common femoral artery, the proximal superficial femoral artery, and proximal profunda femoral a rteries. It was identified that the patient has significant calcification and decreased pulse at th e proximal common femoral artery and the distal external iliac artery that extended all the way to h er common iliac artery. At this point, it was decided to perform a hybrid procedure. Therefore, ex tensive dissection was involved in order to be able to carefully not injure the medial and lateral a spects of the common femoral artery to preserve all the branches and knowing that proximal small con trol was going to be an issue in terms of clamping secondary to the severe calcification, performing a hybrid procedure seemed to be the best option. At this point, the patient was given 5000 units o f heparin intravenously. Using a micro access needle in the noncalcified disease aspect of the comm on femoral artery, the artery was punctured. The wire was then advanced into the iliac artery under fluoroscopic guidance. This aspect was a little bit challenging as the wire was unable to pass a s ignificant calcification in distal most aspect of the external iliac artery. The needle was then re moved and the microcatheter was placed. Using a Glidewire, we were able to pass the wire into the i nfrarenal aorta under fluoroscopic guidance followed by a 6-[place]e sheath over the wire. She was us ed also across that heavy calcification in the distal external iliac artery, and it was appropriatel y flushed with heparinized saline solution. At this point, using an Omni flush marker catheter, we were able to pass it into the infrarenal aorta near the iliac bifurcation, and aortoiliac angiogram was performed. Findings noted above. At this point, the Glidewire was then removed and a Rise Artson w valorie was placed into the Omniflush catheter. At this point, the Omniflush catheter was removed, and we went ahead and incised the iliac artery and we decided to place an Innova stent measuring 8 mm x 120 cm. At this point, the stent was deployed successfully and followed with a balloon angioplasty. We went ahead and performed the angioplasty in this segment of the left distal common iliac artery and the entire length of the external iliac artery. Post-intervention angiogram identified adequat e inflow as the flow became more pulsatile on palpation as we had common femoral artery exposure. F urther angiogram demonstrated that there is no concern for dissection or any ruptures. The patient was stable throughout this aspect. Once this was completed, all wires, catheters needles were remov ed and a new antegrade access was then obtained using a micro access needle. The wire was then adva nced into the proximal superficial femoral artery and a microcatheter was placed. At this point, a Glidewire was then passed into the below-knee popliteal artery and this was followed by 6 short Fren ch sheath over the wire. Sheath was appropriately flushed with heparinized saline solution again. At this point, using a guiding catheter, We were able to place the Stat wire into the below-knee popliteal artery. At this point, using an Innova 6 mm x 200 cm stent, we were able to perform stent ing of the fem-pop segment. We used 2 stents along the entire length of the superficial femoral art dakota and popliteal artery. Once this was performed, we went ahead and performed balloon angioplasty of this segment with a completion angiogram that demonstrated no flow-limiting or dissection or rupt ures. At this point, the patient had adequate inflow and outflow into the below-knee popliteal efrain ry. There was brisk flow all the way down to the ankle. The patient had adequate Dopplerable signa ls, and at this point it was determined not to do any further interventions. Patient tolerated this aspect of the procedure well and using a 3 Prolene suture, we went ahead and closed the deep fascia and superficial fascia. Attention was paid to her inguinal hernia as it was untouched and careful attention was made for the wound closure. Using 3-0 Vicryl sutures, superficial subcutaneous tissue was closed in interrupted fashion. Using skin adilia, the skin was closed. Sterile dressing was applied. All instrument, sponge, needle counts, and catheters were correct x2. The patient was biju en to postanesthesia care unit in stable condition. FINDINGS: 1. Severe left common iliac artery with a significant calcification and patent. 2. Left external iliac artery with severe calcification and moderate to severe stenosis. 3. Left internal iliac artery with severe calcification and moderate to severe stenosis. 4. Left common femoral artery with proximal aspect having severe calcification and patent. 5. Left superficial femoral artery with moderate to severe disease. 6. Left profunda femoral artery with moderate to severe disease. 7. Left above-knee popliteal artery with moderate disease. 8. Left at-knee popliteal artery patent. 9. Left below knee popliteal artery patent. 10. Left anterior tibial artery patent. 11. Left tibioperoneal trunk patent. 12. Left perineal artery patent. 13. Left posterior tibial artery patent. Dictated By: CANDIDO BARRERA/ADEN Conf#: [id number] DID#: [id number]
[2016-06-21 11:57] LABS: ADD UMIC YES; URINE BILIRUBIN (Dip) NEGATIVE (NEGATIVE); URINE BLOOD (Dip) TRACE (NEGATIVE); URINE COLOR LT. YELLOW (YELLOW); URINE GLUCOSE (Dip) NEGATIVE (NEGATIVE); URINE KETONES (Dip) NEGATIVE (NEGATIVE); URINE LEUKOCYTE ESTERASE (Dip) TRACE (NEGATIVE); URINE NITRITE (Dip) NEGATIVE (NEGATIVE); URINE TOTAL PROTEIN (Dip) TRACE (NEGATIVE); URINE UROBILINOGEN (Dip) 0.2 E.U./dL (0.1-1.0)
[2016-06-21 12:16] LABS: PROTEIN URINE 33.1 mg/dl (0.0-9.9)
[2016-06-21 13:09] LABS: BACTERIA,URINE FEW; URINE RBCS 0-2 /HPF (0)
--- NOTE | 2016-06-21 14:31 | PN ---
DATE: 06/21/2016 INFECTIOUS DISEASE PROGRESS NOTE SUBJECTIVE: The patient is lying comfortably in bed. She is alert, feels good, looks comfortable. Denies pain. Temperature 98.4, pulse 62, respirations 16, blood pressure 125/58, saturations 95% o n room air. WBC 5.9, platelets 225. No shift, no bands. BUN 17, creatinine 0.81. MICROBIOLOGY: Urine culture had been negative. DIAGNOSTICS: Chest x-ray yesterday revealed no acute disease. INDWELLINGS: The patient has a right IJ triple-lumen catheter. ANTIMICROBIALS: She is on Ancef. PHYSICAL EXAMINATION: GENERAL: This is a fragile, well-developed, elderly woman, who is alert, in no distress. HEENT: Head atraumatic, normocephalic. Sclerae are anicteric. Buccal mucosa dry. NECK: Supple, trachea midline. CHEST: Chest rise is symmetrical. Breath sounds clear. HEART: S1, S2. ABDOMEN: Soft, bowel tones present. EXTREMITIES: With left foot dressing intact. ASSESSMENT: 1. Severe peripheral vascular disease, status post left arterial femoral bypass with stent placemen t. 2. Left foot gangrene. 3. Anemia. 4. Hypertension. 5. Renal insufficiency and electrolyte imbalance. PLAN: We are going to add doxycycline to the regimen. Will continue her on Ancef for now. Follow up podiatry and vascular recommendations. We will try to obtain wound culture if there is any draina ge. Dictated By: VEGA PALMA MARINE PIPEFITTER for JEROME KNOX/ADEN Conf#: [id number] DID#: [id number]
[2016-06-21] MEDS: DOXYCYCLINE 100 MG TAB PO SCH ×2 (16:17→23:24)
--- NOTE | 2016-06-21 16:31 | CONS ---
Date/Time of Note Date/Time of Note DATE: 06/21/16 TIME: 16:27 Assessment/Plan Assessment/Plan Additional Assessment/Plan Peripheral arterial disease with critical limb ischemia status post left iliac endarterectomy and stenting of left SFA Hypertension Dyslipidemia Preserved ejection fraction Normal nuclear cardiac perfusion study 06/05/2016 -Patient doing well post surgery. Undergoing physical therapy. Blood pressure mildly elevated, would follow trend and if needed blood pressure medications would be adjusted. Consultation Date/Type/Reason Admit Date/Time Jun 20, 2016 at 05:17 Initial Consult Date Type of Consultation: cv 24 HR Interval Summary Free Text/Dictation Patient denies shortness of breath, chest pain or dizziness Exam/Review of Systems Vital Signs Vitals Vital Signs Date Time Temp Pulse Resp B/P Pulse Ox O2 Delivery O2 Flow Rate FiO2 06/21/16 15:51 98.6 62 20 174/75 92 06/21/16 15:00 Room Air 06/21/16 07:00 2.0 Intake and Output 06/20/16 06/20/16 06/21/16 15:00 23:00 07:00 Intake Total 2240 ml 200 ml Output Total 590 ml 285 ml 225 ml Balance 1650 ml -85 ml -225 ml Exam Undergoing physical therapy, no apparent distress Constitutional: alert, oriented Head: normocephalic Neck: supple Respiratory: other (Coarse breath sounds bilaterally, no wheezing) Cardiovascular: other (S1-S2 heard), regular rate and rhythm Gastrointestinal: bowel sounds, non-tender, other (No guarding), soft Extremities: other (Bandages lower extremities, trace edema) Results Result Diagram: 06/21/16 0430 06/21/16 0430 Results 24 hrs Laboratory Tests Test 06/21/16 04:30 06/21/16 08:05 Anion Gap 13 Basophils # 0.0 Basophils % 0.2 Blood Urea Nitrogen 17 Calcium Level 8.6 Carbon Dioxide Level 28 Chloride Level 105 Creatinine 0.81 Eosinophils # 0.0 Eosinophils % 0.0 Glucose Level 137 Hematocrit 26.5 L Hemoglobin 8.3 L Lymphocytes # 0.9 Lymphocytes % 14.8 L Magnesium Level 1.6 L Mean Corpuscular Hemoglobin 32.2 Mean Corpuscular Hemoglobin Concent 31.3 L Mean Corpuscular Volume 102.7 H Mean Platelet Volume 11.4 H Monocytes # 0.5 Monocytes % 8.0 Neutrophils # 4.5 Neutrophils % 76.8 Nucleated Red Blood Cells # 0.0 Nucleated Red Blood Cells % 0.0 Platelet Count 225 # Potassium Level 4.6 Red Blood Count 2.58 L Red Cell Distribution Width 16.7 H Sodium Level 141 White Blood Count 5.9 Urine Bacteria FEW Urine Bilirubin NEGATIVE Urine Clarity CLEAR Urine Color LT. YELLOW Urine Epithelial Cells FEW Urine Glucose NEGATIVE Urine Hemoglobin TRACE Urine Ketones NEGATIVE Urine Leukocyte Esterase TRACE H Urine Microscopic RBC 0-2 Urine Microscopic WBC 0-2 Urine Nitrite NEGATIVE Urine Random Creatinine 132.99 Urine Random Sodium 91 H Urine Specific [place] 1.025 Urine Total Protein 33.1 H Urine Urobilinogen 0.2 E.U./dL Urine pH 5.5 Medications Medications Current Medications Heparin Sodium (Porcine) (Heparin (5000 Units/0.5 ml)) 5,000 unit Q8 SC Last administered on 06/21/16 13:31; Admin Dose 5,000 UNIT; Start 06/20/16 at 14:00 Clopidogrel Bisulfate (plaVIX) 75 mg DAILY PO Last administered on 06/21/16 09 :32; Admin Dose 75 MG; Start 06/20/16 at 12:00 Amlodipine Besylate (Norvasc) 5 mg BID PO Last administered on 06/21/16 09:33 ; Admin Dose 5 MG; Start 06/20/16 at 13:30 Atenolol (Tenormin) 50 mg BID PO Last administered on 06/21/16 09:32; Admin Dose 50 MG; Start 06/20/16 at 13:30 Atorvastatin Calcium (Lipitor) 40 mg QHS PO Last administered on 06/20/16 21: 12; Admin Dose 40 MG; Start 06/20/16 at 21:00 Famotidine (Pepcid) 20 mg DAILY PO Last administered on 06/21/16 09:32; Admin Dose 20 MG; Start 06/20/16 at 13:30 Folic Acid (Folic Acid) 2 mg DAILY PO Last administered on 06/21/16 09:32; Admin Dose 2 MG; Start 06/21/16 at 09:00 Gabapentin (Neurontin) 100 mg QHS PO ; Start 06/20/16 at 21:00 Gabapentin (Neurontin) 300 mg HS PO ; Start 06/20/16 at 21:00 Acetaminophen/ Hydrocodone Bitart ([place] (5/325)) 1 tab BID PRN PO PAIN LEVEL 1 -5 Last administered on 06/21/16 14:24; Admin Dose 1 TAB; Start 06/20/16 at 13: 30 Acetaminophen/ Hydrocodone Bitart ([place] (5/325)) 2 tab Q12 PRN PO PAIN LEVEL 6 -10; Start 06/20/16 at 13:30 Ondansetron HCl (Zofran Inj) 4 mg Q6H PRN IV NAUSEA AND/OR VOMITING; Start at 13:30 Morphine Sulfate (morphine) 2 mg Q4H PRN IV PAIN LEVEL 7-10 Last administered on 06/20/16 13:49; Admin Dose 2 MG; Start 06/20/16 at 13:44 Lorazepam (Ativan) 1 mg Q2H PRN IV ANXIETY; Start 06/20/16 at 13:30 Docusate Sodium (Colace) 100 mg Q12H PRN PO CONSTIPATION; Start 06/20/16 at 13: 30 Magnesium Hydroxide (Milk Of Mag) 30 ml DAILY PRN PO CONSTIPATION; Start at 13:30 Hydralazine HCl 10 mg 10 mg Q4H PRN IV ELEVATED SYSTOLIC BP; Start 06/20/16 at 19:00 Cefazolin Sodium/ Dextrose (Ancef 2 Gm/50 ml (Pmx)) 50 ml @ 100 mls/hr Q8 IVPB Last administered on 06/21/16 14:03; Admin Dose 100 MLS/HR; Start 06/21/16 at 09:00 Doxycycline Hyclate (Vibramycin) 100 mg BID PO Last administered on 06/21/16 16:17; Admin Dose 100 MG; Start 06/21/16 at 15:30 James Berman DO Jun 21, 2016 16:31
[2016-06-21] MEDS ORDERED: MAGNESIUM SULFATE 3 GM in SOD CHLORIDE 0.9% 100 ML IVPB ONE (17:00)
[2016-06-21] MEDS: ATORVASTATIN 40 MG TAB PO SCH (21:15)
[2016-06-21] MEDS: GABAPENTIN 100 MG CAP PO SCH (21:24)
[2016-06-21] MEDS: GABAPENTIN 300 MG CAP PO SCH (21:24)
[2016-06-22 05:25] LABS: ADD SCAN DIFF NO
[2016-06-22 05:43] LABS: BASOPHILS % 0.6 % (0.0-2.0); EOSINOPHILS # 0.1 10^3/ul (0.0-0.5); EOSINOPHILS % 1.7 % (0.0-7.0); HEMATOCRIT 27.3 % (37.0-47.0); HEMOGLOBIN 8.3 g/dl (12.0-16.0); LYMPHOCYTES # 2.1 10^3/ul (0.8-2.9); LYMPHOCYTES % 28.8 % (15.0-51.0); MEAN CORPUSCULAR HEMOGLOBIN 31.8 pg (29.0-33.0); MEAN CORPUSCULAR HGB CONC 30.4 g/dl (32.0-37.0); MEAN CORPUSCULAR VOLUME 104.6 fl (82.0-101.0); MEAN PLATELET VOLUME 11.1 fl (7.4-10.4); MONOCYTE # 0.7 10^3/ul (0.3-0.9); MONOCYTES % 10.1 % (0.0-11.0); NEUTROPHIL # 4.2 10^3/ul (1.6-7.5); NEUTROPHILS % 58.5 % (39.0-77.0); PLATELET COUNT 212 10^3/UL (140-415); RED BLOOD COUNT 2.61 10^6/ul (4.20-5.40); RED CELL DISTRIBUTION WIDTH 17.3 % (11.5-14.5); WHITE BLOOD COUNT 7.2 10^3/ul (4.8-10.8)
[2016-06-22] MEDS: CEFAZOLIN 2 GM/50 ML (PMX) 50 ML IVPB SCH ×2 (05:58→14:54)
[2016-06-22 05:59] LABS: POTASSIUM 3.9 mmol/L (3.5-5.1)
[2016-06-22 06:02] LABS: CREATININE 0.87 mg/dl (0.44-1.00); PHOSPHORUS 3.4 mg/dl (2.5-4.9)
[2016-06-22 06:03] LABS: CALCIUM 8.8 mg/dl (8.4-10.2); MAGNESIUM 2.4 mg/dl (1.7-2.5)
[2016-06-22] MEDS: HEPARIN 5,000 UNIT/0.5 ML SYG SC SCH ×3 (06:05→21:34)
[2016-06-22 07:50] VITALS: BP 159/70; RESP 18
[2016-06-22] MEDS: FAMOTIDINE 20 MG TAB PO SCH (08:44)
[2016-06-22] MEDS: DOXYCYCLINE 100 MG TAB PO SCH ×2 (08:44→21:30)
[2016-06-22] MEDS: FOLIC ACID 1 MG TAB PO SCH (08:44)
[2016-06-22] MEDS: ATENOLOL 50 MG TAB PO SCH ×2 (08:45→21:31)
[2016-06-22] MEDS: CLOPIDOGREL 75 MG TAB PO SCH (08:45)
[2016-06-22] MEDS: AMLODIPINE 5 MG TAB PO SCH ×2 (08:45→21:32)
[2016-06-22 08:46] VITALS: BP 157/65; PULSE 61
--- NOTE | 2016-06-22 09:41 | PN ---
DATE: 06/21/2016 SUBJECTIVE: The patient is stable, was transferred from intensive care unit to medical/surgical. N o other acute events overnight. OBJECTIVE: VITAL SIGNS: Blood pressure 157/65, respirations 18, pulse 63, temperature 98.7. I's and O's: The patient had 400 in with 700 mL out. HEENT: Head is normocephalic. NECK: Supple. HEART: Regular rate. LUNGS: Show diminished breath sounds at the bases. ABDOMEN: Soft, nontender to palpation. No rebound or guarding. EXTREMITIES: Negative for clubbing, cyanosis. No edema in the right leg. Left lower extremity has dressing clean, dry, intact. NEUROLOGIC: No change in exam. MEDICATIONS: The patient's medications have been reviewed. LABORATORY DATA: Shows a urinalysis is bland. Protein-creatinine ratio approximately 200 mg per gr am of creatinine. BMP within normal limits. White count 7.2, hemoglobin 8.2, hematocrit 27.3, plat elet count 212. ASSESSMENT AND PLAN: 1. Oliguria, resolved. The patient's urinary output has significantly improved. Renal function re mahin stable. There is no evidence of contrast-associated nephropathy at this time. We will contin ue to monitor, supportive care, renally dose all meds. 2. Severe peripheral vascular disease, status post left arterial femoral bypass with stent placemen t. Continue to monitor. Continue medical management. Follow up with vascular surgery. 3. Hypomagnesemia. Continue to monitor and replete. 4. Hypertension. Continue current blood pressure regimen. 5. Dyslipidemia. Continue statin therapy. 6. Left lower extremity cellulitis, gangrene. The patient is status post bypass. Continue current antibiotic regimen. Dictated By: JOB MARINO/ADEN Conf#: [id number] DID#: [id number]
--- NOTE | 2016-06-22 10:56 | PN ---
Date/Time of Note Date/Time of Note DATE: 06/22/16 TIME: 10:53 Assessment/Plan Lines/Catheters IV Catheter Type (from Nrsg): Central Line Fitzgerald in Place (from Nrsg): No Assessment/Plan Chief Complaint/Hosp Course -Bilateral lower extremity atherosclerosis with gangrene: S/P Left iliofemoral artery exploration, Left common iliac, External Iliac artery stenting and balloon angioplasty, Left femoral/popliteal artery stenting and balloon angioplasty -PT/OT OOB FWB as tolerated -Continue with neurovascular monitoring Q4 -Started pt on plavix 75mg po Q daily for 90 days -Initiate D/C planning with antibiotics and Plavix -Patient cleared from vascular standpoint for discharge -Optimize vascular status (BP meds, cholesterol, sugar control, diet, nutrition , weight loss, antiplatelets) -Discussed findings, plan and management with the patient and she understands -Thank you for allowing us to partake in the care of your patient, please call with any questions Problems: Subjective 24 Hr Interval Summary no new vascular events overnight, pt reports rest pain has resolved, OOB with PT /OT Exam/Review of Systems Vital Signs Vitals Vital Signs Date Time Temp Pulse Resp B/P Pulse Ox O2 Delivery O2 Flow Rate FiO2 06/22/16 08:46 61 157/65 06/22/16 07:50 98.7 18 92 06/21/16 15:00 Room Air 06/21/16 07:00 2.0 Intake and Output 06/21/16 06/21/16 06/22/16 14:59 22:59 06:59 Intake Total 206.0 ml 200 ml Output Total 75 ml 700 ml Balance -75 ml 206.0 ml -500 ml Exam Free Text/Dictation A&O x3 CTAB S1S2 present Soft NTND BS+, truncal obesity, large panus RLE: nonpalpable femoral pulse, nonpalpable pedal pulse, motor/sensory intact, cap refill 4 seconds, 5th toe gangrene LLE: palpable femoral pulse, dopplerable biphasic AT/PT signal, motor/sensory intact, cap refill 2-3seconds, more dry gangrene of all the toes Results Result Diagram: 06/22/16 0500 06/22/16 0500 AMY VALDES MD Jun 22, 2016 10:56
--- NOTE | 2016-06-22 12:11 | CONS ---
Date/Time of Note Date/Time of Note DATE: 06/22/16 TIME: 12:10 Assessment/Plan Assessment/Plan Additional Assessment/Plan Peripheral arterial disease with critical limb ischemia status post left iliac endarterectomy and stenting of left SFA Hypertension Dyslipidemia Preserved ejection fraction Normal nuclear cardiac perfusion study 06/05/2016 -Blood pressure on the higher end, patient complaining of intermittent pain. If remains elevated, may need to increase antihypertensive medication regimen. Consultation Date/Type/Reason Admit Date/Time Jun 20, 2016 at 05:17 Type of Consultation: cv 24 HR Interval Summary Free Text/Dictation Denies shortness of breath, chest pain or palpitations Exam/Review of Systems Vital Signs Vitals Vital Signs Date Time Temp Pulse Resp B/P Pulse Ox O2 Delivery O2 Flow Rate FiO2 06/22/16 08:46 61 157/65 06/22/16 07:50 98.7 18 92 06/21/16 15:00 Room Air 06/21/16 07:00 2.0 Intake and Output 06/21/16 06/21/16 06/22/16 15:00 23:00 07:00 Intake Total 206.0 ml 200 ml Output Total 75 ml 700 ml Balance -75 ml 206.0 ml -500 ml Exam No apparent distress Constitutional: alert, oriented Head: normocephalic Neck: supple Respiratory: other (Coarse breath sounds bilaterally, no wheezing) Cardiovascular: other (S1-S2), regular rate and rhythm Gastrointestinal: bowel sounds, non-tender, other (No guarding), soft Extremities: edema (Trace), other (Bandages lower extremity) Results Result Diagram: 06/22/16 0500 06/22/16 0500 Results 24 hrs Laboratory Tests Test 06/22/16 05:00 Anion Gap 13 Basophils # 0.0 Basophils % 0.6 Blood Urea Nitrogen 15 Calcium Level 8.8 Carbon Dioxide Level 29 Chloride Level 104 Creatinine 0.87 Eosinophils # 0.1 Eosinophils % 1.7 Glucose Level 111 Hematocrit 27.3 L Hemoglobin 8.3 L Lymphocytes # 2.1 Lymphocytes % 28.8 Magnesium Level 2.4 Mean Corpuscular Hemoglobin 31.8 Mean Corpuscular Hemoglobin Concent 30.4 L Mean Corpuscular Volume 104.6 H Mean Platelet Volume 11.1 H Monocytes # 0.7 Monocytes % 10.1 Neutrophils # 4.2 Neutrophils % 58.5 Nucleated Red Blood Cells # 0.0 Nucleated Red Blood Cells % 0.0 Phosphorus Level 3.4 Platelet Count 212 Potassium Level 3.9 Red Blood Count 2.61 L Red Cell Distribution Width 17.3 H Sodium Level 142 White Blood Count 7.2 # Medications Medications Current Medications Heparin Sodium (Porcine) (Heparin (5000 Units/0.5 ml)) 5,000 unit Q8 SC Last administered on 06/22/16 06:05; Admin Dose 5,000 UNIT; Start 06/20/16 at 14:00 Clopidogrel Bisulfate (plaVIX) 75 mg DAILY PO Last administered on 06/22/16 08 :45; Admin Dose 75 MG; Start 06/20/16 at 12:00 Amlodipine Besylate (Norvasc) 5 mg BID PO Last administered on 06/22/16 08:45 ; Admin Dose 5 MG; Start 06/20/16 at 13:30 Atenolol (Tenormin) 50 mg BID PO Last administered on 06/22/16 08:45; Admin Dose 50 MG; Start 06/20/16 at 13:30 Atorvastatin Calcium (Lipitor) 40 mg QHS PO Last administered on 06/21/16 21: 15; Admin Dose 40 MG; Start 06/20/16 at 21:00 Famotidine (Pepcid) 20 mg DAILY PO Last administered on 06/22/16 08:44; Admin Dose 20 MG; Start 06/20/16 at 13:30 Folic Acid (Folic Acid) 2 mg DAILY PO Last administered on 06/22/16 08:44; Admin Dose 2 MG; Start 06/21/16 at 09:00 Gabapentin (Neurontin) 100 mg QHS PO Last administered on 06/21/16 21:24; Admin Dose 100 MG; Start 06/20/16 at 21:00 Gabapentin (Neurontin) 300 mg HS PO Last administered on 06/21/16 21:24; Admin Dose 300 MG; Start 06/20/16 at 21:00 Acetaminophen/ Hydrocodone Bitart ([place] (5/325)) 1 tab BID PRN PO PAIN LEVEL 1 -5 Last administered on 06/21/16 19:40; Admin Dose 1 TAB; Start 06/20/16 at 13: 30 Acetaminophen/ Hydrocodone Bitart ([place] (5/325)) 2 tab Q12 PRN PO PAIN LEVEL 6 -10; Start 06/20/16 at 13:30 Ondansetron HCl (Zofran Inj) 4 mg Q6H PRN IV NAUSEA AND/OR VOMITING; Start at 13:30 Morphine Sulfate (morphine) 2 mg Q4H PRN IV PAIN LEVEL 7-10 Last administered on 06/20/16 13:49; Admin Dose 2 MG; Start 06/20/16 at 13:44 Lorazepam (Ativan) 1 mg Q2H PRN IV ANXIETY; Start 06/20/16 at 13:30 Docusate Sodium (Colace) 100 mg Q12H PRN PO CONSTIPATION; Start 06/20/16 at 13: 30 Magnesium Hydroxide (Milk Of Mag) 30 ml DAILY PRN PO CONSTIPATION; Start at 13:30 Hydralazine HCl 10 mg 10 mg Q4H PRN IV ELEVATED SYSTOLIC BP; Start 06/20/16 at 19:00 Cefazolin Sodium/ Dextrose (Ancef 2 Gm/50 ml (Pmx)) 50 ml @ 100 mls/hr Q8 IVPB Last administered on 06/22/16 05:58; Admin Dose 100 MLS/HR; Start 06/21/16 at 09:00 Doxycycline Hyclate (Vibramycin) 100 mg BID PO Last administered on 06/22/16 08:44; Admin Dose 100 MG; Start 06/21/16 at 15:30 James Berman DO Jun 22, 2016 12:11
[2016-06-22] MEDS: HYDROCODONE/APAP (5/325) TAB PO PRN ×2 (15:08→21:31)
--- NOTE | 2016-06-22 15:20 | CONS ---
Date/Time of Note Date/Time of Note DATE: 06/22/16 TIME: 15:18 Assessment/Plan Assessment/Plan Chief Complaint/Hosp Course SUBJECTIVE: The patient is lying comfortably in bed. feels good, looks comfortable. Denies pain. DIAGNOSTICS: Chest x-ray revealed no acute disease. INDWELLINGS: The patient has a right IJ triple-lumen catheter. ANTIMICROBIALS: Doxycycline Ancef. PHYSICAL EXAMINATION: GENERAL: This is a fragile, well-developed, elderly woman, who is alert, in no distress. HEENT: Head atraumatic, normocephalic. Sclerae are anicteric. Buccal mucosa dry. NECK: Supple, trachea midline. CHEST: Chest rise is symmetrical. Breath sounds clear. HEART: S1, S2. ABDOMEN: Soft, bowel tones present. EXTREMITIES: With left foot dressing intact. ASSESSMENT: 1. Severe peripheral vascular disease, status post left arterial femoral bypass with stent placement. 2. Left foot gangrene. 3. Anemia. 4. Hypertension. 5. Renal insufficiency and electrolyte imbalance. PLAN: Stable, change Ancef to Rocephin, continue Doxycycline. Follow up podiatry and vascular recommendations. staff Problems: Consultation Date/Type/Reason Admit Date/Time Jun 20, 2016 at 05:17 Initial Consult Date Type of Consultation: ID Exam/Review of Systems Vital Signs Vitals Vital Signs Date Time Temp Pulse Resp B/P Pulse Ox O2 Delivery O2 Flow Rate FiO2 06/22/16 08:46 61 157/65 06/22/16 07:50 98.7 18 92 06/21/16 15:00 Room Air 06/21/16 07:00 2.0 Intake and Output 06/21/16 06/21/16 06/22/16 15:00 23:00 07:00 Intake Total 206.0 ml 200 ml Output Total 75 ml 700 ml Balance -75 ml 206.0 ml -500 ml Results Result Diagram: 06/22/16 0500 06/22/16 0500 Results 24 hrs Laboratory Tests Test 06/22/16 05:00 Anion Gap 13 Basophils # 0.0 Basophils % 0.6 Blood Urea Nitrogen 15 Calcium Level 8.8 Carbon Dioxide Level 29 Chloride Level 104 Creatinine 0.87 Eosinophils # 0.1 Eosinophils % 1.7 Glucose Level 111 Hematocrit 27.3 L Hemoglobin 8.3 L Lymphocytes # 2.1 Lymphocytes % 28.8 Magnesium Level 2.4 Mean Corpuscular Hemoglobin 31.8 Mean Corpuscular Hemoglobin Concent 30.4 L Mean Corpuscular Volume 104.6 H Mean Platelet Volume 11.1 H Monocytes # 0.7 Monocytes % 10.1 Neutrophils # 4.2 Neutrophils % 58.5 Nucleated Red Blood Cells # 0.0 Nucleated Red Blood Cells % 0.0 Phosphorus Level 3.4 Platelet Count 212 Potassium Level 3.9 Red Blood Count 2.61 L Red Cell Distribution Width 17.3 H Sodium Level 142 White Blood Count 7.2 # Medications Medications Current Medications Heparin Sodium (Porcine) (Heparin (5000 Units/0.5 ml)) 5,000 unit Q8 SC Last administered on 06/22/16 15:05; Admin Dose 5,000 UNIT; Start 06/20/16 at 14:00 Clopidogrel Bisulfate (plaVIX) 75 mg DAILY PO Last administered on 06/22/16 08 :45; Admin Dose 75 MG; Start 06/20/16 at 12:00 Amlodipine Besylate (Norvasc) 5 mg BID PO Last administered on 06/22/16 08:45 ; Admin Dose 5 MG; Start 06/20/16 at 13:30 Atenolol (Tenormin) 50 mg BID PO Last administered on 06/22/16 08:45; Admin Dose 50 MG; Start 06/20/16 at 13:30 Atorvastatin Calcium (Lipitor) 40 mg QHS PO Last administered on 06/21/16 21: 15; Admin Dose 40 MG; Start 06/20/16 at 21:00 Famotidine (Pepcid) 20 mg DAILY PO Last administered on 06/22/16 08:44; Admin Dose 20 MG; Start 06/20/16 at 13:30 Folic Acid (Folic Acid) 2 mg DAILY PO Last administered on 06/22/16 08:44; Admin Dose 2 MG; Start 06/21/16 at 09:00 Gabapentin (Neurontin) 100 mg QHS PO Last administered on 06/21/16 21:24; Admin Dose 100 MG; Start 06/20/16 at 21:00 Gabapentin (Neurontin) 300 mg HS PO Last administered on 06/21/16 21:24; Admin Dose 300 MG; Start 06/20/16 at 21:00 Acetaminophen/ Hydrocodone Bitart ([place] (5/325)) 1 tab BID PRN PO PAIN LEVEL 1 -5 Last administered on 06/22/16 15:08; Admin Dose 1 TAB; Start 06/20/16 at 13: 30 Acetaminophen/ Hydrocodone Bitart ([place] (5/325)) 2 tab Q12 PRN PO PAIN LEVEL 6 -10; Start 06/20/16 at 13:30 Ondansetron HCl (Zofran Inj) 4 mg Q6H PRN IV NAUSEA AND/OR VOMITING; Start at 13:30 Morphine Sulfate (morphine) 2 mg Q4H PRN IV PAIN LEVEL 7-10 Last administered on 06/20/16 13:49; Admin Dose 2 MG; Start 06/20/16 at 13:44 Lorazepam (Ativan) 1 mg Q2H PRN IV ANXIETY; Start 06/20/16 at 13:30 Docusate Sodium (Colace) 100 mg Q12H PRN PO CONSTIPATION; Start 06/20/16 at 13: 30 Magnesium Hydroxide (Milk Of Mag) 30 ml DAILY PRN PO CONSTIPATION; Start at 13:30 Hydralazine HCl 10 mg 10 mg Q4H PRN IV ELEVATED SYSTOLIC BP; Start 06/20/16 at 19:00 Cefazolin Sodium/ Dextrose (Ancef 2 Gm/50 ml (Pmx)) 50 ml @ 100 mls/hr Q8 IVPB Last administered on 06/22/16 14:54; Admin Dose 100 MLS/HR; Start 06/21/16 at 09:00 Doxycycline Hyclate (Vibramycin) 100 mg BID PO Last administered on 06/22/16 08:44; Admin Dose 100 MG; Start 06/21/16 at 15:30 VEGA PALMA NP Jun 22, 2016 15:20
[2016-06-22] MEDS: CEFTRIAXONE 1 GM/50 ML (PMX) 50 ML IVPB SCH (15:50)
[2016-06-22 16:05] LABS: MICROALBUMIN 2.6 mg/dL
--- NOTE | 2016-06-22 18:17 | PN ---
Date/Time of Note Date/Time of Note DATE: 06/22/16 TIME: 18:12 Assessment/Plan VTE Prophylaxis VTE Prophylaxis Intervention: SCD's Lines/Catheters IV Catheter Type (from Nrs): Central Line Central line still needed: Yes Urinary Cath still in place: No Assessment/Plan Chief Complaint/Hosp Course ASSESSMENT AND PLAN: 1. Left iliac arterial inclusion in patient with bilateral peripheral arterial disease status post left iliofemoral endarterectomy and left femoral popliteal bypass angioplasty with stent placement by Dr. Shepherd on 06/20/2016. Continue to follow up surgical recommendation. Continue patient on heparin and Plavix. Continue morphine p.r.n. for pain and Zofran p.r.n. for nausea. 2. Hypertension. Dr. Berman is following and cardiology consultation. Continue Norvasc, atenolol, continue hydralazine p.r.n. for systolic blood pressure above 170. 3. Left foot cellulitis with gangrene. Dr. Guerrero is following the patient in podiatry consultation. Dr. Parr is following in infection disease consultation. Continue antibiotics and current wound care. 4. Left ovarian cyst. Continue to monitor. Continue Pepcid for peptic ulcer disease prophylaxis. Further recommendations based on clinical course. Plan of care discussed with Dr. Stephens. Problems: Subjective 24 Hr Interval Summary Free Text/Dictation Patient's pain is well controlled, denies any fever nausea vomiting, continues to be hypertensive continue to monitor blood pressure. Exam/Review of Systems Vital Signs Vitals Vital Signs Date Time Temp Pulse Resp B/P Pulse Ox O2 Delivery O2 Flow Rate FiO2 06/22/16 08:46 61 157/65 06/22/16 07:50 98.7 18 92 06/21/16 15:00 Room Air 06/21/16 07:00 2.0 Intake and Output 06/21/16 06/21/16 06/22/16 15:00 23:00 07:00 Intake Total 206.0 ml 200 ml Output Total 75 ml 700 ml Balance -75 ml 206.0 ml -500 ml Exam PHYSICAL EXAMINATION: GENERAL: Well-developed, well-nourished female who currently is awake, alert. HEENT: Head is atraumatic, normocephalic. PERRLA. NECK: Supple, no cervical lymphadenopathy, no thyromegaly. CHEST: Lungs clear bilaterally. There are no rhonchi, wheezes, rales noted. CARDIOVASCULAR: Normal S1, S2. No murmurs, gallops, clicks, rubs noted. ABDOMEN: Round, soft, nondistended, nontender. Bowel sounds present. EXTREMITIES: The patient has left foot toes with gangrene, all five. Right fifth toe dark, necrotic ulcer. No rash, petechiae noted. The patient's pulses are weak but equal bilaterally, 1+. Left femoral surgical incision site with a dry, clean, and intact dressing. NEUROLOGIC: The patient is awake, alert, and oriented x2. No focal deficits noted. Motor strength 5/5 in all extre Results Result Diagram: 06/22/16 0500 06/22/16 0500 Results 24 hrs Laboratory Tests Test 06/22/16 05:00 Anion Gap 13 Basophils # 0.0 Basophils % 0.6 Blood Urea Nitrogen 15 Calcium Level 8.8 Carbon Dioxide Level 29 Chloride Level 104 Creatinine 0.87 Eosinophils # 0.1 Eosinophils % 1.7 Glucose Level 111 Hematocrit 27.3 L Hemoglobin 8.3 L Lymphocytes # 2.1 Lymphocytes % 28.8 Magnesium Level 2.4 Mean Corpuscular Hemoglobin 31.8 Mean Corpuscular Hemoglobin Concent 30.4 L Mean Corpuscular Volume 104.6 H Mean Platelet Volume 11.1 H Monocytes # 0.7 Monocytes % 10.1 Neutrophils # 4.2 Neutrophils % 58.5 Nucleated Red Blood Cells # 0.0 Nucleated Red Blood Cells % 0.0 Phosphorus Level 3.4 Platelet Count 212 Potassium Level 3.9 Red Blood Count 2.61 L Red Cell Distribution Width 17.3 H Sodium Level 142 White Blood Count 7.2 # Medications Medications Current Medications Heparin Sodium (Porcine) (Heparin (5000 Units/0.5 ml)) 5,000 unit Q8 SC Last administered on 06/22/16 15:05; Admin Dose 5,000 UNIT; Start 06/20/16 at 14:00 Clopidogrel Bisulfate (plaVIX) 75 mg DAILY PO Last administered on 06/22/16 08 :45; Admin Dose 75 MG; Start 06/20/16 at 12:00 Amlodipine Besylate (Norvasc) 5 mg BID PO Last administered on 06/22/16 08:45 ; Admin Dose 5 MG; Start 06/20/16 at 13:30 Atenolol (Tenormin) 50 mg BID PO Last administered on 06/22/16 08:45; Admin Dose 50 MG; Start 06/20/16 at 13:30 Atorvastatin Calcium (Lipitor) 40 mg QHS PO Last administered on 06/21/16 21: 15; Admin Dose 40 MG; Start 06/20/16 at 21:00 Famotidine (Pepcid) 20 mg DAILY PO Last administered on 06/22/16 08:44; Admin Dose 20 MG; Start 06/20/16 at 13:30 Folic Acid (Folic Acid) 2 mg DAILY PO Last administered on 06/22/16 08:44; Admin Dose 2 MG; Start 06/21/16 at 09:00 Gabapentin (Neurontin) 100 mg QHS PO Last administered on 06/21/16 21:24; Admin Dose 100 MG; Start 06/20/16 at 21:00 Gabapentin (Neurontin) 300 mg HS PO Last administered on 06/21/16 21:24; Admin Dose 300 MG; Start 06/20/16 at 21:00 Acetaminophen/ Hydrocodone Bitart ([place] (5/325)) 1 tab BID PRN PO PAIN LEVEL 1 -5 Last administered on 06/22/16 15:08; Admin Dose 1 TAB; Start 06/20/16 at 13: 30 Acetaminophen/ Hydrocodone Bitart ([place] (5/325)) 2 tab Q12 PRN PO PAIN LEVEL 6 -10; Start 06/20/16 at 13:30 Ondansetron HCl (Zofran Inj) 4 mg Q6H PRN IV NAUSEA AND/OR VOMITING; Start at 13:30 Morphine Sulfate (morphine) 2 mg Q4H PRN IV PAIN LEVEL 7-10 Last administered on 06/20/16 13:49; Admin Dose 2 MG; Start 06/20/16 at 13:44 Lorazepam (Ativan) 1 mg Q2H PRN IV ANXIETY; Start 06/20/16 at 13:30 Docusate Sodium (Colace) 100 mg Q12H PRN PO CONSTIPATION; Start 06/20/16 at 13: 30 Magnesium Hydroxide (Milk Of Mag) 30 ml DAILY PRN PO CONSTIPATION; Start at 13:30 Hydralazine HCl (Apresoline) 10 mg Q4H PRN IV ELEVATED SYSTOLIC BP; Start 06/20 at 19:00 Doxycycline Hyclate 100 mg 100 mg BID PO Last administered on 06/22/16 08:44; Admin Dose 100 MG; Start 06/21/16 at 15:30 Ceftriaxone Sodium (Rocephin) 50 ml @ 100 mls/hr Q24H IVPB Last administered on 06/22/16 15:50; Admin Dose 100 MLS/HR; Start 06/22/16 at 15:30 JANIS BAKER Jun 22, 2016 18:17
[2016-06-22 20:04] VITALS: BP 149/67; RESP 20
[2016-06-22] MEDS: ATORVASTATIN 40 MG TAB PO SCH (21:31)
[2016-06-22] MEDS: GABAPENTIN 100 MG CAP PO SCH (21:31)
[2016-06-22] MEDS: GABAPENTIN 300 MG CAP PO SCH (21:31)
[2016-06-23 05:52] LABS: ADD SCAN DIFF NO
[2016-06-23 05:56] LABS: BASOPHILS % 0.3 % (0.0-2.0); EOSINOPHILS # 0.2 10^3/ul (0.0-0.5); EOSINOPHILS % 3.1 % (0.0-7.0); HEMATOCRIT 26.5 % (37.0-47.0); HEMOGLOBIN 8.2 g/dl (12.0-16.0); LYMPHOCYTES # 1.9 10^3/ul (0.8-2.9); LYMPHOCYTES % 32.9 % (15.0-51.0); MEAN CORPUSCULAR HEMOGLOBIN 31.7 pg (29.0-33.0); MEAN CORPUSCULAR HGB CONC 30.9 g/dl (32.0-37.0); MEAN CORPUSCULAR VOLUME 102.3 fl (82.0-101.0); MEAN PLATELET VOLUME 11.8 fl (7.4-10.4); MONOCYTE # 0.7 10^3/ul (0.3-0.9); MONOCYTES % 12.4 % (0.0-11.0); PLATELET COUNT 198 10^3/UL (140-415); RED BLOOD COUNT 2.59 10^6/ul (4.20-5.40); RED CELL DISTRIBUTION WIDTH 17.1 % (11.5-14.5); WHITE BLOOD COUNT 5.8 10^3/ul (4.8-10.8)
[2016-06-23 06:10] LABS: POTASSIUM 3.7 mmol/L (3.5-5.1)
[2016-06-23 06:12] LABS: CREATININE 0.79 mg/dl (0.44-1.00)
[2016-06-23 06:13] LABS: CALCIUM 8.6 mg/dl (8.4-10.2)
[2016-06-23] MEDS: HEPARIN 5,000 UNIT/0.5 ML SYG SC SCH ×3 (06:19→22:01)
[2016-06-23 07:42] VITALS: BP 145/66; RESP 16
[2016-06-23] MEDS: DOXYCYCLINE 100 MG TAB PO SCH ×2 (08:46→20:50)
[2016-06-23] MEDS: CLOPIDOGREL 75 MG TAB PO SCH (08:51)
[2016-06-23] MEDS: ATENOLOL 50 MG TAB PO SCH ×2 (08:51→20:51)
[2016-06-23] MEDS: FAMOTIDINE 20 MG TAB PO SCH (08:51)
[2016-06-23] MEDS: FOLIC ACID 1 MG TAB PO SCH (08:51)
[2016-06-23] MEDS: AMLODIPINE 5 MG TAB PO SCH ×2 (08:56→20:51)
--- NOTE | 2016-06-23 10:52 | CONS ---
Date/Time of Note Date/Time of Note DATE: 06/23/16 TIME: 10:51 Consult Date/Type/Reason Admit Date/Time Jun 20, 2016 at 05:17 Initial Consult Date Type of Consultation: neph Subjective This is an 85-year-old female with a past medical history of hypertension, a history of peripheral vascular disease, a history of coronary artery disease, a history of dyslipidemia, who was brought into [facility] for evaluation of left lower extremity gangrene. The patient was seen by surgeon, Dr. Shepherd, and underwent cardiac clearance per Dr. Berman. The patient then underwent surgical left iliofemoral endarterectomy and left femoral popliteal bypass angioplasty with stent placement. The patient postoperatively was taken to the intensive care unit for evaluation and monitoring. Overnight the patient has been clinically stable. The pain has been present, but controlled. There have been no reports of hemoptysis, hemetemesis or hematochezia. The patient did receive contrast during her surgery and the patient did have significant atherosclerotic disease. The patient received over 2 liters of intraoperative IV fluids. continues good uo. poc reviewed with dr. viveros. PAST MEDICAL HISTORY: As stated above, a history of hypertension, a history of coronary artery disease, a history of peripheral vascular disease, a history of dyslipidemia, a history of neuropathy. Objective Vital Signs Date Time Temp Pulse Resp B/P Pulse Ox O2 Delivery O2 Flow Rate FiO2 06/23/16 07:42 98.3 61 16 145/66 94 06/21/16 15:00 Room Air 06/21/16 07:00 2.0 Intake and Output 06/22/16 06/22/16 06/23/16 15:00 23:00 07:00 Intake Total 50 ml 700 ml 240 ml Output Total 500 ml Balance 50 ml 700 ml -260 ml Results/Medications Result Diagram: 06/23/16 0455 06/23/16 0455 Results 24 hrs Laboratory Tests Test 06/23/16 04:55 Anion Gap 12 Basophils # 0.0 Basophils % 0.3 Blood Urea Nitrogen 13 Calcium Level 8.6 Carbon Dioxide Level 30 Chloride Level 105 Creatinine 0.79 Eosinophils # 0.2 Eosinophils % 3.1 Glucose Level 110 Hematocrit 26.5 L Hemoglobin 8.2 L Lymphocytes # 1.9 Lymphocytes % 32.9 Mean Corpuscular Hemoglobin 31.7 Mean Corpuscular Hemoglobin Concent 30.9 L Mean Corpuscular Volume 102.3 H Mean Platelet Volume 11.8 H Monocytes # 0.7 Monocytes % 12.4 H Neutrophils # 3.0 Neutrophils % 51.0 Nucleated Red Blood Cells # 0.0 Nucleated Red Blood Cells % 0.0 Platelet Count 198 Potassium Level 3.7 Red Blood Count 2.59 L Red Cell Distribution Width 17.1 H Sodium Level 143 White Blood Count 5.8 Medications Current Medications Heparin Sodium (Porcine) (Heparin (5000 Units/0.5 ml)) 5,000 unit Q8 SC Last administered on 06/23/16 06:19; Admin Dose 5,000 UNIT; Start 06/20/16 at 14:00 Clopidogrel Bisulfate (plaVIX) 75 mg DAILY PO Last administered on 06/23/16 08 :51; Admin Dose 75 MG; Start 06/20/16 at 12:00 Amlodipine Besylate (Norvasc) 5 mg BID PO Last administered on 06/23/16 08:56 ; Admin Dose 5 MG; Start 06/20/16 at 13:30 Atenolol (Tenormin) 50 mg BID PO Last administered on 06/23/16 08:51; Admin Dose 50 MG; Start 06/20/16 at 13:30 Atorvastatin Calcium (Lipitor) 40 mg QHS PO Last administered on 06/22/16 21: 31; Admin Dose 40 MG; Start 06/20/16 at 21:00 Famotidine (Pepcid) 20 mg DAILY PO Last administered on 06/23/16 08:51; Admin Dose 20 MG; Start 06/20/16 at 13:30 Folic Acid (Folic Acid) 2 mg DAILY PO Last administered on 06/23/16 08:51; Admin Dose 2 MG; Start 06/21/16 at 09:00 Gabapentin (Neurontin) 100 mg QHS PO Last administered on 06/22/16 21:31; Admin Dose 100 MG; Start 06/20/16 at 21:00 Gabapentin (Neurontin) 300 mg HS PO Last administered on 06/22/16 21:31; Admin Dose 300 MG; Start 06/20/16 at 21:00 Acetaminophen/ Hydrocodone Bitart ([place] (5/325)) 1 tab BID PRN PO PAIN LEVEL 1 -5 Last administered on 06/22/16 21:31; Admin Dose 1 TAB; Start 06/20/16 at 13: 30 Acetaminophen/ Hydrocodone Bitart ([place] (5/325)) 2 tab Q12 PRN PO PAIN LEVEL 6 -10; Start 06/20/16 at 13:30 Ondansetron HCl (Zofran Inj) 4 mg Q6H PRN IV NAUSEA AND/OR VOMITING; Start at 13:30 Morphine Sulfate (morphine) 2 mg Q4H PRN IV PAIN LEVEL 7-10 Last administered on 06/20/16 13:49; Admin Dose 2 MG; Start 06/20/16 at 13:44 Lorazepam (Ativan) 1 mg Q2H PRN IV ANXIETY; Start 06/20/16 at 13:30 Docusate Sodium (Colace) 100 mg Q12H PRN PO CONSTIPATION; Start 06/20/16 at 13: 30 Magnesium Hydroxide (Milk Of Mag) 30 ml DAILY PRN PO CONSTIPATION; Start at 13:30 Hydralazine HCl (Apresoline) 10 mg Q4H PRN IV ELEVATED SYSTOLIC BP; Start 06/20 at 19:00 Doxycycline Hyclate 100 mg 100 mg BID PO Last administered on 06/23/16 08:46; Admin Dose 100 MG; Start 06/21/16 at 15:30 Ceftriaxone Sodium (Rocephin) 50 ml @ 100 mls/hr Q24H IVPB Last administered on 06/22/16 15:50; Admin Dose 100 MLS/HR; Start 06/22/16 at 15:30 Assessment/Plan Chief Complaint/Hosp Course 1. Oliguria, resolved. The patient's urinary output has significantly improved. Renal function remains stable. There is no evidence of contrast- associated nephropathy at this time. We will continue to monitor, supportive care, 2. Severe peripheral vascular disease, status post left arterial femoral bypass with stent placement. Continue to monitor. Continue medical management. Follow up with vascular surgery. 3. Hypomagnesemia. Continue to monitor and replete. 4. Hypertension. Continue current blood pressure regimen. 5. Dyslipidemia. Continue statin therapy. 6. Left lower extremity cellulitis, gangrene. The patient is status post bypass. Continue current antibiotic regimen. Problems: JANIE BETANCOURT MD Jun 23, 2016 10:52
--- NOTE | 2016-06-23 11:11 | PN ---
Date/Time of Note Date/Time of Note DATE: 06/23/16 TIME: 11:10 Assessment/Plan VTE Prophylaxis VTE Prophylaxis Intervention: other Lines/Catheters IV Catheter Type (from Nrsg): Central Line Central line still needed: Yes Urinary Cath still in place: No Assessment/Plan Chief Complaint/Hosp Course 1. Left iliac arterial inclusion in patient with bilateral peripheral arterial disease status post left iliofemoral endarterectomy and left femoral popliteal bypass angioplasty with stent placement by Dr. Shepherd on 06/20/2016. Continue to follow up surgical recommendation. Continue patient on heparin and Plavix. Continue morphine p.r.n. for pain and Zofran p.r.n. for nausea. 2. Hypertension. Dr. Berman is following and cardiology consultation. Continue Norvasc, atenolol, continue hydralazine p.r.n. for systolic blood pressure above 170. 3. Left foot cellulitis with gangrene. Dr. Guerrero is following the patient in podiatry consultation. Dr. Parr is following in infection disease consultation. Continue antibiotics and current wound care. 4. Left ovarian cyst. Continue to monitor. Problems: Subjective 24 Hr Interval Summary Free Text/Dictation Patient has no complaints Exam/Review of Systems Vital Signs Vitals Vital Signs Date Time Temp Pulse Resp B/P Pulse Ox O2 Delivery O2 Flow Rate FiO2 06/23/16 07:42 98.3 61 16 145/66 94 06/21/16 15:00 Room Air 06/21/16 07:00 2.0 Intake and Output 06/22/16 06/22/16 06/23/16 15:00 23:00 07:00 Intake Total 50 ml 700 ml 240 ml Output Total 500 ml Balance 50 ml 700 ml -260 ml Exam Constitutional: well developed Head: atraumatic, normocephalic Neck: supple Respiratory: clear to auscultation Cardiovascular: regular rate and rhythm Gastrointestinal: non-tender, soft Extremities: normal pulses Results Result Diagram: 06/23/16 0455 06/23/16 0455 Results 24 hrs Laboratory Tests Test 06/23/16 04:55 Anion Gap 12 Basophils # 0.0 Basophils % 0.3 Blood Urea Nitrogen 13 Calcium Level 8.6 Carbon Dioxide Level 30 Chloride Level 105 Creatinine 0.79 Eosinophils # 0.2 Eosinophils % 3.1 Glucose Level 110 Hematocrit 26.5 L Hemoglobin 8.2 L Lymphocytes # 1.9 Lymphocytes % 32.9 Mean Corpuscular Hemoglobin 31.7 Mean Corpuscular Hemoglobin Concent 30.9 L Mean Corpuscular Volume 102.3 H Mean Platelet Volume 11.8 H Monocytes # 0.7 Monocytes % 12.4 H Neutrophils # 3.0 Neutrophils % 51.0 Nucleated Red Blood Cells # 0.0 Nucleated Red Blood Cells % 0.0 Platelet Count 198 Potassium Level 3.7 Red Blood Count 2.59 L Red Cell Distribution Width 17.1 H Sodium Level 143 White Blood Count 5.8 Medications Medications Current Medications Heparin Sodium (Porcine) (Heparin (5000 Units/0.5 ml)) 5,000 unit Q8 SC Last administered on 06/23/16 06:19; Admin Dose 5,000 UNIT; Start 06/20/16 at 14:00 Clopidogrel Bisulfate (plaVIX) 75 mg DAILY PO Last administered on 06/23/16 08 :51; Admin Dose 75 MG; Start 06/20/16 at 12:00 Amlodipine Besylate (Norvasc) 5 mg BID PO Last administered on 06/23/16 08:56 ; Admin Dose 5 MG; Start 06/20/16 at 13:30 Atenolol (Tenormin) 50 mg BID PO Last administered on 06/23/16 08:51; Admin Dose 50 MG; Start 06/20/16 at 13:30 Atorvastatin Calcium (Lipitor) 40 mg QHS PO Last administered on 06/22/16 21: 31; Admin Dose 40 MG; Start 06/20/16 at 21:00 Famotidine (Pepcid) 20 mg DAILY PO Last administered on 06/23/16 08:51; Admin Dose 20 MG; Start 06/20/16 at 13:30 Folic Acid (Folic Acid) 2 mg DAILY PO Last administered on 06/23/16 08:51; Admin Dose 2 MG; Start 06/21/16 at 09:00 Gabapentin (Neurontin) 100 mg QHS PO Last administered on 06/22/16 21:31; Admin Dose 100 MG; Start 06/20/16 at 21:00 Gabapentin (Neurontin) 300 mg HS PO Last administered on 06/22/16 21:31; Admin Dose 300 MG; Start 06/20/16 at 21:00 Acetaminophen/ Hydrocodone Bitart ([place] (5/325)) 1 tab BID PRN PO PAIN LEVEL 1 -5 Last administered on 06/22/16 21:31; Admin Dose 1 TAB; Start 06/20/16 at 13: 30 Acetaminophen/ Hydrocodone Bitart ([place] (5/325)) 2 tab Q12 PRN PO PAIN LEVEL 6 -10; Start 06/20/16 at 13:30 Ondansetron HCl (Zofran Inj) 4 mg Q6H PRN IV NAUSEA AND/OR VOMITING; Start at 13:30 Morphine Sulfate (morphine) 2 mg Q4H PRN IV PAIN LEVEL 7-10 Last administered on 06/20/16 13:49; Admin Dose 2 MG; Start 06/20/16 at 13:44 Lorazepam (Ativan) 1 mg Q2H PRN IV ANXIETY; Start 06/20/16 at 13:30 Docusate Sodium (Colace) 100 mg Q12H PRN PO CONSTIPATION; Start 06/20/16 at 13: 30 Magnesium Hydroxide (Milk Of Mag) 30 ml DAILY PRN PO CONSTIPATION; Start at 13:30 Hydralazine HCl (Apresoline) 10 mg Q4H PRN IV ELEVATED SYSTOLIC BP; Start 06/20 at 19:00 Doxycycline Hyclate 100 mg 100 mg BID PO Last administered on 06/23/16 08:46; Admin Dose 100 MG; Start 06/21/16 at 15:30 Ceftriaxone Sodium (Rocephin) 50 ml @ 100 mls/hr Q24H IVPB Last administered on 06/22/16 15:50; Admin Dose 100 MLS/HR; Start 06/22/16 at 15:30 TRISTON OLIVERA 18, 2017 11:11
[2016-06-23] MEDS: HYDROCODONE/APAP (5/325) TAB PO PRN ×2 (12:25→19:54)
[2016-06-23] MEDS: CEFTRIAXONE 1 GM/50 ML (PMX) 50 ML IVPB SCH (15:54)
--- NOTE | 2016-06-23 16:19 | CONS ---
Date/Time of Note Date/Time of Note DATE: 06/23/16 TIME: 16:18 Assessment/Plan Assessment/Plan Chief Complaint/Hosp Course SUBJECTIVE: The patient is lying comfortably in bed. feels good, looks comfortable. Denies pain. DIAGNOSTICS: Chest x-ray revealed no acute disease. INDWELLINGS: The patient has a right IJ triple-lumen catheter. ANTIMICROBIALS: Doxycycline Rocephin. PHYSICAL EXAMINATION: GENERAL: This is a fragile, well-developed, elderly woman, who is alert, in no distress. HEENT: Head atraumatic, normocephalic. Sclerae are anicteric. Buccal mucosa dry. NECK: Supple, trachea midline. CHEST: Chest rise is symmetrical. Breath sounds clear. HEART: S1, S2. ABDOMEN: Soft, bowel tones present. EXTREMITIES: With left foot dressing intact. ASSESSMENT: 1. Severe peripheral vascular disease, status post left arterial femoral bypass with stent placement. 2. Left foot gangrene. 3. Anemia. 4. Hypertension. 5. Renal insufficiency and electrolyte imbalance. PLAN: Remains stable, continue abx, follow up podiatry and vascular recommendations. DW staff Problems: Consultation Date/Type/Reason Admit Date/Time Jun 20, 2016 at 05:17 Type of Consultation: id Exam/Review of Systems Vital Signs Vitals Vital Signs Date Time Temp Pulse Resp B/P Pulse Ox O2 Delivery O2 Flow Rate FiO2 06/23/16 07:42 98.3 61 16 145/66 94 06/21/16 15:00 Room Air 06/21/16 07:00 2.0 Intake and Output 06/22/16 06/22/16 06/23/16 15:00 23:00 07:00 Intake Total 50 ml 700 ml 240 ml Output Total 500 ml Balance 50 ml 700 ml -260 ml Results Result Diagram: 06/23/16 0455 06/23/16 0455 Results 24 hrs Laboratory Tests Test 06/23/16 04:55 Anion Gap 12 Basophils # 0.0 Basophils % 0.3 Blood Urea Nitrogen 13 Calcium Level 8.6 Carbon Dioxide Level 30 Chloride Level 105 Creatinine 0.79 Eosinophils # 0.2 Eosinophils % 3.1 Glucose Level 110 Hematocrit 26.5 L Hemoglobin 8.2 L Lymphocytes # 1.9 Lymphocytes % 32.9 Mean Corpuscular Hemoglobin 31.7 Mean Corpuscular Hemoglobin Concent 30.9 L Mean Corpuscular Volume 102.3 H Mean Platelet Volume 11.8 H Monocytes # 0.7 Monocytes % 12.4 H Neutrophils # 3.0 Neutrophils % 51.0 Nucleated Red Blood Cells # 0.0 Nucleated Red Blood Cells % 0.0 Platelet Count 198 Potassium Level 3.7 Red Blood Count 2.59 L Red Cell Distribution Width 17.1 H Sodium Level 143 White Blood Count 5.8 Medications Medications Current Medications Heparin Sodium (Porcine) (Heparin (5000 Units/0.5 ml)) 5,000 unit Q8 SC Last administered on 06/23/16 14:09; Admin Dose 5,000 UNIT; Start 06/20/16 at 14:00 Clopidogrel Bisulfate (plaVIX) 75 mg DAILY PO Last administered on 06/23/16 08 :51; Admin Dose 75 MG; Start 06/20/16 at 12:00 Amlodipine Besylate (Norvasc) 5 mg BID PO Last administered on 06/23/16 08:56 ; Admin Dose 5 MG; Start 06/20/16 at 13:30 Atenolol (Tenormin) 50 mg BID PO Last administered on 06/23/16 08:51; Admin Dose 50 MG; Start 06/20/16 at 13:30 Atorvastatin Calcium (Lipitor) 40 mg QHS PO Last administered on 06/22/16 21: 31; Admin Dose 40 MG; Start 06/20/16 at 21:00 Famotidine (Pepcid) 20 mg DAILY PO Last administered on 06/23/16 08:51; Admin Dose 20 MG; Start 06/20/16 at 13:30 Folic Acid (Folic Acid) 2 mg DAILY PO Last administered on 06/23/16 08:51; Admin Dose 2 MG; Start 06/21/16 at 09:00 Gabapentin (Neurontin) 100 mg QHS PO Last administered on 06/22/16 21:31; Admin Dose 100 MG; Start 06/20/16 at 21:00 Gabapentin (Neurontin) 300 mg HS PO Last administered on 06/22/16 21:31; Admin Dose 300 MG; Start 06/20/16 at 21:00 Acetaminophen/ Hydrocodone Bitart ([place] (5/325)) 1 tab BID PRN PO PAIN LEVEL 1 -5 Last administered on 06/23/16 12:25; Admin Dose 1 TAB; Start 06/20/16 at 13: 30 Acetaminophen/ Hydrocodone Bitart ([place] (5/325)) 2 tab Q12 PRN PO PAIN LEVEL 6 -10; Start 06/20/16 at 13:30 Ondansetron HCl (Zofran Inj) 4 mg Q6H PRN IV NAUSEA AND/OR VOMITING; Start at 13:30 Morphine Sulfate (morphine) 2 mg Q4H PRN IV PAIN LEVEL 7-10 Last administered on 06/20/16 13:49; Admin Dose 2 MG; Start 06/20/16 at 13:44 Lorazepam (Ativan) 1 mg Q2H PRN IV ANXIETY; Start 06/20/16 at 13:30 Docusate Sodium (Colace) 100 mg Q12H PRN PO CONSTIPATION; Start 06/20/16 at 13: 30 Magnesium Hydroxide (Milk Of Mag) 30 ml DAILY PRN PO CONSTIPATION; Start at 13:30 Hydralazine HCl (Apresoline) 10 mg Q4H PRN IV ELEVATED SYSTOLIC BP; Start 06/20 at 19:00 Doxycycline Hyclate 100 mg 100 mg BID PO Last administered on 06/23/16 08:46; Admin Dose 100 MG; Start 06/21/16 at 15:30 Ceftriaxone Sodium (Rocephin) 50 ml @ 100 mls/hr Q24H IVPB Last administered on 06/23/16 15:54; Admin Dose 100 MLS/HR; Start 06/22/16 at 15:30 VEGA PALMA NP Jun 23, 2016 16:19
[2016-06-23 20:35] VITALS: BP 137/61; RESP 18
[2016-06-23] MEDS: GABAPENTIN 300 MG CAP PO SCH (20:50)
[2016-06-23] MEDS: GABAPENTIN 100 MG CAP PO SCH (20:50)
[2016-06-23] MEDS: ATORVASTATIN 40 MG TAB PO SCH (20:53)
[2016-06-24] MEDS: HEPARIN 5,000 UNIT/0.5 ML SYG SC SCH ×3 (06:10→21:35)
[2016-06-24] MEDS: HYDROCODONE/APAP (5/325) TAB PO PRN ×2 (06:13→18:05)
[2016-06-24 07:24] VITALS: BP 135/64; RESP 18
[2016-06-24] MEDS: ATENOLOL 50 MG TAB PO SCH ×2 (08:36→21:25)
[2016-06-24] MEDS: AMLODIPINE 5 MG TAB PO SCH ×2 (08:36→21:25)
[2016-06-24] MEDS: CLOPIDOGREL 75 MG TAB PO SCH (08:37)
[2016-06-24] MEDS: FOLIC ACID 1 MG TAB PO SCH (08:37)
[2016-06-24] MEDS: FAMOTIDINE 20 MG TAB PO SCH (08:37)
[2016-06-24] MEDS: DOXYCYCLINE 100 MG TAB PO SCH ×2 (08:37→21:24)
--- NOTE | 2016-06-24 09:23 | CONS ---
Date/Time of Note Date/Time of Note DATE: 06/24/16 TIME: 09:22 Consult Date/Type/Reason Admit Date/Time Jun 20, 2016 at 05:17 Type of Consultation: med Subjective This is an 85-year-old female with a past medical history of hypertension, a history of peripheral vascular disease, a history of coronary artery disease, a history of dyslipidemia, who was brought into [facility] for evaluation of left lower extremity gangrene. The patient was seen by surgeon, Dr. Shepherd, and underwent cardiac clearance per Dr. Berman. The patient then underwent surgical left iliofemoral endarterectomy and left femoral popliteal bypass angioplasty with stent placement. The patient postoperatively was taken to the intensive care unit for evaluation and monitoring. Overnight the patient has been clinically stable. The pain has been present, but controlled. There have been no reports of hemoptysis, hemetemesis or hematochezia. The patient did receive contrast during her surgery and the patient did have significant atherosclerotic disease. The patient received over 2 liters of intraoperative IV fluids. continues good uo. poc reviewed with dr. viveros. PAST MEDICAL HISTORY: As stated above, a history of hypertension, a history of coronary artery disease, a history of peripheral vascular disease, a history of dyslipidemia, a history of neuropathy. Constitutional: well developed Head: atraumatic, normocephalic Neck: supple Respiratory: clear to auscultation Cardiovascular: regular rate and rhythm Gastrointestinal: non-tender, soft Extremities: normal pulses Objective Vital Signs Date Time Temp Pulse Resp B/P Pulse Ox O2 Delivery O2 Flow Rate FiO2 06/24/16 07:24 98.3 59 18 135/64 91 06/23/16 17:10 2.0 06/21/16 15:00 Room Air Intake and Output 06/23/16 06/23/16 06/24/16 15:00 23:00 07:00 Intake Total 290 ml 200 ml Output Total 300 ml Balance 290 ml -100 ml Results/Medications Result Diagram: 06/23/16 0455 06/23/16 0455 Medications Current Medications Heparin Sodium (Porcine) (Heparin (5000 Units/0.5 ml)) 5,000 unit Q8 SC Last administered on 06/24/16t 06:10; Admin Dose 5,000 UNIT; Start 06/20/16 at 14:00 Clopidogrel Bisulfate (plaVIX) 75 mg DAILY PO Last administered on 06/24/16 08 :37; Admin Dose 75 MG; Start 06/20/16 at 12:00 Amlodipine Besylate (Norvasc) 5 mg BID PO Last administered on 06/24/16 08:36 ; Admin Dose 5 MG; Start 06/20/16 at 13:30 Atenolol (Tenormin) 50 mg BID PO Last administered on 06/24/16 08:36; Admin Dose 50 MG; Start 06/20/16 at 13:30 Atorvastatin Calcium (Lipitor) 40 mg QHS PO Last administered on 06/23/16 20: 53; Admin Dose 40 MG; Start 06/20/16 at 21:00 Famotidine (Pepcid) 20 mg DAILY PO Last administered on 06/24/16 08:37; Admin Dose 20 MG; Start 06/20/16 at 13:30 Folic Acid (Folic Acid) 2 mg DAILY PO Last administered on 06/24/16 08:37; Admin Dose 2 MG; Start 06/21/16 at 09:00 Gabapentin (Neurontin) 100 mg QHS PO Last administered on 06/23/16 20:50; Admin Dose 100 MG; Start 06/20/16 at 21:00 Gabapentin (Neurontin) 300 mg HS PO Last administered on 06/23/16 20:50; Admin Dose 300 MG; Start 06/20/16 at 21:00 Acetaminophen/ Hydrocodone Bitart ([place] (5/325)) 1 tab BID PRN PO PAIN LEVEL 1 -5 Last administered on 06/24/16 06:13; Admin Dose 1 TAB; Start 06/20/16 at 13: 30 Acetaminophen/ Hydrocodone Bitart ([place] (5/325)) 2 tab Q12 PRN PO PAIN LEVEL 6 -10; Start 06/20/16 at 13:30 Ondansetron HCl (Zofran Inj) 4 mg Q6H PRN IV NAUSEA AND/OR VOMITING; Start at 13:30 Morphine Sulfate (morphine) 2 mg Q4H PRN IV PAIN LEVEL 7-10 Last administered on 06/20/16 13:49; Admin Dose 2 MG; Start 06/20/16 at 13:44 Lorazepam (Ativan) 1 mg Q2H PRN IV ANXIETY; Start 06/20/16 at 13:30 Docusate Sodium (Colace) 100 mg Q12H PRN PO CONSTIPATION; Start 06/20/16 at 13: 30 Magnesium Hydroxide (Milk Of Mag) 30 ml DAILY PRN PO CONSTIPATION; Start at 13:30 Hydralazine HCl (Apresoline) 10 mg Q4H PRN IV ELEVATED SYSTOLIC BP; Start 06/20 at 19:00 Doxycycline Hyclate 100 mg 100 mg BID PO Last administered on 06/24/16 08:37; Admin Dose 100 MG; Start 06/21/16 at 15:30 Ceftriaxone Sodium (Rocephin) 50 ml @ 100 mls/hr Q24H IVPB Last administered on 06/23/16 15:54; Admin Dose 100 MLS/HR; Start 06/22/16 at 15:30 Assessment/Plan Chief Complaint/Hosp Course 1. Oliguria, resolved. The patient's urinary output has significantly improved. Renal function remains stable. There is no evidence of contrast- associated nephropathy at this time. We will continue to monitor, supportive care, 2. Severe peripheral vascular disease, status post left arterial femoral bypass with stent placement. Continue to monitor. Continue medical management. Follow up with vascular surgery. 3. Hypomagnesemia. Continue to monitor and replete. 4. Hypertension. Continue current blood pressure regimen. 5. Dyslipidemia. Continue statin therapy. 6. Left lower extremity cellulitis, gangrene. The patient is status post bypass. Continue current antibiotic regimen. Problems: JANIE BETANCOURT MD Jun 24, 2016 09:23
--- NOTE | 2016-06-24 11:30 | PN ---
Date/Time of Note Date/Time of Note DATE: 06/24/16 TIME: 11:29 Assessment/Plan VTE Prophylaxis VTE Prophylaxis Intervention: other Lines/Catheters IV Catheter Type (from Nrsg): Central Line Central line still needed: Yes Urinary Cath still in place: No Assessment/Plan Chief Complaint/Hosp Course 1. Left iliac arterial inclusion in patient with bilateral peripheral arterial disease status post left iliofemoral endarterectomy and left femoral popliteal bypass angioplasty with stent placement by Dr. Shepherd on 06/20/2016. Continue to follow up surgical recommendation. Continue patient on heparin and Plavix. Continue morphine p.r.n. for pain and Zofran p.r.n. for nausea. 2. Hypertension. [address] Berman is following and cardiology consultation. Continue Norvasc, atenolol, continue hydralazine p.r.n. for systolic blood pressure above 170. 3. Left foot cellulitis with gangrene. Dr. Guerrero is following the patient in podiatry consultation. Dr. Parr is following in infection disease consultation. Continue antibiotics and current wound care. 4. Left ovarian cyst. Continue to monitor. Problems: Subjective 24 Hr Interval Summary Free Text/Dictation Patient has no complaints, denies any pain to foot Exam/Review of Systems Vital Signs Vitals Vital Signs Date Time Temp Pulse Resp B/P Pulse Ox O2 Delivery O2 Flow Rate FiO2 06/24/16 07:24 98.3 59 18 135/64 91 06/23/16 17:10 2.0 06/21/16 15:00 Room Air Intake and Output 06/23/16 06/23/16 06/24/16 15:00 23:00 07:00 Intake Total 290 ml 200 ml Output Total 300 ml Balance 290 ml -100 ml Exam Constitutional: frail Head: atraumatic, normocephalic Neck: supple Respiratory: clear to auscultation Cardiovascular: regular rate and rhythm Gastrointestinal: non-tender, soft Extremities: normal pulses Results Result Diagram: 06/23/16 0455 06/23/16 0455 Medications Medications Current Medications Heparin Sodium (Porcine) (Heparin (5000 Units/0.5 ml)) 5,000 unit Q8 SC Last administered on 06/24/16t 06:10; Admin Dose 5,000 UNIT; Start 06/20/16 at 14:00 Clopidogrel Bisulfate (plaVIX) 75 mg DAILY PO Last administered on 06/24/16 08 :37; Admin Dose 75 MG; Start 06/20/16 at 12:00 Amlodipine Besylate (Norvasc) 5 mg BID PO Last administered on 06/24/16 08:36 ; Admin Dose 5 MG; Start 06/20/16 at 13:30 Atenolol (Tenormin) 50 mg BID PO Last administered on 06/24/16 08:36; Admin Dose 50 MG; Start 06/20/16 at 13:30 Atorvastatin Calcium (Lipitor) 40 mg QHS PO Last administered on 06/23/16 20: 53; Admin Dose 40 MG; Start 06/20/16 at 21:00 Famotidine (Pepcid) 20 mg DAILY PO Last administered on 06/24/16 08:37; Admin Dose 20 MG; Start 06/20/16 at 13:30 Folic Acid (Folic Acid) 2 mg DAILY PO Last administered on 06/24/16 08:37; Admin Dose 2 MG; Start 06/21/16 at 09:00 Gabapentin (Neurontin) 100 mg QHS PO Last administered on 06/23/16 20:50; Admin Dose 100 MG; Start 06/20/16 at 21:00 Gabapentin (Neurontin) 300 mg HS PO Last administered on 06/23/16 20:50; Admin Dose 300 MG; Start 06/20/16 at 21:00 Acetaminophen/ Hydrocodone Bitart ([place] (5/325)) 1 tab BID PRN PO PAIN LEVEL 1 -5 Last administered on 06/24/16 06:13; Admin Dose 1 TAB; Start 06/20/16 at 13: 30 Acetaminophen/ Hydrocodone Bitart ([place] (5/325)) 2 tab Q12 PRN PO PAIN LEVEL 6 -10; Start 06/20/16 at 13:30 Ondansetron HCl (Zofran Inj) 4 mg Q6H PRN IV NAUSEA AND/OR VOMITING; Start at 13:30 Morphine Sulfate (morphine) 2 mg Q4H PRN IV PAIN LEVEL 7-10 Last administered on 06/20/16 13:49; Admin Dose 2 MG; Start 06/20/16 at 13:44 Lorazepam (Ativan) 1 mg Q2H PRN IV ANXIETY; Start 06/20/16 at 13:30 Docusate Sodium (Colace) 100 mg Q12H PRN PO CONSTIPATION; Start 06/20/16 at 13: 30 Magnesium Hydroxide (Milk Of Mag) 30 ml DAILY PRN PO CONSTIPATION; Start at 13:30 Hydralazine HCl (Apresoline) 10 mg Q4H PRN IV ELEVATED SYSTOLIC BP; Start 06/20 at 19:00 Doxycycline Hyclate 100 mg 100 mg BID PO Last administered on 06/24/16 08:37; Admin Dose 100 MG; Start 06/21/16 at 15:30 Ceftriaxone Sodium (Rocephin) 50 ml @ 100 mls/hr Q24H IVPB Last administered on 06/23/16 15:54; Admin Dose 100 MLS/HR; Start 06/22/16 at 15:30 TRISTON OLIVERA 19, 2017 11:30
--- NOTE | 2016-06-24 14:31 | CONS ---
Date/Time of Note Date/Time of Note DATE: 06/24/16 TIME: 14:30 Assessment/Plan Assessment/Plan Chief Complaint/Hosp Course SUBJECTIVE: The patient is sleeping, looks comfortable, no fevers INDWELLINGS: The patient has a right IJ triple-lumen catheter. ANTIMICROBIALS: Doxycycline, Rocephin. PHYSICAL EXAMINATION: GENERAL: This is a fragile, well-developed, elderly woman, who is alert, in no distress. HEENT: Head atraumatic, normocephalic. Sclerae are anicteric. Buccal mucosa dry. NECK: Supple, trachea midline. CHEST: Chest rise is symmetrical. Breath sounds clear. HEART: S1, S2. ABDOMEN: Soft, bowel tones present. EXTREMITIES: With left foot dressing intact. ASSESSMENT: 1. Severe peripheral vascular disease, status post left arterial femoral bypass with stent placement. 2. Left foot gangrene. 3. Anemia. 4. Hypertension. 5. Renal insufficiency and electrolyte imbalance. PLAN: Remains stable, continue abx, follow up podiatry and vascular recommendations. DW staff Problems: Consultation Date/Type/Reason Admit Date/Time Jun 20, 2016 at 05:17 Type of Consultation: ID Exam/Review of Systems Vital Signs Vitals Vital Signs Date Time Temp Pulse Resp B/P Pulse Ox O2 Delivery O2 Flow Rate FiO2 06/24/16 07:24 98.3 59 18 135/64 91 06/23/16 17:10 2.0 06/21/16 15:00 Room Air Intake and Output 06/23/16 06/23/16 06/24/16 15:00 23:00 07:00 Intake Total 290 ml 200 ml Output Total 300 ml Balance 290 ml -100 ml Results Result Diagram: 06/23/16 0455 06/23/16 0455 Medications Medications Current Medications Heparin Sodium (Porcine) (Heparin (5000 Units/0.5 ml)) 5,000 unit Q8 SC Last administered on 06/24/16 06:10; Admin Dose 5,000 UNIT; Start 06/20/16 at 14:00 Clopidogrel Bisulfate (plaVIX) 75 mg DAILY PO Last administered on 06/24/16 08 :37; Admin Dose 75 MG; Start 06/20/16 at 12:00 Amlodipine Besylate (Norvasc) 5 mg BID PO Last administered on 06/24/16 08:36 ; Admin Dose 5 MG; Start 06/20/16 at 13:30 Atenolol (Tenormin) 50 mg BID PO Last administered on 06/24/16 08:36; Admin Dose 50 MG; Start 06/20/16 at 13:30 Atorvastatin Calcium (Lipitor) 40 mg QHS PO Last administered on 06/23/16 20: 53; Admin Dose 40 MG; Start 06/20/16 at 21:00 Famotidine (Pepcid) 20 mg DAILY PO Last administered on 06/24/16 08:37; Admin Dose 20 MG; Start 06/20/16 at 13:30 Folic Acid (Folic Acid) 2 mg DAILY PO Last administered on 06/24/16 08:37; Admin Dose 2 MG; Start 06/21/16 at 09:00 Gabapentin (Neurontin) 100 mg QHS PO Last administered on 06/23/16 20:50; Admin Dose 100 MG; Start 06/20/16 at 21:00 Gabapentin (Neurontin) 300 mg HS PO Last administered on 06/23/16 20:50; Admin Dose 300 MG; Start 06/20/16 at 21:00 Acetaminophen/ Hydrocodone Bitart ([place] (5/325)) 1 tab BID PRN PO PAIN LEVEL 1 -5 Last administered on 06/24/16 06:13; Admin Dose 1 TAB; Start 06/20/16 at 13: 30 Acetaminophen/ Hydrocodone Bitart ([place] (5/325)) 2 tab Q12 PRN PO PAIN LEVEL 6 -10; Start 06/20/16 at 13:30 Ondansetron HCl (Zofran Inj) 4 mg Q6H PRN IV NAUSEA AND/OR VOMITING; Start at 13:30 Morphine Sulfate (morphine) 2 mg Q4H PRN IV PAIN LEVEL 7-10 Last administered on 06/20/16 13:49; Admin Dose 2 MG; Start 06/20/16 at 13:44 Lorazepam (Ativan) 1 mg Q2H PRN IV ANXIETY; Start 06/20/16 at 13:30 Docusate Sodium (Colace) 100 mg Q12H PRN PO CONSTIPATION; Start 06/20/16 at 13: 30 Magnesium Hydroxide (Milk Of Mag) 30 ml DAILY PRN PO CONSTIPATION; Start at 13:30 Hydralazine HCl (Apresoline) 10 mg Q4H PRN IV ELEVATED SYSTOLIC BP; Start 06/20 at 19:00 Doxycycline Hyclate 100 mg 100 mg BID PO Last administered on 06/24/16 08:37; Admin Dose 100 MG; Start 06/21/16 at 15:30 Ceftriaxone Sodium (Rocephin) 50 ml @ 100 mls/hr Q24H IVPB Last administered on 06/23/16 15:54; Admin Dose 100 MLS/HR; Start 06/22/16 at 15:30 VEGA PALMA NP Jun 24, 2016 14:31
[2016-06-24] MEDS: CEFTRIAXONE 1 GM/50 ML (PMX) 50 ML IVPB SCH (14:46)
[2016-06-24 19:56] VITALS: BP 140/67; RESP 20
[2016-06-24] MEDS: ATORVASTATIN 40 MG TAB PO SCH (21:24)
[2016-06-24] MEDS: GABAPENTIN 300 MG CAP PO SCH (21:24)
[2016-06-24] MEDS: GABAPENTIN 100 MG CAP PO SCH (21:24)
[2016-06-25] MEDS: HYDROCODONE/APAP (5/325) TAB PO PRN ×3 (00:30→15:45)
[2016-06-25] MEDS: HEPARIN 5,000 UNIT/0.5 ML SYG SC SCH ×3 (05:36→21:49)
[2016-06-25 06:06] LABS: ADD SCAN DIFF NO
[2016-06-25 06:26] LABS: POTASSIUM 3.6 mmol/L (3.5-5.1)
[2016-06-25 06:29] LABS: CREATININE 0.71 mg/dl (0.44-1.00)
[2016-06-25 06:30] LABS: CALCIUM 8.5 mg/dl (8.4-10.2)
[2016-06-25 06:33] LABS: BASOPHILS % 0.4 % (0.0-2.0); EOSINOPHILS # 0.3 10^3/ul (0.0-0.5); EOSINOPHILS % 5.3 % (0.0-7.0); HEMATOCRIT 26.7 % (37.0-47.0); HEMOGLOBIN 8.2 g/dl (12.0-16.0); LYMPHOCYTES # 1.6 10^3/ul (0.8-2.9); LYMPHOCYTES % 33.5 % (15.0-51.0); MEAN CORPUSCULAR HEMOGLOBIN 31.8 pg (29.0-33.0); MEAN CORPUSCULAR HGB CONC 30.7 g/dl (32.0-37.0); MEAN CORPUSCULAR VOLUME 103.5 fl (82.0-101.0); MEAN PLATELET VOLUME 11.9 fl (7.4-10.4); MONOCYTE # 0.6 10^3/ul (0.3-0.9); MONOCYTES % 12.4 % (0.0-11.0); NEUTROPHIL # 2.4 10^3/ul (1.6-7.5); NEUTROPHILS % 48.2 % (39.0-77.0); PLATELET COUNT 188 10^3/UL (140-415); RED BLOOD COUNT 2.58 10^6/ul (4.20-5.40); RED CELL DISTRIBUTION WIDTH 16.3 % (11.5-14.5); WHITE BLOOD COUNT 4.9 10^3/ul (4.8-10.8)
[2016-06-25 07:31] VITALS: BP 139/64; RESP 18
--- NOTE | 2016-06-25 07:52 | PN ---
Date/Time of Note Date/Time of Note DATE: 06/25/16 TIME: 07:48 Assessment/Plan Lines/Catheters IV Catheter Type (from Nrs): Central Line Fitzgerald in Place (from Nrs): No Assessment/Plan Chief Complaint/Hosp Course -Bilateral lower extremity atherosclerosis with gangrene: S/P Left iliofemoral artery exploration, Left common iliac & External Iliac artery stenting and balloon angioplasty, Left femoral &popliteal artery stenting and balloon angioplasty -PT/OT OOB FWB as tolerated -Continue with neurovascular monitoring Q4 -Started pt on Plavix 75mg po Q daily for 90 days -Initiate D/C planning with antibiotics and Plavix -Patient cleared from vascular standpoint for discharge. Will schedule patient for right lower extremity revascularization in the coming weeks -Optimize vascular status (BP meds, cholesterol, sugar control, diet, nutrition , weight loss, antiplatelets) -Discussed findings, plan and management with the patient and she understands -Thank you for allowing us to partake in the care of your patient, please call with any questions Problems: Subjective 24 Hr Interval Summary no new vascular events overnight Exam/Review of Systems Vital Signs Vitals Vital Signs Date Time Temp Pulse Resp B/P Pulse Ox O2 Delivery O2 Flow Rate FiO2 06/25/16 07:31 98.9 61 18 139/64 96 06/23/16 17:10 2.0 06/21/16 15:00 Room Air Intake and Output 06/24/16 06/24/16 06/25/16 14:59 22:59 06:59 Intake Total 410 ml 240 ml Balance 410 ml 240 ml Exam Free Text/Dictation A&O x3 CTAB S1S2 present Soft NTND BS+, truncal obesity, large panus RLE: nonpalpable femoral pulse, nonpalpable pedal pulse, motor/sensory intact, cap refill 4 seconds, 5th toe gangrene LLE: palpable femoral pulse, adilia intact and dry, dopplerable biphasic AT/PT signal, motor/sensory intact, cap refill 2-3seconds, more dry gangrene of all the toes Results Result Diagram: 06/25/16 0515 06/25/16 0515 AMY VALDES MD Jun 25, 2016 07:52
[2016-06-25] MEDS: DOXYCYCLINE 100 MG TAB PO SCH ×2 (09:07→21:43)
[2016-06-25] MEDS: FOLIC ACID 1 MG TAB PO SCH (09:07)
[2016-06-25] MEDS: CLOPIDOGREL 75 MG TAB PO SCH (09:08)
[2016-06-25] MEDS: FAMOTIDINE 20 MG TAB PO SCH (09:09)
[2016-06-25] MEDS: ATENOLOL 50 MG TAB PO SCH ×2 (09:09→21:43)
[2016-06-25] MEDS: AMLODIPINE 5 MG TAB PO SCH ×2 (09:09→21:44)
--- NOTE | 2016-06-25 12:59 | PN ---
DATE: 06/25/2016 SUBJECTIVE: The patient is stable, no acute events overnight. No fevers, chills, nausea, vomiting, no shortness of breath. OBJECTIVE: VITAL SIGNS: Blood pressure 139/64, respirations 18, pulse 61, temperature 98.9. HEENT: Head is normocephalic. NECK: Supple. HEART: Regular rate. LUNGS: Show diminished breath sounds at the base. ABDOMEN: Soft, nontender to palpation, no rebound or guarding. EXTREMITIES: Negative for clubbing, cyanosis. Positive clubbing, cyanosis, or edema. The left low er extremity dressing clean, dry, intact. NEUROLOGIC: No change in exam. MEDICATIONS: The patient's medications have been reviewed. LABORATORY DATA: Shows sodium 144, potassium 3.6, chloride 106, BUN 12, creatinine 0.71. White cou nt 4.9, hemoglobin 8.2, hematocrit 26.7, platelet count 188. ASSESSMENT AND PLAN: 1. Oliguria resolved. The patient has normal renal function. There is no evidence of contrast-ind uced nephropathy. Continue current treatment plan. 2. Severe peripheral vascular disease status left femoral bypass with stent placement. Continue to monitor, continue follow up with vascular surgery. 3. Hypomagnesemia. Continue to monitor and replete. 4. Hypertension. Continue current blood pressure regimen. 5. Dyslipidemia. Continue statin therapy. 6. Left lower extremity cellulitis, gangrene status post bypass. Continue current treatment plan. Continue antibiotics. Please note, will sign off at this time. Please reconsult as needed. Dictated By: JOB CLEMONS DO NR/ADEN Conf#: [id number] DID#: [id number]
--- NOTE | 2016-06-25 13:39 | CONS ---
Date/Time of Note Date/Time of Note DATE: 06/25/16 TIME: 13:38 Assessment/Plan Assessment/Plan Chief Complaint/Hosp Course SUBJECTIVE: The patient is alert, feels good, no fevers INDWELLINGS: The patient has a right IJ triple-lumen catheter. ANTIMICROBIALS: Doxycycline, Rocephin. PHYSICAL EXAMINATION: GENERAL: This is a fragile, well-developed, elderly woman, who is alert, in no distress. HEENT: Head atraumatic, normocephalic. Sclerae are anicteric. Buccal mucosa dry. NECK: Supple, trachea midline. CHEST: Chest rise is symmetrical. Breath sounds clear. HEART: S1, S2. ABDOMEN: Soft, bowel tones present. EXTREMITIES: With left foot dressing intact. ASSESSMENT: 1. Severe peripheral vascular disease, status post left arterial femoral bypass with stent placement. 2. Left foot gangrene. 3. Anemia. 4. Hypertension. 5. Renal insufficiency and electrolyte imbalance. PLAN: Remains stable, continue abx, podiatry and vascular recommendations, will send L foot drainage for cx, anticipate dc on oral Doxycycline for 7 more days. DW staff DW Dr Shepherd Problems: Consultation Date/Type/Reason Admit Date/Time Jun 20, 2016 at 05:17 Type of Consultation: ID Exam/Review of Systems Vital Signs Vitals Vital Signs Date Time Temp Pulse Resp B/P Pulse Ox O2 Delivery O2 Flow Rate FiO2 06/25/16 07:31 98.9 61 18 139/64 96 06/23/16 17:10 2.0 06/21/16 15:00 Room Air Intake and Output 06/24/16 06/24/16 06/25/16 15:00 23:00 07:00 Intake Total 410 ml 240 ml Balance 410 ml 240 ml Results Result Diagram: 06/25/16 0515 06/25/16 0515 Results 24 hrs Laboratory Tests Test 06/25/16 05:15 Anion Gap 13 Basophils # 0.0 Basophils % 0.4 Blood Urea Nitrogen 12 Calcium Level 8.5 Carbon Dioxide Level 29 Chloride Level 106 Creatinine 0.71 Eosinophils # 0.3 Eosinophils % 5.3 Glucose Level 115 Hematocrit 26.7 L Hemoglobin 8.2 L Lymphocytes # 1.6 Lymphocytes % 33.5 Mean Corpuscular Hemoglobin 31.8 Mean Corpuscular Hemoglobin Concent 30.7 L Mean Corpuscular Volume 103.5 H Mean Platelet Volume 11.9 H Monocytes # 0.6 Monocytes % 12.4 H Neutrophils # 2.4 Neutrophils % 48.2 Nucleated Red Blood Cells # 0.0 Nucleated Red Blood Cells % 0.0 Platelet Count 188 Potassium Level 3.6 Red Blood Count 2.58 L Red Cell Distribution Width 16.3 H Sodium Level 144 White Blood Count 4.9 Medications Medications Current Medications Heparin Sodium (Porcine) (Heparin (5000 Units/0.5 ml)) 5,000 unit Q8 SC Last administered on 06/25/16 05:36; Admin Dose 5,000 UNIT; Start 06/20/16 at 14:00 Clopidogrel Bisulfate (plaVIX) 75 mg DAILY PO Last administered on 06/25/16 09 :08; Admin Dose 75 MG; Start 06/20/16 at 12:00 Amlodipine Besylate (Norvasc) 5 mg BID PO Last administered on 06/25/16 09:09 ; Admin Dose 5 MG; Start 06/20/16 at 13:30 Atenolol (Tenormin) 50 mg BID PO Last administered on 06/25/16 09:09; Admin Dose 50 MG; Start 06/20/16 at 13:30 Atorvastatin Calcium (Lipitor) 40 mg QHS PO Last administered on 06/24/16 21: 24; Admin Dose 40 MG; Start 06/20/16 at 21:00 Famotidine (Pepcid) 20 mg DAILY PO Last administered on 06/25/16 09:09; Admin Dose 20 MG; Start 06/20/16 at 13:30 Folic Acid (Folic Acid) 2 mg DAILY PO Last administered on 06/25/16 09:07; Admin Dose 2 MG; Start 06/21/16 at 09:00 Gabapentin (Neurontin) 100 mg QHS PO Last administered on 06/24/16 21:24; Admin Dose 100 MG; Start 06/20/16 at 21:00 Gabapentin (Neurontin) 300 mg HS PO Last administered on 06/24/16 21:24; Admin Dose 300 MG; Start 06/20/16 at 21:00 Acetaminophen/ Hydrocodone Bitart ([place] (5/325)) 1 tab BID PRN PO PAIN LEVEL 1 -5 Last administered on 06/25/16 00:30; Admin Dose 1 TAB; Start 06/20/16 at 13: 30 Acetaminophen/ Hydrocodone Bitart ([place] (5/325)) 2 tab Q12 PRN PO PAIN LEVEL 6 -10 Last administered on 06/25/16 09:08; Admin Dose 1 TAB; Start 06/20/16 at 13 :30 Ondansetron HCl (Zofran Inj) 4 mg Q6H PRN IV NAUSEA AND/OR VOMITING; Start at 13:30 Morphine Sulfate (morphine) 2 mg Q4H PRN IV PAIN LEVEL 7-10 Last administered on 06/20/16 13:49; Admin Dose 2 MG; Start 06/20/16 at 13:44 Lorazepam (Ativan) 1 mg Q2H PRN IV ANXIETY; Start 06/20/16 at 13:30 Docusate Sodium (Colace) 100 mg Q12H PRN PO CONSTIPATION; Start 06/20/16 at 13: 30 Magnesium Hydroxide (Milk Of Mag) 30 ml DAILY PRN PO CONSTIPATION; Start at 13:30 Hydralazine HCl (Apresoline) 10 mg Q4H PRN IV ELEVATED SYSTOLIC BP; Start 06/20 at 19:00 Doxycycline Hyclate 100 mg 100 mg BID PO Last administered on 06/25/16 09:07; Admin Dose 100 MG; Start 06/21/16 at 15:30 Ceftriaxone Sodium (Rocephin) 50 ml @ 100 mls/hr Q24H IVPB Last administered on 06/24/16 14:46; Admin Dose 100 MLS/HR; Start 06/22/16 at 15:30 VEGA PALMA NP Jun 25, 2016 13:39
[2016-06-25] MEDS: CEFTRIAXONE 1 GM/50 ML (PMX) 50 ML IVPB SCH (14:37)
--- NOTE | 2016-06-25 17:38 | CONS ---
Date/Time of Note Date/Time of Note DATE: 06/25/16 TIME: 17:36 Assessment/Plan Assessment/Plan Additional Assessment/Plan Peripheral arterial disease with critical limb ischemia status post left iliac endarterectomy and stenting of left SFA Hypertension Dyslipidemia Preserved ejection fraction Normal nuclear cardiac perfusion study 06/05/2016 -Blood pressure trend overall improved. No new cardiac orders at the current time. Consultation Date/Type/Reason Admit Date/Time Jun 20, 2016 at 05:17 Type of Consultation: cv 24 HR Interval Summary Free Text/Dictation Patient denies shortness of breath, chest pain or palpitations Exam/Review of Systems Vital Signs Vitals Vital Signs Date Time Temp Pulse Resp B/P Pulse Ox O2 Delivery O2 Flow Rate FiO2 06/25/16 07:31 98.9 61 18 139/64 96 06/23/16 17:10 2.0 06/21/16 15:00 Room Air Intake and Output 06/24/16 06/24/16 06/25/16 15:00 23:00 07:00 Intake Total 410 ml 240 ml Balance 410 ml 240 ml Exam No apparent distress Constitutional: alert, frail, oriented Head: normocephalic Neck: supple Respiratory: other (Coarse breath sounds bilaterally, no wheezing) Cardiovascular: other (S1-S2 heard), regular rate and rhythm Gastrointestinal: bowel sounds, non-tender, other (No guarding), soft Extremities: other (No edema, bandaged left foot) Results Result Diagram: 06/25/16 0515 06/25/16 0515 Results 24 hrs Laboratory Tests Test 06/25/16 05:15 Anion Gap 13 Basophils # 0.0 Basophils % 0.4 Blood Urea Nitrogen 12 Calcium Level 8.5 Carbon Dioxide Level 29 Chloride Level 106 Creatinine 0.71 Eosinophils # 0.3 Eosinophils % 5.3 Glucose Level 115 Hematocrit 26.7 L Hemoglobin 8.2 L Lymphocytes # 1.6 Lymphocytes % 33.5 Mean Corpuscular Hemoglobin 31.8 Mean Corpuscular Hemoglobin Concent 30.7 L Mean Corpuscular Volume 103.5 H Mean Platelet Volume 11.9 H Monocytes # 0.6 Monocytes % 12.4 H Neutrophils # 2.4 Neutrophils % 48.2 Nucleated Red Blood Cells # 0.0 Nucleated Red Blood Cells % 0.0 Platelet Count 188 Potassium Level 3.6 Red Blood Count 2.58 L Red Cell Distribution Width 16.3 H Sodium Level 144 White Blood Count 4.9 Medications Medications Current Medications Heparin Sodium (Porcine) (Heparin (5000 Units/0.5 ml)) 5,000 unit Q8 SC Last administered on 06/25/16 14:50; Admin Dose 5,000 UNIT; Start 06/20/16 at 14:00 Clopidogrel Bisulfate (plaVIX) 75 mg DAILY PO Last administered on 06/25/16 09 :08; Admin Dose 75 MG; Start 06/20/16 at 12:00 Amlodipine Besylate (Norvasc) 5 mg BID PO Last administered on 06/25/16 09:09 ; Admin Dose 5 MG; Start 06/20/16 at 13:30 Atenolol (Tenormin) 50 mg BID PO Last administered on 06/25/16 09:09; Admin Dose 50 MG; Start 06/20/16 at 13:30 Atorvastatin Calcium (Lipitor) 40 mg QHS PO Last administered on 06/24/16 21: 24; Admin Dose 40 MG; Start 06/20/16 at 21:00 Famotidine (Pepcid) 20 mg DAILY PO Last administered on 06/25/16 09:09; Admin Dose 20 MG; Start 06/20/16 at 13:30 Folic Acid (Folic Acid) 2 mg DAILY PO Last administered on 06/25/16 09:07; Admin Dose 2 MG; Start 06/21/16 at 09:00 Gabapentin (Neurontin) 100 mg QHS PO Last administered on 06/24/16 21:24; Admin Dose 100 MG; Start 06/20/16 at 21:00 Gabapentin (Neurontin) 300 mg HS PO Last administered on 06/24/16 21:24; Admin Dose 300 MG; Start 06/20/16 at 21:00 Acetaminophen/ Hydrocodone Bitart ([place] (5/325)) 1 tab BID PRN PO PAIN LEVEL 1 -5 Last administered on 06/25/16 15:45; Admin Dose 1 TAB; Start 06/20/16 at 13: 30 Acetaminophen/ Hydrocodone Bitart ([place] (5/325)) 2 tab Q12 PRN PO PAIN LEVEL 6 -10 Last administered on 06/25/16 09:08; Admin Dose 1 TAB; Start 06/20/16 at 13 :30 Ondansetron HCl (Zofran Inj) 4 mg Q6H PRN IV NAUSEA AND/OR VOMITING; Start at 13:30 Morphine Sulfate (morphine) 2 mg Q4H PRN IV PAIN LEVEL 7-10 Last administered on 06/20/16 13:49; Admin Dose 2 MG; Start 06/20/16 at 13:44 Lorazepam (Ativan) 1 mg Q2H PRN IV ANXIETY; Start 06/20/16 at 13:30 Docusate Sodium (Colace) 100 mg Q12H PRN PO CONSTIPATION; Start 06/20/16 at 13: 30 Magnesium Hydroxide (Milk Of Mag) 30 ml DAILY PRN PO CONSTIPATION; Start at 13:30 Hydralazine HCl (Apresoline) 10 mg Q4H PRN IV ELEVATED SYSTOLIC BP; Start 06/20 at 19:00 Doxycycline Hyclate 100 mg 100 mg BID PO Last administered on 06/25/16 09:07; Admin Dose 100 MG; Start 06/21/16 at 15:30 Ceftriaxone Sodium (Rocephin) 50 ml @ 100 mls/hr Q24H IVPB Last administered on 06/25/16 14:37; Admin Dose 100 MLS/HR; Start 06/22/16 at 15:30 James Berman DO Jun 25, 2016 17:37
--- NOTE | 2016-06-25 18:25 | PN ---
Date/Time of Note Date/Time of Note DATE: 06/25/16 TIME: 18:22 Assessment/Plan VTE Prophylaxis VTE Prophylaxis Intervention: SCD's Lines/Catheters IV Catheter Type (from Nrs): Central Line Central line still needed: Yes Urinary Cath still in place: No Assessment/Plan Chief Complaint/Hosp Course ASSESSMENT AND PLAN: 1. Left iliac arterial inclusion in patient with bilateral peripheral arterial disease status post left iliofemoral endarterectomy and left femoral popliteal bypass angioplasty with stent placement by Dr. Shepherd on 06/20/2016. Continue to follow up surgical recommendation. Continue patient on heparin and Plavix. Continue morphine p.r.n. for pain and Zofran p.r.n. for nausea. 2. Hypertension. Dr. Berman is following and cardiology consultation. Continue Norvasc, atenolol, continue hydralazine p.r.n. for systolic blood pressure above 170. 3. Left foot cellulitis with gangrene. Dr. Guerrero is following the patient in podiatry consultation. Plan for amputation upon surgical room availability. Dr. Parr is following in infection disease consultation. Continue antibiotics and current wound care. 4. Left ovarian cyst. Continue to monitor, pelvic ultrasound in 3 months. Continue Pepcid for peptic ulcer disease prophylaxis. Further recommendations based on clinical course. Plan of care discussed with Dr. Stephens. Problems: Subjective 24 Hr Interval Summary Free Text/Dictation No acute events, patient looks comfortable, pain is well controlled. Exam/Review of Systems Vital Signs Vitals Vital Signs Date Time Temp Pulse Resp B/P Pulse Ox O2 Delivery O2 Flow Rate FiO2 06/25/16 07:31 98.9 61 18 139/64 96 06/23/16 17:10 2.0 06/21/16 15:00 Room Air Intake and Output 06/24/16 06/24/16 06/25/16 15:00 23:00 07:00 Intake Total 410 ml 240 ml Balance 410 ml 240 ml Exam PHYSICAL EXAMINATION: GENERAL: Well-developed, well-nourished female who currently is awake, alert. HEENT: Head is atraumatic, normocephalic. PERRLA. NECK: Supple, no cervical lymphadenopathy, no thyromegaly. CHEST: Lungs clear bilaterally. There are no rhonchi, wheezes, rales noted. CARDIOVASCULAR: Normal S1, S2. No murmurs, gallops, clicks, rubs noted. ABDOMEN: Round, soft, nondistended, nontender. Bowel sounds present. EXTREMITIES: The patient has left foot toes with gangrene, all five. Right fifth toe dark, necrotic ulcer. No rash, petechiae noted. The patient's pulses are weak but equal bilaterally, 1+. Left femoral surgical incision site with a dry, clean, and intact dressing. NEUROLOGIC: The patient is awake, alert, and oriented x2. No focal deficits noted. Results Result Diagram: 06/25/1651406/25/16514 Results 24 hrs Laboratory Tests Test 06/25/16 05:15 Anion Gap 13 Basophils # 0.0 Basophils % 0.4 Blood Urea Nitrogen 12 Calcium Level 8.5 Carbon Dioxide Level 29 Chloride Level 106 Creatinine 0.71 Eosinophils # 0.3 Eosinophils % 5.3 Glucose Level 115 Hematocrit 26.7 L Hemoglobin 8.2 L Lymphocytes # 1.6 Lymphocytes % 33.5 Mean Corpuscular Hemoglobin 31.8 Mean Corpuscular Hemoglobin Concent 30.7 L Mean Corpuscular Volume 103.5 H Mean Platelet Volume 11.9 H Monocytes # 0.6 Monocytes % 12.4 H Neutrophils # 2.4 Neutrophils % 48.2 Nucleated Red Blood Cells # 0.0 Nucleated Red Blood Cells % 0.0 Platelet Count 188 Potassium Level 3.6 Red Blood Count 2.58 L Red Cell Distribution Width 16.3 H Sodium Level 144 White Blood Count 4.9 Medications Medications Current Medications Heparin Sodium (Porcine) (Heparin (5000 Units/0.5 ml)) 5,000 unit Q8 SC Last administered on 06/25/16 14:50; Admin Dose 5,000 UNIT; Start 06/20/16 at 14:00 Clopidogrel Bisulfate (plaVIX) 75 mg DAILY PO Last administered on 06/25/16 09 :08; Admin Dose 75 MG; Start 06/20/16 at 12:00 Amlodipine Besylate (Norvasc) 5 mg BID PO Last administered on 06/25/16 09:09 ; Admin Dose 5 MG; Start 06/20/16 at 13:30 Atenolol (Tenormin) 50 mg BID PO Last administered on 06/25/16 09:09; Admin Dose 50 MG; Start 06/20/16 at 13:30 Atorvastatin Calcium (Lipitor) 40 mg QHS PO Last administered on 06/24/16 21: 24; Admin Dose 40 MG; Start 06/20/16 at 21:00 Famotidine (Pepcid) 20 mg DAILY PO Last administered on 06/25/16 09:09; Admin Dose 20 MG; Start 06/20/16 at 13:30 Folic Acid (Folic Acid) 2 mg DAILY PO Last administered on 06/25/16 09:07; Admin Dose 2 MG; Start 06/21/16 at 09:00 Gabapentin (Neurontin) 100 mg QHS PO Last administered on 06/24/16 21:24; Admin Dose 100 MG; Start 06/20/16 at 21:00 Gabapentin (Neurontin) 300 mg HS PO Last administered on 06/24/16 21:24; Admin Dose 300 MG; Start 06/20/16 at 21:00 Acetaminophen/ Hydrocodone Bitart ([place] (5/325)) 1 tab BID PRN PO PAIN LEVEL 1 -5 Last administered on 06/25/16 15:45; Admin Dose 1 TAB; Start 06/20/16 at 13: 30 Acetaminophen/ Hydrocodone Bitart ([place] (5/325)) 2 tab Q12 PRN PO PAIN LEVEL 6 -10 Last administered on 06/25/16 09:08; Admin Dose 1 TAB; Start 06/20/16 at 13 :30 Ondansetron HCl (Zofran Inj) 4 mg Q6H PRN IV NAUSEA AND/OR VOMITING; Start at 13:30 Morphine Sulfate (morphine) 2 mg Q4H PRN IV PAIN LEVEL 7-10 Last administered on 06/20/16 13:49; Admin Dose 2 MG; Start 06/20/16 at 13:44 Lorazepam (Ativan) 1 mg Q2H PRN IV ANXIETY; Start 06/20/16 at 13:30 Docusate Sodium (Colace) 100 mg Q12H PRN PO CONSTIPATION; Start 06/20/16 at 13: 30 Magnesium Hydroxide (Milk Of Mag) 30 ml DAILY PRN PO CONSTIPATION; Start at 13:30 Hydralazine HCl (Apresoline) 10 mg Q4H PRN IV ELEVATED SYSTOLIC BP; Start 06/20 at 19:00 Doxycycline Hyclate 100 mg 100 mg BID PO Last administered on 06/25/16 09:07; Admin Dose 100 MG; Start 06/21/16 at 15:30 Ceftriaxone Sodium (Rocephin) 50 ml @ 100 mls/hr Q24H IVPB Last administered on 06/25/16 14:37; Admin Dose 100 MLS/HR; Start 06/22/16 at 15:30 JANIS BAKER Jun 25, 2016 18:25
[2016-06-25 20:34] VITALS: BP 143/65; RESP 20
[2016-06-25] MEDS: ATORVASTATIN 40 MG TAB PO SCH (21:44)
[2016-06-25] MEDS: GABAPENTIN 100 MG CAP PO SCH (21:44)
[2016-06-25] MEDS: GABAPENTIN 300 MG CAP PO SCH (21:44)
--- NOTE | 2016-06-25 23:26 | PN ---
Date/Time of Note Date/Time of Note DATE: 06/25/16 TIME: 23:25 Assessment/Plan Lines/Catheters IV Catheter Type (from [facility]): Central Line Fitzgerald in Place (from [facility]): No Assessment/Plan Problems: (1) Toe gangrene Comment: Patient is scheduled for TMA of the left foot tomorrow morning; time is not determined yet. Orders are in the chart. I had a detailed discussion with the patient about this procedure. She states that she understands and agrees to the procedure. Patient will be followed in house. (2) Peripheral vascular disease Exam/Review of Systems Vital Signs Vitals Vital Signs Date Time Temp Pulse Resp B/P Pulse Ox O2 Delivery O2 Flow Rate FiO2 06/25/16 20:34 98.6 64 20 143/65 95 06/23/16 17:10 2.0 06/21/16 15:00 Room Air Intake and Output 06/24/16 06/24/16 06/25/16 15:00 23:00 07:00 Intake Total 410 ml 240 ml Balance 410 ml 240 ml Results Result Diagram: 06/25/16 0515 06/25/16 0515 RONNELL CORONEL DPM Jun 25, 2016 23:26
[2016-06-26] VITALS (16 sets, daily range): BP systolic 114–157; BP diastolic 53–74; PULSE 69–86; RESP 14–23
[2016-06-26] MEDS ORDERED: LIDOCAINE 2% (MDV) 20 ML INJ INJ ONE
[2016-06-26] MEDS ORDERED: POLYMYXIN/BACITRACIN 1L IRRIG IRR ONE
[2016-06-26] MEDS ORDERED: BUPIVACAINE 0.5% (MPF) 30 ML INJ EPI ONE
[2016-06-26 05:40] LABS: ADD SCAN DIFF NO
[2016-06-26] MEDS: HEPARIN 5,000 UNIT/0.5 ML SYG SC SCH ×3 (05:40→22:08)
[2016-06-26 06:09] LABS: BASOPHILS % 0.4 % (0.0-2.0); EOSINOPHILS # 0.2 10^3/ul (0.0-0.5); EOSINOPHILS % 5.2 % (0.0-7.0); HEMATOCRIT 24.6 % (37.0-47.0); HEMOGLOBIN 7.6 g/dl (12.0-16.0); LYMPHOCYTES # 1.5 10^3/ul (0.8-2.9); LYMPHOCYTES % 32.5 % (15.0-51.0); MEAN CORPUSCULAR HEMOGLOBIN 31.3 pg (29.0-33.0); MEAN CORPUSCULAR HGB CONC 30.9 g/dl (32.0-37.0); MEAN CORPUSCULAR VOLUME 101.2 fl (82.0-101.0); MEAN PLATELET VOLUME 11.4 fl (7.4-10.4); MONOCYTE # 0.5 10^3/ul (0.3-0.9); MONOCYTES % 11.8 % (0.0-11.0); NEUTROPHIL # 2.3 10^3/ul (1.6-7.5); NEUTROPHILS % 49.9 % (39.0-77.0); PLATELET COUNT 201 10^3/UL (140-415); POTASSIUM 3.7 mmol/L (3.5-5.1); RED BLOOD COUNT 2.43 10^6/ul (4.20-5.40); RED CELL DISTRIBUTION WIDTH 15.9 % (11.5-14.5); WHITE BLOOD COUNT 4.6 10^3/ul (4.8-10.8)
[2016-06-26 06:11] LABS: CREATININE 0.7 mg/dl (0.44-1.00)
[2016-06-26 06:12] LABS: CALCIUM 8.6 mg/dl (8.4-10.2)
[2016-06-26] MEDS ORDERED: CEFAZOLIN 1 GM INJ ONE (07:00)
[2016-06-26] MEDS ORDERED: ONDANSETRON 4 MG INJ ONE (07:00)
[2016-06-26] MEDS: AMLODIPINE 5 MG TAB PO SCH ×2 (08:59→20:40)
[2016-06-26] MEDS: FOLIC ACID 1 MG TAB PO SCH (08:59)
[2016-06-26] MEDS: CLOPIDOGREL 75 MG TAB PO SCH (09:00)
[2016-06-26] MEDS: FAMOTIDINE 20 MG TAB PO SCH (09:00)
[2016-06-26] MEDS: DOXYCYCLINE 100 MG TAB PO SCH ×2 (09:00→20:36)
[2016-06-26] MEDS: ATENOLOL 50 MG TAB PO SCH ×2 (09:00→20:36)
[2016-06-26] MEDS ORDERED: LIDOCAINE 2% (MDV) 20 ML INJ ONE (09:38)
[2016-06-26] MEDS ORDERED: BUPIVACAINE 0.5% (SDV) 30 ML INJ ONE (09:39)
--- NOTE | 2016-06-26 10:06 | HPN ---
Date/Time of Note Date/Time of Note DATE: 06/26/16 TIME: 10:06 Interval H&P Admission Note Pt. seen H&P reviewed: No system changes RONNELL CORONEL DPM Jun 26, 2016 10:06
[2016-06-26] MEDS ORDERED: FENTAnyl 50 MCG/ML VIAL ONE ×2 (10:08→10:36)
[2016-06-26] MEDS ORDERED: ETOMIDATE 20 MG INJ ONE (10:09)
[2016-06-26] MEDS ORDERED: LIDOCAINE 2% (SDV) 5 ML INJ ONE (10:10)
[2016-06-26] MEDS ORDERED: hydrALAzine 20 MG INJ IV PRN (10:30)
[2016-06-26] MEDS ORDERED: HYDROmorphONE (0.2 MG/ML) 10ML SYG IV PRN ×3 (10:30)
[2016-06-26] MEDS ORDERED: EPHEDrine SULFATE 50 MG/5 ML SYG IV PRN (10:30)
[2016-06-26] MEDS ORDERED: OXYCODONE/ACETAMINOPHEN (5/325) TAB PO PRN ×2 (10:30)
[2016-06-26] MEDS ORDERED: LABETALOL HCL 20MG INJ IV PRN (10:30)
[2016-06-26] MEDS ORDERED: ONDANSETRON 4 MG INJ IV PRN (10:30)
[2016-06-26] MEDS ORDERED: FENTAnyl 50 MCG/ML VIAL IV PRN ×3 (10:30)
[2016-06-26] MEDS ORDERED: MEPERIDINE 25 MG INJ IV PRN (10:30)
[2016-06-26] MEDS ORDERED: DEXAMETHASONE 4 MG/ML 1 ML INJ ONE (10:32)
--- NOTE | 2016-06-26 11:22 | OPR ---
Date/Time of Note Date/Time of Note DATE: 06/26/16 TIME: 11:15 Operative Report Procedure Date: Jun 26, 2016 Preoperative Diagnosis Left foot gangrene involving all 5 toes Peripheral vascular disease Ischemic pain Hypertension Postoperative Diagnosis Left foot gangrene involving all 5 toes Peripheral vascular disease Ischemic pain Hypertension Operation Performed Transmetatarsal amputation left foot Anesthesia: general Estimated Blood Loss: 0 - 10 ml's Specimens Left forefoot Complications: None Pt Condition Post Procedure: stable Disposition: PACU Indications This is a pleasant 85-year-old female patient who is been suffering with peripheral vascular disease and ischemic pain with gangrene of left foot hallux through the fifth toe requiring surgical management to include transmetatarsal limitation. She is recently undergone revascularization which has increased perfusion in blood flow to the foot. Risks and complications of this type surgery was discussed with patient in great detail. Recent comp occasions discussed include, but not limited to postoperative infection, postoperative pain, failure of surgery to correct the problem, need for additional surgical procedures, gait disturbance, need for more proximal amputation, deep venous thrombosis, limb loss and loss of life. Patient agrees to the proposed procedure. Informed consent was signed, obtained and placed in the chart. No guarantee or warranty was given or implied as to the outcome of procedure either verbal or written form. Operative\Procedure Findings Gangrenous hallux through the fifth toes all the way to the metatarsophalangeal joints of the left foot. Procedure Description The patient was seen preoperative area. Proposed surgical management was discussed with patient in great detail. Patient is desirous of surgical management informed consent was signed, obtained and placed in the chart. The patient was brought into the operating room and was placed on the operative table in supine position. All bony prominences were padded properly. Patient was then placed under general anesthesia. A timeout was called and the site of surgery and the proposed procedure was identified and agreed upon by all members of the operating room. Attention was directed to the left foot. [place] incision was made encompassing all the toes using a #15 blade. Bleeders were cauterized and controlled as necessary. Dissection was made all the way down to bone across the dorsal and plantar aspect. Forefoot was then disarticulated at the metatarsophalangeal joints on all 5 MPJs. The forefoot was then passed the back table. A power saw was used to cut the heads of metatarsals 1 through 5 to assist in closure. Lateral flap was prepped for closure. Dorsal flap was also prepped for closure. The wound was flushed with copious amounts of sterile normal saline. All bleeders were cauterized and controlled prior to closure. I used 3-0 Vicryl to close subcutaneous layer. Next, skin was closed using 0 Prolene in simple suture technique. Postoperative injection of 0.5% Marcaine plain was given. Sterile dressing was applied to the left foot. The patient tolerated the procedure and anesthesia well patient was transferred to recovery room with vital signs stable and vascular status intact to the left foot. Patient will be sent back to the floor after postoperative monitoring. Postoperative orders were written. Patient is to remain nonweightbearing on the left foot. Patient will be followed in-house. RONNELL CORONEL DPM Jun 26, 2016 11:22
[2016-06-26] MEDS: CEFTRIAXONE 1 GM/50 ML (PMX) 50 ML IVPB SCH (14:11)
--- NOTE | 2016-06-26 14:11 | PN ---
DATE: 06/26/2016 INFECTIOUS DISEASE PROGRESS NOTE SUBJECTIVE: The patient is in no distress. No fevers. VITAL SIGNS: Stable. ANTIMICROBIALS: She is on: 1. Doxycycline. 2. Rocephin. PHYSICAL EXAMINATION: GENERAL: Fragile, elderly woman who is in no distress. HEENT: Head atraumatic, normocephalic. Sclerae anicteric. Buccal mucosa pink. NECK: Supple. CHEST: Rise symmetrical. Breath sounds clear. HEART: S1, S2. ABDOMEN: Soft, bowel sounds present. EXTREMITIES: Without cyanosis. Left foot with gangrenous toes. ASSESSMENT: 1. Left foot gangrene. 2. Peripheral arterial and vascular disease status post arterial femoral bypass graft with stent pl acement. 3. Anemia. 4. Hypertension. PLAN: The patient remains stable. Vascular and podiatry on case. Pending transmetatarsal amputati on of the left foot as per podiatry note. Dictated By: VEGA PALMA PERSONAL PROPERTY APPRAISER for JEROME KNOX/ADEN Conf#: [id number] DID#: [id number]
--- NOTE | 2016-06-26 15:23 | RADRPT ---
PROCEDURE: XR Left Foot. CLINICAL INDICATION: Left foot pain. Postop. TECHNIQUE: Three views. Frontal, lateral, and oblique. COMPARISON: 05/17/2016. FINDINGS: There has been distal transmetatarsal amputation. There is no other fracture or dislocation. The soft tissues are unremarkable. Articular surfaces are intact. There is no lytic or blastic lesion. There is no radiopaque foreign body. IMPRESSION: 1. Distal transmetatarsal amputation. 2. Otherwise unremarkable study. RPTAT: QQ .Leobardo Jacobson MD, MD Date Time Electronically viewed and signed by .Leobardo Jacobson MD, MD on 06/26/2016 15:23 .R/
--- NOTE | 2016-06-26 15:37 | CONS ---
Date/Time of Note Date/Time of Note DATE: 06/26/16 TIME: 15:36 Assessment/Plan Assessment/Plan Additional Assessment/Plan Peripheral arterial disease with critical limb ischemia status post left iliac endarterectomy and stenting of left SFA Hypertension Dyslipidemia Preserved ejection fraction Normal nuclear cardiac perfusion study 06/05/2016 -Patient status post podiatry intervention with amputation. Blood pressure trend mildly elevated but overall improved. Would continue current cardiac medication regimen. Consultation Date/Type/Reason Admit Date/Time Jun 20, 2016 at 05:17 Type of Consultation: cv 24 HR Interval Summary Free Text/Dictation Patient complains of fatigue, denies chest pain, shortness of breath Exam/Review of Systems Vital Signs Vitals Vital Signs Date Time Temp Pulse Resp B/P Pulse Ox O2 Delivery O2 Flow Rate FiO2 06/26/16 12:25 98.2 75 18 147/67 93 06/26/16 12:14 Room Air 06/23/16 17:10 2.0 Intake and Output 06/25/16 06/25/16 06/26/16 15:00 23:00 07:00 Intake Total 1010 ml 200 ml Balance 1010 ml 200 ml Exam Sleeping but arousable, no apparent distress Head: normocephalic Neck: supple Respiratory: clear to auscultation, normal air movement Cardiovascular: other (S1-S2), regular rate and rhythm Gastrointestinal: bowel sounds, non-tender, other (No guarding), soft Extremities: edema, other (Bandage lower extremity) Results Result Diagram: 06/26/16 0518 06/26/16 0518 Results 24 hrs Laboratory Tests Test 06/26/16 05:18 Anion Gap 13 Basophils # 0.0 Basophils % 0.4 Blood Urea Nitrogen 9 Calcium Level 8.6 Carbon Dioxide Level 28 Chloride Level 106 Creatinine 0.70 Eosinophils # 0.2 Eosinophils % 5.2 Glucose Level 101 Hematocrit 24.6 L Hemoglobin 7.6 L Lymphocytes # 1.5 Lymphocytes % 32.5 Mean Corpuscular Hemoglobin 31.3 Mean Corpuscular Hemoglobin Concent 30.9 L Mean Corpuscular Volume 101.2 H Mean Platelet Volume 11.4 H Monocytes # 0.5 Monocytes % 11.8 H Neutrophils # 2.3 Neutrophils % 49.9 Nucleated Red Blood Cells # 0.0 Nucleated Red Blood Cells % 0.0 Platelet Count 201 Potassium Level 3.7 Red Blood Count 2.43 L Red Cell Distribution Width 15.9 H Sodium Level 143 White Blood Count 4.6 L Medications Medications Current Medications Heparin Sodium (Porcine) (Heparin (5000 Units/0.5 ml)) 5,000 unit Q8 SC Last administered on 06/25/16 21:49; Admin Dose 5,000 UNIT; Start 06/20/16 at 14:00 Clopidogrel Bisulfate (plaVIX) 75 mg DAILY PO Last administered on 06/25/16 09 :08; Admin Dose 75 MG; Start 06/20/16 at 12:00 Amlodipine Besylate (Norvasc) 5 mg BID PO Last administered on 06/25/16 21:44 ; Admin Dose 5 MG; Start 06/20/16 at 13:30 Atenolol (Tenormin) 50 mg BID PO Last administered on 06/25/16 21:43; Admin Dose 50 MG; Start 06/20/16 at 13:30 Atorvastatin Calcium (Lipitor) 40 mg QHS PO Last administered on 06/25/16 21: 44; Admin Dose 40 MG; Start 06/20/16 at 21:00 Famotidine (Pepcid) 20 mg DAILY PO Last administered on 06/25/16 09:09; Admin Dose 20 MG; Start 06/20/16 at 13:30 Folic Acid (Folic Acid) 2 mg DAILY PO Last administered on 06/25/16 09:07; Admin Dose 2 MG; Start 06/21/16 at 09:00 Gabapentin (Neurontin) 100 mg QHS PO Last administered on 06/25/16 21:44; Admin Dose 100 MG; Start 06/20/16 at 21:00 Gabapentin (Neurontin) 300 mg HS PO Last administered on 06/25/16 21:44; Admin Dose 300 MG; Start 06/20/16 at 21:00 Acetaminophen/ Hydrocodone Bitart ([place] (5/325)) 1 tab BID PRN PO PAIN LEVEL 1 -5 Last administered on 06/25/16 15:45; Admin Dose 1 TAB; Start 06/20/16 at 13: 30 Acetaminophen/ Hydrocodone Bitart ([place] (5/325)) 2 tab Q12 PRN PO PAIN LEVEL 6 -10 Last administered on 06/25/16 09:08; Admin Dose 1 TAB; Start 06/20/16 at 13 :30 Ondansetron HCl (Zofran Inj) 4 mg Q6H PRN IV NAUSEA AND/OR VOMITING; Start at 13:30 Morphine Sulfate (morphine) 2 mg Q4H PRN IV PAIN LEVEL 7-10 Last administered on 06/20/16 13:49; Admin Dose 2 MG; Start 06/20/16 at 13:44 Lorazepam (Ativan) 1 mg Q2H PRN IV ANXIETY; Start 06/20/16 at 13:30 Docusate Sodium (Colace) 100 mg Q12H PRN PO CONSTIPATION; Start 06/20/16 at 13: 30 Magnesium Hydroxide (Milk Of Mag) 30 ml DAILY PRN PO CONSTIPATION; Start at 13:30 Hydralazine HCl (Apresoline) 10 mg Q4H PRN IV ELEVATED SYSTOLIC BP; Start 06/20 at 19:00 Doxycycline Hyclate 100 mg 100 mg BID PO Last administered on 06/25/16 21:43; Admin Dose 100 MG; Start 06/21/16 at 15:30 Ceftriaxone Sodium (Rocephin) 50 ml @ 100 mls/hr Q24H IVPB Last administered on 06/26/16 14:11; Admin Dose 100 MLS/HR; Start 06/22/16 at 15:30 James Berman DO Jun 26, 2016 15:37
--- NOTE | 2016-06-26 16:34 | PN ---
Date/Time of Note Date/Time of Note DATE: 06/26/16 TIME: 16:31 Assessment/Plan VTE Prophylaxis VTE Prophylaxis Intervention: SCD's Lines/Catheters IV Catheter Type (from Nrs): Central Line Central line still needed: Yes Urinary Cath still in place: No Assessment/Plan Chief Complaint/Hosp Course ASSESSMENT AND PLAN: 1. Left iliac arterial inclusion in patient with bilateral peripheral arterial disease status post left iliofemoral endarterectomy and left femoral popliteal bypass angioplasty with stent placement by Dr. Shepherd on 06/20/2016. Continue to follow up surgical recommendation. Continue patient on heparin and Plavix. Continue morphine p.r.n. for pain and Zofran p.r.n. for nausea. 2. Hypertension. Dr. Berman is following and cardiology consultation. Continue Norvasc, atenolol, continue hydralazine p.r.n. for systolic blood pressure above 170. 3. Left foot cellulitis with gangrene. Dr. Guerrero is following the patient in podiatry consultation. S/P TMA 06/26. Dr. Parr is following in infection disease consultation. Continue antibiotics and current wound care. 4. Left ovarian cyst. Continue to monitor, pelvic ultrasound in 3 months. Continue Pepcid for peptic ulcer disease prophylaxis. Further recommendations based on clinical course. Plan of care discussed with Dr. Stephens. Problems: Subjective 24 Hr Interval Summary Free Text/Dictation Patient status post left transmetatarsal amputation, awake alert pain is well controlled. Exam/Review of Systems Vital Signs Vitals Vital Signs Date Time Temp Pulse Resp B/P Pulse Ox O2 Delivery O2 Flow Rate FiO2 06/26/16 12:25 98.2 75 18 147/67 93 06/26/16 12:14 Room Air 06/23/16 17:10 2.0 Intake and Output 06/25/16 06/25/16 06/26/16 15:00 23:00 07:00 Intake Total 1010 ml 200 ml Balance 1010 ml 200 ml Exam PHYSICAL EXAMINATION: GENERAL: Well-developed, well-nourished female who currently is awake, alert. HEENT: Head is atraumatic, normocephalic. PERRLA. NECK: Supple, no cervical lymphadenopathy, no thyromegaly. CHEST: Lungs clear bilaterally. There are no rhonchi, wheezes, rales noted. CARDIOVASCULAR: Normal S1, S2. No murmurs, gallops, clicks, rubs noted. ABDOMEN: Round, soft, nondistended, nontender. Bowel sounds present. EXTREMITIES: LLE s/p surgery. Left femoral surgical incision site with a dry, clean, and intact dressing. NEUROLOGIC: The patient is awake, alert, and oriented x2. No focal deficits noted. Results Result Diagram: 06/26/1618 06/26/1618 Results 24 hrs Laboratory Tests Test 06/26/16 05:18 Anion Gap 13 Basophils # 0.0 Basophils % 0.4 Blood Urea Nitrogen 9 Calcium Level 8.6 Carbon Dioxide Level 28 Chloride Level 106 Creatinine 0.70 Eosinophils # 0.2 Eosinophils % 5.2 Glucose Level 101 Hematocrit 24.6 L Hemoglobin 7.6 L Lymphocytes # 1.5 Lymphocytes % 32.5 Mean Corpuscular Hemoglobin 31.3 Mean Corpuscular Hemoglobin Concent 30.9 L Mean Corpuscular Volume 101.2 H Mean Platelet Volume 11.4 H Monocytes # 0.5 Monocytes % 11.8 H Neutrophils # 2.3 Neutrophils % 49.9 Nucleated Red Blood Cells # 0.0 Nucleated Red Blood Cells % 0.0 Platelet Count 201 Potassium Level 3.7 Red Blood Count 2.43 L Red Cell Distribution Width 15.9 H Sodium Level 143 White Blood Count 4.6 L Medications Medications Current Medications Heparin Sodium (Porcine) (Heparin (5000 Units/0.5 ml)) 5,000 unit Q8 SC Last administered on 06/25/16 21:49; Admin Dose 5,000 UNIT; Start 06/20/16 at 14:00 Clopidogrel Bisulfate (plaVIX) 75 mg DAILY PO Last administered on 06/25/16 09 :08; Admin Dose 75 MG; Start 06/20/16 at 12:00 Amlodipine Besylate (Norvasc) 5 mg BID PO Last administered on 06/25/16 21:44 ; Admin Dose 5 MG; Start 06/20/16 at 13:30 Atenolol (Tenormin) 50 mg BID PO Last administered on 06/25/16 21:43; Admin Dose 50 MG; Start 06/20/16 at 13:30 Atorvastatin Calcium (Lipitor) 40 mg QHS PO Last administered on 06/25/16 21: 44; Admin Dose 40 MG; Start 06/20/16 at 21:00 Famotidine (Pepcid) 20 mg DAILY PO Last administered on 06/25/16 09:09; Admin Dose 20 MG; Start 06/20/16 at 13:30 Folic Acid (Folic Acid) 2 mg DAILY PO Last administered on 06/25/16 09:07; Admin Dose 2 MG; Start 06/21/16 at 09:00 Gabapentin (Neurontin) 100 mg QHS PO Last administered on 06/25/16 21:44; Admin Dose 100 MG; Start 06/20/16 at 21:00 Gabapentin (Neurontin) 300 mg HS PO Last administered on 06/25/16 21:44; Admin Dose 300 MG; Start 06/20/16 at 21:00 Acetaminophen/ Hydrocodone Bitart ([place] (5/325)) 1 tab BID PRN PO PAIN LEVEL 1 -5 Last administered on 06/25/16 15:45; Admin Dose 1 TAB; Start 06/20/16 at 13: 30 Acetaminophen/ Hydrocodone Bitart ([place] (5/325)) 2 tab Q12 PRN PO PAIN LEVEL 6 -10 Last administered on 06/25/16 09:08; Admin Dose 1 TAB; Start 06/20/16 at 13 :30 Ondansetron HCl (Zofran Inj) 4 mg Q6H PRN IV NAUSEA AND/OR VOMITING; Start at 13:30 Morphine Sulfate (morphine) 2 mg Q4H PRN IV PAIN LEVEL 7-10 Last administered on 06/20/16 13:49; Admin Dose 2 MG; Start 06/20/16 at 13:44 Lorazepam (Ativan) 1 mg Q2H PRN IV ANXIETY; Start 06/20/16 at 13:30 Docusate Sodium (Colace) 100 mg Q12H PRN PO CONSTIPATION; Start 06/20/16 at 13: 30 Magnesium Hydroxide (Milk Of Mag) 30 ml DAILY PRN PO CONSTIPATION; Start at 13:30 Hydralazine HCl (Apresoline) 10 mg Q4H PRN IV ELEVATED SYSTOLIC BP; Start 06/20 at 19:00 Doxycycline Hyclate 100 mg 100 mg BID PO Last administered on 06/25/16 21:43; Admin Dose 100 MG; Start 3/16/17 at 15:30 Ceftriaxone Sodium (Rocephin) 50 ml @ 100 mls/hr Q24H IVPB Last administered on 06/26/16t 14:11; Admin Dose 100 MLS/HR; Start 06/22/16 at 15:30 JANIS BAKER Jun 26, 2016 16:34
--- NOTE | 2016-06-26 19:20 | PN ---
Date/Time of Note Date/Time of Note DATE: 06/26/16 TIME: 19:18 Assessment/Plan Lines/Catheters IV Catheter Type (from Nrs): Central Line Fitzgerald in Place (from Nrs): No Assessment/Plan Chief Complaint/Hosp Course -Bilateral lower extremity atherosclerosis with gangrene: S/P Left iliofemoral artery exploration, Left common iliac & External Iliac artery stenting and balloon angioplasty, Left femoral &popliteal artery stenting and balloon angioplasty -PT/OT OOB FWB as tolerated -Continue with neurovascular monitoring Q4 -Started pt on Plavix 75mg po Q daily for 90 days -Initiate D/C planning with antibiotics and Plavix -Patient cleared from vascular standpoint for discharge. Will schedule patient for right lower extremity revascularization in the coming weeks -Optimize vascular status (BP meds, cholesterol, sugar control, diet, nutrition , weight loss, antiplatelets) -Discussed findings, plan and management with the patient and she understands -Thank you for allowing us to partake in the care of your patient, please call with any questions Problems: Subjective 24 Hr Interval Summary No new vascular events overnight, S/P LLE foot debridement Exam/Review of Systems Vital Signs Vitals Vital Signs Date Time Temp Pulse Resp B/P Pulse Ox O2 Delivery O2 Flow Rate FiO2 06/26/16 12:25 98.2 75 18 147/67 93 06/26/16 12:14 Room Air 06/23/16 17:10 2.0 Intake and Output 06/25/16 06/25/16 06/26/16 15:00 23:00 07:00 Intake Total 1010 ml 200 ml Balance 1010 ml 200 ml Exam Free Text/Dictation A&O x3 CTAB S1S2 present Soft NTND BS+, truncal obesity, large panus RLE: nonpalpable femoral pulse, nonpalpable pedal pulse, motor/sensory intact, cap refill 4 seconds, 5th toe gangrene LLE: palpable femoral pulse, adilia intact and dry, dopplerable biphasic AT/PT signal, motor/sensory intact, cap refill 2-3seconds at the ankle, Surgical Dressing intact of the foot Results Result Diagram: 06/26/16 0518 06/26/1618 AMY VALDES MD Jun 26, 2016 19:20
[2016-06-26] MEDS: GABAPENTIN 300 MG CAP PO SCH (20:36)
[2016-06-26] MEDS: GABAPENTIN 100 MG CAP PO SCH (20:36)
[2016-06-26] MEDS: ATORVASTATIN 40 MG TAB PO SCH (20:36)
[2016-06-26] MEDS: HYDROCODONE/APAP (5/325) TAB PO PRN (23:22)
[2016-06-27] MEDS: HEPARIN 5,000 UNIT/0.5 ML SYG SC SCH ×3 (05:25→23:55)
[2016-06-27 05:55] LABS: ADD SCAN DIFF NO
[2016-06-27 06:07] LABS: BASOPHILS % 0.1 % (0.0-2.0); HEMATOCRIT 26.9 % (37.0-47.0); HEMOGLOBIN 8.2 g/dl (12.0-16.0); LYMPHOCYTES % 13.3 % (15.0-51.0); MEAN CORPUSCULAR HEMOGLOBIN 31.4 pg (29.0-33.0); MEAN CORPUSCULAR HGB CONC 30.5 g/dl (32.0-37.0); MEAN CORPUSCULAR VOLUME 103.1 fl (82.0-101.0); MEAN PLATELET VOLUME 11.4 fl (7.4-10.4); MONOCYTE # 0.6 10^3/ul (0.3-0.9); NEUTROPHIL # 5.5 10^3/ul (1.6-7.5); NEUTROPHILS % 77.2 % (39.0-77.0); PLATELET COUNT 219 10^3/UL (140-415); RED BLOOD COUNT 2.61 10^6/ul (4.20-5.40); RED CELL DISTRIBUTION WIDTH 15.9 % (11.5-14.5); WHITE BLOOD COUNT 7.1 10^3/ul (4.8-10.8)
[2016-06-27 06:18] LABS: POTASSIUM 3.8 mmol/L (3.5-5.1)
[2016-06-27 06:21] LABS: CALCIUM 8.4 mg/dl (8.4-10.2)
[2016-06-27 07:21] VITALS: BP 166/72; RESP 18
[2016-06-27] MEDS: FOLIC ACID 1 MG TAB PO SCH (08:11)
[2016-06-27] MEDS: DOXYCYCLINE 100 MG TAB PO SCH ×2 (08:11→21:30)
[2016-06-27] MEDS: ATENOLOL 50 MG TAB PO SCH ×2 (08:11→23:50)
[2016-06-27] MEDS: AMLODIPINE 5 MG TAB PO SCH ×2 (08:11→21:30)
[2016-06-27] MEDS: FAMOTIDINE 20 MG TAB PO SCH (08:11)
[2016-06-27] MEDS: CLOPIDOGREL 75 MG TAB PO SCH (08:11)
[2016-06-27] MEDS: HYDROCODONE/APAP (5/325) TAB PO PRN ×4 (09:39→21:30)
--- NOTE | 2016-06-27 12:03 | PN ---
Date/Time of Note Date/Time of Note DATE: 06/27/16 TIME: 12:02 Assessment/Plan Lines/Catheters IV Catheter Type (from Nrs): Central Line Fitzgerald in Place (from Nrs): No Assessment/Plan Chief Complaint/Hosp Course -Bilateral lower extremity atherosclerosis with gangrene: S/P Left iliofemoral artery exploration, Left common iliac & External Iliac artery stenting and balloon angioplasty, Left femoral &popliteal artery stenting and balloon angioplasty -PT/OT OOB FWB as tolerated -Continue with neurovascular monitoring Q4 -Started pt on Plavix 75mg po Q daily for 90 days -Initiate D/C planning with antibiotics and Plavix -Patient cleared from vascular standpoint for discharge. Will schedule patient for right lower extremity revascularization in the coming weeks -Optimize vascular status (BP meds, cholesterol, sugar control, diet, nutrition , weight loss, antiplatelets) -Discussed findings, plan and management with the patient and she understands -Thank you for allowing us to partake in the care of your patient, please call with any questions Problems: Subjective 24 Hr Interval Summary no new vascular events overnight Exam/Review of Systems Vital Signs Vitals Vital Signs Date Time Temp Pulse Resp B/P Pulse Ox O2 Delivery O2 Flow Rate FiO2 06/27/16 07:21 98.2 67 18 166/72 97 06/26/16 12:14 Room Air 06/23/16 17:10 2.0 Intake and Output 06/26/16 06/26/16 06/27/16 15:00 23:00 07:00 Intake Total 300 ml 530 ml 580 ml Output Total 10 ml Balance 290 ml 530 ml 580 ml Exam Free Text/Dictation A&O x3 CTAB S1S2 present Soft NTND BS+, truncal obesity, large panus RLE: nonpalpable femoral pulse, nonpalpable pedal pulse, motor/sensory intact, cap refill 4 seconds, 5th toe gangrene LLE: palpable femoral pulse, adilia intact and dry, dopplerable biphasic AT/PT signal, motor/sensory intact, cap refill 2-3seconds at the ankle, Surgical Dressing intact of the foot Results Result Diagram: 06/27/16 0514 06/27/16 0514 AMY VALDES MD Jun 27, 2016 12:03
--- NOTE | 2016-06-27 12:27 | CONS ---
Date/Time of Note Date/Time of Note DATE: 06/27/16 TIME: 12:26 Assessment/Plan Assessment/Plan Chief Complaint/Hosp Course SUBJECTIVE: The patient is alert, feels good, no fevers INDWELLINGS: Right IJ triple-lumen catheter. ANTIMICROBIALS: Doxycycline, Rocephin. PHYSICAL EXAMINATION: GENERAL: This is a fragile, well-developed, elderly woman, who is alert, in no distress. HEENT: Head atraumatic, normocephalic. Sclerae are anicteric. Buccal mucosa dry. NECK: Supple, trachea midline. CHEST: Chest rise is symmetrical. Breath sounds clear. HEART: S1, S2. ABDOMEN: Soft, bowel tones present. EXTREMITIES: With left foot dressing intact. ASSESSMENT: 1. Severe peripheral vascular disease, status post left arterial femoral bypass with stent placement. 2. 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 3. Anemia. 4. Hypertension. 5. Renal insufficiency. PLAN: Remains stable, dc Rocephin, continue Doxycycline for 5 more days, f/u podiatry and vascular recommendations [facility] staff Problems: Consultation Date/Type/Reason Admit Date/Time Jun 20, 2016 at 05:17 Type of Consultation: id Exam/Review of Systems Vital Signs Vitals Vital Signs Date Time Temp Pulse Resp B/P Pulse Ox O2 Delivery O2 Flow Rate FiO2 06/27/16 07:21 98.2 67 18 166/72 97 06/26/16 12:14 Room Air 06/23/16 17:10 2.0 Intake and Output 06/26/16 06/26/16 06/27/16 15:00 23:00 07:00 Intake Total 300 ml 530 ml 580 ml Output Total 10 ml Balance 290 ml 530 ml 580 ml Results Result Diagram: 06/27/16 0514 06/27/16 0514 Results 24 hrs Laboratory Tests Test 06/27/16 05:14 White Blood Count 7.1 # Red Blood Count 2.61 L Hemoglobin 8.2 L Hematocrit 26.9 L Mean Corpuscular Volume 103.1 H Mean Corpuscular Hemoglobin 31.4 Mean Corpuscular Hemoglobin Concent 30.5 L Red Cell Distribution Width 15.9 H Platelet Count 219 Mean Platelet Volume 11.4 H Neutrophils % 77.2 H Lymphocytes % 13.3 L Monocytes % 9.0 Eosinophils % 0.0 Basophils % 0.1 Nucleated Red Blood Cells % 0.0 Neutrophils # 5.5 Lymphocytes # 1.0 Monocytes # 0.6 Eosinophils # 0.0 Basophils # 0.0 Nucleated Red Blood Cells # 0.0 Sodium Level 143 Potassium Level 3.8 Chloride Level 106 Carbon Dioxide Level 26 Anion Gap 15 Blood Urea Nitrogen 15 Creatinine 1.00 Glucose Level 192 Calcium Level 8.4 Medications Medications Current Medications Heparin Sodium (Porcine) (Heparin (5000 Units/0.5 ml)) 5,000 unit Q8 SC Last administered on 06/27/16 05:25; Admin Dose 5,000 UNIT; Start 06/20/16 at 14:00 Clopidogrel Bisulfate (plaVIX) 75 mg DAILY PO Last administered on 06/27/16 08 :11; Admin Dose 75 MG; Start 06/20/16 at 12:00 Amlodipine Besylate (Norvasc) 5 mg BID PO Last administered on 06/27/16 08:11 ; Admin Dose 5 MG; Start 06/20/16 at 13:30 Atenolol (Tenormin) 50 mg BID PO Last administered on 06/27/16 08:11; Admin Dose 50 MG; Start 06/20/16 at 13:30 Atorvastatin Calcium (Lipitor) 40 mg QHS PO Last administered on 06/26/16 20: 36; Admin Dose 40 MG; Start 06/20/16 at 21:00 Famotidine (Pepcid) 20 mg DAILY PO Last administered on 06/27/16 08:11; Admin Dose 20 MG; Start 06/20/16 at 13:30 Folic Acid (Folic Acid) 2 mg DAILY PO Last administered on 06/27/16 08:11; Admin Dose 2 MG; Start 06/21/16 at 09:00 Gabapentin (Neurontin) 100 mg QHS PO Last administered on 06/26/16 20:36; Admin Dose 100 MG; Start 06/20/16 at 21:00 Gabapentin (Neurontin) 300 mg HS PO Last administered on 06/26/16 20:36; Admin Dose 300 MG; Start 06/20/16 at 21:00 Acetaminophen/ Hydrocodone Bitart ([place] (5/325)) 2 tab Q12 PRN PO PAIN LEVEL 6 -10 Last administered on 06/25/16 09:08; Admin Dose 1 TAB; Start 06/20/16 at 13 :30 Ondansetron HCl (Zofran Inj) 4 mg Q6H PRN IV NAUSEA AND/OR VOMITING Last administered on 06/26/16 20:35; Admin Dose 4 MG; Start 06/20/16 at 13:30 Morphine Sulfate (morphine) 2 mg Q4H PRN IV PAIN LEVEL 7-10 Last administered on 06/20/16 13:49; Admin Dose 2 MG; Start 06/20/16 at 13:44 Lorazepam (Ativan) 1 mg Q2H PRN IV ANXIETY; Start 06/20/16 at 13:30 Docusate Sodium (Colace) 100 mg Q12H PRN PO CONSTIPATION; Start 06/20/16 at 13: 30 Magnesium Hydroxide (Milk Of Mag) 30 ml DAILY PRN PO CONSTIPATION; Start at 13:30 Hydralazine HCl (Apresoline) 10 mg Q4H PRN IV ELEVATED SYSTOLIC BP; Start 06/20 at 19:00 Doxycycline Hyclate 100 mg 100 mg BID PO Last administered on 06/27/16 08:11; Admin Dose 100 MG; Start 06/21/16 at 15:30 Ceftriaxone Sodium (Rocephin) 50 ml @ 100 mls/hr Q24H IVPB Last administered on 06/26/16 14:11; Admin Dose 100 MLS/HR; Start 06/22/16 at 15:30 Acetaminophen/ Hydrocodone Bitart ([place] (5/325)) 1 tab Q4 PRN PO PAIN; Start 06/27/16 at 11:00 VEGA PALMA NP Jun 27, 2016 12:27
[2016-06-27] MEDS: CEFTRIAXONE 1 GM/50 ML (PMX) 50 ML IVPB SCH (14:43)
--- NOTE | 2016-06-27 16:50 | PN ---
Date/Time of Note Date/Time of Note DATE: 06/27/16 TIME: 16:47 Assessment/Plan VTE Prophylaxis VTE Prophylaxis Intervention: SCD's Lines/Catheters IV Catheter Type (from Nrs): Central Line Central line still needed: Yes Urinary Cath still in place: No Assessment/Plan Chief Complaint/Hosp Course ASSESSMENT AND PLAN: 1. Left iliac arterial inclusion in patient with bilateral peripheral arterial disease status post left iliofemoral endarterectomy and left femoral popliteal bypass angioplasty with stent placement by Dr. Shepherd on 06/20/2016. Continue to follow up surgical recommendation. Continue patient on heparin and Plavix. Continue morphine p.r.n. for pain and Zofran p.r.n. for nausea. 2. Hypertension. Dr. Berman is following and cardiology consultation. Continue Norvasc, atenolol, continue hydralazine p.r.n. for systolic blood pressure above 170. 3. Left foot cellulitis with gangrene. Dr. Guerrero is following the patient in podiatry consultation. S/P TMA 06/26. Dr. Parr is following in infection disease consultation. Continue antibiotics and current wound care. 4. Left ovarian cyst. Continue to monitor, pelvic ultrasound in 3 months. Continue Pepcid for peptic ulcer disease prophylaxis. Further recommendations based on clinical course. Plan of care discussed with Dr. Stephens. Problems: Subjective 24 Hr Interval Summary Free Text/Dictation Patient's complains of pain, status post left TMA, continue [place] as needed for pain every 4 hours. Exam/Review of Systems Vital Signs Vitals Vital Signs Date Time Temp Pulse Resp B/P Pulse Ox O2 Delivery O2 Flow Rate FiO2 06/27/16 07:21 98.2 67 18 166/72 97 06/26/16 12:14 Room Air 06/23/16 17:10 2.0 Intake and Output 06/26/16 06/26/16 06/27/16 15:00 23:00 07:00 Intake Total 300 ml 530 ml 580 ml Output Total 10 ml Balance 290 ml 530 ml 580 ml Exam PHYSICAL EXAMINATION: GENERAL: Well-developed, well-nourished female who currently is awake, alert. HEENT: Head is atraumatic, normocephalic. PERRLA. NECK: Supple, no cervical lymphadenopathy, no thyromegaly. CHEST: Lungs clear bilaterally. There are no rhonchi, wheezes, rales noted. CARDIOVASCULAR: Normal S1, S2. No murmurs, gallops, clicks, rubs noted. ABDOMEN: Round, soft, nondistended, nontender. Bowel sounds present. EXTREMITIES: LLE s/p surgery. Left femoral surgical incision site with a dry, clean, and intact dressing. NEUROLOGIC: The patient is awake, alert, and oriented x2. No focal deficits noted. Results Result Diagram: 06/27/1651306/27/16513 Results 24 hrs Laboratory Tests Test 06/27/16 05:14 White Blood Count 7.1 # Red Blood Count 2.61 L Hemoglobin 8.2 L Hematocrit 26.9 L Mean Corpuscular Volume 103.1 H Mean Corpuscular Hemoglobin 31.4 Mean Corpuscular Hemoglobin Concent 30.5 L Red Cell Distribution Width 15.9 H Platelet Count 219 Mean Platelet Volume 11.4 H Neutrophils % 77.2 H Lymphocytes % 13.3 L Monocytes % 9.0 Eosinophils % 0.0 Basophils % 0.1 Nucleated Red Blood Cells % 0.0 Neutrophils # 5.5 Lymphocytes # 1.0 Monocytes # 0.6 Eosinophils # 0.0 Basophils # 0.0 Nucleated Red Blood Cells # 0.0 Sodium Level 143 Potassium Level 3.8 Chloride Level 106 Carbon Dioxide Level 26 Anion Gap 15 Blood Urea Nitrogen 15 Creatinine 1.00 Glucose Level 192 Calcium Level 8.4 Medications Medications Current Medications Heparin Sodium (Porcine) (Heparin (5000 Units/0.5 ml)) 5,000 unit Q8 SC Last administered on 06/27/16 16:29; Admin Dose 5,000 UNIT; Start 06/20/16 at 14:00 Clopidogrel Bisulfate (plaVIX) 75 mg DAILY PO Last administered on 06/27/16 08 :11; Admin Dose 75 MG; Start 06/20/16 at 12:00 Amlodipine Besylate (Norvasc) 5 mg BID PO Last administered on 06/27/16 08:11 ; Admin Dose 5 MG; Start 06/20/16 at 13:30 Atenolol (Tenormin) 50 mg BID PO Last administered on 06/27/16 08:11; Admin Dose 50 MG; Start 06/20/16 at 13:30 Atorvastatin Calcium (Lipitor) 40 mg QHS PO Last administered on 06/26/16 20: 36; Admin Dose 40 MG; Start 06/20/16 at 21:00 Famotidine (Pepcid) 20 mg DAILY PO Last administered on 06/27/16 08:11; Admin Dose 20 MG; Start 06/20/16 at 13:30 Folic Acid (Folic Acid) 2 mg DAILY PO Last administered on 06/27/16 08:11; Admin Dose 2 MG; Start 06/21/16 at 09:00 Gabapentin (Neurontin) 100 mg QHS PO Last administered on 06/26/16 20:36; Admin Dose 100 MG; Start 06/20/16 at 21:00 Gabapentin (Neurontin) 300 mg HS PO Last administered on 06/26/16 20:36; Admin Dose 300 MG; Start 06/20/16 at 21:00 Acetaminophen/ Hydrocodone Bitart ([place] (5/325)) 2 tab Q12 PRN PO PAIN LEVEL 6 -10 Last administered on 06/27/16 12:58; Admin Dose 2 TAB; Start 06/20/16 at 13 :30 Ondansetron HCl (Zofran Inj) 4 mg Q6H PRN IV NAUSEA AND/OR VOMITING Last administered on 06/26/16 20:35; Admin Dose 4 MG; Start 06/20/16 at 13:30 Morphine Sulfate (morphine) 2 mg Q4H PRN IV PAIN LEVEL 7-10 Last administered on 06/20/16 13:49; Admin Dose 2 MG; Start 06/20/16 at 13:44 Lorazepam (Ativan) 1 mg Q2H PRN IV ANXIETY; Start 06/20/16 at 13:30 Docusate Sodium (Colace) 100 mg Q12H PRN PO CONSTIPATION; Start 06/20/16 at 13: 30 Magnesium Hydroxide (Milk Of Mag) 30 ml DAILY PRN PO CONSTIPATION; Start at 13:30 Hydralazine HCl (Apresoline) 10 mg Q4H PRN IV ELEVATED SYSTOLIC BP; Start 06/20 at 19:00 Doxycycline Hyclate 100 mg 100 mg BID PO Last administered on 06/27/16 08:11; Admin Dose 100 MG; Start 06/21/16 at 15:30 Ceftriaxone Sodium (Rocephin) 50 ml @ 100 mls/hr Q24H IVPB Last administered on 06/27/16t 14:43; Admin Dose 100 MLS/HR; Start 06/22/16 at 15:30 Acetaminophen/ Hydrocodone Bitart ([place] (5/325)) 1 tab Q4 PRN PO PAIN; Start 06/27/16 at 11:00 JANIS BAKER Jun 27, 2016 16:50
[2016-06-27 19:34] VITALS: BP 159/72; RESP 18
[2016-06-27] MEDS: GABAPENTIN 100 MG CAP PO SCH (21:30)
[2016-06-27] MEDS: ATORVASTATIN 40 MG TAB PO SCH (21:30)
[2016-06-27] MEDS: GABAPENTIN 300 MG CAP PO SCH (21:30)
[2016-06-27 23:00] VITALS: BP 108/56; PULSE 55
[2016-06-28] MEDS: HYDROCODONE/APAP (5/325) TAB PO PRN ×2 (01:32→12:58)
[2016-06-28 05:30] LABS: ADD SCAN DIFF NO
[2016-06-28 05:48] LABS: POTASSIUM 3.5 mmol/L (3.5-5.1)
[2016-06-28 05:51] LABS: CREATININE 1.02 mg/dl (0.44-1.00)
[2016-06-28 05:52] LABS: CALCIUM 8.1 mg/dl (8.4-10.2)
[2016-06-28 05:56] LABS: BASOPHILS % 0.3 % (0.0-2.0); EOSINOPHILS # 0.2 10^3/ul (0.0-0.5); EOSINOPHILS % 2.3 % (0.0-7.0); HEMATOCRIT 24.8 % (37.0-47.0); HEMOGLOBIN 7.4 g/dl (12.0-16.0); LYMPHOCYTES # 2.6 10^3/ul (0.8-2.9); LYMPHOCYTES % 35.8 % (15.0-51.0); MEAN CORPUSCULAR HEMOGLOBIN 31.1 pg (29.0-33.0); MEAN CORPUSCULAR HGB CONC 29.8 g/dl (32.0-37.0); MEAN CORPUSCULAR VOLUME 104.2 fl (82.0-101.0); MEAN PLATELET VOLUME 11.5 fl (7.4-10.4); MONOCYTE # 0.7 10^3/ul (0.3-0.9); MONOCYTES % 9.2 % (0.0-11.0); NEUTROPHIL # 3.8 10^3/ul (1.6-7.5); NEUTROPHILS % 52.1 % (39.0-77.0); PLATELET COUNT 238 10^3/UL (140-415); RED BLOOD COUNT 2.38 10^6/ul (4.20-5.40); RED CELL DISTRIBUTION WIDTH 16.1 % (11.5-14.5); WHITE BLOOD COUNT 7.3 10^3/ul (4.8-10.8)
[2016-06-28] MEDS: HEPARIN 5,000 UNIT/0.5 ML SYG SC SCH ×3 (06:00→21:57)
[2016-06-28 07:24] VITALS: BP 122/58; RESP 18
[2016-06-28] MEDS: ATENOLOL 50 MG TAB PO SCH ×2 (08:20→21:47)
[2016-06-28] MEDS: FOLIC ACID 1 MG TAB PO SCH (08:20)
[2016-06-28] MEDS: CLOPIDOGREL 75 MG TAB PO SCH (08:20)
[2016-06-28] MEDS: AMLODIPINE 5 MG TAB PO SCH ×2 (08:20→21:46)
[2016-06-28] MEDS: DOXYCYCLINE 100 MG TAB PO SCH ×2 (08:20→21:47)
[2016-06-28] MEDS: FAMOTIDINE 20 MG TAB PO SCH (08:20)
--- NOTE | 2016-06-28 11:05 | CONS ---
Date/Time of Note Date/Time of Note DATE: 06/28/16 TIME: 11:03 Assessment/Plan Assessment/Plan Additional Assessment/Plan Peripheral arterial disease with critical limb ischemia status post left iliac endarterectomy and stenting of left SFA Hypertension Dyslipidemia Preserved ejection fraction Normal nuclear cardiac perfusion study 06/05/2016 -Blood pressure trend overall improved. Continue statin therapy, patient with worsening anemia, would follow trend closely. Consultation Date/Type/Reason Admit Date/Time Jun 20, 2016 at 05:17 Type of Consultation: cv 24 HR Interval Summary Free Text/Dictation Patient denies shortness of breath, chest pain or palpitations Exam/Review of Systems Vital Signs Vitals Vital Signs Date Time Temp Pulse Resp B/P Pulse Ox O2 Delivery O2 Flow Rate FiO2 06/28/16 07:24 98.0 58 18 122/58 97 06/26/16 12:14 Room Air Intake and Output 06/27/16 06/27/16 06/28/16 15:00 23:00 07:00 Intake Total 770 ml 240 ml Output Total 300 ml Balance 470 ml 240 ml Exam No apparent distress Constitutional: alert, frail, oriented Head: normocephalic Neck: supple Respiratory: other (Coarse breath sounds bilaterally, no wheezing) Cardiovascular: other (S1-S2 heard), regular rate and rhythm Gastrointestinal: bowel sounds, non-tender, other (No guarding), soft Extremities: other (Trace edema, bandage lower extremity) Results Result Diagram: 06/28/16 0514 06/28/16 0514 Results 24 hrs Laboratory Tests Test 06/28/16 05:14 White Blood Count 7.3 Red Blood Count 2.38 L Hemoglobin 7.4 L Hematocrit 24.8 L Mean Corpuscular Volume 104.2 H Mean Corpuscular Hemoglobin 31.1 Mean Corpuscular Hemoglobin Concent 29.8 L Red Cell Distribution Width 16.1 H Platelet Count 238 Mean Platelet Volume 11.5 H Neutrophils % 52.1 Lymphocytes % 35.8 Monocytes % 9.2 Eosinophils % 2.3 Basophils % 0.3 Nucleated Red Blood Cells % 0.0 Neutrophils # 3.8 Lymphocytes # 2.6 Monocytes # 0.7 Eosinophils # 0.2 Basophils # 0.0 Nucleated Red Blood Cells # 0.0 Sodium Level 143 Potassium Level 3.5 Chloride Level 105 Carbon Dioxide Level 27 Anion Gap 15 Blood Urea Nitrogen 18 Creatinine 1.02 H Glucose Level 114 # Calcium Level 8.1 L Medications Medications Current Medications Heparin Sodium (Porcine) (Heparin (5000 Units/0.5 ml)) 5,000 unit Q8 SC Last administered on 06/27/16 23:55; Admin Dose 5,000 UNIT; Start 06/20/16 at 14:00 Clopidogrel Bisulfate (plaVIX) 75 mg DAILY PO Last administered on 06/28/16 08 :20; Admin Dose 75 MG; Start 06/20/16 at 12:00 Amlodipine Besylate (Norvasc) 5 mg BID PO Last administered on 06/28/16 08:20 ; Admin Dose 5 MG; Start 06/20/16 at 13:30 Atenolol (Tenormin) 50 mg BID PO Last administered on 06/28/16 08:20; Admin Dose 50 MG; Start 06/20/16 at 13:30 Atorvastatin Calcium (Lipitor) 40 mg QHS PO Last administered on 06/27/16 21: 30; Admin Dose 40 MG; Start 06/20/16 at 21:00 Famotidine (Pepcid) 20 mg DAILY PO Last administered on 06/28/16 08:20; Admin Dose 20 MG; Start 06/20/16 at 13:30 Folic Acid (Folic Acid) 2 mg DAILY PO Last administered on 06/28/16 08:20; Admin Dose 2 MG; Start 06/21/16 at 09:00 Gabapentin (Neurontin) 100 mg QHS PO Last administered on 06/27/16 21:30; Admin Dose 100 MG; Start 06/20/16 at 21:00 Gabapentin (Neurontin) 300 mg HS PO Last administered on 06/27/16 21:30; Admin Dose 300 MG; Start 06/20/16 at 21:00 Acetaminophen/ Hydrocodone Bitart ([place] (5/325)) 2 tab Q12 PRN PO PAIN LEVEL 6 -10 Last administered on 06/27/16 12:58; Admin Dose 2 TAB; Start 06/20/16 at 13 :30 Ondansetron HCl (Zofran Inj) 4 mg Q6H PRN IV NAUSEA AND/OR VOMITING Last administered on 06/26/16 20:35; Admin Dose 4 MG; Start 06/20/16 at 13:30 Morphine Sulfate (morphine) 2 mg Q4H PRN IV PAIN LEVEL 7-10 Last administered on 06/20/16 13:49; Admin Dose 2 MG; Start 06/20/16 at 13:44 Lorazepam (Ativan) 1 mg Q2H PRN IV ANXIETY; Start 06/20/16 at 13:30 Docusate Sodium (Colace) 100 mg Q12H PRN PO CONSTIPATION; Start 06/20/16 at 13: 30 Magnesium Hydroxide (Milk Of Mag) 30 ml DAILY PRN PO CONSTIPATION; Start at 13:30 Hydralazine HCl (Apresoline) 10 mg Q4H PRN IV ELEVATED SYSTOLIC BP; Start 06/20 at 19:00 Doxycycline Hyclate 100 mg 100 mg BID PO Last administered on 06/28/16 08:20; Admin Dose 100 MG; Start 06/21/16 at 15:30 Ceftriaxone Sodium (Rocephin) 50 ml @ 100 mls/hr Q24H IVPB Last administered on 06/27/16 14:43; Admin Dose 100 MLS/HR; Start 06/22/16 at 15:30 Acetaminophen/ Hydrocodone Bitart ([place] (5/325)) 1 tab Q4 PRN PO PAIN Last administered on 06/28/16 01:32; Admin Dose 1 TAB; Start 06/27/16 at 11:00 James Berman DO Jun 28, 2016 11:05
--- NOTE | 2016-06-28 13:21 | CONS ---
Date/Time of Note Date/Time of Note DATE: 06/28/16 TIME: 13:21 Assessment/Plan Assessment/Plan Chief Complaint/Hosp Course SUBJECTIVE: No events, no fevers INDWELLINGS: Right IJ triple-lumen catheter. ANTIMICROBIALS: Doxycycline PHYSICAL EXAMINATION: GENERAL: This is a fragile, well-developed, elderly woman, who is alert, in no distress. HEENT: Head atraumatic, normocephalic. Sclerae are anicteric. Buccal mucosa dry. NECK: Supple, trachea midline. CHEST: Chest rise is symmetrical. Breath sounds clear. HEART: S1, S2. ABDOMEN: Soft, bowel tones present. EXTREMITIES: With left foot dressing intact. ASSESSMENT: 1. Severe peripheral vascular disease, status post left arterial femoral bypass with stent placement. 2. 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 3. Anemia. 4. Hypertension. 5. Renal insufficiency. PLAN: Remains stable, continue Doxycycline for 5 more days, f/u podiatry and vascular recommendations [facility] staff Problems: Consultation Date/Type/Reason Admit Date/Time Jun 20, 2016 at 05:17 Type of Consultation: id Exam/Review of Systems Vital Signs Vitals Vital Signs Date Time Temp Pulse Resp B/P Pulse Ox O2 Delivery O2 Flow Rate FiO2 06/28/16 07:24 98.0 58 18 122/58 97 06/26/16 12:14 Room Air Intake and Output 06/27/16 06/27/16 06/28/16 15:00 23:00 07:00 Intake Total 770 ml 240 ml Output Total 300 ml Balance 470 ml 240 ml Results Result Diagram: 06/28/16 0514 06/28/16 0514 Results 24 hrs Laboratory Tests Test 06/28/16 05:14 White Blood Count 7.3 Red Blood Count 2.38 L Hemoglobin 7.4 L Hematocrit 24.8 L Mean Corpuscular Volume 104.2 H Mean Corpuscular Hemoglobin 31.1 Mean Corpuscular Hemoglobin Concent 29.8 L Red Cell Distribution Width 16.1 H Platelet Count 238 Mean Platelet Volume 11.5 H Neutrophils % 52.1 Lymphocytes % 35.8 Monocytes % 9.2 Eosinophils % 2.3 Basophils % 0.3 Nucleated Red Blood Cells % 0.0 Neutrophils # 3.8 Lymphocytes # 2.6 Monocytes # 0.7 Eosinophils # 0.2 Basophils # 0.0 Nucleated Red Blood Cells # 0.0 Sodium Level 143 Potassium Level 3.5 Chloride Level 105 Carbon Dioxide Level 27 Anion Gap 15 Blood Urea Nitrogen 18 Creatinine 1.02 H Glucose Level 114 # Calcium Level 8.1 L Medications Medications Current Medications Heparin Sodium (Porcine) (Heparin (5000 Units/0.5 ml)) 5,000 unit Q8 SC Last administered on 06/27/16 23:55; Admin Dose 5,000 UNIT; Start 06/20/16 at 14:00 Clopidogrel Bisulfate (plaVIX) 75 mg DAILY PO Last administered on 06/28/16 08 :20; Admin Dose 75 MG; Start 06/20/16 at 12:00 Amlodipine Besylate (Norvasc) 5 mg BID PO Last administered on 06/28/16 08:20 ; Admin Dose 5 MG; Start 06/20/16 at 13:30 Atenolol (Tenormin) 50 mg BID PO Last administered on 06/28/16 08:20; Admin Dose 50 MG; Start 06/20/16 at 13:30 Atorvastatin Calcium (Lipitor) 40 mg QHS PO Last administered on 06/27/16 21: 30; Admin Dose 40 MG; Start 06/20/16 at 21:00 Famotidine (Pepcid) 20 mg DAILY PO Last administered on 06/28/16 08:20; Admin Dose 20 MG; Start 06/20/16 at 13:30 Folic Acid (Folic Acid) 2 mg DAILY PO Last administered on 06/28/16 08:20; Admin Dose 2 MG; Start 06/21/16 at 09:00 Gabapentin (Neurontin) 100 mg QHS PO Last administered on 06/27/16 21:30; Admin Dose 100 MG; Start 06/20/16 at 21:00 Gabapentin (Neurontin) 300 mg HS PO Last administered on 06/27/16 21:30; Admin Dose 300 MG; Start 06/20/16 at 21:00 Acetaminophen/ Hydrocodone Bitart ([place] (5/325)) 2 tab Q12 PRN PO PAIN LEVEL 6 -10 Last administered on 06/27/16 12:58; Admin Dose 2 TAB; Start 06/20/16 at 13 :30 Ondansetron HCl (Zofran Inj) 4 mg Q6H PRN IV NAUSEA AND/OR VOMITING Last administered on 06/26/16 20:35; Admin Dose 4 MG; Start 06/20/16 at 13:30 Morphine Sulfate (morphine) 2 mg Q4H PRN IV PAIN LEVEL 7-10 Last administered on 06/20/16 13:49; Admin Dose 2 MG; Start 06/20/16 at 13:44 Lorazepam (Ativan) 1 mg Q2H PRN IV ANXIETY; Start 06/20/16 at 13:30 Docusate Sodium (Colace) 100 mg Q12H PRN PO CONSTIPATION; Start 06/20/16 at 13: 30 Magnesium Hydroxide (Milk Of Mag) 30 ml DAILY PRN PO CONSTIPATION; Start at 13:30 Hydralazine HCl (Apresoline) 10 mg Q4H PRN IV ELEVATED SYSTOLIC BP; Start 06/20 at 19:00 Doxycycline Hyclate 100 mg 100 mg BID PO Last administered on 06/28/16 08:20; Admin Dose 100 MG; Start 06/21/16 at 15:30 Ceftriaxone Sodium (Rocephin) 50 ml @ 100 mls/hr Q24H IVPB Last administered on 06/27/16 14:43; Admin Dose 100 MLS/HR; Start 06/22/16 at 15:30 Acetaminophen/ Hydrocodone Bitart ([place] (5/325)) 1 tab Q4 PRN PO PAIN Last administered on 06/28/16 12:58; Admin Dose 1 TAB; Start 06/27/16 at 11:00 VEGA PALMA NP Jun 28, 2016 13:21
[2016-06-28] MEDS: CEFTRIAXONE 1 GM/50 ML (PMX) 50 ML IVPB SCH (15:37)
--- NOTE | 2016-06-28 18:18 | PN ---
Date/Time of Note Date/Time of Note DATE: 06/28/16 TIME: 18:17 Assessment/Plan Lines/Catheters IV Catheter Type (from Nrs): Central Line [place] in Place (from Nrs): No Assessment/Plan Chief Complaint/Hosp Course -Bilateral lower extremity atherosclerosis with gangrene: S/P Left iliofemoral artery exploration, Left common iliac & External Iliac artery stenting and balloon angioplasty, Left femoral &popliteal artery stenting and balloon angioplasty -PT/OT OOB FWB as tolerated -Started pt on Plavix 75mg po Q daily for 90 days -Initiate D/C planning with antibiotics and Plavix -Patient cleared from vascular standpoint for discharge. Will schedule patient for right lower extremity revascularization in the coming weeks -Optimize vascular status (BP meds, cholesterol, sugar control, diet, nutrition , weight loss, antiplatelets) -Discussed findings, plan and management with the patient and she understands -Thank you for allowing us to partake in the care of your patient, please call with any questions Problems: Subjective 24 Hr Interval Summary no new vascular events overnight Exam/Review of Systems Vital Signs Vitals Vital Signs Date Time Temp Pulse Resp B/P Pulse Ox O2 Delivery O2 Flow Rate FiO2 06/28/16 07:24 98.0 58 18 122/58 97 06/26/16 12:14 Room Air Intake and Output 06/27/16 06/27/16 06/28/16 15:00 23:00 07:00 Intake Total 770 ml 240 ml Output Total 300 ml Balance 470 ml 240 ml Exam Free Text/Dictation A&O x3 CTAB S1S2 present Soft NTND BS+, truncal obesity, large panus RLE: nonpalpable femoral pulse, nonpalpable pedal pulse, motor/sensory intact, cap refill 4 seconds, 5th toe gangrene LLE: palpable femoral pulse, adilia intact and dry, dopplerable biphasic AT/PT signal, motor/sensory intact, cap refill 2-3seconds at the ankle, Surgical Dressing intact of the foot Results Result Diagram: 06/28/16 0514 06/28/16 0514 AMY VADLES MD Jun 28, 2016 18:18
[2016-06-28 19:41] VITALS: BP 127/59; RESP 20
[2016-06-28] MEDS: GABAPENTIN 100 MG CAP PO SCH (21:45)
[2016-06-28] MEDS: GABAPENTIN 300 MG CAP PO SCH (21:45)
[2016-06-28] MEDS: ATORVASTATIN 40 MG TAB PO SCH (21:45)
--- NOTE | 2016-06-28 22:01 | PN ---
Date/Time of Note Date/Time of Note DATE: 06/28/16 TIME: 22:00 Assessment/Plan VTE Prophylaxis VTE Prophylaxis Intervention: other Lines/Catheters [facility] Type [facility] Central Line Urinary Cath still in place: No Assessment/Plan Assessment/Plan 1. Left iliac arterial inclusion in patient with bilateral peripheral arterial disease status post left iliofemoral endarterectomy and left femoral popliteal bypass angioplasty with stent placement by Dr. Shepherd on 06/20/2016. Continue to follow up surgical recommendation. Continue patient on heparin and Plavix. Continue morphine p.r.n. for pain and Zofran p.r.n. for nausea. 2. Hypertension. [address] Berman is following and cardiology consultation. Continue Norvasc, atenolol, continue hydralazine p.r.n. for systolic blood pressure above 170. 3. Left foot cellulitis with gangrene. Dr. Guerrero is following the patient in podiatry consultation. S/P TMA 06/26. Dr. Parr is following in infection disease consultation. Continue antibiotics and current wound care. 4. Left ovarian cyst. Continue to monitor, pelvic ultrasound in 3 months. Continue Pepcid for peptic ulcer disease prophylaxis. Further recommendations based on clinical course. Plan of care discussed with Dr. Stephens. Subjective 24 Hr Interval Summary Eyes: no complaints ENT: no complaints Respiratory: no complaints Cardiovascular: no complaints Gastrointestinal: no complaints Genitourinary: no complaints Musculoskeletal: bone/joint pain Skin: no complaints Neurologic: no complaints Immunologic: no complaints Exam/Review of Systems Vital Signs Vitals Vital Signs Date Time Temp Pulse Resp B/P Pulse Ox O2 Delivery O2 Flow Rate FiO2 06/28/16 19:41 98.5 54 20 127/59 93 06/26/16 12:14 Room Air Intake and Output 06/27/16 06/27/16 06/28/16 15:00 23:00 07:00 Intake Total 770 ml 240 ml Output Total 300 ml Balance 470 ml 240 ml Exam Constitutional: alert, oriented, well developed Psych: nl mood/affect Head: atraumatic Eyes: EOMI, PERRL, nl sclera ENMT: nl external ears & nose Neck: non-tender Respiratory: clear to auscultation Cardiovascular: nl pulses Gastrointestinal: non-tender, soft Musculoskeletal: other Neurological: nl mental status, nl speech Skin: other Lymph: nontender Results Result Diagram: 06/28/16 0514 06/28/16 0514 Results 24 hrs Laboratory Tests Test 06/28/16 05:14 White Blood Count 7.3 Red Blood Count 2.38 L Hemoglobin 7.4 L Hematocrit 24.8 L Mean Corpuscular Volume 104.2 H Mean Corpuscular Hemoglobin 31.1 Mean Corpuscular Hemoglobin Concent 29.8 L Red Cell Distribution Width 16.1 H Platelet Count 238 Mean Platelet Volume 11.5 H Neutrophils % 52.1 Lymphocytes % 35.8 Monocytes % 9.2 Eosinophils % 2.3 Basophils % 0.3 Nucleated Red Blood Cells % 0.0 Neutrophils # 3.8 Lymphocytes # 2.6 Monocytes # 0.7 Eosinophils # 0.2 Basophils # 0.0 Nucleated Red Blood Cells # 0.0 Sodium Level 143 Potassium Level 3.5 Chloride Level 105 Carbon Dioxide Level 27 Anion Gap 15 Blood Urea Nitrogen 18 Creatinine 1.02 H Glucose Level 114 # Calcium Level 8.1 L Medications Medications Current Medications Heparin Sodium (Porcine) (Heparin (5000 Units/0.5 ml)) 5,000 unit Q8 SC Last administered on 06/28/16 21:57; Admin Dose 5,000 UNIT; Start 06/20/16 at 14:00 Clopidogrel Bisulfate (plaVIX) 75 mg DAILY PO Last administered on 06/28/16 08 :20; Admin Dose 75 MG; Start 06/20/16 at 12:00 Amlodipine Besylate (Norvasc) 5 mg BID PO Last administered on 06/28/16 21:46 ; Admin Dose 5 MG; Start 06/20/16 at 13:30 Atenolol (Tenormin) 50 mg BID PO Last administered on 06/28/16 21:47; Admin Dose 50 MG; Start 06/20/16 at 13:30 Atorvastatin Calcium (Lipitor) 40 mg QHS PO Last administered on 06/28/16 21: 45; Admin Dose 40 MG; Start 06/20/16 at 21:00 Famotidine (Pepcid) 20 mg DAILY PO Last administered on 06/28/16 08:20; Admin Dose 20 MG; Start 06/20/16 at 13:30 Folic Acid (Folic Acid) 2 mg DAILY PO Last administered on 06/28/16 08:20; Admin Dose 2 MG; Start 06/21/16 at 09:00 Gabapentin (Neurontin) 100 mg QHS PO Last administered on 06/28/16 21:45; Admin Dose 100 MG; Start 06/20/16 at 21:00 Gabapentin (Neurontin) 300 mg HS PO Last administered on 06/28/16 21:45; Admin Dose 300 MG; Start 06/20/16 at 21:00 Acetaminophen/ Hydrocodone Bitart ([place] (5/325)) 2 tab Q12 PRN PO PAIN LEVEL 6 -10 Last administered on 06/27/16 12:58; Admin Dose 2 TAB; Start 06/20/16 at 13 :30 Ondansetron HCl (Zofran Inj) 4 mg Q6H PRN IV NAUSEA AND/OR VOMITING Last administered on 06/26/16 20:35; Admin Dose 4 MG; Start 06/20/16 at 13:30 Morphine Sulfate (morphine) 2 mg Q4H PRN IV PAIN LEVEL 7-10 Last administered on 06/20/16 13:49; Admin Dose 2 MG; Start 06/20/16 at 13:44 Lorazepam (Ativan) 1 mg Q2H PRN IV ANXIETY; Start 06/20/16 at 13:30 Docusate Sodium (Colace) 100 mg Q12H PRN PO CONSTIPATION; Start 06/20/16 at 13: 30 Magnesium Hydroxide (Milk Of Mag) 30 ml DAILY PRN PO CONSTIPATION; Start at 13:30 Hydralazine HCl (Apresoline) 10 mg Q4H PRN IV ELEVATED SYSTOLIC BP; Start 06/20 at 19:00 Doxycycline Hyclate 100 mg 100 mg BID PO Last administered on 06/28/16 21:47; Admin Dose 100 MG; Start 06/21/16 at 15:30 Ceftriaxone Sodium (Rocephin) 50 ml @ 100 mls/hr Q24H IVPB Last administered on 06/28/16 15:37; Admin Dose 100 MLS/HR; Start 06/22/16 at 15:30 Acetaminophen/ Hydrocodone Bitart ([place] (5/325)) 1 tab Q4 PRN PO PAIN Last administered on 06/28/16 12:58; Admin Dose 1 TAB; Start 06/27/16 at 11:00 NILESH CAVANAUGH Jun 28, 2016 22:01
[2016-06-29 05:33] LABS: ADD SCAN DIFF NO
[2016-06-29 05:50] LABS: BASOPHILS % 0.8 % (0.0-2.0); EOSINOPHILS # 0.2 10^3/ul (0.0-0.5); EOSINOPHILS % 4.4 % (0.0-7.0); HEMOGLOBIN 7.9 g/dl (12.0-16.0); LYMPHOCYTES % 40.5 % (15.0-51.0); MEAN CORPUSCULAR HEMOGLOBIN 31.7 pg (29.0-33.0); MEAN CORPUSCULAR HGB CONC 30.4 g/dl (32.0-37.0); MEAN CORPUSCULAR VOLUME 104.4 fl (82.0-101.0); MEAN PLATELET VOLUME 11.4 fl (7.4-10.4); MONOCYTE # 0.5 10^3/ul (0.3-0.9); MONOCYTES % 10.1 % (0.0-11.0); NEUTROPHIL # 2.2 10^3/ul (1.6-7.5); PLATELET COUNT 198 10^3/UL (140-415); RED BLOOD COUNT 2.49 10^6/ul (4.20-5.40); RED CELL DISTRIBUTION WIDTH 15.9 % (11.5-14.5)
[2016-06-29] MEDS: HEPARIN 5,000 UNIT/0.5 ML SYG SC SCH ×3 (06:00→21:24)
[2016-06-29 08:00] VITALS: BP 127/59; RESP 18
[2016-06-29] MEDS: FAMOTIDINE 20 MG TAB PO SCH (09:58)
[2016-06-29] MEDS: CLOPIDOGREL 75 MG TAB PO SCH (09:58)
[2016-06-29] MEDS: AMLODIPINE 5 MG TAB PO SCH ×2 (09:58→21:16)
[2016-06-29] MEDS: FOLIC ACID 1 MG TAB PO SCH (09:58)
[2016-06-29] MEDS: ATENOLOL 50 MG TAB PO SCH ×2 (09:58→21:16)
[2016-06-29] MEDS: DOXYCYCLINE 100 MG TAB PO SCH ×2 (09:58→21:16)
--- NOTE | 2016-06-29 11:39 | CONS ---
Date/Time of Note Date/Time of Note DATE: 06/29/16 TIME: 11:39 Assessment/Plan Assessment/Plan Chief Complaint/Hosp Course SUBJECTIVE: Alert, feels good, no fevers INDWELLINGS: Right IJ triple-lumen catheter. ANTIMICROBIALS: Doxycycline PHYSICAL EXAMINATION: GENERAL: This is a fragile, well-developed, elderly woman, who is alert, in no distress. HEENT: Head atraumatic, normocephalic. Sclerae are anicteric. Buccal mucosa dry. NECK: Supple, trachea midline. CHEST: Chest rise is symmetrical. Breath sounds clear. HEART: S1, S2. ABDOMEN: Soft, bowel tones present. EXTREMITIES: With left foot dressing intact. ASSESSMENT: 1. Severe peripheral vascular disease, status post left arterial femoral bypass with stent placement. 2. 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 3. Anemia. 4. Hypertension. 5. Renal insufficiency. PLAN: Remains stable, continue Doxycycline for 3 more days, f/u podiatry and vascular recommendations [facility] staff Problems: Consultation Date/Type/Reason Admit Date/Time Jun 20, 2016 at 05:17 Type of Consultation: id Exam/Review of Systems Vital Signs Vitals Vital Signs Date Time Temp Pulse Resp B/P Pulse Ox O2 Delivery O2 Flow Rate FiO2 06/29/16 08:00 97.6 55 18 127/59 94 06/26/16 12:14 Room Air Intake and Output 06/28/16 06/28/16 06/29/16 15:00 23:00 07:00 Intake Total 480 ml 240 ml Balance 480 ml 240 ml Results Result Diagram: 06/29/16 0500 06/28/16 0514 Results 24 hrs Laboratory Tests Test 06/29/16 05:00 White Blood Count 5.0 # Red Blood Count 2.49 L Hemoglobin 7.9 L Hematocrit 26.0 L Mean Corpuscular Volume 104.4 H Mean Corpuscular Hemoglobin 31.7 Mean Corpuscular Hemoglobin Concent 30.4 L Red Cell Distribution Width 15.9 H Platelet Count 198 Mean Platelet Volume 11.4 H Neutrophils % 44.0 Lymphocytes % 40.5 Monocytes % 10.1 Eosinophils % 4.4 Basophils % 0.8 Nucleated Red Blood Cells % 0.0 Neutrophils # 2.2 Lymphocytes # 2.0 Monocytes # 0.5 Eosinophils # 0.2 Basophils # 0.0 Nucleated Red Blood Cells # 0.0 Medications Medications Current Medications Heparin Sodium (Porcine) (Heparin (5000 Units/0.5 ml)) 5,000 unit Q8 SC Last administered on 06/28/16 21:57; Admin Dose 5,000 UNIT; Start 06/20/16 at 14:00 Clopidogrel Bisulfate (plaVIX) 75 mg DAILY PO Last administered on 06/29/16 09 :58; Admin Dose 75 MG; Start 06/20/16 at 12:00 Amlodipine Besylate (Norvasc) 5 mg BID PO Last administered on 06/29/16 09:58 ; Admin Dose 5 MG; Start 06/20/16 at 13:30 Atenolol (Tenormin) 50 mg BID PO Last administered on 06/29/16 09:58; Admin Dose 50 MG; Start 06/20/16 at 13:30 Atorvastatin Calcium (Lipitor) 40 mg QHS PO Last administered on 06/28/16 21: 45; Admin Dose 40 MG; Start 06/20/16 at 21:00 Famotidine (Pepcid) 20 mg DAILY PO Last administered on 06/29/16 09:58; Admin Dose 20 MG; Start 06/20/16 at 13:30 Folic Acid (Folic Acid) 2 mg DAILY PO Last administered on 06/29/16 09:58; Admin Dose 2 MG; Start 06/21/16 at 09:00 Gabapentin (Neurontin) 100 mg QHS PO Last administered on 06/28/16 21:45; Admin Dose 100 MG; Start 06/20/16 at 21:00 Gabapentin (Neurontin) 300 mg HS PO Last administered on 06/28/16 21:45; Admin Dose 300 MG; Start 06/20/16 at 21:00 Acetaminophen/ Hydrocodone Bitart ([place] (5/325)) 2 tab Q12 PRN PO PAIN LEVEL 6 -10 Last administered on 06/27/16 12:58; Admin Dose 2 TAB; Start 06/20/16 at 13 :30 Ondansetron HCl (Zofran Inj) 4 mg Q6H PRN IV NAUSEA AND/OR VOMITING Last administered on 06/26/16 20:35; Admin Dose 4 MG; Start 06/20/16 at 13:30 Morphine Sulfate (morphine) 2 mg Q4H PRN IV PAIN LEVEL 7-10 Last administered on 06/20/16 13:49; Admin Dose 2 MG; Start 06/20/16 at 13:44 Lorazepam (Ativan) 1 mg Q2H PRN IV ANXIETY; Start 06/20/16 at 13:30 Docusate Sodium (Colace) 100 mg Q12H PRN PO CONSTIPATION; Start 06/20/16 at 13: 30 Magnesium Hydroxide (Milk Of Mag) 30 ml DAILY PRN PO CONSTIPATION; Start at 13:30 Hydralazine HCl (Apresoline) 10 mg Q4H PRN IV ELEVATED SYSTOLIC BP; Start 06/20 at 19:00 Doxycycline Hyclate 100 mg 100 mg BID PO Last administered on 06/29/16 09:58; Admin Dose 100 MG; Start 06/21/16 at 15:30 Ceftriaxone Sodium (Rocephin) 50 ml @ 100 mls/hr Q24H IVPB Last administered on 06/28/16 15:37; Admin Dose 100 MLS/HR; Start 06/22/16 at 15:30 Acetaminophen/ Hydrocodone Bitart ([place] (5/325)) 1 tab Q4 PRN PO PAIN Last administered on 06/28/16 12:58; Admin Dose 1 TAB; Start 06/27/16 at 11:00 VEGA PALMA NP Jun 29, 2016 11:39
[2016-06-29] MEDS ORDERED: SOD CHLORIDE 0.9% 250 ML IV* ONE (14:55)
--- NOTE | 2016-06-29 15:58 | DS ---
DATE OF ADMISSION: 06/20/2016 DATE OF DISCHARGE: 06/29/2016 FINAL DIAGNOSES: 1. 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 2. Status post left iliofemoral endarterectomy and left femoral popliteal bypass angioplasty with s tent placement. 3. Left foot gangrene status post transmetatarsal amputation. 4. Hypertension. 5. Left ovarian cyst. BRIEF HISTORY: The patient is an 85-year-old male with a left foot cellulitis with gangrene, peripheral arterial occlusive disease, hypertension, and cystic structure of the left adn exa. The patient was brought to the hospital for elective surgery by Dr. Shepherd, vascular surger y. Prior to surgery, the patient had clearance by automotive painter, Dr. Berman. HOSPITAL COURSE: The patient was brought to the hospital and underwent left iliofemoral endarterect genet and left femoral popliteal bypass angioplasty with stent placement by Dr. Shepherd on 7 for left iliac arterial occlusion and severe peripheral arterial disease. The patient was also ev aluated by Dr. Parr in infectious disease consultation and was given antibiotics for cellulitis. The patient was also followed by Dr. Berman in cardiology consultation. The patient was followed by Dr. Baker in nephrology consultation. The patient was evaluated by Dr. Guerrero in podiatry [facility], and the patient underwent a left transmetatarsal amputations 06/26/2016. The patient's pain was well controlled, and blood pressure was closely monitored. The patient was also given Clawson an d morphine for pain. The patient also underwent blood transfusion for anemia. The patient's condit ion improved, and the patient will be discharged to [facility] facility for further management and care with plan for the patient to return back to the hospital for vascular intervention on the r ight lower extremity by Dr. Shepherd. CONDITION ON DISCHARGE: Hemodynamically stable. ACTIVITY: As patient tolerates. DIET: 2 g sodium, low fat, low cholesterol diet. DISCHARGE MEDICATIONS: 1. Albuterol nebulizer p.r.n. for shortness of breath. 2. Norvasc 5 mg p.o. b.i.d. 3. Atenolol 50 mg p.o. b.i.d. 4. Lipitor 40 mg daily. 5. Plavix 75 mg p.o. daily. 6. Colace 100 mg p.o. q. 12 hours. 7. Doxycycline 100 mg p.o. b.i.d. for 3 more days until 07/03/2016. 8. Pepcid 20 mg p.o. daily. 9. Folic acid 2 mg p.o. daily. 10. Neurontin 400 mg p.o. at bedtime. 11. Hydralazine 10 mg p.o. b.i.d. 12. Clawson p.r.n. for pain. 13. Milk of magnesia 30 mg p.o. daily. Interdisciplinary care was established for this patient. Plan of care was discussed with Dr. Magdalena edwards. Dictated By: JANIS BAKER CORN POPPER for MELISSA ORR MD, SR/NTS Conf#: [id number] DID#: [id number]
[2016-06-29] MEDS: CEFTRIAXONE 1 GM/50 ML (PMX) 50 ML IVPB SCH (16:09)
--- NOTE | 2016-06-29 16:12 | CONS ---
Date/Time of Note Date/Time of Note DATE: 06/29/16 TIME: 16:10 Assessment/Plan Assessment/Plan Additional Assessment/Plan Peripheral arterial disease with critical limb ischemia status post left iliac endarterectomy and stenting of left SFA Hypertension Dyslipidemia Preserved ejection fraction Normal nuclear cardiac perfusion study 06/05/2016 -Blood pressure trend overall improved. Continue statin therapy, patient awaiting blood transfusion. Consultation Date/Type/Reason Admit Date/Time Jun 20, 2016 at 05:17 Type of Consultation: cv 24 HR Interval Summary Free Text/Dictation Patient denies chest pain, shortness of breath or palpitations Exam/Review of Systems Vital Signs Vitals Vital Signs Date Time Temp Pulse Resp B/P Pulse Ox O2 Delivery O2 Flow Rate FiO2 06/29/16 08:00 97.6 55 18 127/59 94 06/26/16 12:14 Room Air Intake and Output 06/28/16 06/28/16 06/29/16 15:00 23:00 07:00 Intake Total 480 ml 240 ml Balance 480 ml 240 ml Exam No apparent distress Constitutional: alert, frail, oriented Head: normocephalic Neck: supple Respiratory: other (Coarse breath sounds bilaterally, no wheezing) Cardiovascular: other (S1-S2 heard), regular rate and rhythm Gastrointestinal: bowel sounds, non-tender, other (Regarding), soft Extremities: other (Trace edema, bandage lower extremity) Results Result Diagram: 06/29/16 0500 06/28/16 0514 Results 24 hrs Laboratory Tests Test 06/29/16 05:00 White Blood Count 5.0 # Red Blood Count 2.49 L Hemoglobin 7.9 L Hematocrit 26.0 L Mean Corpuscular Volume 104.4 H Mean Corpuscular Hemoglobin 31.7 Mean Corpuscular Hemoglobin Concent 30.4 L Red Cell Distribution Width 15.9 H Platelet Count 198 Mean Platelet Volume 11.4 H Neutrophils % 44.0 Lymphocytes % 40.5 Monocytes % 10.1 Eosinophils % 4.4 Basophils % 0.8 Nucleated Red Blood Cells % 0.0 Neutrophils # 2.2 Lymphocytes # 2.0 Monocytes # 0.5 Eosinophils # 0.2 Basophils # 0.0 Nucleated Red Blood Cells # 0.0 Medications Medications Current Medications Heparin Sodium (Porcine) (Heparin (5000 Units/0.5 ml)) 5,000 unit Q8 SC Last administered on 06/29/16t 13:43; Admin Dose 5,000 UNIT; Start 06/20/16 at 14:00 Clopidogrel Bisulfate (plaVIX) 75 mg DAILY PO Last administered on 06/29/16 09 :58; Admin Dose 75 MG; Start 06/20/16 at 12:00 Amlodipine Besylate (Norvasc) 5 mg BID PO Last administered on 06/29/16 09:58 ; Admin Dose 5 MG; Start 06/20/16 at 13:30 Atenolol (Tenormin) 50 mg BID PO Last administered on 06/29/16 09:58; Admin Dose 50 MG; Start 06/20/16 at 13:30 Atorvastatin Calcium (Lipitor) 40 mg QHS PO Last administered on 06/28/16 21: 45; Admin Dose 40 MG; Start 06/20/16 at 21:00 Famotidine (Pepcid) 20 mg DAILY PO Last administered on 06/29/16 09:58; Admin Dose 20 MG; Start 06/20/16 at 13:30 Folic Acid (Folic Acid) 2 mg DAILY PO Last administered on 06/29/16 09:58; Admin Dose 2 MG; Start 06/21/16 at 09:00 Gabapentin (Neurontin) 100 mg QHS PO Last administered on 06/28/16 21:45; Admin Dose 100 MG; Start 06/20/16 at 21:00 Gabapentin (Neurontin) 300 mg HS PO Last administered on 06/28/16 21:45; Admin Dose 300 MG; Start 06/20/16 at 21:00 Acetaminophen/ Hydrocodone Bitart ([place] (5/325)) 2 tab Q12 PRN PO PAIN LEVEL 6 -10 Last administered on 06/27/16 12:58; Admin Dose 2 TAB; Start 06/20/16 at 13 :30 Ondansetron HCl (Zofran Inj) 4 mg Q6H PRN IV NAUSEA AND/OR VOMITING Last administered on 06/26/16 20:35; Admin Dose 4 MG; Start 06/20/16 at 13:30 Morphine Sulfate (morphine) 2 mg Q4H PRN IV PAIN LEVEL 7-10 Last administered on 06/20/16 13:49; Admin Dose 2 MG; Start 06/20/16 at 13:44 Lorazepam (Ativan) 1 mg Q2H PRN IV ANXIETY; Start 06/20/16 at 13:30 Docusate Sodium (Colace) 100 mg Q12H PRN PO CONSTIPATION; Start 06/20/16 at 13: 30 Magnesium Hydroxide (Milk Of Mag) 30 ml DAILY PRN PO CONSTIPATION; Start at 13:30 Hydralazine HCl (Apresoline) 10 mg Q4H PRN IV ELEVATED SYSTOLIC BP; Start 06/20 at 19:00 Doxycycline Hyclate 100 mg 100 mg BID PO Last administered on 06/29/16 09:58; Admin Dose 100 MG; Start 06/21/16 at 15:30 Ceftriaxone Sodium (Rocephin) 50 ml @ 100 mls/hr Q24H IVPB Last administered on 06/28/16 15:37; Admin Dose 100 MLS/HR; Start 06/22/16 at 15:30 Acetaminophen/ Hydrocodone Bitart ([place] (5/325)) 1 tab Q4 PRN PO PAIN Last administered on 06/28/16 12:58; Admin Dose 1 TAB; Start 06/27/16 at 11:00 James Breman DO Jun 29, 2016 16:12
[2016-06-29 19:38] VITALS: BP 156/68; RESP 18
[2016-06-29 19:40] VITALS: BP 155/65; PULSE 55; RESP 18
[2016-06-29 20:40] VITALS: BP 148/63; PULSE 54; RESP 18
[2016-06-29] MEDS: ATORVASTATIN 40 MG TAB PO SCH (21:16)
[2016-06-29] MEDS: GABAPENTIN 100 MG CAP PO SCH (21:16)
[2016-06-29] MEDS: GABAPENTIN 300 MG CAP PO SCH (21:16)
== END 2016-06-30 00:02 | DRG 240 ==
LOC: REC 05:17 → ICU 12:59 → MS2 06-21 15:45
PROVIDERS: ADMIT Student in an Organized Health Care Education/Training Program; ATTEND Student in an Organized Health Care Education/Training Program
PROC: 047D3DZ Dilation of Left Common Iliac Artery with Intraluminal Device, Percutaneous Approach (ICD-10-PCS; 2016-06-20)
PROC: 047N3DZ Dilation of Left Popliteal Artery with Intraluminal Device, Percutaneous Approach (ICD-10-PCS; 2016-06-20)
PROC: 047J3DZ Dilation of Left External Iliac Artery with Intraluminal Device, Percutaneous Approach (ICD-10-PCS; 2016-06-20)
PROC: 047L3DZ Dilation of Left Femoral Artery with Intraluminal Device, Percutaneous Approach (ICD-10-PCS; 2016-06-20)
PROC: 0Y6N0ZB Detachment at Left Foot, Partial 2nd Ray, Open Approach (ICD-10-PCS; 2016-06-26)
PROC: 0Y6N0ZC Detachment at Left Foot, Partial 3rd Ray, Open Approach (ICD-10-PCS; 2016-06-26)
PROC: 0Y6N0ZD Detachment at Left Foot, Partial 4th Ray, Open Approach (ICD-10-PCS; 2016-06-26)
PROC: 0Y6N0ZF Detachment at Left Foot, Partial 5th Ray, Open Approach (ICD-10-PCS; 2016-06-26)
PROC: 0Y6N0Z9 Detachment at Left Foot, Partial 1st Ray, Open Approach (ICD-10-PCS; principal; 2016-06-26 09:30)
PROC: 30233N1 Transfusion of Nonautologous Red Blood Cells into Peripheral Vein, Percutaneous Approach (ICD-10-PCS; 2016-06-29)
DX: I70.262 Atherosclerosis of native arteries of extremities with gangrene, left leg (principal); L03.116 Cellulitis of left lower limb; R34 Anuria and oliguria; I10 Essential (primary) hypertension; E66.9 Obesity, unspecified; Z68.26 Body mass index [BMI] 26.0-26.9, adult; E65 Localized adiposity; K40.90 Unilateral inguinal hernia, without obstruction or gangrene, not specified as recurrent; Z87.891 Personal history of nicotine dependence; E83.42 Hypomagnesemia; D64.9 Anemia, unspecified; N83.202 Unspecified ovarian cyst, left side
CPT/HCPCS: 36430; 71010; 75716; 80048; 81001; 81003; 82043; 83735; 84100; 84155; 84300; 85025; 86850; 86900; 86901; 86920; 87086; 88304; 97110; 97116; 97162; 97530; J0360; J0690; J0696; J1100; J1644; J2250; J2270; J2370; J2405; J2440; J3010; J3370; J3475; J7040; P9016; Q9967